=== PATIENT | female | born 1970 | race Caucasian/White ===

== ENCOUNTER 2019-07-29 08:40 | Outpatient (CLI) | payer OTHER, SELFPAY ==
--- NOTE | ~2019-07-29 | MR_ITS ---
EXAMINATION: MR knee LT wo con DATE: 07/29/2019 09:49 INDICATION: Left knee pain TECHNIQUE: Magnetic resonance imaging (MRI) of the left knee was performed without intravenous contra st. Sequences included coronal PD-weighted FSE, coronal PD-weighted FS FSE, sagittal T2-weighted FSE , sagittal PD-weighted FS FSE and axial PD weighted fat saturated FSE. COMPARISON: None. FINDINGS: Medial compartment: Longitudinal tear extending to contact the inferior articular surface at the body and posterior horn of the medial meniscus. Posterior horn appears small but without evident displaced meniscal flap whic h could be related to chronic degeneration or change of prior partial meniscectomy. Correlate with clemons rgical history. Extensive full/near full-thickness cartilage loss along the anterior and medial two t hirds of the medial tibial plateau as well as along the anterior to central weightbearing medial femo ral condyle. Is underlying lobe signal intensity likely eburnation along the articular cortices with minimal scattered subarticular edema. Small marginal osteophytes are present. Lateral compartment: Additional full/near full-thickness cartilage loss at the medial side of the lateral tibial plateau a long the shoulder the intercondylar eminence with mild underlying subarticular edema. Deep chondral u lceration at the juxtaposed anterior weightbearing lateral femoral condyle which articulates with the apex of the lateral intercondylar tubercle due to mild lateral subluxation of the tibia with respect to the femur. Less severe partial thickness cartilage loss with chondral surface regularity along th e remainder of the lateral tibial plateau and anterior to central weightbearing lateral femoral condy le. Small marginal osteophytes are present. Patellofemoral compartment: Partial-thickness chondral fissuring which appears to involve less than 50% the cartilage thickness a t the patellar apical ridge and medial and lateral patellar facets. /Near full-thickness chondral ulc eration with mild irregularity to the articular cortex at the caudal aspect of the medial trochlea an d trochlear groove. Deep chondral fissuring with small region of mild subarticular edema at the cauda l aspect of the lateral trochlea. Ligaments and tendons: The anterior cruciate ligament demonstrates a normal angle relative to Blumenstaat's line. It appears thickened with increased intrasubstance signal surrounding intact appearing linear fibers with a ce lery stalk appearance consistent with mucoid degeneration without discrete tear. There is thickening and mild increased signal of the vertical portion of the posterior cruciate ligament consistent with at least mild partial tear without a discernible tendon discontinuity. The medial collateral ligamen t and fibular collateral ligament complex are normal. The extensor mechanism is normal. The visualize d medial and lateral hamstring tendons as well as the iliotibial band are normal. Fluid: Moderate-sized left knee joint effusion with mild synovitis at the suprapatellar pouch. Cluster of at least 4 small loose osteochondral bodies at the recess anterior to the lateral compartment, the larg est measuring up to 5-6 mm in maximal diameter. Synovitis and additional small loose osteochondral mechelle dy within a moderate-sized Ramirez's cyst size of a superficial component measuring 3.6 x 1.1 x 1.0 cm and a deeper component measuring 2.8 x 0.5 x 1.3 cm. Osseous/other: Approximately 5 mm lateral subluxation of the tibia with respect to the distal femur. Minimal lateral subluxation of the patella. No fracture or pathologic marrow replacing process. IMPRESSION: 1. Longitudinal tear of the body and posterior horn of the medial meniscus. The posterior horn appear s smaller than typical suggesting either chronic degeneration, displacement and secondary degeneratio n of a meniscal flap or pot
--- NOTE | ~2019-07-29 | MR_ITS ---
EXAMINATION: MR knee RT wo con DATE: 07/29/2019 09:49 INDICATION: Right knee pain TECHNIQUE: Magnetic resonance imaging (MRI) of the right knee was performed without intravenous contr ast. Sequences included coronal PD-weighted FSE, coronal PD-weighted FS FSE, sagittal T2-weighted FS E, sagittal PD-weighted FS FSE and axial PD weighted fat saturated FSE. COMPARISON: Right knee radiographs dated 01/17/2019 FINDINGS: Medial compartment: Posterior horn of the medial meniscus is small suggesting either chronic tear and subsequent degenera tion or displacement of meniscal tissue or change of prior partial meniscectomy. There is complex tea r of the body and small remaining posterior horn of the medial meniscus. Extensive full/near full-thi ckness cartilage loss with subarticular eburnation and mild edema along the anteromedial two thirds o f the medial tibial plateau and medial 3 4 since the anterior to central weightbearing medial femoral condyle. Less severe cartilage loss with chondral surface regularity at the remainder of the medial tibial plateau and weightbearing medial femoral condyle. Marginal osteophytes are present. Lateral compartment: There is increased signal contacting the inferior articular surface near the free edge of the body of the lateral meniscus and posterior horn which could represent a longitudinal tear/tears versus frayi ng along the free edge. Additional full/near full-thickness cartilage loss at the medial side of the lateral tibial plateau along the shoulder the intercondylar eminence with mild underlying subarticula r edema. Deep chondral ulceration at the juxtaposed medial side of the anterior weightbearing lateral femoral condyle which articulates with the apex of the lateral intercondylar tubercle due to mild la teral subluxation of the tibia with respect to the femur. Less severe partial thickness cartilage los s with chondral surface irregularity along the additional portions of the central to posterior weight bearing lateral femoral condyle. Small marginal osteophytes are present. Patellofemoral compartment: Small region of full/near full-thickness chondral ulceration with underlying subarticular edema along the inferior aspect of the lateral patellar facet. Additional partial thickness cartilage loss with deep fissuring along significant portions of the remainder of the lateral facet and patellar apical r idge and medial margin of the medial facet. Large region of full/near full-thickness chondral ulcerat ion with regularity at of the articular cortex and scattered subarticular edema and developing cystic change along the caudal half of the lateral trochlea prominent central subchondral osteophyte at the site of likely deep chondral ulceration at the caudal aspect of the medial trochlea. Ligaments and tendons: The anterior cruciate ligament demonstrates a normal angle relative to Blumenstaat's line. It appears thickened with increased intrasubstance signal surrounding intact appearing linear fibers with a ce lery stalk appearance consistent with mucoid degeneration without discrete tear. Posterior cruciate ligament is normal. The medial collateral ligament and fibular collateral ligament complex are normal . The extensor mechanism is normal. The visualized medial and lateral hamstring tendons as well as th e iliotibial band are normal. Fluid: Moderate-sized knee joint effusion and moderate-sized Ramirez's cyst, both with small amount of synovit is. And by 5 mm loose osteochondral body within the Ramirez's cyst. Osseous/other: Approximately 5 mm lateral subluxation of the tibia with respect to the distal femur. Minimal lateral patellar subluxation. No fracture or pathologic marrow replacing process. IMPRESSION: 1. Complex medial meniscal tear with small posterior horn which could represent sequela chronic tear and secondary degeneration or change of prior
== END 2019-07-29 08:41 | disposition home or self-care (01) ==
PROVIDERS: PCP Physician Assistant; Visit Provider Pain Medicine Interventional Pain Medicine
DX: M25.569 Pain in unspecified knee (principal); S83.231A Complex tear of medial meniscus, current injury, right knee, initial encounter; M94.261 Chondromalacia, right knee; M25.461 Effusion, right knee; M71.21 Synovial cyst of popliteal space [Baker], right knee; S83.242A Other tear of medial meniscus, current injury, left knee, initial encounter; M17.0 Bilateral primary osteoarthritis of knee; M94.262 Chondromalacia, left knee; S83.522A Sprain of posterior cruciate ligament of left knee, initial encounter; M25.462 Effusion, left knee; M71.22 Synovial cyst of popliteal space [Baker], left knee; M23.42 Loose body in knee, left knee
CPT/HCPCS: 73721

== ENCOUNTER 2020-02-01 16:47 | Outpatient (CLI) | payer OTHER, SELFPAY ==
--- NOTE | ~2020-02-01 | XR_ITS ---
EXAMINATION: XR thoracic spine min 4V DATE: 02/01/2020 17:15 INDICATION: Chronic thoracic spine pain and thoracic radiculopathy. TECHNIQUE: One AP, lateral and lateral swimmer's views of the thoracic spine were obtained. COMPARISON: 12/03/2017 FINDINGS: Unchanged mild thoracic dextroscoliosis. Sagittal alignment is normal. Chronic mild anterior wedging with <20% anterior vertebral body height loss at T7, T8 and T11. Severe disc height loss at C5-C6 and C6-C7. Multilevel mild disc height loss throughout the thoracic spine. Multiple old healed posterior right rib fractures. Visualized lungs are clear. No pleural effusion or pneumothorax. Calcified AP w indow lymph nodes consistent with old granulomatous disease. IMPRESSION: 1. Mild thoracic dextro scoliosis with mild thoracic and severe lower cervical spondylosis. 2. Chronic mild compression fractures at T7, T8 and T11. Reviewed, dictated and finalized at location A.
[2020-02-01 18:05] LABS: Basophils Percent Auto 0.4 % (0.2-1.2); Eosinophils Absolute Auto 0.1 K/mm3 (0-0.3); Eosinophils Percent Auto 3.1 % (0-4.4); Hematocrit 38.4 % (37.0-47.0); Hemoglobin 12.5 g/dL (12.0-15.0); Immature Granulocyte Absolute 0.01 K/mm3 (0.00-0.031); Immature Granulocyte Percent A 0.2 % (0-0.5); Lymphocytes Percent Auto 29.1 % (18.3-44.2); Mean Corpuscular HGB Conc 32.6 g/dl (32-36); Mean Corpuscular Hemoglobin 29.8 pg (26-34); Mean Corpuscular Volume 91.6 fl (80-100); Mean Platelet Volume 10.2 fl (7.4-10.4); Monocytes Absolute Auto 0.4 K/mm3 (0.1-0.6); Monocytes Percent Auto 8.1 % (2.6-8.5); Neutrophils Absolute Auto 2.6 K/mm3 (1.3-6.7); Neutrophils Percent Auto 59.1 % (45.5-73.1); Platelet Count Result 284 k/mm3 (150-375); Red Blood Count 4.19 M/mm3 (4.2-5.4); Red Cell Distribution Width 13.2 % (11.5-14.5); White Blood Count 4.5 K/mm3 (4.5-10.0)
[2020-02-01 18:18] LABS: Hemoglobin A1C 5.3 % (<5.7)
[2020-02-01 18:19] LABS: Alanine Aminotransferase 22 U/L (4-35); Albumin Level 4.4 g/dL (3.5-5.1); Alkaline Phosphatase 98 U/L (38-126); Anion Gap 5 mmol/L (8-16); Aspartate Amino Transferase 28 U/L (14-36); Bilirubin,Total 0.2 mg/dL (0.2-1.3); Blood Urea Nitrogen 16 mg/dL (7-17); CRP 0.9 mg/dL (<1.0); Calcium 9.1 mg/dL (8.4-10.2); Carbon Dioxide 29 mmol/L (22-30); Chloride 105 mmol/L (98-107); Cholesterol 259 mg/dL (0-200); Estimated Glomerular Filt Rate 59; Glucose 92 mg/dL (65-105); HDL Direct 67 mg/dL; Potassium 4.8 mmol/L (3.4-5.0); Sodium 139 mmol/L (137-145); Triglycerides 153 mg/dL (<150); Uric Acid 4.2 mg/dL (2.5-7.5)
[2020-02-01 18:20] LABS: Rheumatoid Factor < 8.6 IU/ML (<12)
[2020-02-01 18:29] LABS: LDL Cholesterol Direct 155 mg/dL
[2020-02-01 18:38] LABS: Erythrocyte Sedimentation Rate 18 mm/hr (0-20)
[2020-02-01 18:47] LABS: Thyroid Stimulating Hormone 0.516 uIU/mL (0.465-4.680)
[2020-02-01 19:01] LABS: Free T4 Free Thyroxine 0.77 ng/mL (0.78-2.19)
[2020-02-05 22:24] LABS: Anti Streptolysin O Screen 142 IU/mL (<200)
[2020-02-06 10:20] LABS: Triiodothyronine T3 Free 2.8 pg/mL (2.3-4.2)
== END 2020-02-01 16:48 | disposition home or self-care (01) ==
PROVIDERS: PCP Physician Assistant; Referring Provider Pain Medicine Interventional Pain Medicine; Visit Provider Orthopaedic Surgery
DX: M54.14 Radiculopathy, thoracic region (principal); M41.84 Other forms of scoliosis, thoracic region; M47.812 Spondylosis without myelopathy or radiculopathy, cervical region; M48.54XA Collapsed vertebra, not elsewhere classified, thoracic region, initial encounter for fracture
CPT/HCPCS: 36415; 72074; 80048; 80061; 80076; 83036; 84439; 84443; 84481; 84550; 85025; 85652; 86038; 86039; 86060; 86140; 86430

== ENCOUNTER 2020-03-21 17:32 | Outpatient (CLI) | payer OTHER, SELFPAY ==
[2020-03-23 20:56] LABS: Amphetamines POSITIVE; Barbiturates negative; Benzodiazepines POSITIVE; Cocaine Metabolites negative; Marijuana Metabolites POSITIVE; PCP negative
== END 2020-03-21 17:33 | disposition home or self-care (01) ==
LOC: ANHLAB 17:36
PROVIDERS: PCP Physician Assistant; Visit Provider Pain Medicine Interventional Pain Medicine
DX: G89.4 Chronic pain syndrome (principal); M54.14 Radiculopathy, thoracic region; Z79.891 Long term (current) use of opiate analgesic
CPT/HCPCS: 80307

== ENCOUNTER 2020-05-09 15:02 | Outpatient (CLI) | payer OTHER, SELFPAY ==
--- NOTE | ~2020-05-09 | MM_ITS ---
EXAMINATION: MM screening lisa BI w jaime HISTORY: Screening mammogram TECHNIQUE: Craniocaudal and mediolateral oblique 3-D tomosynthesis images were obtained and synthetic 2-D images were generated. CAD analysis was submitted and interpreted. COMPARISON: 08/07/2017 bilateral digital screening mammogram BREAST PARENCHYMAL COMPOSITION: There are scattered areas of fibroglandular density. FINDINGS: There is no evidence of suspicious mass, calcification, or architectural distortion to sugg est malignancy in either breast. There has been no suspicious interval change. IMPRESSION: 1. No mammographic evidence of malignancy. 2. Recommend routine screening mammography in one year. BI-RADS Category 1: Negative Reviewed, dictated and finalized at location A. K GREASER
== END 2020-05-09 15:03 | disposition home or self-care (01) ==
LOC: ANHIMG 15:04
PROVIDERS: PCP Physician Assistant; Visit Provider Physician Assistant
DX: Z12.31 Encounter for screening mammogram for malignant neoplasm of breast (principal)
CPT/HCPCS: 77063; 77067

== ENCOUNTER 2020-06-05 05:44 | Outpatient (CLI) | payer OTHER, SELFPAY ==
[2020-06-05 07:48] LABS: Hematocrit 37.7 % (37.0-47.0); Hemoglobin 12.3 g/dL (12.0-15.0); Mean Corpuscular HGB Conc 32.6 g/dl (32-36); Mean Corpuscular Hemoglobin 29.3 pg (26-34); Mean Corpuscular Volume 89.8 fl (80-100); Platelet Count Result 328 k/mm3 (150-375); Red Cell Distribution Width 12.4 % (11.5-14.5); White Blood Count 8.2 K/mm3 (4.5-10.0)
[2020-06-05 07:56] LABS: Creatinine Urine 240.6 mg/dL; Total Protein Urine Random 9 mg/dL; Ur Ttl Prot Creatinine Ratio 0.04 mg/mg (0-0.20)
[2020-06-05 08:01] LABS: Alanine Aminotransferase 15 U/L (4-35); Albumin Level 4.5 g/dL (3.5-5.1); Alkaline Phosphatase 76 U/L (38-126); Anion Gap 5 mmol/L (8-16); Aspartate Amino Transferase 27 U/L (14-36); Bilirubin,Total 0.4 mg/dL (0.2-1.3); Blood Urea Nitrogen 19 mg/dL (7-17); CRP 0.7 mg/dL (<1.0); Calcium 9.9 mg/dL (8.4-10.2); Carbon Dioxide 36 mmol/L (22-30); Chloride 97 mmol/L (98-107); Estimated Glomerular Filt Rate 48; Glucose 90 mg/dL (65-105); Potassium 4.1 mmol/L (3.4-5.0); Sodium 138 mmol/L (137-145)
[2020-06-05 08:04] LABS: Complement C3 110 mg/dL (88-165); Rheumatoid Factor < 8.6 IU/ML (<12)
[2020-06-05 08:30] LABS: Add Urine Microscopic? YES; Appearance Urine Clear (Clear); Bilirubin Urine Negative (Negative); Blood Urine Negative (Negative); Color Urine Yellow (Yellow); Glucose Urine UA Negative (Negative); Hyaline Casts Urine 20-29 /lpf; Ketones Urine Negative (Negative); Leukocyte Esterase Ur Negative LEU/UL (NEGATIVE); Mucus Urine Rare /lpf; Nitrate Urine Negative (Negative); Protein Urine 1+ mg/dL (Negative); RBC Urine 0-2 /hpf (0-2); Squamous Epithelial Cell Urine Occasional /hpf (Few); Transitional Epi Cells Urine Rare /hpf (None Seen); Urobilinogen Urine Negative mg/dL (<2.0); WBC Urine 0-3 /hpf (0-3)
[2020-06-05 08:33] LABS: Vitamin D 25 Hydroxy 30.7 ng/mL
[2020-06-05 08:40] LABS: Specific Grav Ur 1.033 (1.001-1.035)
[2020-06-05 09:27] LABS: Erythrocyte Sedimentation Rate 26 mm/hr (0-20)
[2020-06-07 21:31] LABS: Anti Cyclic Citrullinated Pept <16 Units (<20)
[2020-06-12 23:04] LABS: SM Antibody <1.0; SM/RNP Antibody <1.0
== END 2020-06-05 05:45 | disposition home or self-care (01) ==
PROVIDERS: PCP Physician Assistant
DX: R76.8 Other specified abnormal immunological findings in serum (principal)
CPT/HCPCS: 36415; 80053; 81001; 82306; 82570; 84156; 85027; 85652; 86038; 86140; 86160; 86200; 86225; 86235; 86430

== ENCOUNTER 2020-09-11 07:19 | Outpatient (CLI) | payer OTHER, SELFPAY ==
--- NOTE | ~2020-09-11 | MR_ITS ---
EXAMINATION: MR cervical spine wo con EXAM DATE: 09/11/2020 08:27 INDICATION: Radiculopathy, cervical thoracic and lumber regions radiculopathy. Neck pain. TECHNIQUE: Multi-sequential, multiplanar MR images of the cervical spine were obtained without contra st. Axial T2, axial T2 MERGE sequence. Sagittal T1, T2, T2 fat saturation images also obtained. Com parison is made to prior examination from 08/07/2017. FINDINGS: There is 2 mm anterolisthesis C3 on C4. The vertebral bodies are otherwise aligned. Modera te to severe loss of the disc height C5-6 and 6-7, moderate at C4-5. The spinal cord signal intensity and intrinsic morphology is normal. Cervicomedullary junction is normal in appearance. There are no suspicious marrow signal abnormalities. Paraspinal soft tissue is unremarkable. Level by level evaluation: C2-C3: Disc does not extend beyond the endplate margin. Uncovertebral joint arthropathy: Mild left. Facet joint arthropathy: Mild bilateral. Neural foraminal stenosis: No stenosis. Central canal stenosis: No stenosis. C3-C4: There is a mild diffuse disc bulge. Uncovertebral joint arthropathy: Mild bilateral. Facet joint arthropathy: Mild to moderate right, mild left. Neural foraminal stenosis: Mild right. Central canal stenosis: No stenosis. C4-C5: There is a mild diffuse disc bulge. Uncovertebral joint arthropathy: Mild to moderate left, mild right. Facet joint arthropathy: Mild to moderate bilateral. Neural foraminal stenosis: Mild bilateral. Central canal stenosis: No stenosis. C5-C6: There is a mild diffuse disc bulge. Uncovertebral joint arthropathy: Moderate right, mild to moderate left. Facet joint arthropathy: Mild bilateral. Neural foraminal stenosis: Moderate right, mild left. Central canal stenosis: Mild. C6-C7: There is a mild diffuse disc bulge. Uncovertebral joint arthropathy: Mild to moderate bilateral. Facet joint arthropathy: Mild bilateral. Neural foraminal stenosis: Moderate left, mild to moderate right. Central canal stenosis: Mild. C7-T1: Disc does not extend beyond the endplate margin. Uncovertebral joint arthropathy: Mild bilateral. Facet joint arthropathy: Mild to moderate right, mild left. Neural foraminal stenosis: No stenosis. Central canal stenosis: No stenosis. Compared to 2018, mild interval progression in spondylosis. IMPRESSION: Cervical spondylosis with the C5-6 and 6-7 neural foramen most narrowed. Reviewed, dictated and finalized at location A. IMPRESSION: Cervical spondylosis with the C5-6 and 6-7 neural foramen most narr owed.
--- NOTE | ~2020-09-11 | MR_ITS ---
EXAMINATION: MR thoracic spine wo con EXAM DATE: 09/11/2020 08:28 INDICATION: Radiculopathy, cervical, thoracic and lumber regions radiculopathy. Mid back pain. TECHNIQUE: Multi-sequential, multiplanar MR images of the thoracic spine were obtained without contra st. Sagittal T1, T2, T2 fat saturation, axial T2 weighted images reviewed. There is no prior study for comparison. FINDINGS: There are small mid thoracic disc bulges and protrusions, mild loss of most mid thoracic di sc heights. There is mild diffuse thoracic facet arthropathy. At T4-5 there is mild to moderate right neural foraminal stenosis, the most narrowed level. No more than mild central canal stenosis from th e disc bulges and protrusions. There are no suspicious marrow signal abnormalities. Paraspinal soft t issue is unremarkable. IMPRESSION: Mild thoracic spondylosis. Reviewed, dictated and finalized at location A. IMPRESSION: Mild thoracic spondylosis.
--- NOTE | ~2020-09-11 | MR_ITS ---
EXAMINATION: MR lumbar spine wo con EXAM DATE: 09/11/2020 08:34 INDICATION: Radiculopathy, cervical thoracic and lumber regions radiculopathy TECHNIQUE: Multi-sequential, multiplanar MR images of the lumbar spine were obtained without contrast . Sagittal T1, T2, T2 fat saturation images. Axial T2 weighted images. Comparison is made to prior examination from 08/07/2017. FINDINGS: There is moderate to severe disc disease at L3-4, mild at L1-2 and L5-S1. There is 3 mm ant erolisthesis L3 on L4. The conus medullaris terminates at the L1/2 level and has normal signal intens ity and morphology. Minimal loss of the L3 and L4 vertebral body heights, chronic. There is a right liver lobe fluid signal intensity lesion inferiorly measuring 3.5 cm likely cyst. Paraspinal soft tis nikhil is unremarkable. Level by level evaluation: T12-L1: Disc does not extend beyond the endplate margin. Facet arthropathy: None. Neural foraminal stenosis: No stenosis. Central canal stenosis: No stenosis. L1-L2: There is a mild diffuse disc bulge. Facet arthropathy: Mild. Neural foraminal stenosis: Mild. Central canal stenosis: No stenosis. L2-L3: There is a mild diffuse disc bulge. Facet arthropathy: Mild. Neural foraminal stenosis: No stenosis. Central canal stenosis: No stenosis. L3-L4: There is a mild to moderate diffuse disc bulge. Facet arthropathy: Moderate. Small midline central canal synovial cyst. Neural foraminal stenosis: Moderate to severe left, moderate right. Central canal stenosis: Mild. L4-L5: Disc does not extend beyond the endplate margin. Facet arthropathy: Mild. Neural foraminal stenosis: Mild bilateral. Central canal stenosis: No stenosis. L5-S1: There is a mild diffuse disc bulge. Facet arthropathy: Mild. Neural foraminal stenosis: Mild right. Central canal stenosis: Mild. Mild progression in spondylosis compared to 2018. IMPRESSION: 1. L3-4 grade 1 anterolisthesis, moderate to severe disc disease and left neural foraminal stenosis. 2. Less spondylosis other levels. Reviewed, dictated and finalized at location A. IMPRESSION: 1. L3-4 grade 1 anterolisthesis, moderate to severe disc disease and left neur al foraminal stenosis. 2. Less spondylosis other levels.
== END 2020-09-11 07:20 ==
PROVIDERS: PCP Physician Assistant; Visit Provider Pain Medicine Interventional Pain Medicine
DX: M47.24 Other spondylosis with radiculopathy, thoracic region (principal); M47.22 Other spondylosis with radiculopathy, cervical region; M47.26 Other spondylosis with radiculopathy, lumbar region
CPT/HCPCS: 72141; 72146; 72148

== ENCOUNTER 2020-11-06 07:53 | Outpatient (RCR) | payer OTHER, SELFPAY ==
--- NOTE | 2020-11-06 13:13 | PTOPEVAL ---
Thank you for referring Heidi Vaca to [facility].? The patient is scheduled to be seen for therapy? 1 x/week for 5 weeks. Please review, sign, date and return this plan of care MANUELA. I agree with and certify that the following plan of care is medically necessary. 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 She had fluid drained and steroids injected into knees last week. She reports limitations with squating, walking, steps, and standing. She reports difficulty with yardwork. C/o burning pain in the knees with prolonged standing. She has tried heat with some relief. She plays softball and walks for recreational activities. Previous Treatments Previous Treatments For This Problem no Pain Assessment Self Report Pain Assessment Left Knee(s) Reported Pain Level 7 Pain Description Aching,Burning,Shooting, Tightness Pain Frequency Chronic,Continuous Lowest Pain Intensity 5 Greatest Pain Intensity 10 Pain Aggravating Factors Bending,Exercise/Activity, Lifting,Stair Climbing,Walking ,Weight Bearing/Standing Right Knee(s) Reported Pain Level 6 Pain Description Aching,Burning,Shooting, Tightness Pain Frequency Chronic,Continuous Lowest Pain Intensity 3 Greatest Pain Intensity 10 Pain Aggravating Factors Bending,Exercise/Activity, Stair Climbing,Walking,Weight Bearing/Standing Lower Extremity Range of Motion Gross Lower Extremity Range of Motion left knee ROM: 0-105 dg, Comments painful right knee ROM:0-112 dg,
--- NOTE | 2020-11-15 10:05 | PCPTNOTE ---
Patient called & cancelled scheduled appointment this date due to having to work.
--- NOTE | 2020-11-22 14:55 | PCPTNOTE ---
Patient called & cancelled scheduled appointment this date due to just getting out of the hospital from having low blood pressure. Explained to patient that we will need a note from the , clearing her for therapy.
--- NOTE | 2020-11-29 15:30 | PCPTNOTE ---
Called patient & she cancelled the rest of her scheduled appointment this date due until she see the , again.
--- NOTE | 2020-11-30 08:40 | PCPTNOTE ---
Admitting Provider: Attending Provider: Mckenna Marks, FIELD IRRIGATION WORKER- Patient:Heidi Vaca Date of :1970 Discharge Note Patient has not returned for any further treatments since 11/06/2020, due to change in medical status. Therefore she will be discharged at this time. Patient?s initial visit was on 11/06/2020 08:15 and she had a total of 1 visits. The goals have been not met at this time. Thank you for referring this patient to [facility]. Please review, sign, date and return this discharge summary MANUELA. I have been updated about the patient's current status and I agree with discharge from the above service at this time. Referring Physician Date
== END 2020-12-03 08:50 | disposition home or self-care (01) ==
LOC: ANHPT 07:53
PROVIDERS: PCP Physician Assistant; Visit Provider Nurse Practitioner Family
DX: M17.0 Bilateral primary osteoarthritis of knee (principal); M25.561 Pain in right knee; M25.562 Pain in left knee
CPT/HCPCS: 97110; 97162

== ENCOUNTER 2020-11-19 19:37 | Inpatient (IN) | payer OTHER, SELFPAY ==
--- NOTE | ~2020-11-19 | US_ITS ---
EXAMINATION: US renal BI EXAM DATE: 11/20/2020 13:09 INDICATION: Renal failure. TECHNIQUE: Multiple grayscale and Doppler images of the kidneys were obtained (by a technologist who performed the scan) and subsequently reviewed. There is no prior study for comparison. FINDINGS: Some bilateral renal cortical thinning. Right kidney: There is normal contour and echogenicity. It measures 9.9 x 5.5 x 5.5 centimeters. Th ere are no focal renal lesions identified. There is no hydronephrosis. Left kidney: There is normal contour and echogenicity. It measures 10.8 x 3.8 x 5.8 centimeters. Th ere are no focal renal lesions identified. There is no hydronephrosis. Bladder unremarkable. IMPRESSION: 1. Bilateral renal cortical thinning. No hydronephrosis. Reviewed, dictated and finalized at location A.
[2020-11-19 19:55] VITALS: BP 102/56; PULSE 92; TEMP 36.7; O2SAT 99
--- NOTE | 2020-11-19 20:13 | ECG_ITS ---
Measurements Intervals [place] Rate: 90 P: 18 NH: 122 QRS: 20 QRSD: 89 T: 8 QT: 355 QTc: 435 Interpretive Statements SINUS RHYTHM EARLY PRECORDIAL R/S TRANSITION VOLTAGE CRITERIA FOR LVH MINIMAL Q WAVES- ANTEROLAT/INF LEADS BORDERLINE T WAVE ABNORMALITY- INFERIOR LEADS BASELINE ARTIFACT- I, III, AVL, AVF, V2-V5 BORDERLINE ECG Electronically Signed On 11-19-2020 21:11:52 CDT by Bharath Olson D.O.
[2020-11-19 20:16] VITALS: BP 81/53; PULSE 89
[2020-11-19 20:18] VITALS: BP 96/52; PULSE 92
[2020-11-19 20:34] LABS: Basophils Percent Auto 0.3 % (0.2-1.2); Eosinophils Absolute Auto 0.2 K/mm3 (0-0.3); Eosinophils Percent Auto 1.6 % (0-4.4); Hematocrit 36.4 % (37.0-47.0); Hemoglobin 11.9 g/dL (12.0-15.0); Immature Granulocyte Absolute 0.03 K/mm3 (0.00-0.031); Immature Granulocyte Percent A 0.3 % (0-0.5); Lymphocytes Percent Auto 16.6 % (18.3-44.2); Mean Corpuscular HGB Conc 32.7 g/dl (32-36); Mean Corpuscular Hemoglobin 29.3 pg (26-34); Mean Corpuscular Volume 89.7 fl (80-100); Mean Platelet Volume 10.7 fl (7.4-10.4); Monocytes Absolute Auto 0.8 K/mm3 (0.1-0.6); Monocytes Percent Auto 8.5 % (2.6-8.5); Neutrophils Percent Auto 72.7 % (45.5-73.1); Platelet Count Result 298 k/mm3 (150-375); Red Blood Count 4.06 M/mm3 (4.2-5.4); Red Cell Distribution Width 13.8 % (11.5-14.5); White Blood Count 9.6 K/mm3 (4.5-10.0)
[2020-11-19] MEDS: SODIUM CHLORIDE 0.9% IV 1,000 ML 999 ML IV CONT ×2 (20:39→22:26)
[2020-11-19 20:44] LABS: Anion Gap 16 mmol/L (8-16); Blood Urea Nitrogen 48 mg/dL (7-17); Calcium 9.8 mg/dL (8.4-10.2); Carbon Dioxide 21 mmol/L (22-30); Chloride 98 mmol/L (98-107); Estimated CRCL calculation 15 ml/min; Estimated Glomerular Filt Rate 9; Glucose 89 mg/dL (65-105); Potassium 3.7 mmol/L (3.4-5.0); Sodium 135 mmol/L (137-145)
[2020-11-19 21:30] VITALS: BP 91/54; PULSE 92; RESP 16; O2SAT 98
--- NOTE | 2020-11-19 22:07 | ED.SYNCOPE ---
HPI - Syncope General Chief Complaint: Syncope Stated Complaint: reaction from contrast media Time Seen by Provider: 11/19/20 21:20 Source: patient and family Mode of arrival: wheelchair Limitations: no limitations History of Present Illness HPI narrative: 50-year-old with a history of hypertension who was brought in by family with complaints of not acting right. Patient states that she had contrast media given and the need for possible gel placement for osteoarthritis of both knees. Patient states that she [facility] the [facility] She denied any IV dye given. As per the family patient drove herself from the doctor's office upon arrival she was quite confused and was not making any sense what she was talking. She was later brought to the ER. Upon arrival her blood pressure was 81/53. Patient denies any nausea, vomiting or diarrhea. She denied any chest pain or abdominal pain. Current symptoms: none Related Data Home Medications Medication Instructions Recorded Confirmed cyclobenzaprine 10 mg tablet 10 mg PO TID 08/25/19 esomeprazole magnesium 20 mg 20 mg PO DAILY 08/25/19 capsule,delayed release lurasidone 20 mg tablet 110 mg PO DAILY 08/25/19 meloxicam 7.5 mg tablet 7.5 mg PO DAILY 08/25/19 prazosin 1 mg capsule 1 mg PO QPM 08/25/19 venlafaxine 25 mg tablet 225 mg PO DAILY 08/25/19 alprazolam 1 mg PO TID 11/19/20 lidocaine 1 patch TOPICAL DAILY 11/19/20 lisinopril 10 mg PO DAILY 11/19/20 oxycodone-acetaminophen 1 tablet PO QID 11/19/20 rosuvastatin 5 mg PO DAILY 11/19/20 Allergies Allergy/AdvReac Type Severity Reaction Status Date / Time No Known Allergies Allergy Verified 08/25/19 07:34 Review of Systems Review of Systems: All systems reviewed & are unremarkable except as noted in HPI and below Constitutional: Constitutional: Reports no additional constitutional complaints Eyes: Eyes: Reports no additional eye complaints ENT: Reports system reviewed and no additional complaints, except as documented Cardiovascular: Cardiovascular: Reports no additional cardiovascular complaints Respiratory: Respiratory: Reports no additional respiratory complaints Gastrointestinal: Gastrointestinal: Reports no additional gastrointestinal complaints Genitourinary: Genitourinary: Reports no additional female genitourinary complaints Musculoskeletal: Musculoskeletal: Reports no additional musculoskeletal complaints Neurologic: Reports system reviewed and no additional complaints, except as documented Psychiatric: Psychiatric: Reports no additional psychiatric complaints PMFSH Family History Family History Mother Hypertension Father Hypertension Grandparent Cerebrovascular accident Cancer Sibling Hypertension Social History Social History Smoking status: Current every day smoker Alcohol intake: current Additional occupation/education comments: [employer] Gender identity (if verbalized by the patient): Female Exam Narrative: Exam Narrative: GENERAL: Well-appearing, well-nourished, and in no acute distress. HEAD: Normocephalic, atraumatic. EYES: PERRLA and EOMI. ENT: Nares clear, no rhinorrhea or epistaxis. Mucous membranes moist. NECK: Supple. CHEST: Clear to auscultation. No respiratory distress. HEART: Regular rate and rhythm. No murmur heard. Normal peripheral pulses. ABDOMEN: Soft, nontender, nondistended, normal active bowel sounds. EXTREMITIES: Normal range of motion. No edema. SKIN: Warm, dry, no rash. NEURO: No focal deficits. Alert and oriented x3. PSYCH: Normal mood and affect. Course Course Emergency Course: Inform patient about her lab work. After 1 L of hydration her pressure has improved and I have started a second liter and she remained 108/70 with a heart rate of 85. I discussed with Dr. Swift and agreed to admit the cathy
[2020-11-19 22:27] VITALS: BP 101/56; PULSE 91; RESP 17; O2SAT 94
[2020-11-19] MEDS: HYDROCORTISONE SODIUM SUCCINATE 100 MG/2 ML VIAL IV PUSH (22:41)
[2020-11-19 22:42] LABS: Sodium Urine Random 19 meq/L
[2020-11-19 23:10] LABS: Cortisol Random 7.68 ug/dL
[2020-11-19 23:30] VITALS: BP 108/70; PULSE 86; RESP 17; O2SAT 97
[2020-11-20] VITALS (12 sets, daily range): BP systolic 106–121; BP diastolic 64–70; PULSE 65–92; RESP 16–18; TEMP 36.1–36.6; O2SAT 97–99; BMI 39.6
[2020-11-20] MEDS: SODIUM CHLORIDE 0.9% IV 1,000 ML 150 ML IV CONT ×2 (00:21→09:27)
[2020-11-20] MEDS: fentaNYL CITRATE INJ (*CRX) 100 MCG/2 ML VIAL 25 MCG IV PUSH (00:29)
[2020-11-20] MEDS: MORPHINE SULFATE (*CRX) 2 MG/ML INJ IV PUSH ×3 (01:41→09:06)
--- NOTE | 2020-11-20 01:59 | PC.NURSE ---
This patient, Heidi Vaca, was admitted to Medical Room 249-01. Patient/family oriented to hospital policies and general routines including ID bracelet, bed and alarms, visiting hours, pain management, procedures, bathroom and other care routines, personal items, smoking policy, room service/diet, and visiting hours. Information on how to activate the Rapid Response Team has been discussed. Patient/Family are encouraged to report perceived risks to care and to ask questions if they do not understand what they are told or what they should do.
[2020-11-20 05:47] LABS: Anion Gap 11 mmol/L (8-16); Blood Urea Nitrogen 39 mg/dL (7-17); Calcium 8.5 mg/dL (8.4-10.2); Carbon Dioxide 20 mmol/L (22-30); Chloride 106 mmol/L (98-107); Estimated CRCL calculation 23 ml/min; Estimated Glomerular Filt Rate 14; Glucose 138 mg/dL (65-105); Potassium 4.5 mmol/L (3.4-5.0); Sodium 137 mmol/L (137-145)
[2020-11-20] MEDS: ACETAMINOPHEN 325 MG TABLET 650 MG PO (06:27)
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
--- NOTE | 2020-11-20 10:00 | PC.NURSE ---
Notified patient that Adderall and Latuda are nonformulary and informed her that she could have the meds brought in from home. Patient verbalized her understanding.
[2020-11-20] MEDS: FAMOTIDINE 20 MG/2 ML VIAL IV PUSH ×2 (10:38→20:33)
[2020-11-20] MEDS: ALPRAZolam (*CRX) 0.5 MG TABLET 1 MG PO ×3 (10:39→18:46)
[2020-11-20] MEDS: CYCLOBENZAPRINE HCL 10 MG TABLET PO ×2 (10:39→15:16)
[2020-11-20] MEDS: PANTOPRAZOLE 40 MG TABLET PO (10:39)
[2020-11-20] MEDS: MELOXICAM 7.5 MG TABLET PO (10:39)
[2020-11-20] MEDS: ROSUVASTATIN 5 MG TABLET PO (10:39)
--- NOTE | 2020-11-20 12:07 | PM.IMPN ---
Progress Note: A&P Assessment and Plan (1) RATNA (acute kidney injury): Code(s): N17.9 - Acute kidney failure, unspecified Status: Acute Assessment and Plan: Pt is ARF secondary to contrast. Creat improving slowly with IV fluids. Improved to 3, continue to hydrate, renal US ordered awaiting results. Hopeful DC soon. (2) Hypotension: Qualifiers: Hypotension type: unspecified hypotension type Qualified Code(s): I95.9 - Hypotension, unspecified Code(s): I95.9 - Hypotension, unspecified Status: Acute Assessment and Plan: Improving on fluids order orthostatic Bps. (3) Degenerative arthritis of knee, bilateral: Qualifiers: Osteoarthritis type: primary Qualified Code(s): M17.0 - Bilateral primary osteoarthritis of knee Code(s): M17.0 - Bilateral primary osteoarthritis of knee Status: Acute Assessment and Plan: Pt had a procedure yesterday, pt had chronic knee and back pain can continue her medications in the hospital. Subjective Date/time seen: 11/20/20 12:07 Interval history: 50-year-old with a history of hypertension who was brought in by family with complaints of not acting right. Patient states that she had contrast media given and the need for possible gel placement for osteoarthritis of both knees. Pts creat went up to 5 now better at 3.5 after hydration. Review of Systems Review of Systems: All systems reviewed & are unremarkable except as noted in HPI and below Exam Const: General: cooperative and healthy appearing; No in distress Nutritional Appearance: overweight Orientation/consciousness: oriented to person HENMT: Head: normal to inspection Resp: Effort & Inspection: no respiratory distress Auscultation: no rhonchi and no wheezes Cardio: Rate: regular rate Rhythm: regular rhythm GI: Inspection: normal to inspection GI Palp: No abdominal tenderness, No Guarding due to palpation present (GI) and No Hepatomegaly present Auscultation: normal bowel sounds Neuro: General: oriented to person Objective Data Vital Signs Vital Signs: Vital Signs - 24 hr 11/19/20 19:55 11/19/20 20:16 11/19/20 20:18 Temperature 36.7 C Pulse Rate 92 89 92 Respiratory Rate Blood Pressure 102/56 L 81/53 L 96/52 L Pulse Oximetry 99 11/19/20 21:30 11/19/20 22:27 11/19/20 23:30 Temperature Pulse Rate 92 91 86 Respiratory Rate 16 17 17 Blood Pressure 91/54 L 101/56 L 108/70 Pulse Oximetry 98 94 97 11/20/20 00:30 11/20/20 00:55 11/20/20 01:22 Temperature 36.1 C L Pulse Rate 88 87 92 Respiratory Rate 17 16 18 Blood Pressure 115/69 115/69 121/68 Pulse Oximetry 97 97 99 11/20/20 01:47 11/20/20 04:06 11/20/20 06:00 Temperature 36.3 C L Pulse Rate 86 72 78 Respiratory Rate 16 Blood Pressure 107/66 Pulse Oximetry 98 11/20/20 08:00 Temperature Pulse Rate 79 Respiratory Rate Blood Pressure Pulse Oximetry Intake/Output Intake/Output: Intake & Output 11/17/20 11/18/20 11/19/20 11/20/20 23:59 23:59 23:59 23:59 Intake Total 1999 1510 Output Total 999 Balance 1999 510 Meds/Results Medications: Active Medications Generic Name Dose Route Start Last Admin Trade Name Freq PRN Reason Stop Dose Admin Acetaminophen 650 mg 11/19/20 23:43 11/20/20 06:27 Acetaminophen 325 Mg Tablet PO 650 mg Q4H PRN Administration Mild Pain (1-3) or Fever Alprazolam 1 mg 11/20/20 09:30 11/20/20 10:39 Alprazolam (*Crx) 0.5 Mg Tablet PO 1 mg TID ZEINA Administration Cyclobenzaprine HCl 10 mg 11/20/20 09:30 11/20/20 10:39 Cyclobenzaprine Hcl 10 Mg Tablet PO 10 mg TID ZEINA Administration Famotidine 20 mg 11/20/20 09:00 11/20/20 10:38 Famotidine 20 Mg/2 Ml Vial IV PUSH 20 mg Q12HR ZEINA Administration Sodium Chloride 1,000 mls @ 125 mls/hr 11/19/20 23:45 11/20/20 09:27 Normal Saline Iv IV CONT 150 mls/hr .Q8H ZEINA Administration Lidocaine 2 patch
[2020-11-20] MEDS: oxyCODONE HCL (*CRX) 5 MG TAB IR PO ×3 (12:27→20:32)
[2020-11-20] MEDS: oxyCODONE/ACETAMINOPHEN (*CRX) 5-325 MG TABLET 1 TABLET PO ×3 (12:27→20:33)
[2020-11-20] MEDS: VENLAFAXINE HCL XR 75 MG CAP.ER.24H 225 MG PO (12:28)
[2020-11-20] MEDS: SODIUM CHLORIDE 0.9% IV 1,000 ML 125 ML IV CONT (20:32)
[2020-11-20] MEDS: PRAZOSIN HCL 1 MG CAPSULE PO (20:33)
[2020-11-21] VITALS: PULSE 81
[2020-11-21] MEDS: SODIUM CHLORIDE 0.9% IV 1,000 ML 125 ML IV CONT (03:01)
[2020-11-21 04:00] VITALS: PULSE 73
[2020-11-21 05:18] VITALS: BP 112/50; PULSE 78; RESP 16; TEMP 36.3; O2SAT 98
[2020-11-21 05:36] LABS: Hematocrit 30.3 % (37.0-47.0); Hemoglobin 9.4 g/dL (12.0-15.0); Mean Corpuscular Hemoglobin 29.1 pg (26-34); Mean Corpuscular Volume 93.8 fl (80-100); Mean Platelet Volume 10.8 fl (7.4-10.4); Platelet Count Result 248 k/mm3 (150-375); Red Blood Count 3.23 M/mm3 (4.2-5.4); Red Cell Distribution Width 14.6 % (11.5-14.5); White Blood Count 5.2 K/mm3 (4.5-10.0)
[2020-11-21 05:47] LABS: Anion Gap 7 mmol/L (8-16); Blood Urea Nitrogen 27 mg/dL (7-17); Calcium 8.2 mg/dL (8.4-10.2); Carbon Dioxide 24 mmol/L (22-30); Chloride 114 mmol/L (98-107); Estimated CRCL calculation 52 ml/min; Estimated Glomerular Filt Rate 37; Glucose 113 mg/dL (65-105); Potassium 4.7 mmol/L (3.4-5.0); Sodium 145 mmol/L (137-145)
[2020-11-21 08:00] VITALS: PULSE 73
[2020-11-21] MEDS: oxyCODONE/ACETAMINOPHEN (*CRX) 5-325 MG TABLET 1 TABLET PO (08:36)
[2020-11-21] MEDS: ALPRAZolam (*CRX) 0.5 MG TABLET 1 MG PO (08:36)
[2020-11-21] MEDS: oxyCODONE HCL (*CRX) 5 MG TAB IR PO (08:37)
[2020-11-21] MEDS: ROSUVASTATIN 5 MG TABLET PO (08:37)
[2020-11-21] MEDS: LIDOCAINE 5% PATCH 2 PATCH TOPICAL (08:37)
[2020-11-21] MEDS: PANTOPRAZOLE 40 MG TABLET PO (08:37)
[2020-11-21] MEDS: VENLAFAXINE HCL XR 75 MG CAP.ER.24H 225 MG PO (08:37)
[2020-11-21] MEDS: FAMOTIDINE 20 MG/2 ML VIAL IV PUSH (08:37)
[2020-11-21 10:00] VITALS: BP 117/76; PULSE 83; RESP 16; TEMP 36.3; O2SAT 97; O2SAT 98
[2020-11-21] MEDS: DOCUSATE SODIUM 100 MG CAPSULE PO (10:16)
[2020-11-21 10:22] LABS: Anion Gap 7 mmol/L (8-16); Blood Urea Nitrogen 24 mg/dL (7-17); Calcium 8.4 mg/dL (8.4-10.2); Carbon Dioxide 23 mmol/L (22-30); Chloride 113 mmol/L (98-107); Estimated CRCL calculation 60 ml/min; Estimated Glomerular Filt Rate 44; Glucose 95 mg/dL (65-105); Potassium 4.4 mmol/L (3.4-5.0); Sodium 143 mmol/L (137-145)
--- NOTE | 2020-11-21 11:45 | PM.DS ---
DS: Admitting Diagnosis Admitting Diagnosis Admitting Diagnosis: Not acting right DS: Discharge Diagnosis Discharge Diagnosis (1) RATNA (acute kidney injury): Code(s): N17.9 - Acute kidney failure, unspecified Status: Acute Assessment and Plan: Pt is ARF secondary to contrast. Creat improving slowly with IV fluids. Improved to 1.3 ok to discharge renal us reviewed which was nl no stones mass or hydronephrosis (2) Hypotension: Qualifiers: Hypotension type: unspecified hypotension type Qualified Code(s): I95.9 - Hypotension, unspecified Code(s): I95.9 - Hypotension, unspecified Status: Acute Assessment and Plan: Improving on fluids BP is good . (3) Degenerative arthritis of knee, bilateral: Qualifiers: Osteoarthritis type: primary Qualified Code(s): M17.0 - Bilateral primary osteoarthritis of knee Code(s): M17.0 - Bilateral primary osteoarthritis of knee Status: Acute Assessment and Plan: Pt had a procedure yesterday, pt had chronic knee and back pain can continue her medications in the hospital. DS: Summary Hospital Course Hospital Course: 50-year-old with a history of hypertension who was brought in by family with complaints of not acting right. Patient states that she had contrast media given and the need for possible gel placement for osteoarthritis of both knees. Pts creat went up to 5 now better at 1.3 after hydration. OK for discharge pt advised to drink plenty of fluids and have follow up BMP Time Spent with Patient Time attestation: Total time spent providing and/or coordinating discharge services:4 minutes on day of discharge Exam Const: General: cooperative and healthy appearing; No in distress Nutritional Appearance: overweight Orientation/consciousness: oriented to person HENMT: Head: normal to inspection Resp: Effort & Inspection: no respiratory distress Auscultation: no rhonchi and no wheezes Cardio: Rate: regular rate Rhythm: regular rhythm GI: Inspection: normal to inspection Auscultation: normal bowel sounds Neuro: General: oriented to person DS: Data Data Completed and Pending Labs on day of discharge: Labs from last 24 hours 11/21/20 11/21/20 11/21/20 09:59 05:06 05:05 WBC 5.2 RBC 3.23 L Hgb 9.4 L Hct 30.3 L MCV 93.8 MCH 29.1 MCHC 31.0 L RDW 14.6 H Plt Count 248 MPV 10.8 H Sodium 143 145 Potassium 4.4 4.7 Chloride 113 H 114 H Carbon Dioxide 23 24 Anion Gap 7 L 7 L BUN 24 H 27 H D Creatinine 1.30 H 1.50 H D Estim Creat Clear Calc 60 52 Estimated GFR 44 L 37 L Glucose 95 113 H Calcium 8.4 8.2 L Discharge Plan Discharge Attending physician on discharge: Cathreine Ernandez Consulting providers: Drew Crowder Discharging Clinician: Catherine Ernandez Anticipated Discharge Date/Time: 11/21/20 11:42 Patient Disposition: Home, Self-Care Activity: as tolerated Diet: heart healthy Discharge Instructions: Drink plenty of fluids Patient Instructions: Antibiotic Form Stand Alone Forms: General Discharge Information Follow-up/Referrals: Robbie,LUPILLO Bowen [Primary Care Provider] - (rpt BMP in 2-4 weeks time ) Discharge Medications: Continued venlafaxine 25 mg tablet 225 mg PO DAILY RF: 0 meloxicam 7.5 mg tablet 7.5 mg PO DAILY RF: 0 Latuda 20 mg tablet 110 mg PO HS RF: 0 prazosin 1 mg capsule 1 mg PO QPM RF: 0 esomeprazole magnesium [Nexium] 20 mg capsule,delayed release(DR/EC) 20 mg PO DAILY RF: 0 alprazolam 1 mg tablet 1 mg PO TID RF: 0 oxycodone-acetaminophen 10-325 mg tablet 1 tablet PO QID RF: 0 lisinopril 10 mg tablet 10 mg PO DAILY RF: 0 lidocaine 5 % adhesive patch,medicated 1 patch topical DAILY RF: 0 rosuvastatin 5 mg tablet 5 mg PO DAILY RF: 0 dextroamphetamine-amphetamine [Adderall] 10 mg Tablet 10 mg P
--- NOTE | 2020-11-21 15:18 | PM.IMHP ---
H&P: HPI History of Present Illness Date/Time: HISTORY AND PHYSICAL FOR 11/20/2020 50-year-old with a history of hypertension who was brought in by family with complaints of not acting right. Patient states that she had contrast media given and the need for possible gel placement for osteoarthritis of both knees. Pts creat went up to 5 now better at 3.5 after hydration. Chief Complaint: Feeling funny Review of Systems Review of Systems: All systems reviewed & are unremarkable except as noted in HPI and below PMFSH Family History Family History Mother Hypertension Father Hypertension Grandparent Cerebrovascular accident Cancer Sibling Hypertension Social History Social History Smoking packs per day: 0.5 Smoking cigarettes per day: 10.0 Years smoked: 15 Smoking pack-years: 7.50 Smoking status: Former smoker Alcohol intake: current Drinks per week: 8 Substance use: current Substance use type: marijuana Additional occupation/education comments: [employer] Gender identity (if verbalized by the patient): Female Spiritual care concerns: No Meds Home Medications and Allergies Home Medications Medication Instructions Recorded Confirmed Type esomeprazole magnesium 20 mg 20 mg PO DAILY 08/25/19 11/20/20 History capsule,delayed release lurasidone 20 mg tablet 110 mg PO HS 08/25/19 11/20/20 History meloxicam 7.5 mg tablet 7.5 mg PO DAILY 08/25/19 11/20/20 History prazosin 1 mg capsule 1 mg PO QPM 08/25/19 11/20/20 History venlafaxine 25 mg tablet 225 mg PO DAILY 08/25/19 11/20/20 History alprazolam 1 mg PO TID 11/19/20 11/20/20 History lidocaine 1 patch TOPICAL DAILY 11/19/20 11/20/20 History lisinopril 10 mg PO DAILY 11/19/20 11/20/20 History oxycodone-acetaminophen 1 tablet PO QID 11/19/20 11/20/20 History rosuvastatin 5 mg PO DAILY 11/19/20 11/20/20 History dextroamphetamine-amphetamine 10 mg PO TID 11/20/20 11/20/20 History [Adderall] cyclobenzaprine 10 mg PO TID PRN #30 tablet 11/21/20 11/20/20 Rx Allergies Allergy/AdvReac Type Severity Reaction Status Date / Time No Known Allergies Allergy Verified 08/25/19 07:34 Vital Signs Vital Signs - 24 hr 11/20/20 16:00 11/20/20 20:00 11/20/20 21:28 Temperature 36.6 C Pulse Rate 75 87 89 Respiratory Rate 16 Blood Pressure 106/70 Pulse Oximetry 97 11/21/20 00:00 11/21/20 04:00 11/21/20 05:18 Temperature 36.3 C L Pulse Rate 81 73 78 Respiratory Rate 16 Blood Pressure 112/50 L Pulse Oximetry 98 11/21/20 08:00 11/21/20 10:00 Temperature 36.3 C L Pulse Rate 73 83 Respiratory Rate 16 Blood Pressure 117/76 Pulse Oximetry 97 Exam Const: General: cooperative and healthy appearing; No in distress Nutritional Appearance: overweight Orientation/consciousness: oriented to person HENMT: Head: normal to inspection Resp: Effort & Inspection: no respiratory distress Auscultation: no rhonchi and no wheezes Cardio: Rate: regular rate Rhythm: regular rhythm GI: Inspection: normal to inspection Auscultation: normal bowel sounds Neuro: General: oriented to person H&P: Results Labs Labs: Short CBC 11/21/20 Range/Units 05:06 WBC 5.2 (4.5-10.0) K/mm3 Hgb 9.4 L (12.0-15.0) g/dL Hct 30.3 L (37.0-47.0) % Plt Count 248 (150-375) k/mm3 [facility] 11/21/20 11/21/20 05:05 09:59 Sodium 145 143 Potassium 4.7 4.4 Chloride 114 H 113 H Carbon Dioxide 24 23 BUN 27 H D 24 H Creatinine 1.50 H D 1.30 H Glucose 113 H 95 Calcium 8.2 L 8.4 Assessment and Plan Assessment and plan (1) RATNA (acute kidney injury): Code(s): N17.9 - Acute kidney failure, unspecified Status: Acute Assessment and Plan: Pt is ARF secondary to contrast. Creat improving slowly with IV fluids. Improved to 3, continue to hydrate, renal US ordere
== END 2020-11-21 12:29 | disposition home or self-care (01) | DRG 684 ==
LOC: ANHED 23:52 → ANH2MED 11-21 11:45
PROVIDERS: Emergency Medicine; Admitting Provider Internal Medicine; Emergency Provider Family Medicine; PCP Physician Assistant; Visit Provider Family Medicine
DX: N17.9 Acute kidney failure, unspecified (principal); T50.8X5A Adverse effect of diagnostic agents, initial encounter; I95.9 Hypotension, unspecified; M17.0 Bilateral primary osteoarthritis of knee; F17.210 Nicotine dependence, cigarettes, uncomplicated; Z79.899 Other long term (current) drug therapy
CPT/HCPCS: 36415; 76775; 80048; 82533; 84300; 85025; 85027; 93005; 96361; 96374; 99285; A9270; J1720; J2270; J3010; J7030

== ENCOUNTER 2020-11-22 17:15 | Emergency (ER) | payer OTHER, SELFPAY ==
[2020-11-22 17:42] VITALS: BP 150/110; PULSE 93; RESP 16; TEMP 36.2; O2SAT 96
--- NOTE | 2020-11-22 17:47 | ECG_ITS ---
Measurements Intervals [place] Rate: 70 P: 18 AL: 142 QRS: 21 QRSD: 94 T: 18 QT: 386 QTc: 418 Interpretive Statements SINUS RHYTHM CONSIDER INFERIOR INFARCT, AGE INDETERMINATE ABNORMAL ECG Electronically Signed On 11-22-2020 19:54:11 CDT by Bharath Olson D.O.
[2020-11-22 18:20] LABS: Basophils Percent Auto 0.5 % (0.2-1.2); Eosinophils Absolute Auto 0.1 K/mm3 (0-0.3); Eosinophils Percent Auto 1.6 % (0-4.4); Hematocrit 33.6 % (37.0-47.0); Hemoglobin 10.6 g/dL (12.0-15.0); Immature Granulocyte Absolute 0.02 K/mm3 (0.00-0.031); Immature Granulocyte Percent A 0.3 % (0-0.5); Lymphocytes Absolute Auto 1.11 K/mm3 (0.9-3.2); Lymphocytes Percent Auto 17.6 % (18.3-44.2); Mean Corpuscular HGB Conc 31.5 g/dl (32-36); Mean Corpuscular Hemoglobin 28.6 pg (26-34); Mean Corpuscular Volume 90.6 fl (80-100); Mean Platelet Volume 10.4 fl (7.4-10.4); Monocytes Absolute Auto 0.4 K/mm3 (0.1-0.6); Monocytes Percent Auto 5.7 % (2.6-8.5); Neutrophils Absolute Auto 4.7 K/mm3 (1.3-6.7); Neutrophils Percent Auto 74.3 % (45.5-73.1); Platelet Count Result 295 k/mm3 (150-375); Red Blood Count 3.71 M/mm3 (4.2-5.4); Red Cell Distribution Width 13.2 % (11.5-14.5); White Blood Count 6.3 K/mm3 (4.5-10.0)
[2020-11-22 18:27] LABS: Anion Gap 6 mmol/L (8-16); Blood Urea Nitrogen 16 mg/dL (7-17); Calcium 9.2 mg/dL (8.4-10.2); Carbon Dioxide 28 mmol/L (22-30); Chloride 107 mmol/L (98-107); Estimated CRCL calculation 84 ml/min; Estimated Glomerular Filt Rate > 60; Glucose 172 mg/dL (65-105); Potassium 4.5 mmol/L (3.4-5.0); Sodium 141 mmol/L (137-145)
[2020-11-22 18:54] VITALS: BP 152/104; PULSE 72; RESP 16; O2SAT 100
[2020-11-22] MEDS: cloNIDine HCL 0.1 MG TABLET PO (19:42)
[2020-11-22 20:37] VITALS: BP 159/81; PULSE 75; RESP 19; O2SAT 98
[2020-11-22] MEDS: MORPHINE SULFATE (*CRX) 4 MG/ML INJ IV PUSH (20:38)
[2020-11-22] MEDS: ONDANSETRON INJ 4 MG/2 ML VIAL IV PUSH (20:39)
--- NOTE | 2020-11-22 22:03 | ED.GENADULT ---
HPI - General Adult General Chief complaint: Recheck/Abnormal Lab/Rx Stated complaint: hi blood pressure Time Seen by Provider: 11/22/20 19:19 Source: patient and family Mode of arrival: ambulatory Limitations: no limitations History of Present Illness HPI narrative: 50-year-old with a history of hypertension, RATNA, degenerative joint disease here with complaints of having headache and wants reevaluation of her lab work. Patient was just discharged from the hospital with history of RANTA. She states that since morning she has been having high blood pressure associated with headache and mild shortness of breath. She denies any blurred vision or chest pain. Onset (ago): day(s) (1) Location: head Radiation: non-radiation Severity: moderate Quality: aching Pain Consistency: constant Relieving factors: none Exacerbating factors: none Associated symptoms: denies other symptoms Related Data Home Medications Medication Instructions Recorded Confirmed esomeprazole magnesium 20 mg 20 mg PO DAILY 08/25/19 11/20/20 capsule,delayed release lurasidone 20 mg tablet 110 mg PO HS 08/25/19 11/20/20 meloxicam 7.5 mg tablet 7.5 mg PO DAILY 08/25/19 11/20/20 prazosin 1 mg capsule 1 mg PO QPM 08/25/19 11/20/20 venlafaxine 25 mg tablet 225 mg PO DAILY 08/25/19 11/20/20 alprazolam 1 mg PO TID 11/19/20 11/20/20 lidocaine 1 patch TOPICAL DAILY 11/19/20 11/20/20 lisinopril 10 mg PO DAILY 11/19/20 11/20/20 oxycodone-acetaminophen 1 tablet PO QID 11/19/20 11/20/20 rosuvastatin 5 mg PO DAILY 11/19/20 11/20/20 dextroamphetamine-amphetamine 10 mg PO TID 11/20/20 11/20/20 [Adderall] Allergies Allergy/AdvReac Type Severity Reaction Status Date / Time No Known Allergies Allergy Verified 08/25/19 07:34 Review of Systems Review of Systems: All systems reviewed & are unremarkable except as noted in HPI and below Constitutional: Constitutional: Reports no additional constitutional complaints Eyes: Eyes: Reports no additional eye complaints Cardiovascular: Cardiovascular: Reports no additional cardiovascular complaints Respiratory: Respiratory: Reports no additional respiratory complaints Gastrointestinal: Gastrointestinal: Reports no additional gastrointestinal complaints Musculoskeletal: Musculoskeletal: Reports no additional musculoskeletal complaints Neurologic: Reports system reviewed and no additional complaints, except as documented PMFSH Family History Family History Mother Hypertension Father Hypertension Grandparent Cerebrovascular accident Cancer Sibling Hypertension Social History Social History Smoking packs per day: 0.5 Smoking cigarettes per day: 10.0 Years smoked: 15 Smoking pack-years: 7.50 Smoking status: Former smoker Alcohol intake: current Drinks per week: 8 Substance use: current Substance use type: marijuana Additional occupation/education comments: [employer] Gender identity (if verbalized by the patient): Female Spiritual care concerns: No Exam Narrative: Exam Narrative: GENERAL: Well-appearing, well-nourished, and in no acute distress. HEAD: Normocephalic, atraumatic. EYES: PERRLA and EOMI. ENT: Nares clear, no rhinorrhea or epistaxis. Mucous membranes moist. NECK: Supple. CHEST: Clear to auscultation. No respiratory distress. HEART: Regular rate and rhythm. No murmur heard. Normal peripheral pulses. ABDOMEN: Soft, nontender, nondistended, normal active bowel sounds. EXTREMITIES: Normal range of motion. No edema. SKIN: Warm, dry, no rash. NEURO: No focal deficits. Alert and oriented x3. PSYCH: Normal mood and affect. Course Course Emergency Course: Patient was given morphine and Zofran and 0.1 mg of clonidine which brought her pressure down to 150/81. Patient was also informed about her lab work. Advised to start taking Norvasc 5 mg daily. And
[2020-11-22 22:25] VITALS: BP 146/98; PULSE 74; RESP 19; O2SAT 100
== END 2020-11-22 22:27 | disposition home or self-care (01) ==
PROVIDERS: Emergency Provider Family Medicine; PCP Physician Assistant
DX: R51.9 Headache, unspecified (principal); I10 Essential (primary) hypertension; Z87.891 Personal history of nicotine dependence; R94.31 Abnormal electrocardiogram [ECG] [EKG]
CPT/HCPCS: 36415; 80048; 85025; 93005; 96374; 96375; 99284; A9270; J2270; J2405

== ENCOUNTER 2020-11-23 11:57 | Inpatient (IN) | payer OTHER, SELFPAY ==
[2020-11-23] VITALS (16 sets, daily range): BP systolic 144–202; BP diastolic 90–138; PULSE 67–87; RESP 9–26; TEMP 36.1–36.3; O2SAT 93–97; BMI 39.7
--- NOTE | ~2020-11-23 | XR_ITS ---
EXAMINATION: XR chest 2V DATE: 11/24/2020 14:18 INDICATION: Volume overload TECHNIQUE: PA and lateral views of the chest were obtained. COMPARISON: Chest radiograph and CT dated 11/23/2020 FINDINGS: Decrease in size of a now very small right pleural effusion seen at the posterior sulcus on the later al projection and resolution of prior left pleural effusion. Significant decrease in now minimal pulm onary edema with mild peribronchial cuffing at the carl. No pneumothorax. Mild cardiomegaly. Calcifie d left hilar and mediastinal lymph nodes consistent with old granulomatous disease.. Mild thoracic ky phosis with moderate spondylosis. Multiple old healed right rib fractures. IMPRESSION: 1. Mild cardiomegaly with improvement in now minimal pulmonary edema. 2. Decrease in size of a now very small right pleural effusion and resolution of prior left pleural e ffusion. Reviewed, dictated and finalized at location A. IMPRESSION: 1. Mild cardiomegaly with improvement in now minimal pulmonary edema. 2. Decrease in size of a now very small right pleural effusion and resolution o f prior left pleural effusion.
--- NOTE | ~2020-11-23 | XR_ITS ---
EXAMINATION: XR chest 1V portable DATE: 11/23/2020 14:24 INDICATION: Shortness of breath. TECHNIQUE: A single frontal view of the chest was obtained. COMPARISON: Chest single view 03/28/2015 FINDINGS: There are mild airspace opacities in right midlung zone. No pleural effusion or pneumothora x. The heart size is normal. There are multiple old healed right rib fractures. IMPRESSION: 1. Mild airspace opacities in right midlung zone, consistent with atelectasis versus pneumonia. Reviewed, dictated and finalized at location A. IMPRESSION: 1. Mild airspace opacities in right midlung zone, consistent with atelectasis v ersus pneumonia.
--- NOTE | ~2020-11-23 | CT_ITS ---
EXAMINATION: CT brain wo con DATE: 11/23/2020 14:03 INDICATION: Headache. TECHNIQUE: Computed tomography (CT) of the head was performed without intravenous contrast. The mA wa s adjusted according to patient size. Iterative reconstruction technique was employed. The dose-lengt h product was 605.33 mGy-cm. COMPARISON: Head CT 09/20/2017 FINDINGS: There is no intracranial hemorrhage, acute infarction, or abnormal intracranial mass lesion . The ventricles are normal in size. There is mild mucosal thickening in the paranasal sinuses. The o rbits are normal. The mastoid air cells are normal. IMPRESSION: 1. Normal brain. Reviewed, dictated and finalized at location A. IMPRESSION: 1. Normal brain.
--- NOTE | ~2020-11-23 | CT_ITS ---
EXAMINATION: CTA chest PE protocol DATE: 11/23/2020 16:14 INDICATION: Shortness of breath. TECHNIQUE: Computed tomography angiography (CTA) of the chest was performed with 200 mL Omnipaque-350 intravenous contrast timed to evaluate the pulmonary arteries. Coronal maximum intensity projection 3D-reconstructions were created by the technologist. Automated exposure control and iterative reconst ruction technique were employed. The dose-length product was 1717.55 mGy-cm. COMPARISON: None. FINDINGS: There are small pleural effusions. There is peripheral rounded atelectasis in right lower l obe. The lungs demonstrate diffuse smooth septal thickening and scattered groundglass opacities. Ther e are centrilobular nodules in the upper lobes, right middle lobe, and right lower lobe. A calcified left lung nodule and calcified left hilar and mediastinal lymph nodes are consistent with old granulo matous disease. Cardiomegaly is noted. No pericardial effusion. There is no pulmonary embolus. There are multiple old healed right rib fractures. There is severe cervical spondylosis and moderate thorac ic spondylosis. IMPRESSION: 1. No pulmonary embolus. 2. Diffuse lung disease, consistent with moderate pulmonary edema without or with mild superimposed p neumonia. 3. Small pleural effusions. 4. Cardiomegaly. Reviewed, dictated and finalized at location A. IMPRESSION: 1. No pulmonary embolus. 2. Diffuse lung disease, consistent with moderate pulmonary edema without or wi th mild superimposed pneumonia. 3. Small pleural effusions. 4. Cardiomegaly.
--- NOTE | 2020-11-23 13:30 | ECG_ITS ---
Measurements Intervals [place] Rate: 74 P: 25 OR: 136 QRS: 18 QRSD: 102 T: 12 QT: 393 QTc: 437 Interpretive Statements SINUS RHYTHM BASELINE ARTIFACT- I, II, III, AVR, AVL, AVF NORMAL ECG Electronically Signed On 11-24-2020 11:53:26 CDT by Bharath Olson D.O.
--- NOTE | 2020-11-23 13:42 | ED.GENADULT ---
HPI - General Adult General Chief complaint: Recheck/Abnormal Lab/Rx Stated complaint: high blood pressure Time Seen by Provider: 11/23/20 13:13 Source: patient and family Limitations: no limitations History of Present Illness HPI narrative: Patient is 50 years old white female morbidly obese brought to the emergency room by her daughter because of diffuse headache like a band around the head, elevated blood pressure and shortness of breath. Patient had history of similar headaches and was diagnosed of tension headache. Patient been having shortness of breath off and on for 1 week. History of blood pressure on lisinopril 20 mg once a day. Blood pressure on arrival to the emergency room was 144/102, when I went see the patient in the room was 175/115. Patient reports too much stress lately. History of depression, bipolar, chronic back pain, acute kidney injury recently, hypertension, hyperlipidemia. Currently patient on venlafaxine, alprazolam, Flexeril and lurasidone. Patient denies any fever, chills, nausea, vomiting, chest pain. Patient been vaccinated for COVID-19 weeks ago Related Data Home Medications Medication Instructions Recorded Confirmed esomeprazole magnesium 20 mg 20 mg PO DAILY 08/25/19 11/20/20 capsule,delayed release lurasidone 20 mg tablet 110 mg PO HS 08/25/19 11/20/20 meloxicam 7.5 mg tablet 7.5 mg PO DAILY 08/25/19 11/20/20 prazosin 1 mg capsule 1 mg PO QPM 08/25/19 11/20/20 venlafaxine 25 mg tablet 225 mg PO DAILY 08/25/19 11/20/20 alprazolam 1 mg PO TID 11/19/20 11/20/20 lidocaine 1 patch TOPICAL DAILY 11/19/20 11/20/20 lisinopril 10 mg PO DAILY 11/19/20 11/20/20 oxycodone-acetaminophen 1 tablet PO QID 11/19/20 11/20/20 rosuvastatin 5 mg PO DAILY 11/19/20 11/20/20 dextroamphetamine-amphetamine 10 mg PO TID 11/20/20 11/20/20 [Adderall] Allergies Allergy/AdvReac Type Severity Reaction Status Date / Time No Known Allergies Allergy Verified 08/25/19 07:34 Review of Systems Review of Systems: Narrative: CONSTITUTIONAL: Denies fever, chills, or sweats. EYES: Denies visual changes, redness, or discharge. ENT: Denies rhinorrhea, congestion, sore throat, or otalgia. CARDIOVASCULAR: Denies chest pain, palpitations, or edema. RESPIRATORY: Denies cough or dyspnea. GASTROINTESTINAL: Denies abdominal pain, nausea, vomiting, or diarrhea. GENITOURINARY: Denies dysuria or hematuria. SKIN: Denies rash or itching. MUSCULOSKELETAL: Denies back pain, joint pain, or myalgia. NEUROLOGIC: Denies headache, numbness, or weakness. PSYCHIATRIC: Depression, stress PMFSH Family History Family History Mother Hypertension Father Hypertension Grandparent Cerebrovascular accident Cancer Sibling Hypertension Social History Social History Smoking packs per day: 0.5 Smoking cigarettes per day: 10.0 Years smoked: 15 Smoking pack-years: 7.50 Smoking status: Former smoker Alcohol intake: current Drinks per week: 8 Substance use: current Substance use type: marijuana Additional occupation/education comments: [employer] Gender identity (if verbalized by the patient): Female Spiritual care concerns: No Exam Narrative: Exam Narrative: General appearance: Well-developed, well-nourished Skin: Normal color Head: Normocephalic, nontraumatic Eyes: Clear conjunctiva ENT: Oropharynx normal, ears normal, nose normal Neck: Supple, nontender Chest and respiratory: Airway patent, no respiratory distress, no accessory muscle use Heart: Regular rate/rhythm Abdomen: Soft, nontender, no organomegaly, quiet bowel sounds Vascular: Normal peripheral pulses, normal capillary refill. Musculoskeletal: Normal range of motion, nontender back Neurologic: Alert and oriented ?3, [employer] is normal as tested, no gross motor deficit
[2020-11-23 13:50] LABS: Alveolar/Arterial O2 Gradient 33.6 mmHg; Base Excess ABG 2.8 mEq/l (+/-2.0); Fractional Inspired Oxygen 21 %; HCO3 ABG 27.9 mEq/l (22.0-26.0); Oxygen Content ABG 14.8 %vol (16.0-22.0); Oxygen Saturation ABG 91.9 % (95.0-100.0); Oxyhemoglobin 91.1 % THb (90.0-100.0); PCO2 ABG 45.1 mmHg (35.0-45.0); PO2 ABG 62.1 mmHg (80.0-100.0); PO2 FiO2 Ratio Arterial Blood 2.96 %; Total Hemoglobin 11.5 g/dL (12.0-18.0)
[2020-11-23 13:51] LABS: Device ROOM AIR; Site Drawn LEFT BRACHIAL
[2020-11-23] MEDS: LORazepam INJ (*CRX) 2 MG/ML VIAL 1 MG IV PUSH (14:57)
[2020-11-23] MEDS: ONDANSETRON INJ 4 MG/2 ML VIAL IV PUSH (14:57)
[2020-11-23] MEDS: MORPHINE SULFATE (*CRX) 4 MG/ML INJ IV PUSH ×2 (14:57→17:10)
[2020-11-23 15:04] LABS: Basophils Percent Auto 0.4 % (0.2-1.2); Eosinophils Absolute Auto 0.2 K/mm3 (0-0.3); Eosinophils Percent Auto 2.2 % (0-4.4); Hematocrit 33.2 % (37.0-47.0); Hemoglobin 11.1 g/dL (12.0-15.0); Immature Granulocyte Absolute 0.02 K/mm3 (0.00-0.031); Immature Granulocyte Percent A 0.3 % (0-0.5); Lymphocytes Absolute Auto 1.14 K/mm3 (0.9-3.2); Lymphocytes Percent Auto 16.8 % (18.3-44.2); Mean Corpuscular HGB Conc 33.4 g/dl (32-36); Mean Corpuscular Hemoglobin 29.1 pg (26-34); Mean Corpuscular Volume 86.9 fl (80-100); Mean Platelet Volume 10.3 fl (7.4-10.4); Monocytes Absolute Auto 0.6 K/mm3 (0.1-0.6); Monocytes Percent Auto 8.1 % (2.6-8.5); Neutrophils Absolute Auto 4.9 K/mm3 (1.3-6.7); Neutrophils Percent Auto 72.2 % (45.5-73.1); Platelet Count Result 294 k/mm3 (150-375); Red Blood Count 3.82 M/mm3 (4.2-5.4); Red Cell Distribution Width 12.8 % (11.5-14.5); White Blood Count 6.8 K/mm3 (4.5-10.0)
[2020-11-23 15:15] LABS: Prothrombin Time 14.1 Seconds (11.1-14.7)
[2020-11-23] MEDS: LABETALOL HCL INJ 100 MG/20 ML VIAL 20 MG IV PUSH ×3 (15:16→16:42)
[2020-11-23 15:18] LABS: Alanine Aminotransferase 17 U/L (4-35); Alkaline Phosphatase 98 U/L (38-126); Anion Gap 6 mmol/L (8-16); Aspartate Amino Transferase 26 U/L (14-36); Bilirubin,Total 0.3 mg/dL (0.2-1.3); Blood Urea Nitrogen 13 mg/dL (7-17); Calcium 9.5 mg/dL (8.4-10.2); Carbon Dioxide 31 mmol/L (22-30); Chloride 105 mmol/L (98-107); D Dimer 3.87 ug/mL (<0.48); Estimated CRCL calculation 94 ml/min; Estimated Glomerular Filt Rate > 60; Glucose 85 mg/dL (65-105); Potassium 4.5 mmol/L (3.4-5.0); Sodium 142 mmol/L (137-145)
[2020-11-23 15:23] LABS: Add Urine Microscopic? YES; Appearance Urine Cloudy (Clear); Bacteria Urine Trace /hpf; Bilirubin Urine Negative (Negative); Blood Urine 1+ (Negative); Color Urine Yellow (Yellow); Glucose Urine UA 1+ mg/dL (Negative); Ketones Urine Negative (Negative); Leukocyte Esterase Ur 3+ LEU/UL (Negative); Mucus Urine Rare /lpf; Nitrate Urine Negative (Negative); Protein Urine 1+ mg/dL (Negative); Specific Grav Ur 1.012 (1.001-1.035); Squamous Epithelial Cell Urine Many /hpf (Few); Urobilinogen Urine Negative mg/dL (<2.0); WBC Urine 51-75 /hpf
[2020-11-23 15:26] LABS: NT Pro B Type Natriuretic Pept 3620 pg/mL (5-100)
[2020-11-23 15:28] LABS: Troponin I < 0.012 ng/mL (0.000-0.034)
[2020-11-23 15:48] LABS: Thyroid Stimulating Hormone 0.207 uIU/mL (0.465-4.680)
[2020-11-23] MEDS: ENOXAPARIN 120 MG/0.8 ML SYRINGE 150 MG SUB-Q (17:11)
[2020-11-23] MEDS: FUROSEMIDE INJ 40 MG/4 ML VIAL 60 MG IV PUSH (18:20)
[2020-11-23] MEDS: NITROGLYCERIN OINTMENT 1 INCH DOSE TRANSDERM ×2 (18:21→20:54)
[2020-11-23 18:28] LABS: Troponin I < 0.012 ng/mL (0.000-0.034)
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
--- NOTE | 2020-11-23 20:27 | PC.NURSE ---
This patient, Heidi Vaca, was admitted to IMU Room 209-01. Patient/family oriented to hospital policies and general routines including ID bracelet, bed and alarms, visiting hours, pain management, procedures, bathroom and other care routines, personal items, smoking policy, room service/diet, and visiting hours. Information on how to activate the Rapid Response Team has been discussed. Patient/Family are encouraged to report perceived risks to care and to ask questions if they do not understand what they are told or what they should do.
[2020-11-23] MEDS: carvediloL 12.5 MG TABLET PO (20:52)
[2020-11-23 22:33] LABS: Troponin I < 0.012 ng/mL (0.000-0.034)
[2020-11-23] MEDS: oxyCODONE HCL (*CRX) 5 MG TAB IR PO (23:43)
[2020-11-23] MEDS: ROSUVASTATIN 5 MG TABLET PO (23:43)
[2020-11-23] MEDS: ALPRAZolam (*CRX) 0.5 MG TABLET 1 MG PO (23:43)
[2020-11-23] MEDS: PRAZOSIN HCL 1 MG CAPSULE PO (23:44)
[2020-11-23] MEDS: oxyCODONE/ACETAMINOPHEN (*CRX) 5-325 MG TABLET 1 TABLET PO (23:44)
[2020-11-24] VITALS (11 sets, daily range): BP systolic 117–151; BP diastolic 58–91; PULSE 63–85; RESP 16–18; TEMP 36.3–36.6; O2SAT 93–99
[2020-11-24 05:24] LABS: Hematocrit 33.2 % (37.0-47.0); Hemoglobin 10.4 g/dL (12.0-15.0); Mean Corpuscular HGB Conc 31.3 g/dl (32-36); Mean Corpuscular Hemoglobin 28.7 pg (26-34); Mean Corpuscular Volume 91.7 fl (80-100); Mean Platelet Volume 11.5 fl (7.4-10.4); Platelet Count Result 195 k/mm3 (150-375); Red Blood Count 3.62 M/mm3 (4.2-5.4); Red Cell Distribution Width 13.1 % (11.5-14.5); White Blood Count 5.1 K/mm3 (4.5-10.0)
[2020-11-24 05:48] LABS: Anion Gap 6 mmol/L (8-16); Blood Urea Nitrogen 14 mg/dL (7-17); Calcium 8.8 mg/dL (8.4-10.2); Carbon Dioxide 30 mmol/L (22-30); Chloride 104 mmol/L (98-107); Estimated CRCL calculation 77 ml/min; Estimated Glomerular Filt Rate 59; Glucose 104 mg/dL (65-105); Magnesium 1.6 mg/dL (1.6-2.3); Potassium 3.9 mmol/L (3.4-5.0); Sodium 140 mmol/L (137-145)
--- NOTE | 2020-11-24 06:00 | ECG_ITS ---
Measurements Intervals [place] Rate: 71 P: 57 MT: 140 QRS: 48 QRSD: 89 T: 40 QT: 401 QTc: 437 Interpretive Statements SINUS RHYTHM MINIMAL Q WAVES- ANTEROLAT/INF LEADS BASELINE ARTIFACT- II, III BORDERLINE ECG Electronically Signed On 11-24-2020 7:25:38 CDT by Bharath Olson D.O.
[2020-11-24 06:15] LABS: Total Triiodothyronine (T3) 0.88 NG/ML (0.97-1.69)
[2020-11-24] MEDS: ALPRAZolam (*CRX) 0.5 MG TABLET 1 MG PO ×2 (06:19→14:03)
[2020-11-24] MEDS: NITROGLYCERIN OINTMENT 1 INCH DOSE TRANSDERM ×2 (06:19→12:17)
[2020-11-24] MEDS: FUROSEMIDE INJ 40 MG/4 ML VIAL IV PUSH (06:20)
[2020-11-24 07:31] LABS: Free T4 Free Thyroxine 1.03 ng/mL (0.78-2.19)
[2020-11-24] MEDS: carvediloL 12.5 MG TABLET PO (08:54)
[2020-11-24] MEDS: PANTOPRAZOLE 40 MG TABLET PO (08:57)
[2020-11-24] MEDS: VENLAFAXINE HCL XR 75 MG CAP.ER.24H 225 MG PO (08:58)
[2020-11-24] MEDS: oxyCODONE/ACETAMINOPHEN (*CRX) 5-325 MG TABLET 1 TABLET PO ×2 (08:59→12:16)
[2020-11-24] MEDS: oxyCODONE HCL (*CRX) 5 MG TAB IR PO ×2 (08:59→12:16)
[2020-11-24] MEDS: LIDOCAINE 5% PATCH 2 PATCH TOPICAL (09:01)
[2020-11-24] MEDS: MELOXICAM 7.5 MG TABLET PO (10:37)
[2020-11-24] MEDS: lisinopriL 20 MG TABLET PO (10:38)
--- NOTE | 2020-11-24 13:49 | PM.CNCAR ---
Assessment and Plan Assessment and plan (1) Congestive heart failure: Qualifiers: Heart failure chronicity: acute Heart failure type: unspecified Qualified Code(s): I50.9 - Heart failure, unspecified Code(s): I50.9 - Heart failure, unspecified Status: Acute Assessment and Plan: this patient is not in heart failure. She received significant IV fluids recently in the setting of acute renal failure. Her elevated BNP is likely secondary to iatrogenic volume overload and marked hypertension. There is no evidence of systolic or diastolic congestive heart failure . Her furosemide Will be discontinued. I will check a PA and lateral chest x-ray now. 2D echocardiogram Doppler is ordered and will be reviewed. (2) Headache: Qualifiers: Headache chronicity pattern: unspecified pattern Headache type: unspecified Intractability: not intractable Qualified Code(s): R51.9 - Headache, unspecified Code(s): R51.9 - Headache, unspecified Status: Acute Assessment and Plan: initially likely related to caffeine withdrawal headache And then exacerbated by her severely elevated blood pressure. Currently residual headache could also be related to the nitroglycerin that we are giving her for unknown reasons. Her nitroglycerin Will be discontinued. (3) Uncontrolled hypertension: Code(s): I10 - Essential (primary) hypertension Status: Acute Assessment and Plan: under better control at this point. Agree with Carvedilol and increase in lisinopril . Her blood pressure is reasonably controlled and further up titration can be performed as an outpatient. . 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 Other recommendations: I also recommend eventual discontinuation and withdrawal of Adderall. 3 g of IV magnesium a given because of hypomagnesemia History of Present Illness History of Present Illness Consult date/time: 11/24/20 13:49 Requesting physician: Nely Calderon, PALeonelC Consult reason: congestive heart failure Reason For Visit: Acute Respiratory Failure,CHF,UTI, Uncontrolled Hy Narrative: date of service 11/24/2020 History: Patient is a 50-year-old female without known cardiac history. She has a history of high blood pressure high be hyperlipidemia GERD anxiety depression ADD on Adderall. She came to the hospital because severe headache. She was recently here because of hypotension. Her story begins by having a contrast injection of her knees. Shortly thereafter she was driving home and felt severely tired. She eventually arrived at home and was confused. Eventually she came to the hospital and was found to be severely hypotensive. She received IV fluids and kept overnight. Her creatinine was over 5. She was again hydrated for 24-48 hours. Renal function markedly improved quickly and she was discharged home 3 days ago. Whenever she got home she started developed a headache. It is important to note that the patient does drink a significant amount of caffeine. She drinks 4 5 ski soda is per day but had not had any of this type of caffeine intake for several days prior to her headache development. Two days ago that then she started developed a severe headache and she came to the emergency department and her headache was attributed to severe high blood pressure. Her blood pressure is 170/117.
[2020-11-24] MEDS: ACETAMINOPHEN/ASPIRIN/CAFFEINE 250-250-65 MG TABLET 1 TABLET PO (14:01)
[2020-11-24] MEDS: MAGNESIUM SULFATE 3GM/D5W100ML 3 GM/100 ML BAG IVPB (14:39)
--- NOTE | 2020-11-24 15:10 | PM.DS ---
DS: Admitting Diagnosis Admitting Diagnosis Admitting Diagnosis: Volume overload DS: Discharge Diagnosis Discharge Diagnosis (1) Volume overload: Code(s): E87.70 - Fluid overload, unspecified Status: Acute Assessment and Plan: Presented with SOB and elevated BNP. Initially concerns for CHF, however this was ruled out by echocardiogram and there was no evidence of systolic or diastolic CHF. She was seen in consultation by cardiology. Suspected iatrogenic volume overload due to excess IV fluids from last hospitalization 2 days prior. She did receive a dose of Lasix and she was euvolemic on my exam. (2) Uncontrolled hypertension: Code(s): I10 - Essential (primary) hypertension Status: Acute Assessment and Plan: Blood pressures elevated up to 202/138. Improved with labetalol in ED. Her lisinopril was increased to 20 mg and she was started on carvedilol 12.5 mg BID. Blood pressure improved considerably. Encouraged regular BP monitoring at home and close follow up with PCP in 1 week to review BP and adjust medication regimen as needed. (3) Acute headache: Code(s): R51.9 - Headache, unspecified Status: Acute Assessment and Plan: She presented with complaints of headache. No focal neuro deficits. Head CT negative. Suspect caffeine withdrawal headache exacerbated by high blood pressures. She typically drinks 5 caffeinated sodas daily and did not have any for several days. Headache improved with improvement in blood pressure and excedrin. Recommended decreasing caffeine use over time. (4) Abnormal urinalysis: Code(s): R82.90 - Unspecified abnormal findings in urine Status: Acute Assessment and Plan: Remained asymptomatic, therefore antibiotics not indicated. Urine culture with growth of mixed saw, suggesting contamination. (5) Low TSH level: Code(s): R79.89 - Other specified abnormal findings of blood chemistry Status: Acute Assessment and Plan: TSH low with normal T4 and low T3. Recommend PCP follow up and may benefit from repeat reflex TSH. DS: Summary Hospital Course Reason for hospitalization: Dyspnea Hospital Course: Date of admission: 11/23/2020 Date of discharge: 11/24/2020 Heidi Vaca is a 50-year-old with history hypertension, hyperlipidemia, anxiety, depression, recent hospitalization from 11/19-11/21/2020 for acute kidney injury secondary to IV contrast, and recent ER visit 1 day prior to presentation related to elevated blood pressures who presented to the emergency department on 6/11/21 with complaints of severe diffuse headache, as well as shortness of breath. Upon presentation to the emergency department, her blood pressure was elevated at 144/102, additional vital signs stable, CBC reviewed with mild anemia, additional findings within normal limits, electrolytes were stable, renal function was back to baseline with BUN 13 and creatinine 0.8, and BNP was elevated at 3620. She was admitted to the hospitalist service for further evaluation and management was seen in consultation by cardiology. Please see above for further details. Blood pressures improved with medication adjustment. She was feeling much better and her headache improved significantly. Given her overall improvement, she was determined to no longer require inpatient care and was felt to be stable for discharge. We discussed worrisome signs and symptoms for which to return and she was educated on her medications. She will monitor her blood pressure at home for the next week and follow-up with her PCP for further review. She was discharged in hemodynamically stable condition on 11/24/2020. Status at Discharge Functional status at discharge: independent ambulation Overall status at discharge: patient is progressing back to baseline Time Spent with Patient Time attestation: Total time spent providing and/or coordinating discharge services: 45 minutes
--- NOTE | 2020-11-24 22:34 | ECHO_ITS ---
Patient Info Name: Heidi Vaca Age: 50 years : 1970 Gender: Female Ht: 66 in Wt: 246 lbs BSA: 2.33 m2 HR: 68 bpm BP: 117 / 80 mmHg Heart Rhythm: Sinus Rhythm Technical Quality: Good Exam Date: 11/24/2020 8:13 AM Exam Location: [facility] Pulmonary Patient Status: Inpatient Admit Date: 11/23/2020 Staff Ordering Physician: Nely Calderon PA-C Letter Of Credit Document Examiner: Deena Newman RDCS Attending Provider: Meghan Ha PA-C Referring Physician: Yumiko HUTCHISON; Exam Type: CA echo doppler color flow Study Info Complete two-dimensional, color flow and Doppler transthoracic echocardiogram is performed. Summary 1. Complete two-dimensional, color flow and Doppler transthoracic echocardiogram is performed. 2. Left ventricular chamber dimension is normal. 3. Left ventricular systolic function is normal, estimated at 60-65%. 4. There is mildly increased left ventricular wall thickness. 5. The left ventricular diastolic function is grade I diastolic dysfunction. 6. Left atrial chamber dimension is mildly enlarged. 7. There is mild mitral valve regurgitation. 8. There is mild tricuspid valve regurgitation. Left Ventricle Left ventricular chamber dimension is normal. Left ventricular systolic function is normal, estimated at 60-65%. There is mildly increased left ventricular wall thickness. The left ventricular diastolic function is grade I diastolic dysfunction. Right Ventricle Right ventricular chamber dimension is normal. Right ventricular systolic function is normal. Left Atria Left atrial chamber dimension is mildly enlarged. Right Atria Right atrial chamber dimension is normal. Atrial Septum Intact interatrial septum visualized by color flow imaging. Aortic Valve The aortic valve is trileaflet. There is no aortic valve sclerosis. There is no aortic valve stenosis. There is trace aortic valve regurgitation. Pulmonic Valve The pulmonic valve is normal. There is no pulmonic valve stenosis. There is trace pulmonic regurgitation. Mitral Valve The mitral valve has normal leaflets. There is no mitral valve stenosis. There is mild mitral valve regurgitation. Tricuspid Valve The tricuspid valve leaflets are normal. There is no significant tricuspid valve stenosis. There is mild tricuspid valve regurgitation. No pulmonary hypertension, estimated pulmonary arterial systolic pressure is 32 mmHg. Pericardium/Pleural The pericardium appears normal. There is no pericardial effusion. Inferior Vena Cava Normal inferior vena cava with >50% collapse upon inspiration consistent with normal right atrial pressure, 5 mmHg. Aorta The aortic root size at the sinus of Valsalva is normal. Left Ventricular Outflow Tract Name Value Normal LVOT 2D LVOT Diameter 2.1 cm LVOT Doppler LVOT Peak Gradient 5 mmHg LVOT Mean Gradient 2 mmHg LVOT VTI 24 cm LVOT VTI/AV VTI Ratio 0.8 LVOT Stroke Volume 83 ml LVOT CO
== END 2020-11-24 16:00 | disposition home or self-care (01) | DRG 305 ==
LOC: ANHED 17:59 → ANHIMU 22:13
PROVIDERS: Physician Assistant; Admitting Provider Family Medicine; Emergency Provider Emergency Medicine; PCP Physician Assistant; Visit Provider Physician Assistant
DX: I10 Essential (primary) hypertension (principal); F15.23 Other stimulant dependence with withdrawal; E87.70 Fluid overload, unspecified; R51.9 Headache, unspecified; R79.89 Other specified abnormal findings of blood chemistry; R82.90 Unspecified abnormal findings in urine; E78.5 Hyperlipidemia, unspecified; F32.9 Major depressive disorder, single episode, unspecified; F41.9 Anxiety disorder, unspecified; G89.29 Other chronic pain; Z79.899 Other long term (current) drug therapy; Z87.891 Personal history of nicotine dependence
CPT/HCPCS: 36415; 36600; 70450; 71045; 71046; 71275; 80048; 80053; 81001; 82805; 83735; 83880; 84439; 84443; 84480; 84484; 85025; 85027; 85380; 85610; 85730; 87086; 87088; 93005; 93306; 94762; 96372; 96374; 96375; 96376; 99285; A9270; J0696; J1650; J1940; J2060; J2270; J2405; J3475; Q9967

== ENCOUNTER 2020-12-01 11:23 | Outpatient (CLI) | payer OTHER, SELFPAY ==
[2020-12-01 12:31] LABS: Basophils Absolute Auto 0.1 K/mm3 (0.0-0.1); Basophils Percent Auto 0.9 % (0.2-1.2); Eosinophils Absolute Auto 0.3 K/mm3 (0-0.3); Eosinophils Percent Auto 5.5 % (0-4.4); Hematocrit 38.2 % (37.0-47.0); Hemoglobin 12.2 g/dL (12.0-15.0); Immature Granulocyte Absolute 0.03 K/mm3 (0.00-0.031); Immature Granulocyte Percent A 0.6 % (0-0.5); Lymphocytes Absolute Auto 1.56 K/mm3 (0.9-3.2); Lymphocytes Percent Auto 28.8 % (18.3-44.2); Mean Corpuscular HGB Conc 31.9 g/dl (32-36); Mean Corpuscular Hemoglobin 28.2 pg (26-34); Mean Corpuscular Volume 88.4 fl (80-100); Mean Platelet Volume 9.9 fl (7.4-10.4); Monocytes Absolute Auto 0.5 K/mm3 (0.1-0.6); Monocytes Percent Auto 8.5 % (2.6-8.5); Neutrophils Percent Auto 55.7 % (45.5-73.1); Platelet Count Result 322 k/mm3 (150-375); Red Blood Count 4.32 M/mm3 (4.2-5.4); Red Cell Distribution Width 12.9 % (11.5-14.5); White Blood Count 5.4 K/mm3 (4.5-10.0)
[2020-12-01 12:42] LABS: Hemoglobin A1C 5.5 % (<5.7)
[2020-12-01 12:44] LABS: Alanine Aminotransferase 18 U/L (4-35); Albumin Level 4.3 g/dL (3.5-5.1); Alkaline Phosphatase 97 U/L (38-126); Anion Gap 8 mmol/L (8-16); Aspartate Amino Transferase 34 U/L (14-36); Bilirubin,Total 0.3 mg/dL (0.2-1.3); Blood Urea Nitrogen 24 mg/dL (7-17); Calcium 9.5 mg/dL (8.4-10.2); Carbon Dioxide 28 mmol/L (22-30); Chloride 106 mmol/L (98-107); Cholesterol 210 mg/dL (0-200); Estimated Glomerular Filt Rate 48; Glucose 106 mg/dL (65-105); HDL Direct 58 mg/dL; Potassium 4.6 mmol/L (3.4-5.0); Sodium 142 mmol/L (137-145); Triglycerides 152 mg/dL (<150)
[2020-12-01 12:55] LABS: LDL Cholesterol Direct 107 mg/dL
[2020-12-01 13:57] LABS: Free T4 Free Thyroxine 0.95 ng/mL (0.78-2.19)
[2020-12-06 05:59] LABS: Triiodothyronine T3 Free 3.2 pg/mL (2.3-4.2)
== END 2020-12-01 11:24 | disposition home or self-care (01) ==
PROVIDERS: PCP Physician Assistant; Visit Provider Physician Assistant
DX: R63.5 Abnormal weight gain (principal); Z13.1 Encounter for screening for diabetes mellitus; E78.5 Hyperlipidemia, unspecified; Z79.899 Other long term (current) drug therapy
CPT/HCPCS: 36415; 80053; 80061; 83036; 84439; 84443; 84481; 85025

== ENCOUNTER 2021-05-23 12:51 | Outpatient (CLI) | payer OTHER, SELFPAY ==
[2021-05-23 13:44] LABS: Alanine Aminotransferase 17 U/L (4-35); Albumin Level 4.4 g/dL (3.5-5.1); Alkaline Phosphatase 104 U/L (38-126); Anion Gap 9 mmol/L (8-16); Aspartate Amino Transferase 28 U/L (14-36); Basophils Percent Auto 0.6 % (0.2-1.2); Bilirubin,Total 0.4 mg/dL (0.2-1.3); Blood Urea Nitrogen 12 mg/dL (7-17); Calcium 9.3 mg/dL (8.4-10.2); Carbon Dioxide 27 mmol/L (22-30); Chloride 102 mmol/L (98-107); Cholesterol 159 mg/dL (0-200); Eosinophils Absolute Auto 0.4 K/mm3 (0-0.3); Eosinophils Percent Auto 5.4 % (0-4.4); Estimated Glomerular Filt Rate 59; Glucose 105 mg/dL (65-110); HDL Direct 59 mg/dL; Immature Granulocyte Absolute 0.02 K/mm3 (0.00-0.031); Immature Granulocyte Percent A 0.3 % (0-0.5); Lymphocytes Absolute Auto 2.69 K/mm3 (0.9-3.2); Lymphocytes Percent Auto 38.2 % (18.3-44.2); Mean Corpuscular HGB Conc 34.2 g/dl (32-36); Mean Corpuscular Hemoglobin 29.5 pg (26-34); Mean Corpuscular Volume 86.4 fl (80-100); Mean Platelet Volume 10.7 fl (7.4-10.4); Monocytes Absolute Auto 0.6 K/mm3 (0.1-0.6); Monocytes Percent Auto 8.2 % (2.6-8.5); Neutrophils Absolute Auto 3.3 K/mm3 (1.3-6.7); Neutrophils Percent Auto 47.3 % (45.5-73.1); Platelet Count Result 335 k/mm3 (150-375); Potassium 3.5 mmol/L (3.4-5.0); Red Cell Distribution Width 13.4 % (11.5-14.5); Sodium 138 mmol/L (137-145); Triglycerides 167 mg/dL (<150)
[2021-05-23 13:55] LABS: LDL Cholesterol Direct 66 mg/dL
[2021-05-23 14:04] LABS: Add Urine Microscopic? YES; Appearance Urine Cloudy (Clear); Bilirubin Urine Negative (Negative); Blood Urine Negative (Negative); Color Urine Yellow (Yellow); Glucose Urine UA Negative (Negative); Ketones Urine Negative (Negative); Leukocyte Esterase Ur 1+ LEU/UL (Negative); Mucus Urine Few /lpf; Nitrate Urine Negative (Negative); Protein Urine 2+ mg/dL (Negative); Specific Grav Ur 1.028 (1.001-1.035); Squamous Epithelial Cell Urine Many /hpf (Few); Urobilinogen Urine Negative mg/dL (<2.0); WBC Urine 21-30 /hpf
== END 2021-05-23 12:52 | disposition home or self-care (01) ==
PROVIDERS: PCP Physician Assistant; Visit Provider Physician Assistant
DX: E78.5 Hyperlipidemia, unspecified (principal); Z51.81 Encounter for therapeutic drug level monitoring; Z79.899 Other long term (current) drug therapy
CPT/HCPCS: 36415; 80053; 80061; 81001; 84443; 85025; 87077; 87086; 87186

== ENCOUNTER 2021-08-15 23:22 | Emergency (ER) | payer OTHER, SELFPAY ==
--- NOTE | ~2021-08-15 | CT_ITS ---
EXAMINATION: CT brain wo con DATE: 08/16/2021 00:07 INDICATION: Headache, dizziness since fall one week ago TECHNIQUE: Computed tomography (CT) of the head was performed without intravenous contrast. The mA wa s adjusted according to patient size. Iterative reconstruction technique was employed. Exam dose: 60 5.33 mGy-cm total exam DLP. COMPARISON: 11/23/2020 CT brain FINDINGS: No intracranial mass lesion or hemorrhage or cerebrovascular accident, midline shift or mas s effect is evident. Normal ventricular size. No subdural or epidural hematoma. Minimal bilateral basal ganglia calcification. No orbital mass lesion. No fracture or bone destruction of the cranial vault. The mastoid air cells and included paranasal si nuses are normally developed and aerated. IMPRESSION: No significant abnormality Reviewed, dictated and finalized at Location [facility]. Reviewed, dictated and finalized at location A. OSIVE TECHNICIAN IMPRESSION: No significant abnormality
[2021-08-15 23:23] VITALS: BP 165/112; PULSE 86; RESP 18; TEMP 35.8; O2SAT 100
[2021-08-16] MEDS: KETOROLAC 30 MG/ML VIAL (*BKC) IV PUSH (00:17)
[2021-08-16] MEDS: diphenhydrAMINE HCl INJ 50 MG/ML VIAL 25 MG IV PUSH (00:18)
[2021-08-16] MEDS: METOCLOPRAMIDE HCL INJ 10 MG/2 ML VIAL IV PUSH (00:18)
[2021-08-16 00:21] VITALS: BP 148/98; PULSE 66; RESP 16; O2SAT 98
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
[2021-08-16 01:06] VITALS: BP 108/73; PULSE 77; RESP 18; O2SAT 99
[2021-08-16 02:16] VITALS: BP 114/71; PULSE 80; RESP 16; O2SAT 99
== END 2021-08-16 02:22 | disposition home or self-care (01) ==
PROVIDERS: Emergency Provider Emergency Medicine; PCP Physician Assistant
DX: S06.0X0A Concussion without loss of consciousness, initial encounter (principal); E78.5 Hyperlipidemia, unspecified; I10 Essential (primary) hypertension; M17.0 Bilateral primary osteoarthritis of knee; F41.9 Anxiety disorder, unspecified; F32.A Depression, unspecified; Z87.891 Personal history of nicotine dependence; W10.9XXA Fall (on) (from) unspecified stairs and steps, initial encounter
CPT/HCPCS: 70450; 96374; 96375; 99284; J1200; J1885; J2765

== ENCOUNTER 2021-08-28 14:58 | Outpatient (CLI) | payer OTHER, SELFPAY ==
--- NOTE | ~2021-08-28 | MR_ITS ---
EXAMINATION: MR brain/brain stem wo/w con DATE: 08/28/2021 16:04 INDICATION: Daily headache. TECHNIQUE: Magnetic resonance imaging (MRI) of the brain and brainstem was performed without and with 20 mL MultiHance intravenous contrast. Sequences included sagittal and axial T1-weighted FSE, axial diffusion-weighted FS EPI, axial T2*-weighted GRE, axial T2-weighted FLAIR Propeller, and axial T2-we ighted Propeller. Postcontrast sequences included axial and coronal T1-weighted FSE. Apparent diffusi on coefficient (ADC) maps were created. COMPARISON: Head CT 08/16/2021 FINDINGS: There are scattered areas of nonspecific increased T2-weighted signal intensity in the cere bral white matter, which is within normal limits for the patient's age. 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 There is no intracranial hemorrhage, acute infarction, or abnormal i ntracranial mass lesion. The ventricles are normal in size. There is a small left mastoid effusion. T here is mild mucosal thickening in the paranasal sinuses. The orbits are normal. IMPRESSION: 1. Normal aging brain. Reviewed, dictated and finalized at location A. IMPRESSION: 1. Normal aging brain.
[2021-08-28 15:48] LABS: Estimated Glomerular Filt Rate 59
== END 2021-08-28 14:59 | disposition home or self-care (01) ==
LOC: ANHIMG 15:03
PROVIDERS: PCP Physician Assistant; Visit Provider Physician Assistant
DX: R51.9 Headache, unspecified (principal)
CPT/HCPCS: 70553; A9577

== ENCOUNTER 2021-08-28 15:06 | Outpatient (CLI) | payer OTHER, SELFPAY ==
--- NOTE | ~2021-08-28 | XR_ITS ---
XR thoracic spine 3V DATE: 08/28/2021 15:31 INDICATION: Radiculopathy TECHNIQUE: AP, lateral and swimmer views COMPARISON: 09/11/2020 MR thoracic spine 02/01/2020 thoracic spine FINDINGS: There is mild thoracic scoliosis. No fracture or dislocation. There is prominent degenerative disc disease at C5-6 and C6-7. The thoracic pedicles are intact. There is mild degenerative spurring. No paraspinal soft tissue sw elling. IMPRESSION: Mild scoliosis Mild degenerative spurring Reviewed, dictated and finalized at location A.
--- NOTE | ~2021-08-28 | XR_ITS ---
XR cervical spine 4-5V DATE: 08/28/2021 15:31 INDICATION: Neck pain TECHNIQUE: AP, open-mouth, lateral, swimmer views COMPARISON: 09/11/2020 MR cervical spine FINDINGS: There is straightening of the cervical spine. There is mild anterolisthesis at C3-4 and C4-5. Moderately severe degenerative disease at C5-6 and C6-7. Otherwise no fracture or dislocation or locked facet. C1 and C2 are normally aligned and the odontoid process is intact. There is uncovertebral joint spurring at C5-6 and C6-C7 in particular. Multiple old healed right rib fracture deformities including at least the posterolateral right third through fifth ribs. IMPRESSION: Straightening of the cervical spine Mild anterolisthesis at C3-4 and C4-5 Moderately severe degenerative disc disease and uncovertebral joint spurring at C5-6 and C6-7 Reviewed, dictated and finalized at location A.
--- NOTE | ~2021-08-28 | XR_ITS ---
XR lumbar spine 2-3V DATE: 08/28/2021 15:31 INDICATION: Entire back pain TECHNIQUE: AP, lateral, coned lateral lumbosacral views of lumbar spine COMPARISON: 09/11/2020 MRI lumbar spine FINDINGS: The included lower thoracic and lumbar pedicles are intact. No fracture or bone destruction is evident. There is grade 1 anterolisthesis at L3-4. There is very severe degenerative disc disease at L3-4 with near obliteration of disc space, malignan t spurring and particularly severe eburnation of apposing L3 and L4 vertebral bodies. Minimal grade 1 anterolisthesis at L5-S1; cannot clear the pars interarticularis areas at L5. The sacroiliac joints are intact. There is a prominent amount of fecal material in the colon. IMPRESSION: Very severe degenerative disc disease L3-4 Grade 1 anterolisthesis at L3-4 Minimal grade 1 anterolisthesis at L5-S1; cannot clear the L5 pars interarticularis areas of defect Reviewed, dictated and finalized at location A. IMPRESSION: Very severe degenerative disc disease L3-4 Grade 1 anterolisthesis at L3-4 Minimal grade 1 anterolisthesis at L5-S1; cannot clear the L5 pars interarticul sandra areas of defect
== END 2021-08-28 15:07 | disposition home or self-care (01) ==
LOC: ANHIMG 15:07
PROVIDERS: PCP Physician Assistant; Visit Provider Pain Medicine Interventional Pain Medicine
DX: M47.817 Spondylosis without myelopathy or radiculopathy, lumbosacral region (principal); M47.816 Spondylosis without myelopathy or radiculopathy, lumbar region; M47.27 Other spondylosis with radiculopathy, lumbosacral region; M47.26 Other spondylosis with radiculopathy, lumbar region; M47.813 Spondylosis without myelopathy or radiculopathy, cervicothoracic region; M50.323 Other cervical disc degeneration at C6-C7 level; M50.322 Other cervical disc degeneration at C5-C6 level; M51.36 Other intervertebral disc degeneration, lumbar region
CPT/HCPCS: 72050; 72072; 72100

== ENCOUNTER 2022-01-29 18:03 | Emergency (ER) | payer OTHER, SELFPAY ==
[2022-01-29] VITALS (14 sets, daily range): BP systolic 160–199; BP diastolic 89–118; PULSE 52–55; RESP 16–20; TEMP 36.7; O2SAT 99–100
--- NOTE | ~2022-01-29 | CT_ITS ---
EXAMINATION: CT brain wo con DATE: 01/29/2022 21:01 INDICATION: Headache. TECHNIQUE: Computed tomography (CT) of the head was performed without intravenous contrast. The mA wa s adjusted according to patient size. Iterative reconstruction technique was employed. The dose-lengt h product was 605.33 mGy-cm. COMPARISON: Head CT 08/16/2021 FINDINGS: There is no intracranial hemorrhage, acute infarction, or abnormal intracranial mass lesion . The ventricles are normal in size. The mastoid air cells are normal. The paranasal sinuses are mansi r. The orbits are normal. IMPRESSION: 1. Normal brain. Reviewed, dictated and finalized at location A. IMPRESSION: 1. Normal brain.
--- NOTE | ~2022-01-29 | CT_ITS ---
EXAMINATION: CTA chest PE abdomen pel DATE: 01/29/2022 21:14 INDICATION: Shortness of breath. TECHNIQUE: Computed tomography angiography (CTA) of the chest was performed with 100 mL Omnipaque-350 intravenous contrast timed to evaluate the pulmonary arteries. Coronal maximum intensity projection 3D-reconstructions were created by the technologist. Computed tomography (CT) of the abdomen and pelv is was performed with intravenous contrast. Automated exposure control and iterative reconstruction t echnique were employed. The dose-length product was 2190.78 mGy-cm. COMPARISON: Chest CT 11/23/2020 FINDINGS: CTA chest: The lungs demonstrate mild atelectasis. A calcified left lung nodule and calcified left hi lar and mediastinal lymph nodes are consistent with old granulomatous disease. No pleural effusion. C ardiomegaly is noted. No pericardial effusion. There is no pulmonary embolus. There are multiple old healed right rib fractures. There is severe thoracic spondylosis. CT abdomen and pelvis: There are cysts in the liver measuring up to 3.9 cm. The gallbladder, spleen, pancreas, and adrenal glands are normal. There is cortical thinning of the kidneys. There are peripel marty cysts in left kidney measuring up to 14 mm. There is diverticulosis of the colon without evidence of diverticulitis. There are no dilated loops of bowel. The appendix is normal. There are no patholo gically enlarged lymph nodes. There is physiologic fluid in the pelvis. There are chronic bilateral p ars defects at L3 and L5. There is 3 mm retrolisthesis of L3 on L4. There is severe degenerative disc disease at L3-L4. IMPRESSION: 1. No pulmonary embolus. 2. Cardiomegaly. Reviewed, dictated and finalized at location A.
--- NOTE | ~2022-01-29 | XR_ITS ---
EXAMINATION: XR chest 1V portable DATE: 01/29/2022 19:42 INDICATION: Shortness of breath. Nausea and vomiting. TECHNIQUE: A single frontal view of the chest was obtained. COMPARISON: Chest 2 views 11/24/2020, chest CT 11/23/2020 FINDINGS: There is no pneumonia, pleural effusion, or pneumothorax. Cardiomegaly is noted. Calcified left hilar and mediastinal lymph nodes are consistent with old granulomatous disease. There are multi ple old healed right rib fractures. IMPRESSION: 1. Cardiomegaly. Reviewed, dictated and finalized at location A. IMPRESSION: 1. Cardiomegaly.
--- NOTE | 2022-01-29 19:02 | ECG_ITS ---
Measurements Intervals [place] Rate: 52 P: 61 VT: 145 QRS: 22 QRSD: 94 T: 21 QT: 475 QTc: 444 Interpretive Statements SINUS BRADYCARDIA POSSIBLE LEFT VENTRICULAR HYPERTROPHY [VOLTAGE CRITERIA PLUS LAE OR QRS WIDENING] ABNORMAL ECG COMPARED TO ECG 11/24/2020 06:59:43 SINUS BRADYCARDIA NOW PRESENT Electronically Signed On 01-30-2022 9:35:53 CDT by Zaid Hoffman M.D.
[2022-01-29] MEDS: ONDANSETRON INJ 4 MG/2 ML VIAL IV PUSH ×2 (19:11→22:05)
[2022-01-29] MEDS: HYDROmorphone HCL INJ (*CRX) 1 MG/ML SYR IV PUSH (19:11)
[2022-01-29 19:12] LABS: Basophils Percent Auto 0.3 % (0.2-1.2); Eosinophils Absolute Auto 0.1 K/mm3 (0-0.3); Eosinophils Percent Auto 0.6 % (0-4.4); Hematocrit 41.9 % (37.0-47.0); Hemoglobin 14.3 g/dL (12.0-15.0); Immature Granulocyte Absolute 0.04 K/mm3 (0.00-0.031); Immature Granulocyte Percent A 0.5 % (0-0.5); Lymphocytes Absolute Auto 0.86 K/mm3 (0.9-3.2); Lymphocytes Percent Auto 9.9 % (18.3-44.2); Mean Corpuscular HGB Conc 34.1 g/dl (32-36); Mean Corpuscular Hemoglobin 30.7 pg (26-34); Mean Corpuscular Volume 89.9 fl (80-100); Mean Platelet Volume 11.5 fl (7.4-10.4); Monocytes Absolute Auto 0.4 K/mm3 (0.1-0.6); Monocytes Percent Auto 4.8 % (2.6-8.5); Neutrophils Absolute Auto 7.3 K/mm3 (1.3-6.7); Neutrophils Percent Auto 83.9 % (45.5-73.1); Platelet Count Result 262 k/mm3 (150-375); Red Blood Count 4.66 M/mm3 (4.2-5.4); Red Cell Distribution Width 13.4 % (11.5-14.5); White Blood Count 8.7 K/mm3 (4.5-10.0)
[2022-01-29 19:22] LABS: Prothrombin Time 12.7 Seconds (11.1-14.7)
[2022-01-29 19:28] LABS: Alanine Aminotransferase 23 U/L (6-35); Albumin Level 4.9 g/dL (3.5-5.1); Alkaline Phosphatase 140 U/L (38-126); Anion Gap 12 mmol/L (8-16); Aspartate Amino Transferase 42 U/L (14-36); Bilirubin,Total 0.6 mg/dL (0.2-1.3); Blood Urea Nitrogen 13 mg/dL (7-17); Calcium 9.8 mg/dL (8.4-10.2); Carbon Dioxide 26 mmol/L (22-30); Chloride 100 mmol/L (98-107); D Dimer 1.45 ug/mL (<0.48); Estimated CRCL calculation 88 ml/min; Estimated Glomerular Filt Rate > 60; Glucose 126 mg/dL (65-110); Magnesium 1.9 mg/dL (1.6-2.3); Potassium 3.6 mmol/L (3.4-5.0); Sodium 138 mmol/L (137-145)
[2022-01-29 19:38] LABS: NT Pro B Type Natriuretic Pept 2240 pg/mL (5-100); Troponin I < 0.012 ng/mL (0.000-0.034)
[2022-01-29 19:47] LABS: Lactic Acid Reflex 2.3 mmol/L (0.7-2.0)
[2022-01-29 19:55] LABS: SARS-CoV-2 RNA PCR Negative
[2022-01-29] MEDS: METOCLOPRAMIDE HCL INJ 10 MG/2 ML VIAL IV PUSH (20:17)
[2022-01-29] MEDS: diphenhydrAMINE HCl INJ 50 MG/ML VIAL 25 MG IV PUSH (20:17)
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
[2022-01-29 20:34] LABS: Appearance Urine Clear (Clear); Bilirubin Urine Negative (Negative); Blood Urine Negative (Negative); Color Urine Yellow (Yellow); Glucose Urine UA Trace mg/dL (Negative); Ketones Urine 2+ mg/dL (Negative); Leukocyte Esterase Ur Negative LEU/UL (Negative); Nitrate Urine Negative (Negative); Protein Urine 1+ mg/dL (Negative); Urobilinogen Urine 0.2 mg/dL (<2.0); pH Urine 8.5 (5.0-9.0)
[2022-01-29 20:43] LABS: Mucus Urine Rare /lpf; RBC Urine 0-2 /hpf (0-2); Squamous Epithelial Cell Urine Rare /hpf (Few); WBC Urine 0-3 /hpf
[2022-01-29 20:44] LABS: Add Urine Microscopic? YES
--- NOTE | 2022-01-29 20:46 | PC.NURSE ---
Patient report given to ALBINA Caraballo. All questions answered and care of patient transferred.
[2022-01-29] MEDS: HYDROcodone/acetaminophen (*CRX) 10-325 MG TABLET 1 TAB PO (22:06)
[2022-01-29 22:33] LABS: Reflex Lactic Acid Yes or No Add Lactic
[2022-01-29 23:31] LABS: Lactic Acid 0.9 mmol/L (0.7-2.0)
== END 2022-01-29 23:40 | disposition home or self-care (01) ==
PROVIDERS: Emergency Provider General Practice; PCP Physician Assistant
DX: R11.2 Nausea with vomiting, unspecified (principal); G44.309 Post-traumatic headache, unspecified, not intractable; F11.20 Opioid dependence, uncomplicated; Z20.822 Contact with and (suspected) exposure to COVID-19; G89.29 Other chronic pain; M54.9 Dorsalgia, unspecified; E78.5 Hyperlipidemia, unspecified; I10 Essential (primary) hypertension; M17.0 Bilateral primary osteoarthritis of knee; F41.9 Anxiety disorder, unspecified; F32.A Depression, unspecified; Z87.891 Personal history of nicotine dependence; I51.7 Cardiomegaly; F07.81 Postconcussional syndrome; R00.1 Bradycardia, unspecified; R94.31 Abnormal electrocardiogram [ECG] [EKG]
CPT/HCPCS: 36415; 70450; 71045; 71275; 74177; 80053; 81001; 83605; 83735; 83880; 84484; 85025; 85380; 85610; 85730; 93005; 96365; 96375; 96376; 99284; A9270; C9803; J0131; J1170; J1200; J2405; J2765; Q9967; U0003; U0005

== ENCOUNTER 2022-02-05 13:02 | Outpatient (CLI) | payer OTHER, SELFPAY ==
--- NOTE | ~2022-02-05 | MR_ITS ---
EXAMINATION: MR cervical spine wo con DATE: 02/05/2022 14:13 INDICATION: Myelopathy, acute or progressive. TECHNIQUE: Magnetic resonance imaging (MRI) of the cervical spine was performed without intravenous c ontrast. Sequences included sagittal T2-weighted FSE, sagittal T2-weighted FS FSE, sagittal T1-weight ed FSE, axial MERGE, and axial T2-weighted FSE. COMPARISON: Cervical spine MRI 09/11/20 FINDINGS: There is 7 degrees levocurvature of cervicothoracic spine. There is 2 mm anterolisthesis of C4 on C5. Vertebral body heights are normal. There is mildly decreased disc height at C4-C5 and valeriano rely decreased disc height at C5-C6 and C6-C7. The spinal cord signal intensity is normal. The follow ing disc levels are specifically discussed: C2-C3: The disc does not extend beyond the endplate margin. There is no uncovertebral joint osteoarth ritis. There is moderate left facet joint osteoarthritis. There is no neural foraminal stenosis. Ther e is no central canal stenosis. C3-C4: The disc is bulging. There is mild lateral uncovertebral joint osteoarthritis. There is severe right and moderate left facet joint osteoarthritis. There is no neural foraminal stenosis. There is no central canal stenosis. C4-C5: The disc is bulging. There is mild right and moderate left uncovertebral joint osteoarthritis. There is severe bilateral facet joint osteoarthritis. There is mild left neural foraminal stenosis. There is no central canal stenosis. C5-C6: The disc is bulging. There is severe bilateral uncovertebral joint osteoarthritis. There is mi ld bilateral facet joint osteoarthritis. There is moderate right and mild left neural foraminal steno sis. There is mild central canal stenosis. C6-C7: The disc is bulging. There is severe bilateral uncovertebral joint osteoarthritis. There is mi ld lateral facet joint osteoarthritis. There is mild right and moderate left neural foraminal stenosi s. There is mild central canal stenosis. C7-T1: The disc does not extend beyond the endplate margin. There is no uncovertebral joint osteoarth ritis. There is severe bilateral facet joint osteoarthritis. There is mild right neural foraminal rosi nosis. There is no central canal stenosis. IMPRESSION: 1. Severe cervical spondylosis, stable from 09/11/2020. Reviewed, dictated and finalized at location A.
--- NOTE | ~2022-02-05 | MR_ITS ---
EXAMINATION: MR thoracic spine wo con DATE: 02/05/2022 14:13 INDICATION: Myelopathy, acute or progressive. TECHNIQUE: Magnetic resonance imaging (MRI) of the thoracic spine was performed without intravenous c ontrast. Sagittal localizer T1-weighted FSE of the cervical spine was obtained. Thoracic spine sequen rossy included sagittal T2-weighted FSE, sagittal T1-weighted FSE, sagittal T2-weighted FS FSE, and axi al T2-weighted FSE. COMPARISON: Thoracic spine MRI 09/11/2020 FINDINGS: There is 9 degrees dextrocurvature of thoracic spine. There is mild chronic anterior wedgin g of T7-T11 vertebral bodies. There is mildly decreased disc height from T4-T5 through T5-T6 and mode rately decreased disc height from T6-T7 through T10-T11. There is multilevel facet joint osteoarthrit is, severe at multiple levels. On the right, there is mild neural foraminal stenosis at T3-T4, T4-T5, and T8-T9. On the left, there is mild neural foraminal stenosis at T1-T2, T2-T3, T6-T7, and T7-T8. A t T5-T6, there are left central and right central extrusions with mild central canal stenosis and anish tral indentation of the spinal cord. At T6-T7, there is a left central extrusion with mild central ca nal stenosis and ventral indentation of the spinal cord. At T7-T8, there is a central extrusion with mild central canal stenosis. At T8-T9, there is a right central extrusion with mild central canal rosi nosis and ventral indentation of the spinal cord. At T9-T10, there is a central extrusion with mild c entral canal stenosis and ventral indentation of the spinal cord. At T4, there is syringohydromyelia with maximum diameter of 1 mm. There is a 3.6 cm cyst in the liver. IMPRESSION: 1. Moderate thoracic spondylosis, stable from 09/11/2020. 2. 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 Reviewed, dictated and finalized at location A.
[2022-02-05 15:37] LABS: Basophils Absolute Auto 0.1 K/mm3 (0.0-0.1); Basophils Percent Auto 0.8 % (0.2-1.2); Eosinophils Absolute Auto 0.4 K/mm3 (0-0.3); Eosinophils Percent Auto 6.4 % (0-4.4); Hematocrit 41.7 % (37.0-47.0); Hemoglobin 13.4 g/dL (12.0-15.0); Immature Granulocyte Absolute 0.01 K/mm3 (0.00-0.031); Immature Granulocyte Percent A 0.2 % (0-0.5); Lymphocytes Absolute Auto 1.95 K/mm3 (0.9-3.2); Lymphocytes Percent Auto 31.9 % (18.3-44.2); Mean Corpuscular HGB Conc 32.1 g/dl (32-36); Mean Corpuscular Hemoglobin 30.5 pg (26-34); Mean Platelet Volume 10.9 fl (7.4-10.4); Monocytes Absolute Auto 0.6 K/mm3 (0.1-0.6); Monocytes Percent Auto 9.8 % (2.6-8.5); Neutrophils Absolute Auto 3.1 K/mm3 (1.3-6.7); Neutrophils Percent Auto 50.9 % (45.5-73.1); Platelet Count Result 271 k/mm3 (150-375); Red Blood Count 4.39 M/mm3 (4.2-5.4); Red Cell Distribution Width 14.3 % (11.5-14.5); White Blood Count 6.1 K/mm3 (4.5-10.0)
[2022-02-05 15:52] LABS: Alanine Aminotransferase 15 U/L (6-35); Albumin Level 4.4 g/dL (3.5-5.1); Alkaline Phosphatase 96 U/L (38-126); Anion Gap 7 mmol/L (8-16); Aspartate Amino Transferase 23 U/L (14-36); Bilirubin,Total 0.4 mg/dL (0.2-1.3); Blood Urea Nitrogen 23 mg/dL (7-17); Calcium 9.1 mg/dL (8.4-10.2); Carbon Dioxide 28 mmol/L (22-30); Chloride 105 mmol/L (98-107); Cholesterol 194 mg/dL (0-200); Estimated Glomerular Filt Rate 48; Glucose 90 mg/dL (65-110); HDL Direct 64 mg/dL; Potassium 5.5 mmol/L (3.4-5.0); Sodium 140 mmol/L (137-145); Triglycerides 106 mg/dL (<150)
[2022-02-05 16:03] LABS: LDL Cholesterol Direct 88 mg/dL
[2022-02-05 16:17] LABS: Hemoglobin A1C 5.3 % (<5.7)
== END 2022-02-05 13:03 | disposition home or self-care (01) ==
PROVIDERS: PCP Physician Assistant; Visit Provider Internal Medicine
DX: E78.5 Hyperlipidemia, unspecified (principal); Z79.899 Other long term (current) drug therapy; Z13.1 Encounter for screening for diabetes mellitus; G95.9 Disease of spinal cord, unspecified; M47.894 Other spondylosis, thoracic region; M47.892 Other spondylosis, cervical region; M50.20 Other cervical disc displacement, unspecified cervical region
CPT/HCPCS: 36415; 72141; 72146; 80053; 80061; 83036; 85025

== ENCOUNTER 2022-04-22 07:01 | Outpatient (CLI) | payer OTHER, SELFPAY ==
[2022-04-22 07:36] LABS: Basophils Absolute Auto 0.1 K/mm3 (0.0-0.1); Basophils Percent Auto 0.6 % (0.2-1.2); Eosinophils Absolute Auto 0.3 K/mm3 (0-0.3); Eosinophils Percent Auto 3.2 % (0-4.4); Hematocrit 40.2 % (37.0-47.0); Hemoglobin 13.3 g/dL (12.0-15.0); Immature Granulocyte Absolute 0.04 K/mm3 (0.00-0.031); Immature Granulocyte Percent A 0.4 % (0-0.5); Lymphocytes Absolute Auto 3.18 K/mm3 (0.9-3.2); Lymphocytes Percent Auto 31.4 % (18.3-44.2); Mean Corpuscular HGB Conc 33.1 g/dl (32-36); Mean Corpuscular Hemoglobin 29.5 pg (26-34); Mean Corpuscular Volume 89.1 fl (80-100); Mean Platelet Volume 9.7 fl (7.4-10.4); Monocytes Absolute Auto 0.8 K/mm3 (0.1-0.6); Monocytes Percent Auto 7.4 % (2.6-8.5); Neutrophils Absolute Auto 5.8 K/mm3 (1.3-6.7); Platelet Count Result 348 k/mm3 (150-375); Red Blood Count 4.51 M/mm3 (4.2-5.4); Red Cell Distribution Width 12.3 % (11.5-14.5); White Blood Count 10.1 K/mm3 (4.5-10.0)
[2022-04-22 07:39] LABS: Alanine Aminotransferase 17 U/L (6-35); Albumin Level 4.8 g/dL (3.5-5.1); Alkaline Phosphatase 100 U/L (38-126); Anion Gap 9 mmol/L (8-16); Aspartate Amino Transferase 26 U/L (14-36); Bilirubin,Total 0.4 mg/dL (0.2-1.3); Blood Urea Nitrogen 23 mg/dL (7-17); Calcium 9.7 mg/dL (8.4-10.2); Carbon Dioxide 30 mmol/L (22-30); Chloride 101 mmol/L (98-107); Estimated Glomerular Filt Rate 44; Glucose 101 mg/dL (65-110); Potassium 4.9 mmol/L (3.4-5.0); Sodium 140 mmol/L (137-145)
[2022-04-25 11:32] LABS: Insulin Level Total 5.3 uIU/mL (<=19.6)
[2022-04-26 05:50] LABS: Progesterone 0.3 ng/mL (***); Prolactin 4.1 ng/mL (***)
[2022-04-26 13:49] LABS: Testosterone Free 3.8 pg/mL (0.1-6.4); Testosterone Total 42 ng/dL (2-45)
[2022-04-30 13:37] LABS: Estrogen 151.2 pg/mL
== END 2022-04-22 07:02 | disposition home or self-care (01) ==
PROVIDERS: PCP Physician Assistant; Visit Provider Physician Assistant
DX: Z13.228 Encounter for screening for other metabolic disorders (principal); Z79.899 Other long term (current) drug therapy
CPT/HCPCS: 36415; 80053; 82672; 83001; 83002; 83525; 84144; 84146; 84402; 84403; 85025

== ENCOUNTER 2022-08-21 05:27 | Emergency (ER) | payer SELFPAY ==
[2022-08-21 05:30] VITALS: BP 140/98; PULSE 84; RESP 14; TEMP 36.7; O2SAT 100
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
[2022-08-21] MEDS: HYDROcodone/acetaminophen (*CRX) 10-325 MG TABLET 1 TAB PO (05:52)
[2022-08-21 05:57] VITALS: BP 138/96; PULSE 76; RESP 16; O2SAT 100
== END 2022-08-21 06:04 | disposition home or self-care (01) ==
PROVIDERS: Emergency Provider Emergency Medicine; PCP Physician Assistant
DX: S01.01XA Laceration without foreign body of scalp, initial encounter (principal); I10 Essential (primary) hypertension; E78.5 Hyperlipidemia, unspecified; M17.0 Bilateral primary osteoarthritis of knee; F41.9 Anxiety disorder, unspecified; F32.A Depression, unspecified; Z87.891 Personal history of nicotine dependence; W01.198A Fall on same level from slipping, tripping and stumbling with subsequent striking against other object, initial encounter
CPT/HCPCS: 99282; A9270

== ENCOUNTER 2024-01-14 16:12 | Outpatient (CLI) | payer OTHER, SELFPAY ==
[2024-01-14 16:34] LABS: Eosinophils Absolute Auto 0.2 K/mm3 (0-0.3); Eosinophils Percent Auto 4.2 % (0-4.4); Hematocrit 37.3 % (37.0-47.0); Hemoglobin 12.6 g/dL (12.0-15.0); Immature Granulocyte Absolute 0.01 K/mm3 (0.00-0.031); Immature Granulocyte Percent A 0.3 % (0-0.5); Lymphocytes Absolute Auto 0.99 K/mm3 (0.9-3.2); Lymphocytes Percent Auto 25.7 % (18.3-44.2); Mean Corpuscular HGB Conc 33.8 g/dl (32-36); Mean Corpuscular Hemoglobin 30.2 pg (26-34); Mean Corpuscular Volume 89.4 fl (80-100); Mean Platelet Volume 10.7 fl (7.4-10.4); Monocytes Absolute Auto 0.4 K/mm3 (0.1-0.6); Monocytes Percent Auto 9.4 % (2.6-8.5); Neutrophils Absolute Auto 2.3 K/mm3 (1.3-6.7); Neutrophils Percent Auto 59.4 % (45.5-73.1); Platelet Count Result 256 k/mm3 (150-375); Red Blood Count 4.17 M/mm3 (4.2-5.4); White Blood Count 3.9 K/mm3 (4.5-10.0)
[2024-01-14 16:48] LABS: Alanine Aminotransferase 261 U/L (6-35); Albumin Level 4.5 g/dL (3.5-5.1); Alkaline Phosphatase 102 U/L (38-126); Anion Gap 11 mmol/L (4-12); Aspartate Amino Transferase 115 U/L (14-36); Bilirubin,Total 0.7 mg/dL (0.2-1.3); Blood Urea Nitrogen 16 mg/dL (7-17); Calcium 9.4 mg/dL (8.4-10.2); Carbon Dioxide 22 mmol/L (22-30); Chloride 106 mmol/L (98-107); Cholesterol 304 mg/dL (0-200); Estimated Glomerular Filt Rate 52; Glucose 99 mg/dL (65-110); HDL Direct 74 mg/dL; Potassium 3.7 mmol/L (3.4-5.0); Sodium 139 mmol/L (137-145); Triglycerides 82 mg/dL (<150)
[2024-01-14 16:59] LABS: LDL Cholesterol Direct 182 mg/dL
[2024-01-14 17:17] LABS: Thyroid Stimulating Hormone 0.438 uIU/mL (0.465-4.680)
[2024-01-14 17:24] LABS: Hemoglobin A1C 5.7 % (<5.7)
[2024-01-14 17:26] LABS: Free T4 Free Thyroxine 0.88 ng/mL (0.78-2.19)
[2024-01-14 17:56] LABS: Folic Acid 5.8 ng/mL (2.76->20); Vitamin B12 > 1000.0 pg/mL (239-931)
[2024-01-14 22:01] LABS: Add Urine Microscopic? YES; Appearance Urine Clear (Clear); Bacteria Urine None Seen /hpf; Bilirubin Urine Negative (Negative); Blood Urine Negative (Negative); Color Urine Yellow (Yellow); Glucose Urine UA Negative (Negative); Ketones Urine Negative (Negative); Leukocyte Esterase Ur Negative LEU/UL (Negative); Nitrate Urine Negative (Negative); Non Pathogenic Casts 0-2; Protein Urine Trace mg/dL (Negative); RBC Urine 0-2 /hpf (0-2); Specific Grav Ur 1.019 (1.001-1.035); Squamous Epithelial Cell Urine None Seen /hpf (Few); Urobilinogen Urine 0.2 mg/dL (<2.0); WBC Urine 0-5 /hpf (0-3); pH Urine 6.5 (5.0-9.0)
== END 2024-01-14 16:13 | disposition home or self-care (01) ==
LOC: ANHLAB 16:17
PROVIDERS: PCP Physician Assistant; Visit Provider Physician Assistant
DX: R39.9 Unspecified symptoms and signs involving the genitourinary system (principal); Z13.220 Encounter for screening for lipoid disorders; Z13.1 Encounter for screening for diabetes mellitus; Z13.29 Encounter for screening for other suspected endocrine disorder; Z79.899 Other long term (current) drug therapy
CPT/HCPCS: 36415; 80053; 80061; 81001; 82607; 82746; 83036; 84439; 84443; 85025; 87086

== ENCOUNTER 2024-02-11 17:05 | Inpatient (IN) | payer OTHER, SELFPAY ==
[2024-02-11] VITALS (9 sets, daily range): BP systolic 102–130; BP diastolic 55–88; PULSE 66–81; RESP 13–22; TEMP 36.7; O2SAT 94–100
--- NOTE | ~2024-02-11 | US_ITS ---
US right upper quadrant INDICATION: Transaminitis. Abdomen pain. PROCEDURE: Realtime right upper abdominal ultrasound. COMPARISON: No prior studies for comparison. FINDINGS: Pancreas not well visualized due to bowel gas. There is a liver cyst measuring 4.3 cm. Th ere is normal directional flow in the portal vein. The gallbladder is normal without stones, gallbladder wall thickening or pericholecystic fluid. Comm on bile duct measures 3 mm. No sonographic Shepherd's sign. IMPRESSION: 1: Liver cyst measuring 4.3 cm. Reviewed, dictated and finalized at location B.
--- NOTE | ~2024-02-11 | CT_ITS ---
EXAMINATION: CT chest abdomen pelvis w con DATE: 02/11/2024 19:32 INDICATION: Upper abdominal pain. TECHNIQUE: Computed tomography (CT) of the chest, abdomen, and pelvis was performed with 100 mL Omnip aque 350 intravenous contrast. Automated exposure control and iterative reconstruction technique were employed. The dose-length product was 1140.45 mGy-cm. COMPARISON: CT 01/29/2022 FINDINGS: CHEST CT: The lungs demonstrate mild atelectasis. A calcified left lung nodule and calcified left hilar and med iastinal lymph nodes are consistent with old granulomatous disease. No pleural effusion. The heart si ze is normal. No pericardial effusion. There are old healed right rib fractures. There is severe thor acic spondylosis. ABDOMEN/PELVIS CT: There are cysts in the liver measuring up to 4.3 cm. The gallbladder, spleen, pancreas, and adrenal g lands are normal. There is cortical thinning of the kidneys. There are cysts in the kidneys measuring up to 12 mm on the left. There is diverticulosis of the colon without evidence of diverticulitis. Th e appendix is normal. There is liquid stool in the colon suggesting diarrhea. There are no pathologic ally enlarged lymph nodes. There is no ascites. There is severe lumbar spondylosis. There are chronic bilateral L5 pars defects. There is 4 mm anterolisthesis of L5 on S1. IMPRESSION: 1. No specific etiology for the patient's symptoms. Reviewed, dictated and finalized at location A.
--- NOTE | ~2024-02-11 | XR_ITS ---
EXAMINATION: XR chest 2V DATE: 02/11/2024 17:53 INDICATION: Shortness of breath. Chest pain. TECHNIQUE: Frontal and lateral views of the chest were obtained. COMPARISON: Chest single view 01/29/2022 FINDINGS: There is no pneumonia, pleural effusion, or pneumothorax. The heart size is normal. There a re old healed right rib fractures. IMPRESSION: 1. No acute cardiopulmonary disease. Reviewed, dictated and finalized at location A.
--- NOTE | 2024-02-11 17:07 | ECG_ITS ---
Test Date: 2024-02-11 17:11:11 Measurements Intervals [place] Rate: 75 P: 14 AL: 130 QRS: 21 QRSD: 94 T: 6 QT: 335 QTc: 376 Interpretive Statements SINUS RHYTHM WITHIN NORMAL LIMITS No previous ECG available for comparison Electronically Signed On 02-12-2024 07:27:56 CDT by Mickey Peace M.D.
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
[2024-02-11 17:50] LABS: Basophils Absolute Auto 0.1 K/mm3 (0.0-0.1); Basophils Percent Auto 0.5 % (0.2-1.2); Eosinophils Absolute Auto 0.1 K/mm3 (0-0.3); Eosinophils Percent Auto 0.4 % (0-4.4); Hematocrit 41.4 % (37.0-47.0); Hemoglobin 14.5 g/dL (12.0-15.0); Immature Granulocyte Absolute 0.13 K/mm3 (0.00-0.031); Immature Granulocyte Percent A 0.9 % (0-0.5); Mean Corpuscular Hemoglobin 30.5 pg (26-34); Mean Corpuscular Volume 87.2 fl (80-100); Mean Platelet Volume 10.5 fl (7.4-10.4); Monocytes Absolute Auto 1.6 K/mm3 (0.1-0.6); Monocytes Percent Auto 10.8 % (2.6-8.5); Neutrophils Absolute Auto 12.3 K/mm3 (1.3-6.7); Neutrophils Percent Auto 81.4 % (45.5-73.1); Platelet Count Result 326 k/mm3 (150-375); Red Blood Count 4.75 M/mm3 (4.2-5.4); Red Cell Distribution Width 14.2 % (11.5-14.5); White Blood Count 15.1 K/mm3 (4.5-10.0)
[2024-02-11 17:59] LABS: Alanine Aminotransferase 331 U/L (6-35); Albumin Level 4.8 g/dL (3.5-5.1); Alkaline Phosphatase 134 U/L (38-126); Anion Gap 17 mmol/L (4-12); Aspartate Amino Transferase 61 U/L (14-36); Bilirubin,Total 0.7 mg/dL (0.2-1.3); Blood Urea Nitrogen 18 mg/dL (7-17); Calcium 9.7 mg/dL (8.4-10.2); Carbon Dioxide 15 mmol/L (22-30); Chloride 99 mmol/L (98-107); Estimated CRCL calculation 47 ml/min; Estimated Glomerular Filt Rate 37; Glucose 132 mg/dL (65-110); Potassium 3.4 mmol/L (3.4-5.0); Sodium 131 mmol/L (137-145)
[2024-02-11] MEDS: ONDANSETRON INJ 4 MG/2 ML VIAL IV PUSH ×2 (18:20→21:51)
[2024-02-11] MEDS: HYDROmorphone HCL INJ (*CRX) 1 MG/ML SYR 0.5 MG IV PUSH ×2 (18:20→21:51)
[2024-02-11 19:06] LABS: NT Pro B Type Natriuretic Pept 758 pg/mL (19.9-100); Troponin I < 0.012 ng/mL (0.000-0.034)
[2024-02-11] MEDS: SODIUM CHLORIDE 0.9% IV 1,000 ML 999 ML IV CONT ×2 (21:52→22:46)
[2024-02-11 22:56] LABS: Influenza A QL RT-PCR Negative (Negative); Influenza B QL RT-PCR Negative (Negative); RSV RNA, RT-PCR Negative (Negative); SARS-CoV-2 RNA PCR Negative (Negative)
[2024-02-11 23:11] LABS: Add Urine Microscopic? YES; Appearance Urine Cloudy (Clear); Bacteria Urine 2+ /hpf; Bilirubin Urine Negative (Negative); Blood Urine Trace (Negative); Budding Yeast Urine Present /hpf; Color Urine Yellow (Yellow); Glucose Urine UA Negative (Negative); Ketones Urine Negative (Negative); Leukocyte Esterase Ur 2+ LEU/UL (Negative); Need Manual Microscopic Reviewed; Nitrate Urine Negative (Negative); Non Pathogenic Casts 0-2; Protein Urine 2+ mg/dL (Negative); RBC Urine 0-2 /hpf (0-2); Specific Grav Ur > 1.045 (1.001-1.035); Squamous Epithelial Cell Urine None Seen /hpf (Few); Urobilinogen Urine 0.2 mg/dL (<2.0); WBC Urine >100 /hpf (0-3); pH Urine 6.5 (5.0-9.0)
[2024-02-12] VITALS (7 sets, daily range): BP systolic 92–150; BP diastolic 52–80; PULSE 63–89; RESP 14–20; TEMP 36.6–37.2; O2SAT 98–100; BMI 33.3
[2024-02-12] MEDS: MORPHINE SULFATE (*CRX) 2 MG/ML INJ IV PUSH (00:10)
--- NOTE | 2024-02-12 01:41 | ADMGEN ---
This patient, Heidi Vaca, was admitted to Medical Room 348-01. Patient/family oriented to hospital policies and general routines including ID bracelet, bed and alarms, visiting hours, pain management, procedures, bathroom and other care routines, personal items, smoking policy, room service/diet, and visiting hours. Information on how to activate the Rapid Response Team has been discussed. Patient/Family are encouraged to report perceived risks to care and to ask questions if they do not understand what they are told or what they should do.
[2024-02-12] MEDS: SODIUM CHLORIDE 0.9% IV 1,000 ML 100 ML IV CONT (02:13)
[2024-02-12 03:20] LABS: Amphetamine Screen Urine Negative (Negative); Barbiturate Screen Urine Negative (Negative); Benzodiazepines Screen Urine Negative (Negative); Cannabinoid Screen Urine Positive (Negative); Cocaine Screen Urine Negative (Negative); Methadone Screen Urine Negative (Negative); Opiate Screen Urine Positive (Negative); Phencyclidine Screen Urine Negative (Negative)
[2024-02-12] MEDS: HYDROmorphone HCL INJ (*CRX) 1 MG/ML SYR 0.5 MG IV PUSH ×6 (03:22→22:30)
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
[2024-02-12 05:47] LABS: Hematocrit 34.4 % (37.0-47.0); Mean Corpuscular HGB Conc 34.9 g/dl (32-36); Mean Corpuscular Hemoglobin 30.7 pg (26-34); Platelet Count Result 236 k/mm3 (150-375); Red Blood Count 3.91 M/mm3 (4.2-5.4); Red Cell Distribution Width 14.5 % (11.5-14.5); White Blood Count 11.2 K/mm3 (4.5-10.0)
[2024-02-12 06:03] LABS: Alanine Aminotransferase 219 U/L (6-35); Albumin Level 3.7 g/dL (3.5-5.1); Alkaline Phosphatase 92 U/L (38-126); Anion Gap 14 mmol/L (4-12); Aspartate Amino Transferase 39 U/L (14-36); Bilirubin,Total 0.4 mg/dL (0.2-1.3); Blood Urea Nitrogen 19 mg/dL (7-17); Calcium 8.3 mg/dL (8.4-10.2); Carbon Dioxide 14 mmol/L (22-30); Chloride 105 mmol/L (98-107); Estimated CRCL calculation 46 ml/min; Estimated Glomerular Filt Rate 37; Glucose 83 mg/dL (65-110); Potassium 2.8 mmol/L (3.4-5.0); Sodium 133 mmol/L (137-145)
[2024-02-12 06:05] LABS: Creatine Kinase 62 U/L (30-135)
[2024-02-12 06:17] LABS: D Dimer 0.93 ug/mL (<0.48)
[2024-02-12] MEDS: POTASSIUM CHLORIDE 20 MEQ ER TABLET 40 MEQ PO ×2 (06:19→17:24)
[2024-02-12] MEDS: POTASSIUM CHLORIDE INJ 40 MEQ in SODIUM CHLORIDE 0.9% IV 500 ML 130 MEQ IVPB (06:20)
[2024-02-12 06:37] LABS: Hepatitis B Surface Antigen Negative (Negative)
[2024-02-12 06:42] LABS: HAV RESULT Negative (Negative); Hepatitis B Core IgM Result Negative (Negative)
[2024-02-12 06:52] LABS: Magnesium 1.3 mg/dL (1.6-2.3)
[2024-02-12 06:54] LABS: Hepatitis C Virus Antibody Negative (Negative)
[2024-02-12] MEDS: carvediloL 25 MG TABLET PO (08:09)
[2024-02-12] MEDS: ENOXAPARIN 40 MG/0.4 ML SYRINGE SUB-Q (08:09)
[2024-02-12] MEDS: PANTOPRAZOLE SODIUM IV 40 MG VIAL IV PUSH ×2 (08:09→20:23)
[2024-02-12] MEDS: MAGNESIUM SULF 4 GM/WATER100ML 4 GM/100 ML BAG IVPB (08:11)
[2024-02-12] MEDS: VENLAFAXINE HCL 75 MG TABLET PO ×2 (08:49→17:25)
[2024-02-12] MEDS: VENLAFAXINE HCL 25 MG TABLET PO ×2 (08:50→17:25)
--- NOTE | 2024-02-12 09:20 | PM.IMPN ---
Progress Note: A&P Assessment and Plan (1) RATNA (acute kidney injury): Code(s): N17.9 - Acute kidney failure, unspecified Status: Acute (2) Vomiting: Qualifiers: Nausea presence: with nausea Vomiting type: unspecified Qualified Code(s): R11.2 - Nausea with vomiting, unspecified Code(s): R11.10 - Vomiting, unspecified Status: Acute (3) Abdominal pain: Qualifiers: Abdominal location: generalized Qualified Code(s): R10.84 - Generalized abdominal pain Code(s): R10.9 - Unspecified abdominal pain Status: Acute (4) Proteinuria: Qualifiers: Proteinuria type: unspecified Qualified Code(s): R80.9 - Proteinuria, unspecified Code(s): R80.9 - Proteinuria, unspecified Status: Acute (5) Hyponatremia with extracellular fluid depletion: Code(s): E87.1 - Hypo-osmolality and hyponatremia Status: Acute (6) Transaminitis: Code(s): R74.01 - Elevation of levels of liver transaminase levels Status: Acute (7) Abnormal urinalysis: Code(s): R82.90 - Unspecified abnormal findings in urine Status: Acute (8) Dyspnea on exertion: Code(s): R06.09 - Other forms of dyspnea Status: Acute Plan RATNA, hyponatremia, hypokalemia Likely resulting from poor intake, dehydration and UTI Received fluid resuscitation in the ED Sodium level is improving Continue normal saline IV 150 mL/hour, Potassium 2.8 Replete with potassium chloride 40 mEq b.i.d. p.o. Follow-up BMP, replete electrolytes accordingly Essential hypertension Blood pressure soft Hold hypertension medications, including carvedilol and JEAN-PAUL inhibitor Received normal saline bolus in the ED Continue normal saline IV Acute UTI UA shows pyuria Continue ceftriaxone IV Pending urine culture transaminitis some nonspecific abdominal symptoms including abdominal bloating. right upper quadrant ultrasound to evaluate patient's liver and gallbladder. clear liquid diet and advance diet as tolerated after the ultrasound completed. Ultrasound showed: The gallbladder is normal without stones, gallbladder wall thickening or pericholecystic fluid. Common bile duct measures 3 mm. No sonographic Shepherd's sign. dyspnea on exertion likely due to respiratory compensation with underlying metabolic acute acidosis. CT shows The lungs demonstrate mild atelectasis. A calcified left lung nodule and calcified left hilar and mediastinal lymph nodes are consistent with old granulomatous disease. No pleural effusion. The heart size is normal. No pericardial effusion. There are old healed right rib fractures. There is severe thoracic spondylosis. Order echocardiogram Patient has been admitted as observation status. Subjective Date/time seen: 02/12/24 09:20 Interval history: I saw examined patient today, patient has general weakness, feels better. Patient still has upper abdomen pain, bilaterally. Denies nausea vomiting Exam Narrative: GENERAL: Pleasant, in no acute distress. Well-nourished. - EYES: EOMI. Anicteric. - HENT: Moist mucous membranes. - LUNGS: Clear to auscultation bilaterally, no wheezing, rhonchi, or rales. - CARDIOVASCULAR: Regular rate and rhythm. No murmur. No JVD. - ABDOMEN: Soft, bilateral upper abdomen no tender and non-distended. No palpable masses. - EXTREMITIES: No edema. Peripheral pulses 2+. Non-tender. - NEUROLOGIC: No focal neurological deficits. CN II-XII grossly intact. - PSYCHIATRIC: Awake, Alert and oriented x 3. Appropriate mood and affect. - SKIN: No rashes or lesions. Warm. - LYMPH: No cervical lymphadenopathy. Objective Data Vital Signs Vital Signs: Vital Signs - 24 hr 02/11/24 17:11 02/11/24 18:48 02/11/24 17:19 Temperature 98.1 F Pulse Rate 76 74 Respiratory Rate 18 13 Blood Pressure 115/75 Pulse Oximetry 100 100 Oxygen Delivery Room Air Room Air 02/11/24 17:30 02/11/24 17:32 02/10
--- NOTE | 2024-02-12 09:33 | ECHO_ITS ---
Patient Info Name: Heidi Vaca Age: 53 years : 1970 Gender: Female Ht: 66 in Wt: 206 lbs BSA: 2.12 m2 HR: 80 bpm BP: 111 / 59 mmHg Heart Rhythm: Sinus Rhythm Technical Quality: Good Exam Date: 02/12/2024 3:01 PM Exam Location: Echo Lab Patient Status: Inpatient Admit Date: 02/12/2024 Staff Ordering Physician: Angelo Mancini MD Marine Machinist: Cassandra Benson RDCS Attending Provider: Bee Swift DO Exam Type: CA echo doppler color flow Study Info Indications - Exertional dyspnea Complete two-dimensional, color flow and Doppler transthoracic echocardiogram is performed. Summary 1. Complete two-dimensional, color flow and Doppler transthoracic echocardiogram is performed. 2. Normal left ventricular size thickness systolic and diastolic function. 3. Mildly enlarged left atrium. 4. Trivial amount of tricuspid regurgitation, RV pressures are normal. Left Ventricle Left ventricular chamber dimension is normal. Left ventricular systolic function is normal, estimated at 60-65%. The left ventricular diastolic function is normal. Right Ventricle Right ventricular chamber dimension is normal. Left Atria Left atrial chamber dimension is normal. Right Atria Right atrial chamber dimension is normal. Aortic Valve The aortic valve is normal. Pulmonic Valve The pulmonic valve is normal. Mitral Valve The mitral valve has normal leaflets. Tricuspid Valve The tricuspid valve leaflets are normal. There is trace tricuspid valve regurgitation. Pericardium/Pleural The pericardium appears normal. Aorta The aortic root size at the sinus of Valsalva is normal. Left Ventricular Outflow Tract Name Value Normal LVOT 2D LVOT Diameter 2.0 cm LVOT Doppler LVOT Peak Gradient 5 mmHg LVOT Mean Gradient 2 mmHg LVOT VTI 21 cm LVOT VTI/AV VTI Ratio 0.7 LVOT Stroke Volume 65 ml LVOT CO 4.4 l/min LVOT CI 2.1 l/min/m2 Pulmonic Valve Name Value Normal RVOT Doppler RVOT Peak Gradient 2 mmHg PV Doppler PV Peak Gradient 5 mmHg Mitral Valve Name Value Normal MV Doppler MV Decel Griggs 298 cm/s2 MV PHT 69 ms MV Area (PHT) 3.2 cm2 4.0-5.0 MV Diastolic Function MV E Peak Velocity 71 cm/s
[2024-02-12 13:27] LABS: Potassium 3.8 mmol/L (3.4-5.0)
[2024-02-12] MEDS: SODIUM CHLORIDE 0.9% IV 1,000 ML 150 ML IV CONT ×2 (15:57→22:29)
[2024-02-12] MEDS: ONDANSETRON INJ 4 MG/2 ML VIAL IV PUSH (17:25)
[2024-02-12] MEDS: AMITRIPTYLINE HCL 25 MG TABLET 50 MG PO (20:23)
[2024-02-13] MEDS: HYDROmorphone HCL INJ (*CRX) 1 MG/ML SYR 0.5 MG IV PUSH ×3 (01:27→08:42)
[2024-02-13] MEDS: SODIUM CHLORIDE 0.9% IV 1,000 ML 150 ML IV CONT (05:32)
[2024-02-13 05:52] LABS: Basophils Absolute Auto 0.1 K/mm3 (0.0-0.1); Basophils Percent Auto 0.7 % (0.2-1.2); Eosinophils Absolute Auto 0.2 K/mm3 (0-0.3); Hemoglobin 10.8 g/dL (12.0-15.0); Immature Granulocyte Percent A 1.1 % (0-0.5); Lymphocytes Absolute Auto 1.38 K/mm3 (0.9-3.2); Lymphocytes Percent Auto 15.4 % (18.3-44.2); Mean Corpuscular HGB Conc 32.7 g/dl (32-36); Mean Corpuscular Hemoglobin 29.6 pg (26-34); Mean Corpuscular Volume 90.4 fl (80-100); Mean Platelet Volume 9.7 fl (7.4-10.4); Monocytes Absolute Auto 1.3 K/mm3 (0.1-0.6); Neutrophils Percent Auto 66.8 % (45.5-73.1); Platelet Count Result 243 k/mm3 (150-375); Red Blood Count 3.65 M/mm3 (4.2-5.4); Red Cell Distribution Width 14.9 % (11.5-14.5)
[2024-02-13 06:00] VITALS: BP 90/52; PULSE 68; RESP 18; TEMP 35.9; O2SAT 100
[2024-02-13 06:06] LABS: Alanine Aminotransferase 157 U/L (6-35); Albumin Level 3.1 g/dL (3.5-5.1); Alkaline Phosphatase 91 U/L (38-126); Anion Gap 10 mmol/L (4-12); Aspartate Amino Transferase 26 U/L (14-36); Bilirubin,Total 0.3 mg/dL (0.2-1.3); Blood Urea Nitrogen 14 mg/dL (7-17); Calcium 8.3 mg/dL (8.4-10.2); Carbon Dioxide 12 mmol/L (22-30); Chloride 112 mmol/L (98-107); Estimated CRCL calculation 57 ml/min; Estimated Glomerular Filt Rate 47; Glucose 87 mg/dL (65-110); Potassium 3.9 mmol/L (3.4-5.0); Sodium 134 mmol/L (137-145)
[2024-02-13] MEDS: POTASSIUM CHLORIDE 20 MEQ ER TABLET 40 MEQ PO (08:41)
[2024-02-13] MEDS: PANTOPRAZOLE SODIUM IV 40 MG VIAL IV PUSH (08:42)
[2024-02-13] MEDS: ENOXAPARIN 40 MG/0.4 ML SYRINGE SUB-Q (08:42)
[2024-02-13] MEDS: VENLAFAXINE HCL 75 MG TABLET PO (08:42)
[2024-02-13] MEDS: VENLAFAXINE HCL 25 MG TABLET PO (08:42)
--- NOTE | 2024-02-13 10:42 | PM.DS ---
DS: Admitting Diagnosis Discharge Date 02/13/2024 Admitting Diagnosis Acute kidney injury Abdominal pain Nausea vomiting DS: Discharge Diagnosis Discharge Diagnosis (1) RATNA (acute kidney injury): Code(s): N17.9 - Acute kidney failure, unspecified Status: Acute (2) Vomiting: Qualifiers: Nausea presence: with nausea Vomiting type: unspecified Qualified Code(s): R11.2 - Nausea with vomiting, unspecified Code(s): R11.10 - Vomiting, unspecified Status: Acute (3) Abdominal pain: Qualifiers: Abdominal location: generalized Qualified Code(s): R10.84 - Generalized abdominal pain Code(s): R10.9 - Unspecified abdominal pain Status: Acute (4) Proteinuria: Qualifiers: Proteinuria type: unspecified Qualified Code(s): R80.9 - Proteinuria, unspecified Code(s): R80.9 - Proteinuria, unspecified Status: Acute (5) Hyponatremia with extracellular fluid depletion: Code(s): E87.1 - Hypo-osmolality and hyponatremia Status: Acute (6) Transaminitis: Code(s): R74.01 - Elevation of levels of liver transaminase levels Status: Acute (7) Abnormal urinalysis: Code(s): R82.90 - Unspecified abnormal findings in urine Status: Acute (8) Dyspnea on exertion: Code(s): R06.09 - Other forms of dyspnea Status: Acute Plan RATNA, hyponatremia, hypokalemia Likely resulting from poor intake, dehydration and UTI Received fluid resuscitation in the ED Sodium level is improving Continue normal saline IV 150 mL/hour, Potassium 2.8 Replete with potassium chloride 40 mEq b.i.d. p.o. Follow-up BMP, replete electrolytes accordingly Essential hypertension Blood pressure soft Hold hypertension medications, including carvedilol and JEAN-PAUL inhibitor Received normal saline bolus in the ED Continue normal saline IV Acute UTI UA shows pyuria Continue ceftriaxone IV Pending urine culture transaminitis some nonspecific abdominal symptoms including abdominal bloating. right upper quadrant ultrasound to evaluate patient's liver and gallbladder. clear liquid diet and advance diet as tolerated after the ultrasound completed. Ultrasound showed: The gallbladder is normal without stones, gallbladder wall thickening or pericholecystic fluid. Common bile duct measures 3 mm. No sonographic Shepherd's sign. dyspnea on exertion likely due to respiratory compensation with underlying metabolic acute acidosis. CT shows The lungs demonstrate mild atelectasis. A calcified left lung nodule and calcified left hilar and mediastinal lymph nodes are consistent with old granulomatous disease. No pleural effusion. The heart size is normal. No pericardial effusion. There are old healed right rib fractures. There is severe thoracic spondylosis. Order echocardiogram Patient has been admitted as observation status. DS: Summary Hospital Course Reason for hospitalization: Acute kidney injury Abdominal pain Nausea vomiting Hospital Course: 53 years old female was admitted complains nausea and vomiting, patient was found to be dehydrated. Patient also have electrolyte imbalance. Patient was given IV fluids and condition was stabilized. Patient electrolytes replaced. Today patient is feeling better and patient discharged in stable condition. Patient is advised to see primary care doctor and GI specialist as an outpatient. Patient also advised to follow with for urine culture results. Status at Discharge Cognitive/behavioral status at discharge: Stable Time Spent with Patient Time attestation: Total time spent providing and/or coordinating discharge services: 30 minutes Exam Narrative: GENERAL: Pleasant, in no acute distress. Well-nourished. - EYES: EOMI. Anicteric. - HENT: Moist mucous membranes. - LUNGS: Clear to auscultation bilaterally, no wheezing, rhonchi, or rales. - CARDIOVASCULAR: Regular rate and rhythm. No m
[2024-02-13] MEDS: traMADol HCL (*CRX) 50 MG TABLET PO (12:55)
[2024-02-13 12:58] VITALS: BP 104/68; PULSE 70; RESP 18; TEMP 36.2; O2SAT 100
[2024-02-13 13:06] VITALS: BP 96/54
[2024-02-13 14:10] LABS: Urine Cotinine NEGATIVE
== END 2024-02-13 13:52 | disposition home or self-care (01) | DRG 683 ==
LOC: ANHED 21:56 → ANH3MED 02-12 01:00
PROVIDERS: Hospitalist; Admitting Provider Internal Medicine; Emergency Provider Emergency Medicine; PCP Physician Assistant; Visit Provider Internal Medicine
DX: N17.9 Acute kidney failure, unspecified (principal); E87.1 Hypo-osmolality and hyponatremia; E87.20 Acidosis, unspecified; N39.0 Urinary tract infection, site not specified; I10 Essential (primary) hypertension; R11.2 Nausea with vomiting, unspecified; R80.9 Proteinuria, unspecified; R74.01 Elevation of levels of liver transaminase levels; R06.09 Other forms of dyspnea; K76.89 Other specified diseases of liver; K21.9 Gastro-esophageal reflux disease without esophagitis; K57.30 Diverticulosis of large intestine without perforation or abscess without bleeding; M17.9 Osteoarthritis of knee, unspecified; M54.2 Cervicalgia; M54.9 Dorsalgia, unspecified; G89.29 Other chronic pain; F32.A Depression, unspecified; F41.9 Anxiety disorder, unspecified; Z20.822 Contact with and (suspected) exposure to COVID-19; Z87.891 Personal history of nicotine dependence
CPT/HCPCS: 36415; 71046; 71260; 74177; 76705; 80053; 80074; 80307; 81001; 82550; 83735; 83880; 84132; 84484; 85025; 85027; 85380; 87077; 87086; 87088; 87186; 87637; 93005; 93306; 96361; 96374; 96375; 96376; 99285; A9270; J0696; J1170; J1650; J2270; J2405; J2470; J3475; J3480; J7030; J7040; Q9967

== ENCOUNTER 2024-02-17 15:17 | Outpatient (CLI) | payer OTHER, SELFPAY ==
[2024-02-17 15:44] LABS: Hematocrit 40.5 % (37.0-47.0); Hemoglobin 13.9 g/dL (12.0-15.0); Mean Corpuscular HGB Conc 34.3 g/dl (32-36); Mean Corpuscular Hemoglobin 30.2 pg (26-34); Mean Corpuscular Volume 87.9 fl (80-100); Mean Platelet Volume 9.2 fl (7.4-10.4); Platelet Count Result 440 k/mm3 (150-375); Red Blood Count 4.61 M/mm3 (4.2-5.4); White Blood Count 7.9 K/mm3 (4.5-10.0)
[2024-02-17 15:53] LABS: Alanine Aminotransferase 91 U/L (6-35); Albumin Level 4.6 g/dL (3.5-5.1); Alkaline Phosphatase 102 U/L (38-126); Anion Gap 17 mmol/L (4-12); Aspartate Amino Transferase 29 U/L (14-36); Bilirubin,Total 0.6 mg/dL (0.2-1.3); Blood Urea Nitrogen 20 mg/dL (7-17); Calcium 9.5 mg/dL (8.4-10.2); Carbon Dioxide 15 mmol/L (22-30); Chloride 105 mmol/L (98-107); Estimated Glomerular Filt Rate 26; Glucose 106 mg/dL (65-110); Potassium 3.3 mmol/L (3.4-5.0); Sodium 137 mmol/L (137-145)
[2024-02-17 16:19] LABS: Band Neutrophils Percent 1 % (0-6); Eosinophils Absolute Manual 0.31 K/mm3 (0.02-0.50); Eosinophils Percent Manual 4 % (0-4); Lymphocytes Absolute Manual 2.37 K/mm3 (1.1-4.5); Monocytes Percent Manual 14 % (3-9); Neutrophils Percent Manual 51 % (46-73); Total Cells Counted 100
[2024-02-17 16:20] LABS: Anisocytosis 1+; Platelet Estimate Increased (Adequate); Schistocytes None Seen
[2024-02-22 05:23] LABS: Actin Antibody (IgG) <20 U (<20)
[2024-02-26 00:58] LABS: Mitochondrial (M2) Ab (IgG) 96.1 U
== END 2024-02-17 15:18 | disposition home or self-care (01) ==
LOC: ANHLAB 15:19
PROVIDERS: PCP Physician Assistant; Visit Provider Physician Assistant
DX: N17.9 Acute kidney failure, unspecified (principal); R74.8 Abnormal levels of other serum enzymes; R89.4 Abnormal immunological findings in specimens from other organs, systems and tissues; R79.9 Abnormal finding of blood chemistry, unspecified
CPT/HCPCS: 36415; 80048; 80076; 83520; 85025; 86364

== ENCOUNTER 2024-02-20 15:36 | Emergency (ER) | payer OTHER, SELFPAY ==
--- NOTE | ~2024-02-20 | XR_ITS ---
XR chest 2V DATE: 02/20/2024 15:54 INDICATION: Chest pain TECHNIQUE: PA and lateral views COMPARISON: 02/11/2024 CT chest 02/20/2024 2 view chest FINDINGS: Normal heart size. No hilar or mediastinal enlargement. No pulmonary infiltrate or consolidation, pleural effusion or pulmonary vascular congestion or pneumo thorax. Multiple old healed right rib fracture deformities. IMPRESSION: No active cardiopulmonary disease Reviewed, dictated and finalized at location A.
--- NOTE | ~2024-02-20 | CT_ITS ---
EXAMINATION: CT abdomen pelvis w con DATE: 02/20/2024 19:44 INDICATION: Epigastric abdominal pain. Elevated serum lipase; evaluate for pancreatitis. TECHNIQUE: Computed tomography (CT) of the abdomen and pelvis was performed without intravenous contr ast. Automated exposure control and iterative reconstruction technique were employed. Exam dose: 600 .98 mGy-cm total exam DLP. COMPARISON: 01/29/2022 CTA chest abdomen pelvis FINDINGS: Suggestion of prior wedge resection in the right lower lobe. The lung bases are clear of infiltrate or consolidation. Heart size is within normal range. No pericardial or pleural effusion. Up to 4.2 cm right hepatic cysts and suggestion of occasional very small scattered hepatic cysts. The gallbladder appears unremarkable, without thickening of the wall or pericholecystic fluid or fat stranding. No bile duct or pancreatic duct dilatation. No pancreatic mass lesion or calcification. No peripancreatic fluid or fat stranding. Normal splenic size. Normal morphology of the adrenal glands. No right renal mass lesion. One or more parapelvic left renal cysts are suggested. No suspicious left renal space occupying mass lesion is noted. There is cortical thinning of portions of both kidneys suggesting probable chronic p yelonephritis. No urinary tract calculus or hydroureteronephrosis. The urinary bladder is unremarkable. The uterus a nd adnexal areas likewise unremarkable. Normal caliber of the abdominal aorta. No intraperitoneal or retroperitoneal or pelvic mass lesion or adenopathy or ascites. Normal appendix. Mild diverticulosis of the sigmoid and descending colon; no CT evidence of diverticulitis. No bowel o bstruction, bowel wall thickening, pneumatosis or intraperitoneal free air is detected. Bilateral L3 pars interarticularis defects with grade 1 anterolisthesis and severe degenerative disc disease including severe eburnation at the opposing vertebral endplates at L3-4. Bilateral L5 pars interarticularis defects with minimal grade 1 anterolisthesis at L5-S1. Degenerative spurring of the lower thoracic spine. No suspicious osteolytic or osteoblastic lesions are noted. IMPRESSION: No CT evidence of pancreatitis; this does not exclude pancreatitis. Status post wedge resection, right lower lobe Hepatic cysts, measuring up to 4.2 cm Left renal parapelvic cyst(s) Mild diverticulosis of left colon; no evidence of diverticulitis Normal appendix Bilateral L3 and L5 pars interarticularis defects and grade 1 anterolisthesis Very severe degenerative disc disease at L3-4 Reviewed, dictated and finalized at Location A. Reviewed, dictated and finalized at location A. IMPRESSION: No CT evidence of pancreatitis; this does not exclude pancreatitis . Status post wedge resection, right lower lobe Hepatic cysts, measuring up to 4.2 cm Left renal parapelvic cyst(s) Mild diverticulosis of left colon; no evidence of diverticulitis Normal appendix Bilateral L3 and L5 pars interarticularis defects and grade 1 anterolisthesis Very severe degenerative disc disease at L3-4
--- NOTE | 2024-02-20 15:42 | ECG_ITS ---
Test Date: 2024-02-20 15:41:21 Measurements Intervals [place] Rate: 80 P: 23 MO: 149 QRS: 7 QRSD: 97 T: -49 QT: 331 QTc: 382 Interpretive Statements SINUS RHYTHM LEFT VENTRICULAR HYPERTROPHY AND ST-T CHANGE MINIMAL Q WAVES- HIGH LATERAL LEADS ST-T WAVE ABNORMALITY IN ANTEROLAT/INF LEADS- CONSIDER ISCHEMIA BASELINE ARTIFACT- I, II, III, AVR, AVL, AVF, V6 ABNORMAL ECG Compared to ECG 02/11/2024 17:11:11 ST-T WAVE ABNORMALITY NOW PRESENT Electronically Signed On 02-20-2024 18:56:56 CDT by Bharath Olson D.O.
[2024-02-20 15:56] LABS: Basophils Absolute Auto 0.1 K/mm3 (0.0-0.1); Basophils Percent Auto 0.8 % (0.2-1.2); Eosinophils Absolute Auto 0.2 K/mm3 (0-0.3); Eosinophils Percent Auto 1.8 % (0-4.4); Hematocrit 40.8 % (37.0-47.0); Immature Granulocyte Percent A 2.4 % (0-0.5); Lymphocytes Absolute Auto 1.37 K/mm3 (0.9-3.2); Lymphocytes Percent Auto 16.5 % (18.3-44.2); Mean Corpuscular HGB Conc 34.3 g/dl (32-36); Mean Corpuscular Hemoglobin 30.2 pg (26-34); Mean Corpuscular Volume 88.1 fl (80-100); Mean Platelet Volume 9.5 fl (7.4-10.4); Monocytes Absolute Auto 0.5 K/mm3 (0.1-0.6); Monocytes Percent Auto 5.6 % (2.6-8.5); Neutrophils Percent Auto 72.9 % (45.5-73.1); Platelet Count Result 451 k/mm3 (150-375); Red Blood Count 4.63 M/mm3 (4.2-5.4); Red Cell Distribution Width 15.1 % (11.5-14.5); White Blood Count 8.3 K/mm3 (4.5-10.0)
[2024-02-20 16:00] VITALS: BP 116/82; PULSE 84; RESP 20; TEMP 36; O2SAT 100
[2024-02-20 16:07] LABS: INR 1.1; Prothrombin Time 14.3 Seconds (11.1-14.7)
[2024-02-20 16:08] LABS: Partial Thromboplastin Time 29.7 Seconds (22.3-36.8)
[2024-02-20 16:18] LABS: Alanine Aminotransferase 59 U/L (6-35); Albumin Level 4.9 g/dL (3.5-5.1); Alkaline Phosphatase 96 U/L (38-126); Anion Gap 14 mmol/L (4-12); Aspartate Amino Transferase 29 U/L (14-36); Bilirubin,Total 0.5 mg/dL (0.2-1.3); Blood Urea Nitrogen 18 mg/dL (7-17); Calcium 10.2 mg/dL (8.4-10.2); Carbon Dioxide 18 mmol/L (22-30); Chloride 105 mmol/L (98-107); Estimated CRCL calculation 46 ml/min; Estimated Glomerular Filt Rate 37; Glucose 126 mg/dL (65-110); Lipase 910 U/L (23-300); Potassium 3.1 mmol/L (3.4-5.0); Sodium 137 mmol/L (137-145)
[2024-02-20 16:30] LABS: Troponin I < 0.012 ng/mL (0.000-0.034)
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
[2024-02-20 18:53] VITALS: O2SAT 100
[2024-02-20 18:56] LABS: Magnesium 1.8 mg/dL (1.6-2.3)
[2024-02-20 18:59] VITALS: BP 103/76; PULSE 63; PULSE 64; RESP 14; O2SAT 100
--- NOTE | 2024-02-20 19:00 | ECG_ITS ---
Test Date: 2024-02-20 19:16:55 Measurements Intervals [place] Rate: 60 P: 55 OR: 131 QRS: 24 QRSD: 100 T: 2 QT: 386 QTc: 388 Interpretive Statements SINUS RHYTHM LEFT VENTRICULAR HYPERTROPHY MINIMAL Q WAVES- HIGH LATERAL LEADS NONSPECIFIC ST-T WAVE ABNORMALITY- ANT/INF LEADS BASELINE ARTIFACT- I, II, III, AVR, AVL BORDERLINE ECG Compared to ECG 02/20/2024 15:41:21 ST-T WAVE ABNORMALITY IMPROVED Electronically Signed On 02-21-2024 08:46:01 CDT by Bharath Olson D.O.
[2024-02-20 19:01] LABS: D Dimer 0.27 ug/mL (<0.48)
[2024-02-20] MEDS: POTASSIUM BICARBONATE 25 MEQ TABEF 50 MEQ PO (19:15)
[2024-02-20] MEDS: KCL 20 MEQ/SW 100 ML 100 ML 50 MEQ IVPB (19:22)
[2024-02-20] MEDS: SODIUM CHLORIDE 0.9% IV 1,000 ML 999 ML IV CONT (19:23)
[2024-02-20 19:40] LABS: Add Urine Microscopic? NO; Appearance Urine Clear (Clear); Bilirubin Urine Negative (Negative); Blood Urine Negative (Negative); Color Urine Yellow (Yellow); Glucose Urine UA Negative (Negative); Ketones Urine Negative (Negative); Leukocyte Esterase Ur Negative LEU/UL (Negative); Nitrate Urine Negative (Negative); Protein Urine Negative (Negative); Specific Grav Ur 1.004 (1.001-1.035); Urobilinogen Urine 0.2 mg/dL (<2.0)
[2024-02-20 19:43] LABS: Troponin I < 0.012 ng/mL (0.000-0.034)
[2024-02-20 21:22] VITALS: BP 107/66; PULSE 80; RESP 15; O2SAT 100
[2024-02-20] MEDS: ONDANSETRON INJ 4 MG/2 ML VIAL IV PUSH (21:24)
[2024-02-20] MEDS: MORPHINE SULFATE (*CRX) 4 MG/ML INJ IV PUSH (21:25)
[2024-02-20] MEDS: DEXTROSE 5%/0.9% SOD CHL 1,000 ML 250 ML IV CONT (21:26)
[2024-02-20 22:38] VITALS: BP 115/84; PULSE 74; RESP 16; TEMP 37; O2SAT 100
== END 2024-02-20 22:39 | disposition home or self-care (01) ==
PROVIDERS: Emergency Provider Student in an Organized Health Care Education/Training Program; PCP Physician Assistant
DX: N17.9 Acute kidney failure, unspecified (principal); N18.9 Chronic kidney disease, unspecified; E87.6 Hypokalemia; D75.839 Thrombocytosis, unspecified; R79.89 Other specified abnormal findings of blood chemistry; R74.8 Abnormal levels of other serum enzymes; K76.89 Other specified diseases of liver; N28.1 Cyst of kidney, acquired; R07.9 Chest pain, unspecified; E78.5 Hyperlipidemia, unspecified; F41.9 Anxiety disorder, unspecified; F32.A Depression, unspecified; Z87.891 Personal history of nicotine dependence; F12.90 Cannabis use, unspecified, uncomplicated
CPT/HCPCS: 36415; 71046; 74177; 80053; 81003; 83690; 83735; 84484; 85025; 85380; 85610; 85730; 93005; 96361; 96365; 96366; 96375; 99284; A9270; J2270; J2405; J3480; J7030; J7042; Q9967

== ENCOUNTER 2024-02-25 13:53 | Outpatient (CLI) | payer OTHER, SELFPAY ==
[2024-02-25 15:12] LABS: Anion Gap 12 mmol/L (4-12); Blood Urea Nitrogen 25 mg/dL (7-17); Calcium 9.7 mg/dL (8.4-10.2); Carbon Dioxide 20 mmol/L (22-30); Chloride 105 mmol/L (98-107); Estimated Glomerular Filt Rate 32; Glucose 88 mg/dL (65-110); Potassium 3.5 mmol/L (3.4-5.0); Sodium 137 mmol/L (137-145)
== END 2024-02-25 13:54 | disposition home or self-care (01) ==
PROVIDERS: PCP Physician Assistant; Visit Provider Student in an Organized Health Care Education/Training Program
DX: N17.9 Acute kidney failure, unspecified (principal); E87.6 Hypokalemia
CPT/HCPCS: 36415; 80048

== ENCOUNTER 2024-03-05 08:20 | Outpatient (CLI) | payer OTHER, SELFPAY ==
[2024-03-05 08:48] LABS: Basophils Absolute Auto 0.1 K/mm3 (0.0-0.1); Basophils Percent Auto 1.1 % (0.2-1.2); Eosinophils Absolute Auto 0.2 K/mm3 (0-0.3); Eosinophils Percent Auto 4.2 % (0-4.4); Hematocrit 38.4 % (37.0-47.0); Hemoglobin 12.5 g/dL (12.0-15.0); Immature Granulocyte Absolute 0.02 K/mm3 (0.00-0.031); Immature Granulocyte Percent A 0.4 % (0-0.5); Lymphocytes Absolute Auto 1.42 K/mm3 (0.9-3.2); Lymphocytes Percent Auto 31.6 % (18.3-44.2); Mean Corpuscular HGB Conc 32.6 g/dl (32-36); Mean Corpuscular Hemoglobin 29.8 pg (26-34); Mean Corpuscular Volume 91.4 fl (80-100); Mean Platelet Volume 10.5 fl (7.4-10.4); Monocytes Absolute Auto 0.4 K/mm3 (0.1-0.6); Monocytes Percent Auto 9.1 % (2.6-8.5); Neutrophils Absolute Auto 2.4 K/mm3 (1.3-6.7); Neutrophils Percent Auto 53.6 % (45.5-73.1); Platelet Count Result 295 k/mm3 (150-375); Red Cell Distribution Width 14.9 % (11.5-14.5); White Blood Count 4.5 K/mm3 (4.5-10.0)
[2024-03-05 09:09] LABS: Rheumatoid Factor < 12.0 IU/ML (<12)
[2024-03-05 09:12] LABS: Alanine Aminotransferase 60 U/L (6-35); Albumin Level 4.2 g/dL (3.5-5.1); Alkaline Phosphatase 65 U/L (38-126); Amylase 93 U/L (30-110); Anion Gap 11 mmol/L (4-12); Aspartate Amino Transferase 56 U/L (14-36); Bilirubin,Total 0.4 mg/dL (0.2-1.3); Blood Urea Nitrogen 19 mg/dL (7-17); CRP < 0.5 mg/dL (<1.0); Calcium 9.2 mg/dL (8.4-10.2); Carbon Dioxide 23 mmol/L (22-30); Chloride 105 mmol/L (98-107); Estimated Glomerular Filt Rate 43; Glucose 90 mg/dL (65-110); Lipase 332 U/L (23-300); Potassium 3.4 mmol/L (3.4-5.0); Sodium 139 mmol/L (137-145)
[2024-03-05 09:53] LABS: Erythrocyte Sedimentation Rate 15 mm/hr (0-20)
[2024-03-09 06:44] LABS: Anti Nuclear Antibody Pattern Cytoplasmic
[2024-03-10 06:04] LABS: Actin Antibody (IgG) <20 U (<20)
== END 2024-03-05 08:21 | disposition home or self-care (01) ==
LOC: ANHLAB 08:24
PROVIDERS: PCP Physician Assistant Medical; Visit Provider Physician Assistant
DX: N17.9 Acute kidney failure, unspecified (principal); R74.8 Abnormal levels of other serum enzymes; R89.4 Abnormal immunological findings in specimens from other organs, systems and tissues; R79.9 Abnormal finding of blood chemistry, unspecified; K85.90 Acute pancreatitis without necrosis or infection, unspecified; M25.50 Pain in unspecified joint
CPT/HCPCS: 36415; 80048; 80076; 82150; 83690; 85025; 85652; 86038; 86039; 86140; 86364; 86430

== ENCOUNTER 2024-04-01 16:06 | Outpatient (CLI) | payer OTHER, SELFPAY ==
--- NOTE | ~2024-04-01 | US_ITS ---
US renal BI 04/01/2024 16:43 Procedure: Chronic kidney disease Indication: Chronic kidney disease Comparison: No prior studies for comparison. Findings: Renal echotexture is normal bilaterally without hydronephrosis, contour deforming mass or r enal calculus. Mild left renal hydronephrosis. The right kidney measures 12 cm and left kidney measur es 11.3 cm. Bladder within normal limits although not well distended. Incidental note is made of a l iver cyst. Impression: 1: Mild left hydronephrosis. Reviewed, dictated and finalized at location B. Impression: 1: Mild left hydronephrosis.
[2024-04-01 17:02] LABS: Hematocrit 40.8 % (37.0-47.0); Hemoglobin 13.5 g/dL (12.0-15.0); Mean Corpuscular HGB Conc 33.1 g/dl (32-36); Mean Corpuscular Hemoglobin 29.8 pg (26-34); Mean Corpuscular Volume 90.1 fl (80-100); Mean Platelet Volume 10.6 fl (7.4-10.4); Platelet Count Result 335 k/mm3 (150-375); Red Blood Count 4.53 M/mm3 (4.2-5.4); Red Cell Distribution Width 13.9 % (11.5-14.5); White Blood Count 5.7 K/mm3 (4.5-10.0)
[2024-04-01 17:12] LABS: Creatinine Urine 42.5 mg/dL; Total Protein Urine Random 96 mg/dL; Ur Ttl Prot Creatinine Ratio 2.26 mg/mg (0-0.20)
[2024-04-01 17:14] LABS: Creatine Kinase 200 U/L (30-135)
[2024-04-01 17:19] LABS: Add Urine Microscopic? YES; Appearance Urine Clear (Clear); Bacteria Urine None Seen /hpf; Bilirubin Urine Negative (Negative); Blood Urine 1+ (Negative); Color Urine Yellow (Yellow); Glucose Urine UA Negative (Negative); Ketones Urine Negative (Negative); Leukocyte Esterase Ur Negative LEU/UL (Negative); Need Manual Microscopic Reviewed; Nitrate Urine Negative (Negative); Non Pathogenic Casts 0-2; Protein Urine 2+ mg/dL (Negative); RBC Urine 0-2 /hpf (0-2); Specific Grav Ur 1.004 (1.001-1.035); Squamous Epithelial Cell Urine None Seen /hpf (Few); Urobilinogen Urine 0.2 mg/dL (<2.0); WBC Urine 0-5 /hpf (0-3)
[2024-04-01 17:34] LABS: Rheumatoid Factor < 12.0 IU/ML (<12)
[2024-04-01 17:54] LABS: Erythrocyte Sedimentation Rate 15 mm/hr (0-20)
[2024-04-04 09:58] LABS: Anti Glomerular Basement Memb <1.0 AI
[2024-04-04 14:59] LABS: Kappa\\Lambda Light Chains 2.02 (0.26-1.65); Lambda Light Chain 12.7 mg/L (5.7-26.3)
[2024-04-04 15:03] LABS: Complement Total CH50 >60 U/mL (31-60)
[2024-04-05 11:18] LABS: ANCA Screen NEGATIVE (NEGATIVE)
== END 2024-04-01 16:07 | disposition home or self-care (01) ==
LOC: ANHIMG 16:07
PROVIDERS: PCP Physician Assistant; Visit Provider Internal Medicine Nephrology
DX: N13.30 Unspecified hydronephrosis (principal); N18.31 Chronic kidney disease, stage 3a; N39.0 Urinary tract infection, site not specified; R76.0 Raised antibody titer
CPT/HCPCS: 36415; 76775; 81001; 82550; 82570; 83520; 83883; 84156; 85027; 85652; 86036; 86162; 86430; 87086

== ENCOUNTER 2024-04-06 08:06 | Outpatient (CLI) | payer OTHER, SELFPAY ==
--- NOTE | ~2024-04-06 | NM_ITS ---
EXAMINATION: NM lydia stress w perfusion DATE: 04/06/2024 10:12 INDICATION: Chest pain. TECHNIQUE: Rest images were obtained following intravenous administration of 10.3 mCi Tc99m tetrofosm in (Myoview). The patient was infused intravenously with Lexiscan (regadenoson). Then, 33.7 mCi Tc99m tetrofosmin (Myoview) was administered intravenously, and stress images were obtained. Data was veronica nstructed into short axis and horizontal and vertical long axis SPECT images. Gated SPECT images were also obtained. COMPARISON: Myocardial perfusion imaging 01/28/2019 FINDINGS: There is no definite reversible or fixed perfusion abnormality to suggest ischemia or infar ction. There is no segmental wall motion abnormality. Left ventricular ejection fraction measures > 70%. IMPRESSION: 1. No definite ischemia or infarct. 2. Normal left ventricular ejection fraction measuring >70%. Reviewed, dictated and finalized at location A.
--- NOTE | 2024-04-06 08:07 | EST_ITS ---
Patient Info Name: Heidi Vaca Age: 53 years : 1970 Gender: Female Ht: 66 in Wt: 185 lbs BSA: 2.00 m2 HR: 66 bpm BP: 102 / 73 mmHg Exam Date: 04/06/2024 8:51 AM Exam Location: Echo Lab Patient Status: Outpatient Admit Date: 04/06/2024 Staff Ordering Physician: Bharath Olson DO Attending Provider: Bharath Olson DO Exercise Technologist: Cassandra Benson RDCS Exercise Physician: Bharath Olson DO Exam Type: CA stress lydia w NM Study Info A regadenoson stress test was performed. Summary 1. 1. Negative lexiscan stress test for ischemic ST changes by ECG criteria. 2. 2. Stable hemodynamics throughout the test. 3. 3. Nuclear scan to follow and will be reported separately. Please correlate with it. 4. 4. Patient informed of the above results. Protocol: Lexiscan Stress ECG Details Stage: REST Duration (min): 3 min : 59 sec HR (bpm): 61 SBP (mmHg): 102 DBP (mmHg): 73 Stage: REST Duration (min): 7 min : 48 sec HR (bpm): 79 SBP (mmHg): 102 DBP (mmHg): 73 Stage: STAGE 1 Duration (min): 0 min : 59 sec HR (bpm): 101 SBP (mmHg): 104 DBP (mmHg): 57 Stage: RECOVERY Duration (min): 1 min : 0 sec HR (bpm): 96 SBP (mmHg): 104 DBP (mmHg): 57 Stage: RECOVERY Duration (min): 2 min : 0 sec HR (bpm): 100 SBP (mmHg): 104 DBP (mmHg): 57 Stage: RECOVERY Duration (min): 3 min : 0 sec HR (bpm): 113 SBP (mmHg): 104 DBP (mmHg): 57 Stage: RECOVERY Duration (min): 4 min : 0 sec HR (bpm): 92 SBP (mmHg): 154 DBP (mmHg): 108 Stage: RECOVERY Duration (min): 4 min : 0 sec HR (bpm): 92 SBP (mmHg): 154 DBP (mmHg): 108 Rest HR: 79 bpm Peak HR: 113 bpm Rest Sys BP: 102 mmHg Peak Sys BP: 154 mmHg Max Pred HR: 169 bpm % Max Pred HR: 67 % Target HR: 144 bpm Max RPP: 17,402 bpm*mmHg Termination Reason: Completed protocol Cardiac Symptoms: Shortness of breath, Nausea Total Time: 1 min : 0 sec Rest Mohamud BP: 73 mmHg Peak Mohamud BP: 108 mmHg Total Dose: 0.4 mg Resting ECG Sinus rhythm. Stress ECG No ST changes. Arrhythmias None. Report Signatures
== END 2024-04-06 08:07 | disposition home or self-care (01) ==
LOC: ANHIMG 08:07
PROVIDERS: PCP Physician Assistant; Visit Provider Internal Medicine Cardiovascular Disease
DX: R07.9 Chest pain, unspecified (principal)
CPT/HCPCS: 78452; 93017; A9502; J2785

== ENCOUNTER 2024-04-12 15:42 | Outpatient (CLI) | payer OTHER, SELFPAY ==
[2024-04-12 16:37] LABS: Phosphorus 2.6 mg/dL (2.5-4.5)
[2024-04-12 16:40] LABS: Cholesterol 207 mg/dL (0-200); HDL Direct 96 mg/dL; Triglycerides 82 mg/dL (<150)
[2024-04-12 16:48] LABS: Complement C3 132 mg/dL (88-165)
[2024-04-12 16:50] LABS: LDL Cholesterol Direct 85 mg/dL
[2024-04-12 17:18] LABS: Parathyroid Intact < 14.5 pg/mL (14.5-75.2)
[2024-04-12 17:21] LABS: Alanine Aminotransferase 25 U/L (6-35); Albumin Level 5.1 g/dL (3.5-5.1); Alkaline Phosphatase 103 U/L (38-126); Anion Gap 17 mmol/L (4-12); Aspartate Amino Transferase 32 U/L (14-36); Bilirubin,Total 0.7 mg/dL (0.2-1.3); Blood Urea Nitrogen 18 mg/dL (7-17); Calcium 10.3 mg/dL (8.4-10.2); Carbon Dioxide 17 mmol/L (22-30); Chloride 104 mmol/L (98-107); Estimated Glomerular Filt Rate 30; Glucose 93 mg/dL (65-110); Potassium 2.2 mmol/L (3.4-5.0); Sodium 138 mmol/L (137-145)
[2024-04-13 13:04] LABS: SM Antibody <1.0 NEG AI (<1.0 NEG); SM/RNP Antibody <1.0 NEG AI (<1.0 NEG); SS-A <1.0 NEG AI (<1.0 NEG); SS-B <1.0 NEG AI (<1.0 NEG)
[2024-04-15 08:32] LABS: Anti Nuclear Antibody Pattern Cytoplasmic
[2024-04-16 22:43] LABS: Immunofixation, Serum Normal pattern.
== END 2024-04-12 15:43 | disposition home or self-care (01) ==
LOC: ANHLAB 15:44
PROVIDERS: PCP Nurse Practitioner Family; Referring Provider Internal Medicine Cardiovascular Disease; Visit Provider Internal Medicine Nephrology
DX: I12.9 Hypertensive chronic kidney disease with stage 1 through stage 4 chronic kidney disease, or unspecified chronic kidney disease (principal); N18.31 Chronic kidney disease, stage 3a; N39.0 Urinary tract infection, site not specified; R76.0 Raised antibody titer; E78.5 Hyperlipidemia, unspecified
CPT/HCPCS: 36415; 80053; 80061; 82595; 83970; 84100; 86038; 86039; 86160; 86225; 86235; 86334

== ENCOUNTER 2024-04-12 18:11 | Inpatient (IN) | payer OTHER, SELFPAY ==
--- NOTE | ~2024-04-12 | CT_ITS ---
EXAMINATION: CT cervical spine wo con DATE: 04/13/2024 23:40 INDICATION: acute neck pain TECHNIQUE: Computed tomography (CT) of the cervical spine was performed without intravenous contrast. Automated exposure control and iterative reconstruction technique were employed. The dose-length pro duct was 492.83 mGy-cm. COMPARISON: MR cervical spine 02/05/2022. FINDINGS: Vertebral Body Alignment: Trace stable anterolistheses at C3-4 and C4-5. Mild reversal of the cervica l lordosis.. Craniocervical and atlantoaxial alignment: Moderate degenerative change. Alignment intact. Osseous structures/fracture: No evidence of a lytic or blastic process in the visualized spine. No e vidence of acute fracture. Cervical soft tissues: The paraspinal soft tissues planes are maintained. Degenerative changes: Degenerative changes, without severe neural foraminal or central canal narrowin g. IMPRESSION: No acute fracture or traumatic malalignment in the cervical spine. Reviewed, dictated and finalized at location K.
--- NOTE | ~2024-04-12 | CT_ITS ---
EXAMINATION: CT abdomen pelvis w con DATE: 04/12/2024 22:00 INDICATION: abdominal pain TECHNIQUE: Computed tomography (CT) of the abdomen and pelvis was performed with 100 mL Omnipaque-350 intravenous contrast. Automated exposure control and iterative reconstruction technique were employe d. The dose-length product was 919.05 mGy-cm. COMPARISON: 02/20/2024. FINDINGS: Lower thorax: Peripheral right lower lobe scar and volume loss. Liver: 4.5 cm simple right lobe cyst Biliary/Gallbladder: Gallbladder is normal. No bile duct dilation. Pancreas: No mass or duct dilation. Spleen: Normal. Adrenals:No mass. Kidneys: No suspicious mass, obstructing stone, or hydronephrosis. GI tract: No small or large bowel dilation. Normal appendix. Mesentery/Peritoneum: No ascites, mass, or free air. Retroperitoneum: No mass. Pelvis: Normal urinary bladder. Normal uterus and bilateral ovaries.. Soft Tissues: Soft tissues and body wall unremarkable. Bones: No acute osseous finding. Stable grade 1 anterolistheses at L3-4 and L5-S1. IMPRESSION: No acute abdominopelvic process detected. Reviewed, dictated and finalized at location K.
--- NOTE | ~2024-04-12 | CT_ITS ---
EXAMINATION: CT brain wo con DATE: 04/13/2024 23:40 INDICATION: headaches, CA??? . TECHNIQUE: Computed tomography (CT) of the head was performed without intravenous contrast. The mA wa s adjusted according to patient size. Iterative reconstruction technique was employed. The dose-lengt h product was 681.00 mGy-cm. COMPARISON: 01/29/2022. FINDINGS: No acute intracranial hemorrhage or extra-axial fluid collection. No hydrocephalus, mass, or herniation. No acute ischemic infarct. Unremarkable dural venous sinus attenuation. No acute osseous abnormality. Nodular mucosal thickening in the bilateral maxillary sinuses, the remaining aerated spaces are clear . IMPRESSION: No acute intracranial process. Reviewed, dictated and finalized at location K.
--- NOTE | ~2024-04-12 | XR_ITS ---
EXAMINATION: XR chest 2V Exam Date/Time: 04/12/2024 18:31 CDT HISTORY: CP/sob Comparison: 02/20/2024. RESULT: Lines, tubes, and devices: None. Lungs and pleura: Clear. Cardiomediastinal silhouette: Stable. Other: No acute osseous or upper abdominal finding. Multiple old right rib fractures. IMPRESSION: No acute cardiopulmonary process. Reviewed, dictated and finalized at location K.
[2024-04-12 18:14] VITALS: BP 126/89; PULSE 100; RESP 16; TEMP 37; O2SAT 100
--- NOTE | 2024-04-12 18:19 | ECG_ITS ---
Test Date: 2024-04-12 18:28:21 Measurements Intervals [place] Rate: 99 P: -3 NV: 143 QRS: 13 QRSD: 97 T: 230 QT: 338 QTc: 435 Interpretive Statements SINUS RHYTHM LEFT VENTRICULAR HYPERTROPHY AND ST-T CHANGE [VOLTAGE CRITERIA PLUS ST/T ABNORMALITY] Compared to ECG 02/20/2024 19:16:55 NO SIGNIFICANT CHANGES Electronically Signed On 04-13-2024 14:27:13 CDT by Rachel Balbuena M.D.
[2024-04-12 18:43] LABS: Basophils Absolute Auto 0.1 K/mm3 (0.0-0.1); Basophils Percent Auto 0.8 % (0.2-1.2); Eosinophils Absolute Auto 0.1 K/mm3 (0-0.3); Eosinophils Percent Auto 0.8 % (0-4.4); Hematocrit 38.2 % (37.0-47.0); Hemoglobin 13.6 g/dL (12.0-15.0); Immature Granulocyte Absolute 0.04 K/mm3 (0.00-0.031); Immature Granulocyte Percent A 0.5 % (0-0.5); Lymphocytes Absolute Auto 2.28 K/mm3 (0.9-3.2); Lymphocytes Percent Auto 27.4 % (18.3-44.2); Mean Corpuscular HGB Conc 35.6 g/dl (32-36); Mean Corpuscular Hemoglobin 30.1 pg (26-34); Mean Corpuscular Volume 84.5 fl (80-100); Mean Platelet Volume 10.6 fl (7.4-10.4); Monocytes Absolute Auto 0.6 K/mm3 (0.1-0.6); Monocytes Percent Auto 6.6 % (2.6-8.5); Neutrophils Absolute Auto 5.3 K/mm3 (1.3-6.7); Neutrophils Percent Auto 63.9 % (45.5-73.1); Platelet Count Result 358 k/mm3 (150-375); Red Blood Count 4.52 M/mm3 (4.2-5.4); Red Cell Distribution Width 13.7 % (11.5-14.5); White Blood Count 8.3 K/mm3 (4.5-10.0)
[2024-04-12 19:12] LABS: INR 1.1; Partial Thromboplastin Time 30.3 Seconds (22.3-36.8)
[2024-04-12 19:25] LABS: Alanine Aminotransferase 24 U/L (6-35); Albumin Level 4.8 g/dL (3.5-5.1); Alkaline Phosphatase 90 U/L (38-126); Anion Gap 14 mmol/L (4-12); Aspartate Amino Transferase 35 U/L (14-36); Bilirubin,Total 0.8 mg/dL (0.2-1.3); Blood Urea Nitrogen 18 mg/dL (7-17); Calcium 10.1 mg/dL (8.4-10.2); Carbon Dioxide 15 mmol/L (22-30); Chloride 106 mmol/L (98-107); Estimated CRCL calculation 38 ml/min; Estimated Glomerular Filt Rate 32; Glucose 201 mg/dL (65-110); Lipase 145 U/L (23-300); Sodium 135 mmol/L (137-145)
[2024-04-12 19:51] LABS: Troponin I 0.013 ng/mL (0.000-0.034)
[2024-04-12 19:53] LABS: Potassium 2.7 mmol/L (3.4-5.0)
[2024-04-12 19:54] VITALS: BP 127/86; PULSE 96; RESP 18; TEMP 36.7; O2SAT 98
[2024-04-12] MEDS: ONDANSETRON INJ 4 MG/2 ML VIAL IV PUSH (20:31)
[2024-04-12] MEDS: HYDROmorphone HCL INJ (*CRX) 1 MG/ML SYR IV PUSH ×2 (20:32→23:52)
[2024-04-12] MEDS: SODIUM CHLORIDE 0.9% IV 1,000 ML 999 ML IV CONT (20:42)
[2024-04-12] MEDS: KCL 20 MEQ/SW 100 ML 100 ML 50 MEQ IVPB ×2 (20:43→23:51)
--- NOTE | 2024-04-12 21:45 | ECG_ITS ---
Test Date: 2024-04-12 22:03:26 Measurements Intervals [place] Rate: 77 P: 21 CT: 159 QRS: 21 QRSD: 98 T: -9 QT: 329 QTc: 374 Interpretive Statements SINUS RHYTHM WITH OCCASIONAL PAC NONSPECIFIC T-WAVE ABNORMALITY Compared to ECG 04/12/2024 18:28:21 NO SIGNIFICANT CHANGES Electronically Signed On 04-13-2024 14:28:55 CDT by Rachel Balbuena M.D.
[2024-04-12 22:38] LABS: Troponin I < 0.012 ng/mL (0.000-0.034)
[2024-04-12 23:01] VITALS: BP 113/69; PULSE 78; RESP 17; O2SAT 100
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
[2024-04-12 23:30] VITALS: BP 122/84; PULSE 74; RESP 19; O2SAT 100
[2024-04-13 00:59] LABS: Phosphorus 2.6 mg/dL (2.5-4.5)
[2024-04-13 01:11] LABS: Troponin I < 0.012 ng/mL (0.000-0.034)
[2024-04-13] MEDS: POTASSIUM CHLORIDE 20 MEQ PACKET (FOR LIQUID) 40 MEQ PO (01:40)
[2024-04-13 02:17] VITALS: BP 115/75; PULSE 76; RESP 16; TEMP 36.4; O2SAT 100; BMI 30.4
--- NOTE | 2024-04-13 02:24 | ADMGEN ---
This patient, Heidi Vaca, was admitted to [facility] Surg Room 327-01. Patient/family oriented to hospital policies and general routines including ID bracelet, bed and alarms, visiting hours, pain management, procedures, bathroom and other care routines, personal items, smoking policy, room service/diet, and visiting hours. Information on how to activate the Rapid Response Team has been discussed. Patient/Family are encouraged to report perceived risks to care and to ask questions if they do not understand what they are told or what they should do.
[2024-04-13] MEDS: SODIUM CHLORIDE 0.9% IV 1,000 ML 125 ML IV CONT (02:34)
[2024-04-13 04:00] VITALS: BP 104/68; PULSE 66; PULSE 81; RESP 14; TEMP 36.4; O2SAT 100
[2024-04-13 08:00] VITALS: BP 102/54; PULSE 70; PULSE 80; RESP 14; TEMP 36.2; O2SAT 99
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
[2024-04-13] MEDS: ACETAMINOPHEN 325 MG TABLET 650 MG PO (09:23)
[2024-04-13 09:49] VITALS: O2SAT 96
[2024-04-13 09:53] LABS: Hematocrit 30.9 % (37.0-47.0); Hemoglobin 10.7 g/dL (12.0-15.0); Mean Corpuscular HGB Conc 34.6 g/dl (32-36); Mean Corpuscular Hemoglobin 30.1 pg (26-34); Mean Platelet Volume 10.5 fl (7.4-10.4); Platelet Count Result 288 k/mm3 (150-375); Red Blood Count 3.55 M/mm3 (4.2-5.4); Red Cell Distribution Width 14.3 % (11.5-14.5); White Blood Count 5.5 K/mm3 (4.5-10.0)
[2024-04-13 09:59] LABS: Magnesium 2.1 mg/dL (1.6-2.3)
[2024-04-13 10:00] LABS: Anion Gap 5 mmol/L (4-12); Blood Urea Nitrogen 14 mg/dL (7-17); Calcium 8.9 mg/dL (8.4-10.2); Carbon Dioxide 21 mmol/L (22-30); Chloride 115 mmol/L (98-107); Estimated CRCL calculation 41 ml/min; Estimated Glomerular Filt Rate 34; Glucose 100 mg/dL (65-110); Phosphorus 2.4 mg/dL (2.5-4.5); Potassium 3.1 mmol/L (3.4-5.0); Sodium 141 mmol/L (137-145)
[2024-04-13 10:14] LABS: CRP < 0.5 mg/dL (<1.0)
[2024-04-13 10:21] LABS: NT Pro B Type Natriuretic Pept 158 pg/mL (19.9-100)
[2024-04-13] MEDS: POTASSIUM/PHOSPHORUS/SODIUM 1.5 GM PACKET 1 PACKET PO (10:23)
[2024-04-13 10:43] LABS: Thyroid Stimulating Hormone 0.866 uIU/mL (0.465-4.680)
[2024-04-13 11:03] LABS: Vitamin B12 > 1000.0 pg/mL (239-931)
[2024-04-13 11:49] VITALS: BMI 30.4
[2024-04-13 12:00] VITALS: BP 100/64; PULSE 75; PULSE 82; RESP 16; TEMP 36.6; O2SAT 100
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
[2024-04-13] MEDS: HYDROcodone/acetaminophen (*CRX) 10-325 MG TABLET 1 TAB PO ×2 (17:13→21:44)
[2024-04-13] MEDS: VENLAFAXINE HCL 25 MG TABLET 100 MG PO (17:14)
[2024-04-13 17:23] LABS: Hematocrit 33.4 % (37.0-47.0); Hemoglobin 11.3 g/dL (12.0-15.0); Mean Corpuscular HGB Conc 33.8 g/dl (32-36); Mean Corpuscular Hemoglobin 29.8 pg (26-34); Mean Corpuscular Volume 88.1 fl (80-100); Mean Platelet Volume 10.5 fl (7.4-10.4); Platelet Count Result 309 k/mm3 (150-375); Red Blood Count 3.79 M/mm3 (4.2-5.4); Red Cell Distribution Width 14.5 % (11.5-14.5); White Blood Count 5.5 K/mm3 (4.5-10.0)
[2024-04-13 17:35] LABS: Anion Gap 9 mmol/L (4-12); Blood Urea Nitrogen 13 mg/dL (7-17); Calcium 9.3 mg/dL (8.4-10.2); Carbon Dioxide 18 mmol/L (22-30); Chloride 113 mmol/L (98-107); Estimated CRCL calculation 44 ml/min; Estimated Glomerular Filt Rate 37; Glucose 96 mg/dL (65-110); Sodium 140 mmol/L (137-145)
[2024-04-13] MEDS: POTASSIUM CHLORIDE INJ 40 MEQ in SODIUM CHLORIDE 0.9% IV 500 ML 130 MEQ IVPB (18:39)
--- NOTE | 2024-04-13 19:17 | PC.NURSE ---
administered the one time dose of pantoprazole 40mg, at 1900 04/13/24 but unable to save that it was administered
[2024-04-13 20:00] VITALS: BP 108/79; PULSE 66; PULSE 87; RESP 100; TEMP 36.4; O2SAT 14
[2024-04-13] MEDS: AMITRIPTYLINE HCL 25 MG TABLET 50 MG PO (20:41)
[2024-04-13] MEDS: SENNA/DOCUSATE SODIUM TABLET 2 TAB PO (20:41)
[2024-04-13] MEDS: ENOXAPARIN 40 MG/0.4 ML SYRINGE SUB-Q (20:42)
[2024-04-14] VITALS: BP 110/70; PULSE 74; PULSE 84; RESP 14; TEMP 36.4; O2SAT 99
[2024-04-14] MEDS: HYDROcodone/acetaminophen (*CRX) 10-325 MG TABLET 1 TAB PO (02:20)
[2024-04-14 04:00] VITALS: BP 109/72; PULSE 65; PULSE 66; RESP 14; TEMP 36.7; O2SAT 100
[2024-04-14 07:47] LABS: Hematocrit 37.7 % (37.0-47.0); Hemoglobin 12.6 g/dL (12.0-15.0); Mean Corpuscular HGB Conc 33.4 g/dl (32-36); Mean Corpuscular Hemoglobin 29.6 pg (26-34); Mean Corpuscular Volume 88.7 fl (80-100); Mean Platelet Volume 10.8 fl (7.4-10.4); Platelet Count Result 352 k/mm3 (150-375); Red Blood Count 4.25 M/mm3 (4.2-5.4); Red Cell Distribution Width 14.6 % (11.5-14.5); White Blood Count 6.6 K/mm3 (4.5-10.0)
[2024-04-14 07:54] LABS: Anion Gap 12 mmol/L (4-12); Blood Urea Nitrogen 10 mg/dL (7-17); Calcium 9.6 mg/dL (8.4-10.2); Carbon Dioxide 19 mmol/L (22-30); Chloride 111 mmol/L (98-107); Estimated CRCL calculation 44 ml/min; Estimated Glomerular Filt Rate 37; Glucose 91 mg/dL (65-110); Sodium 142 mmol/L (137-145)
[2024-04-14] MEDS: polyethylene glycoL 3350 17 GM POWD.PACK PO (09:00)
[2024-04-14] MEDS: ENOXAPARIN 40 MG/0.4 ML SYRINGE SUB-Q ×2 (09:00→21:34)
[2024-04-14] MEDS: VENLAFAXINE HCL 25 MG TABLET 100 MG PO ×2 (09:01→16:34)
[2024-04-14] MEDS: ROSUVASTATIN 20 MG TABLET PO (09:02)
[2024-04-14] MEDS: PANTOPRAZOLE 40 MG TABLET PO (09:02)
[2024-04-14] MEDS: SODIUM CHLORIDE 0.9% IV 1,000 ML 125 ML IV CONT ×2 (09:08→21:34)
--- NOTE | 2024-04-14 10:02 | PM.IMPN ---
Progress Note: A&P Assessment and Plan (1) Acute hypokalemia: Code(s): E87.6 - Hypokalemia Status: Acute Assessment and Plan: patient received 80 mg equivalents on date of admission a.m. labs pending symptoms improving telemetry monitoring (2) Unintentional weight loss of more than 10% body weight within 6 months: Code(s): R63.4 - Abnormal weight loss Status: Acute Assessment and Plan: unintentional weight loss, hot flashes, brain fogginess and upper extremity weakness differentials multiple myeloma versus amyloidosis versus waldenstroms verses Sjogren's verses other autoimmune diseases versus other B12, TSH, rheumatoid factors, CRP, BNP and urine myoglobin pending CT of chest abdomen pelvis negative for acute findings. calcium to WNL, hemoglobin WNL, creatinine elevated at 1.7, urine protein high 2+, liver enzymes WNL, troponins WNL, positive ORDDY CT head and neck no Acute findings CEA of 6.9, pelvic ultrasound pending OBGYN consult placed pending recommendations Time Spent With Patient Time: Includes review of chart, time spent family, consulting teams and nursing. Vital signs were reviewed and they are stable. His medications will be reviewed and resumed as appropriate. Findings and treatment plan were discussed with the patient. Questions were solicited and answered to satisfaction. Care plan was discussed with nursing. 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 CT head with no acute findings CT neck No acute fracture or traumatic malalignment in the cervical spine. will order CEA, however so far patient's cancers workup has been negative. Will consult GI for possible scope. due to patient's prolonged use of narcotics pain is not controlled current regimen adjustments made Review of Systems Review of Systems: 12 systems were reviewed and are negative except for as per HPI. Exam Const: Other: General: well appearing, appears stated age. HEENT: normocephalic, atraumatic. Mucous membranes moist. EOMI, PERRLA, bilateral sclera anicteric, no conjunctival injection. Neck supple without JVD, lymphadenopathy, or bruit. Respiratory: clear to auscultation bilaterally. No rales/rhonic/wheezes. Cardiovascular: Regular rate and rhythm, normal S1-S2 upon auscultation. No murmurs, rubs, or clicks. PMI is nondisplaced, capillary refill less than 3 second. Abdomen: Soft, round, no pulsatile masses, nondistended and nontender. No rebound, no guarding. No CVA tenderness, no hepatosplenomegaly. Bowel sounds present to all four quadrants. No high pitch or tinkling sounds, resonant to percussion. Extremities: No cyanosis, clubbing, or edema present. Pulses are palpable 2/2. Active ROM to all four extremities. Neuro: Alert and orientated x 4. PERRLA. Cranial nerves 2-12 intact without focal deficit. Skin: Warm, dry, and intact, without rash, erythema, or lesion. no facial lesions Psych: pleasant, cooperative, normal speech, normal affect, no hallucinations, no dysarthria, tearful Objective Data Vital Signs Vital Signs: Vital Signs - 24 hr 04/13/24 12:00 04/13/24 12:00 04/13/24 20:00 Temperature 97.9 F 97.5 F L Pulse Rate 75 82 66 Respiratory Rate 16 100 H Blood Pressure 100/64 108/79 Pulse Oximetry 100 14 L Oxygen Delivery 04/13/24 20:45 04/14/24 00:00 04/13/24 20:00 Temperature 97.5 F L Pulse Rate 84 87 Respiratory Rate 14 Blood Pressure 110/70 Pulse Oximetry 99 Oxygen Delivery Room Air 04/14/24 00:00 04/14/24 04:00 04/14/24 04:00 Temperature 98.1 F Pulse Rate 74 65 66 Respiratory Rate 14 Blood Pressure 109/72 Pulse Oximetry 100 Oxygen Delivery Intake/Output Intake/Output: Intake & Output 04/11/24 04/12/24 04/13/24 04/14/24 23:59 23:59 23:59 23:59 Intake Total 1100 1090 1450 Output Total 200 Balance 2469 975 5927 Meds/Results Medications: Active Medications Generic Name Dose Route Start Last Admin Trade Name Freq PRN Reason Stop Dose Admin Acetaminophen 650 mg 04/13/24 00:23 04/13/24 09:23 Acetaminophen 325 Mg Tablet PO 650 mg Q4H PRN Administration Mild Pain (1-3) or Fever Hydrocodone Bitart/Acetaminophen 1 tab 04/13/24 16:37 04/14/24 02:20 Hydrocodone/Acetaminophen (*Crx) 10-325 Mg Tablet PO 1 tab Q4H PRN Administration Pain Rated 5-9 Amitriptyline HCl 50 mg 04/13/24 21:00 04/13/24 20:41 Amitriptyline Hcl 25 Mg Tablet PO 50 mg QHS ZEINA Administration Enoxaparin Sodium 40 mg 04/13/24 21:00 04/14/24 09:00 Enoxaparin 40 Mg/0.4 Ml Syringe SUB-Q 40 mg Q12HR ZEINA Administration Sodium Chloride 1,000 mls @ 125 mls/hr 04/13/24 00:25 04/14/24 09:08 Normal Saline Iv IV CONT 125 mls/hr .Q8H ZEINA Administration Ondansetron HCl 4 mg 04/13/24 00:23 Ondansetron Inj 4 Mg/2 Ml Vial IV PUSH Q4H PRN Nausea Pantoprazole Sodium 40 mg 04/14/24 09:00 04/14/24 09:02 Pantoprazole 40 Mg Tablet PO 40 mg QAM ZEINA Administration Polyethylene Glycol 17 gm 04/14/24 09:00 04/14/24 09:00 Polyethylene Glycol 3350 17 Gm Powd.Pack PO 17 gm QAM ZEINA Administration Rosuvastatin Calcium 20 mg 04/14/24 09:00 04/14/24 09:02 Rosuvastatin 20 Mg Tablet PO 20 mg DAILY ZEINA Administration Senna/Docusate Sodium 2 tab 04/13/24 21:00 04/13/24 20:41 Senna/Docusate Sodium Tablet PO 2 tab HS ZEINA Administration Venlafaxine HCl 100 mg 04/13/24 17:00 04/14/24 09:01 Venlafaxine Hcl 25 Mg Tablet PO 100 mg BID ZEINA Administration Radiology Results: ITS Impressions Chest X-Ray 04/12/24 19:03 IMPRESSION: No acute cardiopulmonary process. Abdomen/Pelvis CT 04/12/24 22:40 IMPRESSION: No acute abdominopelvic process detected. Head CT 04/13/24 23:47 IMPRESSION: No acute intracranial process. Cervical Spine CT 04/13/24 23:49 IMPRESSION: No acute fracture or traumatic malalignment in the cervical spine. Labs Labs: Laboratory Results - last 24 hr 04/13/24 04/13/24 04/14/24 09:32 17:13 07:08 WBC 5.5 6.6 RBC 3.79 L 4.25 Hgb 11.3 L 12.6 Hct 33.4 L 37.7 MCV 88.1 88.7 MCH 29.8 29.6 MCHC 33.8 33.4 RDW 14.5 14.6 H Plt Count 309 352 MPV 10.5 H 10.8 H Sodium 140 142 Potassium 3.0 L 3.0 L Chloride 113 H 111 H Carbon Dioxide 18 L 19 L Anion Gap 9 12 BUN 13 10 Creatinine 1.50 H 1.50 H Estim Creat Clear Calc 44 44 Estimated GFR 37 L 37 L Glucose 96 91 Calcium 9.3 9.6 C-Reactive Protein < 0.5 NT-Pro-B Natriuret Pep 158 H Vitamin B12 > 1000.0 H TSH 0.866 Quality VTE Prophylaxis VTE prophylaxis: mechanical ordered and pharmacologic ordered Hospitalist MIPS Advance Care Plan I have confirmed that the patient's Advanced Care Plan is present, code status is documented, or surrogate decision maker is listed in patient medical record.: Yes Medication Reconciliation I have utilized all available resources to obtain, update and review the patients current medications (includes all prescriptions, OTC, herbals, cannabis, and nutritional supplements).: Yes
[2024-04-14] MEDS: POTASSIUM CHLORIDE 20 MEQ PACKET (FOR LIQUID) 40 MEQ PO (12:05)
[2024-04-14] MEDS: POTASSIUM CHLORIDE INJ 40 MEQ in SODIUM CHLORIDE 0.9% IV 500 ML 130 MEQ IVPB (12:06)
[2024-04-14 12:42] LABS: Magnesium 1.9 mg/dL (1.6-2.3)
[2024-04-14 13:13] LABS: Carcinoembryonic Antigen 6.9 ng/mL (0.0-3.0)
[2024-04-14 14:00] VITALS: BP 116/77; PULSE 63; RESP 20; TEMP 35.9; O2SAT 100
[2024-04-14 16:00] VITALS: PULSE 75
[2024-04-14] MEDS: ALPRAZolam (*CRX) 0.25 MG TABLET PO ×2 (16:32→21:38)
[2024-04-14] MEDS: HYDROmorphone HCL INJ (*CRX) 1 MG/ML SYR 0.5 MG IV PUSH (16:32)
--- NOTE | 2024-04-14 16:37 | P.PNNP_ITS ---
Progress Note: A&P Assessment and Plan (1) Hypokalemia: Code(s): E87.6 - Hypokalemia Status: Acute Assessment and Plan: * as noted by outpatient labs and on admission * magnesium okay * getting oral and IV replacement * giving her GI symptoms; possibly total body store depletion(?) * possible RTA? * checking renin, aldosterone, and TTKG (results still pendind/D) * follow trend of K+ (2) Chronic kidney disease, stage 3: Code(s): N18.30 - Chronic kidney disease, stage 3 unspecified Status: Acute Assessment and Plan: * not really sure what her baseline creatinine really is * appears to be running ~ 1.2 - 1.7mg/dl since January 2024 * GFR has fluctuated from 44 - 52cc/min in the last few years though * however, since January 2024, creatinine has fluctuated to more extremes in association with acute illnesses/hospitalizations/ER visits * outpatient evaluation noted: * positive RODDY - planning on seeing Rheumatology * renal ultrasound with mild left hydronephrosis (but CT done here negative) * serologies to date negative (but quite a few are pending) * moderate proteinuria (1340mg) * UA with blood - Urology referral in process * suspicion falls on hypertension and vascular disease as etiology * follow trend of repeat labs asn UOP (3) Vomiting: Qualifiers: Nausea presence: with nausea Vomiting type: unspecified Qualified Code(s): R11.2 - Nausea with vomiting, unspecified Code(s): R11.10 - Vomiting, unspecified Status: Acute Assessment and Plan: * presumed etiology of #1 * continue supportive therapy * follow symptoms * GI consultation (4) Hypertension: Qualifiers: Hypertension type: essential hypertension Qualified Code(s): I10 - Essential (primary) hypertension Code(s): I10 - Essential (primary) hypertension Status: Chronic Assessment and Plan: * despite history, well controlled without medications * follow trend of hemodynamics Will continue to follow. Subjective Date/time seen: 04/14/24 16:37 Interval history: Follow-up for chronic kidney disease and hypokalemia. Potassium appears to be slowly improving with current therapy and interventions; still with on/off nausea, vomiting, and abdominal pain -- Gastroenterology conuslted for further evaluation; no acute distress noted at this time; renal function/creatinine remains relatively stable. Exam Narrative: General: WD/WN Caucasia female in NAD Heart: normal S1 and S2; no rub Lungs: clear to auscultation Abdomen: soft, nontender, nondistended, positive bowel sounds Extremities: no cyanosis or clubbing; no edema Skin: warm and dry Objective Data Vital Signs Vital Signs: Vital Signs Temp Pulse Resp BP Pulse Ox O2 Del Method 04/14/24 12:00 96.6 F L 63 20 116/77 100 04/14/24 09:00 Room Air 04/14/24 04:00 98.1 F 66 14 109/72 100 04/14/24 04:00 65 04/14/24 00:00 74 04/13/24 20:00 87 04/14/24 00:00 97.5 F L 84 14 110/70 99 04/13/24 20:45 Room Air 04/13/24 20:00 97.5 F L 66 100 H 108/79 14 L Intake/Output Intake/Output: Intake & Output 04/11/24 04/12/24 04/13/24 04/14/24 23:59 23:59 23:59 23:59 Intake Total 1100 1090 1930 Output Total 200 Balance 7920 189 5549 Meds/Results Medications: Active Medications Generic Name Dose Route Start Last Admin Trade Name Freq PRN Reason Stop Dose Admin Acetaminophen 650 mg 04/13/24 00:23 04/13/24 09:23 Acetaminophen 325 Mg Tablet PO 650 mg Q4H PRN Administration Mild Pain (1-3) or Fever Alprazolam 0.25 mg 04/14/24 14:30 04/14/24 16:32 Alprazolam (*Crx) 0.25 Mg Tablet PO 0.25 mg TID PRN Administration Anxiety Amitriptyline HCl 50 mg 04/13/24 21:00 04/13/24 20:41 Amitriptyline Hcl 25 Mg Tablet PO 50 mg QHS ZEINA Administration Enoxaparin Sodium 40 mg 04/13/24 21:00 04/14/24 09:00 Enoxaparin 40 Mg/0.4 Ml Syringe SUB-Q 40 mg Q12HR ZEINA Administration Hydromorphone HCl 1 mg 04/14/24 14:30 Hydromorphone Hcl (*Crx) 1 Mg Tablet PO Q4H PRN Pain Rated 7-10 Sodium Chloride 1,000 mls @ 125 mls/hr 04/13/24 00:25 04/14/24 09:08 Normal Saline Iv IV CONT 125 mls/hr .Q8H ZEINA Administration Ondansetron HCl 4 mg 04/13/24 00:23 Ondansetron Inj 4 Mg/2 Ml Vial IV PUSH Q4H PRN Nausea Pantoprazole Sodium 40 mg 04/14/24 09:00 04/14/24 09:02 Pantoprazole 40 Mg Tablet PO 40 mg QAM ZEINA Administration Polyethylene Glycol 17 gm 04/14/24 09:00 04/14/24 09:00 Polyethylene Glycol 3350 17 Gm Powd.Pack PO 17 gm QAM ZEINA Administration Rosuvastatin Calcium 20 mg 04/14/24 09:00 04/14/24 09:02 Rosuvastatin 20 Mg Tablet PO 20 mg DAILY ZEINA Administration Senna/Docusate Sodium 2 tab 04/13/24 21:00 04/13/24 20:41 Senna/Docusate Sodium Tablet PO 2 tab HS ZEINA Administration Trazodone HCl 100 mg 04/14/24 14:30 Trazodone Hcl 50 Mg Tablet PO HS PRN Insomnia Venlafaxine HCl 100 mg 04/13/24 17:00 04/14/24 16:34 Venlafaxine Hcl 25 Mg Tablet PO 100 mg BID ZEINA Administration Radiology Results: ITS Impressions Chest X-Ray 04/12/24 19:03 IMPRESSION: No acute cardiopulmonary process. Abdomen/Pelvis CT 04/12/24 22:40 IMPRESSION: No acute abdominopelvic process detected. Head CT 04/13/24 23:47 IMPRESSION: No acute intracranial process. Cervical Spine CT 04/13/24 23:49 IMPRESSION: No acute fracture or traumatic malalignment in the cervical spine. Labs Labs: Laboratory Tests 04/14/24 07:08 04/14/24 07:08 Serum Osmolality Pending Calcium 9.6 Magnesium 1.9
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
[2024-04-14 20:00] VITALS: PULSE 86
[2024-04-14 20:30] LABS: Eosinophil Urine None Seen % (None Seen); Urine Eos QC 2nd Tech Confirmed
[2024-04-14 20:49] LABS: Creatinine Urine 76.9 mg/dL
[2024-04-14 21:00] LABS: Sodium Urine Random 89 meq/L
[2024-04-14 21:02] LABS: Creatinine Urine 76.9 mg/dL; Total Protein Urine Random 103 mg/dL; Ur Ttl Prot Creatinine Ratio 1.34 mg/mg (0-0.20)
[2024-04-14 21:07] LABS: Total Protein Urine Random 104 mg/dL; Urea Random Urine 232 MG/DL
[2024-04-14 21:10] LABS: Potassium Urine Random 47.5 meq/L
[2024-04-14] MEDS: AMITRIPTYLINE HCL 25 MG TABLET 50 MG PO (21:34)
[2024-04-14] MEDS: SENNA/DOCUSATE SODIUM TABLET 2 TAB PO (21:34)
[2024-04-14 21:35] VITALS: BP 106/71; PULSE 84; RESP 16; TEMP 36.1; O2SAT 100
[2024-04-14] MEDS: HYDROmorphone HCL (*CRX) 1 MG TABLET PO (21:38)
[2024-04-15] VITALS (11 sets, daily range): BP systolic 97–128; BP diastolic 61–86; PULSE 63–120; RESP 14–18; TEMP 35.9–36.4; O2SAT 97–100
[2024-04-15] MEDS: HYDROmorphone HCL (*CRX) 1 MG TABLET PO ×3 (02:05→18:58)
[2024-04-15 06:40] LABS: Hematocrit 32.8 % (37.0-47.0); Hemoglobin 11.1 g/dL (12.0-15.0); Mean Corpuscular HGB Conc 33.8 g/dl (32-36); Mean Corpuscular Hemoglobin 30.1 pg (26-34); Mean Corpuscular Volume 88.9 fl (80-100); Mean Platelet Volume 10.7 fl (7.4-10.4); Platelet Count Result 291 k/mm3 (150-375); Red Blood Count 3.69 M/mm3 (4.2-5.4); Red Cell Distribution Width 14.7 % (11.5-14.5)
[2024-04-15 06:48] LABS: Creatine Kinase 125 U/L (30-135)
[2024-04-15 07:09] LABS: Alanine Aminotransferase 19 U/L (6-35); Albumin Level 3.6 g/dL (3.5-5.1); Alkaline Phosphatase 74 U/L (38-126); Anion Gap 5 mmol/L (4-12); Aspartate Amino Transferase 29 U/L (14-36); Bilirubin,Total 0.3 mg/dL (0.2-1.3); Blood Urea Nitrogen 7 mg/dL (7-17); Calcium 8.9 mg/dL (8.4-10.2); Carbon Dioxide 21 mmol/L (22-30); Chloride 114 mmol/L (98-107); Estimated CRCL calculation 44 ml/min; Estimated Glomerular Filt Rate 37; Glucose 75 mg/dL (65-110); Potassium 2.8 mmol/L (3.4-5.0); Sodium 140 mmol/L (137-145)
[2024-04-15 07:31] LABS: HIV 1/2 Ab P24 Ag Result Negative (Negative)
--- NOTE | 2024-04-15 08:25 | PM.IMPN ---
Progress Note: A&P Assessment and Plan (1) Gastritis: Code(s): K29.70 - Gastritis, unspecified, without bleeding Status: Acute Assessment and Plan: follow-up outpatient in the GI office continue current medications (2) Acute hypokalemia: Code(s): E87.6 - Hypokalemia Status: Acute Assessment and Plan: patient received 80 mg equivalents on date of admission a.m. labs symptoms improving telemetry monitoring IV and oral potassium replacements (3) Unintentional weight loss of more than 10% body weight within 6 months: Code(s): R63.4 - Abnormal weight loss Status: Acute Assessment and Plan: unintentional weight loss, hot flashes, brain fogginess and upper extremity weakness B12 high, TSH WDL, CRP WDL, [id number] CT of chest abdomen pelvis negative for acute findings. calcium to WNL, hemoglobin WNL, creatinine elevated at 1.7, urine protein high 2+, liver enzymes WNL, troponins WNL, CT head and neck no Acute findings CEA 6.9 hepatitis-B, RPR, rheumatoid factors, cryoglobulin, serum immunofixation, aldosterone, urine myoglobin, and renin pending hepatitis-A, had the antigen, hep B core, hepatitis-C, HIV, a respiratory panel all negative, complement C3 and C4 within normal limits RODDY screen positive, titer 1:320, RODDY pattern cytoplasmic A Ob consult yesterday will do Pap smears . Patient able to do Pap today because she was in EGD. 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 CEA 6.9 hepatitis-B, RPR, rheumatoid factors, cryoglobulin, serum immunofixation, aldosterone, urine myoglobin, and renin pending hepatitis-A, had the antigen, hep B core, hepatitis-C, HIV, a respiratory panel all negative, complement C3 and C4 within normal limits RODDY screen positive, titer 1:320, RODDY pattern cytoplasmic A Ob consult yesterday will do Pap smears and GI was consulted with plan for scope today potassium critical again this morning at 2.8 will replace, Mag within normal limits EGD shows gastritis, biopsies obtained Review of Systems Review of Systems: 12 systems were reviewed and are negative except for as per HPI. Exam Const: Other: General: well appearing, appears stated age. HEENT: normocephalic, atraumatic. Mucous membranes moist. EOMI, PERRLA, bilateral sclera anicteric, no conjunctival injection. Neck supple without JVD, lymphadenopathy, or bruit. Respiratory: clear to auscultation bilaterally. No rales/rhonic/wheezes. Cardiovascular: Regular rate and rhythm, normal S1-S2 upon auscultation. No murmurs, rubs, or clicks. PMI is nondisplaced, capillary refill less than 3 second. Abdomen: Soft, round, no pulsatile masses, nondistended and nontender. No rebound, no guarding. No CVA tenderness, no hepatosplenomegaly. Bowel sounds present to all four quadrants. No high pitch or tinkling sounds, resonant to percussion. Extremities: No cyanosis, clubbing, or edema present. Pulses are palpable 2/2. Active ROM to all four extremities. Neuro: Alert and orientated x 4. PERRLA. Cranial nerves 2-12 intact without focal deficit. Skin: Warm, dry, and intact, without rash, erythema, or lesion. no facial lesions Psych: pleasant, cooperative, normal speech, normal affect, no hallucinations, no dysarthria, tearful Objective Data Vital Signs Vital Signs: Vital Signs - 24 hr 04/14/24 09:00 04/14/24 14:00 04/14/24 16:00 Temperature 96.6 F L Pulse Rate 63 75 Respiratory Rate 20 Blood Pressure 116/77 Pulse Oximetry 100 Oxygen Delivery Room Air 04/14/24 21:35 04/14/24 20:00 04/14/24 20:00 Temperature 96.9 F L Pulse Rate 84 86 Respiratory Rate 16 Blood Pressure 106/71 Pulse Oximetry 100 Oxygen Delivery Room Air 04/15/24 00:00 04/15/24 00:00 04/15/24 03:31 Temperature 97.1 F L 97.2 F L Pulse Rate 72 120 H 73 Respiratory Rate 16 14 Blood Pressure 104/62 104/63 Pulse Oximetry 100 98 Oxygen Delivery 04/15/24 04:00 Temperature Pulse Rate 64 Respiratory Rate Blood Pressure Pulse Oximetry Oxygen Delivery Intake/Output Intake/Output: Intake & Output 10/29/24 04/13/24 04/14/24 04/15/24 23:59 23:59 23:59 23:59 Intake Total 1100 1090 3578.3 643.8 Output Total 200 2 Balance 7730 944 0695.3 643.8 Meds/Results Medications: Active Medications Generic Name Dose Route Start Last Admin Trade Name Freq PRN Reason Stop Dose Admin Acetaminophen 650 mg 04/13/24 00:23 04/13/24 09:23 Acetaminophen 325 Mg Tablet PO 650 mg Q4H PRN Administration Mild Pain (1-3) or Fever Alprazolam 0.25 mg 04/14/24 14:30 04/14/24 21:38 Alprazolam (*Crx) 0.25 Mg Tablet PO 0.25 mg TID PRN Administration Anxiety Amitriptyline HCl 50 mg 04/13/24 21:00 04/14/24 21:34 Amitriptyline Hcl 25 Mg Tablet PO 50 mg QHS ZEINA Administration Enoxaparin Sodium 40 mg 04/13/24 21:00 04/14/24 21:34 Enoxaparin 40 Mg/0.4 Ml Syringe SUB-Q 40 mg Q12HR ZEINA Administration Hydromorphone HCl 1 mg 04/14/24 14:30 04/15/24 02:05 Hydromorphone Hcl (*Crx) 1 Mg Tablet PO 1 mg Q4H PRN Administration Pain Rated 7-10 Sodium Chloride 1,000 mls @ 125 mls/hr 04/13/24 00:25 04/15/24 02:10 Normal Saline Iv IV CONT 0 mls/hr .Q8H ZEINA Infusion Lactated Ringer's 1,000 mls @ 150 mls/hr 04/15/24 07:35 Lr - Lactated Ringers Iv IV CONT .Q6H40M ZEINA Ondansetron HCl 4 mg 04/13/24 00:23 Ondansetron Inj 4 Mg/2 Ml Vial IV PUSH Q4H PRN Nausea Pantoprazole Sodium 40 mg 04/14/24 09:00 04/14/24 09:02 Pantoprazole 40 Mg Tablet PO 40 mg QAM ZEINA Administration Polyethylene Glycol 17 gm 04/14/24 09:00 04/14/24 09:00 Polyethylene Glycol 3350 17 Gm Powd.Pack PO 17 gm QAM ZEINA Administration Rosuvastatin Calcium 20 mg 04/14/24 09:00 04/14/24 09:02 Rosuvastatin 20 Mg Tablet PO 20 mg DAILY ZEINA Administration Senna/Docusate Sodium 2 tab 04/13/24 21:00 04/14/24 21:34 Senna/Docusate Sodium Tablet PO 2 tab HS ZEINA Administration Trazodone HCl 100 mg 04/14/24 14:30 Trazodone Hcl 50 Mg Tablet PO HS PRN Insomnia Venlafaxine HCl 100 mg 04/13/24 17:00 04/14/24 16:34 Venlafaxine Hcl 25 Mg Tablet PO 100 mg BID ZEINA Administration Radiology Results: ITS Impressions Chest X-Ray 04/12/24 19:03 IMPRESSION: No acute cardiopulmonary process. Abdomen/Pelvis CT 04/12/24 22:40 IMPRESSION: No acute abdominopelvic process detected. Head CT 04/13/24 23:47 IMPRESSION: No acute intracranial process. Cervical Spine CT 04/13/24 23:49 IMPRESSION: No acute fracture or traumatic malalignment in the cervical spine. Labs Labs: Laboratory Results - last 24 hr 04/13/24 04/14/24 04/14/24 14:46 07:08 20:13 WBC RBC Hgb Hct MCV MCH MCHC RDW Plt Count MPV Sodium Potassium Chloride Carbon Dioxide Anion Gap BUN Creatinine Estim Creat Clear Calc Estimated GFR Glucose Calcium Magnesium 1.9 Total Bilirubin AST ALT Alkaline Phosphatase Total Creatine Kinase Total Protein Albumin Carcinoembryonic Ag 6.9 H Random Cortisol Urine Eosinophils None seen U Random Total Protein 103 Ur Random Sodium Ur Random Potassium Ur Random Urea Urine Creatinine Protein/Creat Ratio 2 CSF Myelin Basic Protein Cancelled HIV 1&2 Ab/P24 Ag 4thGn 04/14/24 04/14/24 04/15/24 20:13 20:13 06:00 WBC 6.0 RBC 3.69 L Hgb 11.1 L Hct 32.8 L MCV 88.9 MCH 30.1 MCHC 33.8 RDW 14.7 H Plt Count 291 MPV 10.7 H Sodium 140 Potassium 2.8 L* Chloride 114 H Carbon Dioxide 21 L Anion Gap 5 BUN 7 Creatinine 1.50 H Estim Creat Clear Calc 44 Estimated GFR 37 L Glucose 75 Calcium 8.9 Magnesium Total Bilirubin 0.3 AST 29 ALT 19 Alkaline Phosphatase 74 Total Creatine Kinase Total Protein 6.0 L Albumin 3.6 Carcinoembryonic Ag Random Cortisol Urine Eosinophils U Random Total Protein 104 Ur Random Sodium 89 Ur Random Potassium 47.5 Ur Random Urea 232 Urine Creatinine 76.9 76.9 Protein/Creat Ratio 2 1.34 H CSF Myelin Basic Protein HIV 1&2 Ab/P24 Ag 4thGn 04/15/24 06:05 WBC RBC Hgb Hct MCV MCH MCHC RDW Plt Count MPV Sodium Potassium Chloride Carbon Dioxide Anion Gap BUN Creatinine Estim Creat Clear Calc Estimated GFR Glucose Calcium Magnesium Total Bilirubin AST ALT Alkaline Phosphatase Total Creatine Kinase 125 Total Protein Albumin Carcinoembryonic Ag Random Cortisol 3.00 Urine Eosinophils U Random Total Protein Ur Random Sodium Ur Random Potassium Ur Random Urea Urine Creatinine Protein/Creat Ratio 2 CSF Myelin Basic Protein HIV 1&2 Ab/P24 Ag 4thGn Negative Quality VTE Prophylaxis VTE prophylaxis: mechanical ordered and pharmacologic ordered
[2024-04-15 08:56] LABS: Rapid Plasma Reagin Non-Reactive (NonReactive)
[2024-04-15 09:29] LABS: Hepatitis B Surface Anti Res Negative; Hepatitis C Virus Antibody Negative (Negative)
--- NOTE | 2024-04-15 10:26 | P.PNNP_ITS ---
Progress Note: A&P Assessment and Plan (1) Hypokalemia: Code(s): E87.6 - Hypokalemia Status: Acute Assessment and Plan: * as noted by outpatient labs and on admission * magnesium okay * getting oral and IV replacement * giving her GI symptoms; possibly total body store depletion(?) * possible RTA? * checking renin, aldosterone, and TTKG (results still pendind/D) * follow trend of K+ (2) Chronic kidney disease, stage 3: Code(s): N18.30 - Chronic kidney disease, stage 3 unspecified Status: Acute Assessment and Plan: * not really sure what her baseline creatinine really is * appears to be running ~ 1.2 - 1.7mg/dl since January 2024 * GFR has fluctuated from 44 - 52cc/min in the last few years though * however, since January 2024, creatinine has fluctuated to more extremes in association with acute illnesses/hospitalizations/ER visits * outpatient evaluation noted: * positive RODDY - planning on seeing Rheumatology * renal ultrasound with mild left hydronephrosis (but CT done here negative) * serologies to date negative (but quite a few are pending) * moderate proteinuria (1340mg) * UA with blood - outpatient Urology referral in process * suspicion falls on hypertension and vascular disease as etiology * follow trend of repeat labs asn UOP (3) Vomiting: Qualifiers: Nausea presence: with nausea Vomiting type: unspecified Qualified Code(s): R11.2 - Nausea with vomiting, unspecified Code(s): R11.10 - Vomiting, unspecified Status: Acute Assessment and Plan: * presumed etiology of #1 * continue supportive therapy * follow symptoms * GI following - EGD later today (4) Hypertension: Qualifiers: Hypertension type: essential hypertension Qualified Code(s): I10 - Essential (primary) hypertension Code(s): I10 - Essential (primary) hypertension Status: Chronic Assessment and Plan: * despite history, well controlled without medications * follow trend of hemodynamics Will continue to follow. Subjective Date/time seen: 04/15/24 10:26 Interval history: Follow-up for chronic kidney disease and hypokalemia, Low potassium again noted by AM labs and received IV and oral replacement; seen by GI yesterday afternoon and noted plan for EGD later today for further evaluation of her persistent nausea and vomiting; renal function/creatinine remains stable/unchanged. Exam Narrative: General: WD/WN Caucasia female in NAD Heart: normal S1 and S2; no rub Lungs: clear to auscultation Abdomen: soft, nontender, nondistended, positive bowel sounds Extremities: no cyanosis or clubbing; no edema Skin: warm and intact Objective Data Vital Signs Vital Signs: Vital Signs Temp Pulse Resp BP Pulse Ox O2 Del Method 04/15/24 10:02 96.7 F L 71 16 122/86 100 Room Air 04/15/24 04:00 64 04/15/24 03:31 97.2 F L 73 14 104/63 98 04/15/24 00:00 120 H 04/15/24 00:00 97.1 F L 72 16 104/62 100 04/14/24 20:00 86 04/14/24 20:00 Room Air 04/14/24 21:35 96.9 F L 84 16 106/71 100 Intake/Output Intake/Output: Intake & Output 04/12/24 04/13/24 04/14/24 04/15/24 23:59 23:59 23:59 23:59 Intake Total 1100 1090 3578.3 1223.8 Output Total 200 2 Balance 8614 273 2844.3 1223.8 Meds/Results Medications: Active Medications Generic Name Dose Route Start Last Admin Trade Name Freq PRN Reason Stop Dose Admin Acetaminophen 650 mg 04/13/24 00:23 04/13/24 09:23 Acetaminophen 325 Mg Tablet PO 650 mg Q4H PRN Administration Mild Pain (1-3) or Fever Alprazolam 0.25 mg 04/14/24 14:30 04/15/24 14:20 Alprazolam (*Crx) 0.25 Mg Tablet PO 0.25 mg TID PRN Administration Anxiety Amitriptyline HCl 50 mg 04/13/24 21:00 04/14/24 21:34 Amitriptyline Hcl 25 Mg Tablet PO 50 mg QHS ZEINA Administration Enoxaparin Sodium 40 mg 04/13/24 21:00 04/15/24 09:50 Enoxaparin 40 Mg/0.4 Ml Syringe SUB-Q Not Given Q12HR ZEINA Hydromorphone HCl 1 mg 04/14/24 14:30 04/15/24 14:20 Hydromorphone Hcl (*Crx) 1 Mg Tablet PO 1 mg Q4H PRN Administration Pain Rated 7-10 Ondansetron HCl 4 mg 04/13/24 00:23 Ondansetron Inj 4 Mg/2 Ml Vial IV PUSH Q4H PRN Nausea Pantoprazole Sodium 40 mg 04/14/24 09:00 04/15/24 14:19 Pantoprazole 40 Mg Tablet PO 40 mg QAM ZEINA Administration Polyethylene Glycol 17 gm 04/14/24 09:00 04/15/24 14:23 Polyethylene Glycol 3350 17 Gm Powd.Pack PO 17 gm QAM ZEINA Administration Rosuvastatin Calcium 20 mg 04/14/24 09:00 04/15/24 14:19 Rosuvastatin 20 Mg Tablet PO 20 mg DAILY ZEINA Administration Senna/Docusate Sodium 2 tab 04/13/24 21:00 04/14/24 21:34 Senna/Docusate Sodium Tablet PO 2 tab HS ZEINA Administration Trazodone HCl 100 mg 04/14/24 14:30 Trazodone Hcl 50 Mg Tablet PO HS PRN Insomnia Venlafaxine HCl 100 mg 04/13/24 17:00 04/15/24 09:50 Venlafaxine Hcl 25 Mg Tablet PO Not Given BID [facility] Radiology Results: ITS Impressions Chest X-Ray 04/12/24 19:03 IMPRESSION: No acute cardiopulmonary process. Abdomen/Pelvis CT 04/12/24 22:40 IMPRESSION: No acute abdominopelvic process detected. Head CT 04/13/24 23:47 IMPRESSION: No acute intracranial process. Cervical Spine CT 04/13/24 23:49 IMPRESSION: No acute fracture or traumatic malalignment in the cervical spine. Labs Labs: Laboratory Tests 04/15/24 06:00 04/15/24 06:00 Calcium 8.9 Total Bilirubin 0.3 AST 29 ALT 19 Alkaline Phosphatase 74 Total Protein 6.0 L Albumin 3.6
[2024-04-15] MEDS: LACTATED RINGERS 1,000 ML 150 ML IV CONT (10:38)
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
--- NOTE | 2024-04-15 11:19 | PM.OBPNVD ---
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 CEA 6.9 hepatitis-B, RPR, rheumatoid factors, cryoglobulin, serum immunofixation, aldosterone, urine myoglobin, and renin pending hepatitis-A, had the antigen, hep B core, hepatitis-C, HIV, a respiratory panel all negative, complement C3 and C4 within normal limits RODDY screen positive, titer 1:320, RODDY pattern cytoplasmic A Ob consult yesterday will do Pap smears and GI was consulted with plan for scope today potassium critical again this morning at 2.8 will replace, Mag within normal limits Narrative: Patient at procedure. will obtain her Pap smear and cervical cultures tomorrow. If she is discharged then this can be obtained outpatient. OB - PN: Obj Data Labs 04/15/24 06:00 04/15/24 06:00 Labs: Laboratory Results - last 24 hr 04/13/24 04/14/24 04/14/24 14:46 07:08 20:13 WBC RBC Hgb Hct MCV MCH MCHC RDW Plt Count MPV Sodium Potassium Chloride Carbon Dioxide Anion Gap BUN Creatinine Estim Creat Clear Calc Estimated GFR Glucose Calcium Magnesium 1.9 Total Bilirubin AST ALT Alkaline Phosphatase Total Creatine Kinase Total Protein Albumin Carcinoembryonic Ag 6.9 H Random Cortisol Urine Eosinophils None seen U Random Total Protein 103 Ur Random Sodium Ur Random Potassium Ur Random Urea Urine Creatinine Protein/Creat Ratio 2 CSF Myelin Basic Protein Cancelled RPR Hep Bs Antibody Hepatitis C Ab Screen HIV 1&2 Ab/P24 Ag 4thGn 04/14/24 04/14/24 04/15/24 20:13 20:13 06:00 WBC 6.0 RBC 3.69 L Hgb 11.1 L Hct 32.8 L MCV 88.9 MCH 30.1 MCHC 33.8 RDW 14.7 H Plt Count 291 MPV 10.7 H Sodium 140 Potassium 2.8 L* Chloride 114 H Carbon Dioxide 21 L Anion Gap 5 BUN 7 Creatinine 1.50 H Estim Creat Clear Calc 44 Estimated GFR 37 L Glucose 75 Calcium 8.9 Magnesium Total Bilirubin 0.3 AST 29 ALT 19 Alkaline Phosphatase 74 Total Creatine Kinase Total Protein 6.0 L Albumin 3.6 Carcinoembryonic Ag Random Cortisol Urine Eosinophils U Random Total Protein 104 Ur Random Sodium 89 Ur Random Potassium 47.5 Ur Random Urea 232 Urine Creatinine 76.9 76.9 Protein/Creat Ratio 2 1.34 H CSF Myelin Basic Protein RPR Hep Bs Antibody Hepatitis C Ab Screen HIV 1&2 Ab/P24 Ag 4thGn 04/15/24 06:05 WBC RBC Hgb Hct MCV MCH MCHC RDW Plt Count MPV Sodium Potassium Chloride Carbon Dioxide Anion Gap BUN Creatinine Estim Creat Clear Calc Estimated GFR Glucose Calcium Magnesium Total Bilirubin AST ALT Alkaline Phosphatase Total Creatine Kinase 125 Total Protein Albumin Carcinoembryonic Ag Random Cortisol 3.00 Urine Eosinophils U Random Total Protein Ur Random Sodium Ur Random Potassium Ur Random Urea Urine Creatinine Protein/Creat Ratio 2 CSF Myelin Basic Protein RPR Non-reactive Hep Bs Antibody Negative Hepatitis C Ab Screen Negative HIV 1&2 Ab/P24 Ag 4thGn Negative OB - PN A/P Time Spent With Patient Time: Total time spent is greater than 50% in coordination of care (as documented) at patient's floor/unit and/or counseling patient:
--- NOTE | 2024-04-15 11:58 | PCNFU ---
Nutrition Follow-Up Complete: Severe protein calorie malnutrition related to chronic loss of appetite, nausea, vomiting; as evidenced by intakes <75% needs >1 month; weight loss -10%/2 months; mild muscle wasting and fat loss. Adequate PO intake at least 75% meals and supplements - Goal is not being met. Intakes 25-50%. Continue with same goal Goal: Pt current nutrition is NPO today for EGD. Nutrition recommendation: Heart healthy diet when diet is advanced post procedure. Last recorded weight is 85.6 kg. Bowel Motility: Last BM 04/10/24. Labs Hgb 11.1, Hct 32.8, K+ 2.8, Cre 1.5 Meds Noted: LR, Zofran, protonix, miralax Skin: No skin issues Additional Notes: EGD today. Was eating 25-50% on heart healthy Monitoring intakes, weights, labs, plan of care Follow up in 3 days
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
[2024-04-15] MEDS: POTASSIUM CHLORIDE INJ 40 MEQ in SODIUM CHLORIDE 0.9% IV 500 ML 100 MEQ IVPB (14:15)
[2024-04-15] MEDS: PANTOPRAZOLE 40 MG TABLET PO (14:19)
[2024-04-15] MEDS: ROSUVASTATIN 20 MG TABLET PO (14:19)
[2024-04-15] MEDS: ALPRAZolam (*CRX) 0.25 MG TABLET PO ×2 (14:20→20:37)
[2024-04-15] MEDS: POTASSIUM CHLORIDE 20 MEQ PACKET (FOR LIQUID) 40 MEQ PO (14:23)
[2024-04-15] MEDS: polyethylene glycoL 3350 17 GM POWD.PACK PO (14:23)
[2024-04-15] MEDS: VENLAFAXINE HCL 25 MG TABLET 100 MG PO (17:29)
[2024-04-15] MEDS: ONDANSETRON INJ 4 MG/2 ML VIAL IV PUSH (17:30)
[2024-04-15] MEDS: ACETAMINOPHEN 325 MG TABLET 650 MG PO (17:32)
[2024-04-15] MEDS: SENNA/DOCUSATE SODIUM TABLET 2 TAB PO (20:37)
[2024-04-15] MEDS: AMITRIPTYLINE HCL 25 MG TABLET 50 MG PO (20:37)
[2024-04-15] MEDS: traZODone HCL 50 MG TABLET 100 MG PO (20:37)
[2024-04-15] MEDS: ENOXAPARIN 40 MG/0.4 ML SYRINGE SUB-Q (20:38)
[2024-04-15 22:22] LABS: Potassium 3.2 mmol/L (3.4-5.0)
[2024-04-16] VITALS: PULSE 73
[2024-04-16 04:00] VITALS: PULSE 67
[2024-04-16 06:00] VITALS: BP 122/76; PULSE 63; RESP 16; TEMP 36.2; O2SAT 100
[2024-04-16 07:36] LABS: Hematocrit 32.2 % (37.0-47.0); Hemoglobin 10.7 g/dL (12.0-15.0); Mean Corpuscular HGB Conc 33.2 g/dl (32-36); Mean Corpuscular Hemoglobin 29.5 pg (26-34); Mean Corpuscular Volume 88.7 fl (80-100); Mean Platelet Volume 11.2 fl (7.4-10.4); Platelet Count Result 261 k/mm3 (150-375); Red Blood Count 3.63 M/mm3 (4.2-5.4); Red Cell Distribution Width 14.9 % (11.5-14.5); White Blood Count 8.1 K/mm3 (4.5-10.0)
[2024-04-16 07:53] LABS: Albumin Level 3.3 g/dL (3.5-5.1); Anion Gap 7 mmol/L (4-12); Blood Urea Nitrogen 6 mg/dL (7-17); Calcium 8.9 mg/dL (8.4-10.2); Carbon Dioxide 19 mmol/L (22-30); Chloride 117 mmol/L (98-107); Estimated CRCL calculation 55 ml/min; Estimated Glomerular Filt Rate 47; Glucose 100 mg/dL (65-110); Phosphorus 2.1 mg/dL (2.5-4.5); Potassium 3.2 mmol/L (3.4-5.0); Sodium 143 mmol/L (137-145)
[2024-04-16 08:02] VITALS: PULSE 65
[2024-04-16] MEDS: PANTOPRAZOLE 40 MG TABLET PO (08:49)
[2024-04-16] MEDS: HYDROmorphone HCL (*CRX) 1 MG TABLET PO ×2 (08:49→12:36)
[2024-04-16] MEDS: POTASSIUM CHLORIDE 20 MEQ ER TABLET PO (08:49)
[2024-04-16] MEDS: ROSUVASTATIN 20 MG TABLET PO (08:50)
[2024-04-16] MEDS: VENLAFAXINE HCL 25 MG TABLET 100 MG PO (08:50)
[2024-04-16] MEDS: polyethylene glycoL 3350 17 GM POWD.PACK PO (08:51)
--- NOTE | 2024-04-16 08:55 | PM.IMPN ---
Progress Note: A&P Assessment and Plan (1) Gastritis: Code(s): K29.70 - Gastritis, unspecified, without bleeding Status: Acute Assessment and Plan: follow-up outpatient in the GI office continue current medications (2) Acute hypokalemia: Code(s): E87.6 - Hypokalemia Status: Acute Assessment and Plan: patient received 80 mg equivalents on date of admission a.m. labs symptoms improving telemetry monitoring IV and oral potassium replacements (3) Unintentional weight loss of more than 10% body weight within 6 months: Code(s): R63.4 - Abnormal weight loss Status: Acute Assessment and Plan: unintentional weight loss, hot flashes, brain fogginess and upper extremity weakness B12 high, TSH WDL, CRP WDL, [id number] CT of chest abdomen pelvis negative for acute findings. calcium to WNL, hemoglobin WNL, creatinine elevated at 1.7, urine protein high 2+, liver enzymes WNL, troponins WNL, CT head and neck no Acute findings CEA 6.9 hepatitis-B, RPR, rheumatoid factors, cryoglobulin, serum immunofixation, aldosterone, urine myoglobin, and renin pending hepatitis-A, had the antigen, hep B core, hepatitis-C, HIV, a respiratory panel all negative, complement C3 and C4 within normal limits RODDY screen positive, titer 1:320, RODDY pattern cytoplasmic A Ob consult yesterday will do Pap smears . Patient able to do Pap today because she was in EGD. Patient may f/u outpatient weight loss likely due to gastritis Subjective Date/time seen: 04/16/24 08:55 Interval history: Follow-up for chronic kidney disease and hypokalemia, creatinine improving, potassium 3.2 this morning replacements ordered plan for Pap smear today and feeling well after hours likely discharge home Review of Systems Review of Systems: 12 systems were reviewed and are negative except for as per HPI. Exam Const: Other: General: well appearing, appears stated age. HEENT: normocephalic, atraumatic. Mucous membranes moist. EOMI, PERRLA, bilateral sclera anicteric, no conjunctival injection. Neck supple without JVD, lymphadenopathy, or bruit. Respiratory: clear to auscultation bilaterally. No rales/rhonic/wheezes. Cardiovascular: Regular rate and rhythm, normal S1-S2 upon auscultation. No murmurs, rubs, or clicks. PMI is nondisplaced, capillary refill less than 3 second. Abdomen: Soft, round, no pulsatile masses, nondistended and nontender. No rebound, no guarding. No CVA tenderness, no hepatosplenomegaly. Bowel sounds present to all four quadrants. No high pitch or tinkling sounds, resonant to percussion. Extremities: No cyanosis, clubbing, or edema present. Pulses are palpable 2/2. Active ROM to all four extremities. Neuro: Alert and orientated x 4. PERRLA. Cranial nerves 2-12 intact without focal deficit. Skin: Warm, dry, and intact, without rash, erythema, or lesion. no facial lesions Psych: pleasant, cooperative, normal speech, normal affect, no hallucinations, no dysarthria, tearful Objective Data Vital Signs Vital Signs: Vital Signs - 24 hr 04/15/24 10:02 04/15/24 12:25 04/15/24 12:35 Temperature 96.7 F L Pulse Rate 71 90 83 Respiratory Rate 16 17 17 Blood Pressure 122/86 128/86 97/61 L Pulse Oximetry 100 100 97 Oxygen Delivery Room Air Room Air Room Air 04/15/24 12:45 04/15/24 16:00 04/15/24 16:00 Temperature 97.6 F Pulse Rate 80 63 105 H Respiratory Rate 18 18 Blood Pressure 106/70 110/68 Pulse Oximetry 100 97 Oxygen Delivery Room Air 04/15/24 20:22 04/15/24 20:00 04/15/24 20:00 Temperature 97.1 F L Pulse Rate 67 90 Respiratory Rate 14 Blood Pressure 124/73 Pulse Oximetry 100 Oxygen Delivery Room Air 04/16/24 00:00 04/16/24 04:00 04/16/24 06:00 Temperature 97.2 F L Pulse Rate 73 67 63 Respiratory Rate 16 Blood Pressure 122/76 Pulse Oximetry 100 Oxygen Delivery Intake/Output Intake/Output: Intake & Output 04/13/24 04/14/24 04/15/24 04/16/24 23:59 23:59 23:59 23:59 Intake Total 1090 3578.3 1583.8 350 Output Total 200 2 550 Balance 890 3576.3 1033.8 350 Meds/Results Medications: Active Medications Generic Name Dose Route Start Last Admin Trade Name Cecilioq PRN Reason Stop Dose Admin Acetaminophen 650 mg 04/13/24 00:23 04/15/24 17:32 Acetaminophen 325 Mg Tablet PO 650 mg Q4H PRN Administration Mild Pain (1-3) or Fever Alprazolam 0.25 mg 04/14/24 14:30 04/15/24 20:37 Alprazolam (*Crx) 0.25 Mg Tablet PO 0.25 mg TID PRN Administration Anxiety Amitriptyline HCl 50 mg 04/13/24 21:00 04/15/24 20:37 Amitriptyline Hcl 25 Mg Tablet PO 50 mg QHS ZEINA Administration Enoxaparin Sodium 40 mg 04/13/24 21:00 04/15/24 20:38 Enoxaparin 40 Mg/0.4 Ml Syringe SUB-Q 40 mg Q12HR ZEINA Administration Hydromorphone HCl 1 mg 04/14/24 14:30 04/16/24 08:49 Hydromorphone Hcl (*Crx) 1 Mg Tablet PO 1 mg Q4H PRN Administration Pain Rated 7-10 Ondansetron HCl 4 mg 04/13/24 00:23 04/15/24 17:30 Ondansetron Inj 4 Mg/2 Ml Vial IV PUSH 4 mg Q4H PRN Administration Nausea Pantoprazole Sodium 40 mg 04/14/24 09:00 04/16/24 08:49 Pantoprazole 40 Mg Tablet PO 40 mg QAM ZEINA Administration Polyethylene Glycol 17 gm 04/14/24 09:00 04/16/24 08:51 Polyethylene Glycol 3350 17 Gm Powd.Pack PO 17 gm QAM ZEINA Administration Potassium Chloride 20 meq 04/16/24 08:00 04/16/24 08:49 Potassium Chloride 20 Meq Er Tablet PO 20 meq DAILY@0800 ZEINA Administration Rosuvastatin Calcium 20 mg 04/14/24 09:00 04/16/24 08:50 Rosuvastatin 20 Mg Tablet PO 20 mg DAILY ZEINA Administration Senna/Docusate Sodium 2 tab 04/13/24 21:00 04/15/24 20:37 Senna/Docusate Sodium Tablet PO 2 tab HS ZEINA Administration Trazodone HCl 100 mg 04/14/24 14:30 04/15/24 20:37 Trazodone Hcl 50 Mg Tablet PO 100 mg HS PRN Administration Insomnia Venlafaxine HCl 100 mg 04/13/24 17:00 04/16/24 08:50 Venlafaxine Hcl 25 Mg Tablet PO 100 mg BID ZEINA Administration Radiology Results: ITS Impressions Chest X-Ray 04/12/24 19:03 IMPRESSION: No acute cardiopulmonary process. Abdomen/Pelvis CT 04/12/24 22:40 IMPRESSION: No acute abdominopelvic process detected. Head CT 04/13/24 23:47 IMPRESSION: No acute intracranial process. Cervical Spine CT 04/13/24 23:49 IMPRESSION: No acute fracture or traumatic malalignment in the cervical spine. Labs Labs: Laboratory Results - last 24 hr 04/15/24 04/15/24 04/16/24 06:05 22:05 06:59 WBC 8.1 RBC 3.63 L Hgb 10.7 L Hct 32.2 L MCV 88.7 MCH 29.5 MCHC 33.2 RDW 14.9 H Plt Count 261 MPV 11.2 H Sodium 143 Potassium 3.2 L 3.2 L Chloride 117 H Carbon Dioxide 19 L Anion Gap 7 BUN 6 L Creatinine 1.20 H Estim Creat Clear Calc 55 Estimated GFR 47 L Glucose 100 Calcium 8.9 Phosphorus 2.1 L Magnesium 2.0 Albumin 3.3 L RPR Non-reactive Hep Bs Antibody Negative Hepatitis C Ab Screen Negative Quality VTE Prophylaxis VTE prophylaxis: mechanical ordered and pharmacologic ordered
--- NOTE | 2024-04-16 09:45 | P.PNNP_ITS ---
Progress Note: A&P Assessment and Plan (1) Hypokalemia: Code(s): E87.6 - Hypokalemia Status: Acute Assessment and Plan: * as noted by outpatient labs and on admission * magnesium okay * getting oral and IV replacement * giving her GI symptoms; possibly total body store depletion(?) * possible RTA? * follow-up on renin, aldosterone, and TTKG (results still pending) * follow trend of K+ (2) Chronic kidney disease, stage 3: Code(s): N18.30 - Chronic kidney disease, stage 3 unspecified Status: Acute Assessment and Plan: * not really sure what her baseline creatinine really is * appears to be running ~ 1.2 - 1.7mg/dl since January 2024 * GFR has fluctuated from 44 - 52cc/min in the last few years though * however, since January 2024, creatinine has fluctuated to more extremes in association with acute illnesses/hospitalizations/ER visits * outpatient evaluation noted: * positive RODDY - planning on seeing Rheumatology * renal ultrasound with mild left hydronephrosis (but CT done here negative) * serologies to date negative (but quite a few are pending) * moderate proteinuria (1340mg) * UA with blood - outpatient Urology referral in process * suspicion falls on hypertension and vascular disease as etiology * follow trend of repeat labs asn UOP (3) Vomiting: Qualifiers: Nausea presence: with nausea Vomiting type: unspecified Qualified Code(s): R11.2 - Nausea with vomiting, unspecified Code(s): R11.10 - Vomiting, unspecified Status: Acute Assessment and Plan: * presumed etiology of #1 * continue supportive therapy * follow symptoms * GI following - EGD with gastritis (4) Hypertension: Qualifiers: Hypertension type: essential hypertension Qualified Code(s): I10 - Essential (primary) hypertension Code(s): I10 - Essential (primary) hypertension Status: Chronic Assessment and Plan: * despite history, well controlled without medications * follow trend of hemodynamics Not opposed to discharge from renal perspective if otherwise medically stable; she can follow-up with Dr. Crowder regarding her CKD and pending testing regarding her hypokalemia. Will continue to follow. Subjective Date/time seen: 04/16/24 09:45 Interval history: Follow-up for chronic kidney disease and hypokalemia, Potassium and renal function/creatinine doing better today. s/p EGD yesterday with results noted; otherwise, no apparent distress noted at the time of my visit; asking me about going home today; no issues/events overnight or earlier this morning. Exam Narrative: General: WD/WN female in NAD Heart: normal S1 and S2; no rub Lungs: clear to auscultation Abdomen: soft, nontender, nondistended, positive bowel sounds Extremities: no cyanosis or clubbing; no edema Skin: no rash or nodules Objective Data Vital Signs Vital Signs: Vital Signs Temp Pulse Resp BP Pulse Ox O2 Del Method 04/16/24 06:00 97.2 F L 63 16 122/76 100 04/16/24 04:00 67 04/16/24 00:00 73 04/15/24 20:00 Room Air 04/15/24 20:00 90 04/15/24 20:22 97.1 F L 67 14 124/73 100 04/15/24 16:00 105 H 04/15/24 16:00 97.6 F 63 18 110/68 97 Intake/Output Intake/Output: Intake & Output 04/13/24 04/14/24 04/15/24 04/16/24 23:59 23:59 23:59 23:59 Intake Total 1090 3578.3 1583.8 470 Output Total 200 2 550 Balance 890 3576.3 1033.8 470 Meds/Results Medications: Active Medications Generic Name Dose Route Start Last Admin Trade Name Freq PRN Reason Stop Dose Admin Acetaminophen 650 mg 04/13/24 00:23 04/15/24 17:32 Acetaminophen 325 Mg Tablet PO 650 mg Q4H PRN Administration Mild Pain (1-3) or Fever Alprazolam 0.25 mg 04/14/24 14:30 04/15/24 20:37 Alprazolam (*Crx) 0.25 Mg Tablet PO 0.25 mg TID PRN Administration Anxiety Amitriptyline HCl 50 mg 04/13/24 21:00 04/15/24 20:37 Amitriptyline Hcl 25 Mg Tablet PO 50 mg QHS ZEINA Administration Doxycycline Hyclate 100 mg 04/16/24 09:00 04/16/24 11:30 Doxycycline Hyclate 100 Mg Tablet PO 100 mg Q12HR ZEINA Administration Enoxaparin Sodium 40 mg 04/13/24 21:00 04/16/24 11:31 Enoxaparin 40 Mg/0.4 Ml Syringe SUB-Q 40 mg Q12HR ZEINA Administration Hydromorphone HCl 1 mg 04/14/24 14:30 04/16/24 12:36 Hydromorphone Hcl (*Crx) 1 Mg Tablet PO 1 mg Q4H PRN Administration Pain Rated 7-10 Ondansetron HCl 4 mg 04/13/24 00:23 04/15/24 17:30 Ondansetron Inj 4 Mg/2 Ml Vial IV PUSH 4 mg Q4H PRN Administration Nausea Pantoprazole Sodium 40 mg 04/14/24 09:00 04/16/24 08:49 Pantoprazole 40 Mg Tablet PO 40 mg QAM ZEINA Administration Polyethylene Glycol 17 gm 04/14/24 09:00 04/16/24 08:51 Polyethylene Glycol 3350 17 Gm Powd.Pack PO 17 gm QAM ZEINA Administration Potassium Chloride 20 meq 04/16/24 08:00 04/16/24 08:49 Potassium Chloride 20 Meq Er Tablet PO 20 meq DAILY@0800 ZEINA Administration Rosuvastatin Calcium 20 mg 04/14/24 09:00 04/16/24 08:50 Rosuvastatin 20 Mg Tablet PO 20 mg DAILY ZEINA Administration Senna/Docusate Sodium 2 tab 04/13/24 21:00 04/15/24 20:37 Senna/Docusate Sodium Tablet PO 2 tab HS ZEINA Administration Trazodone HCl 100 mg 04/14/24 14:30 04/15/24 20:37 Trazodone Hcl 50 Mg Tablet PO 100 mg HS PRN Administration Insomnia Venlafaxine HCl 100 mg 04/13/24 17:00 04/16/24 08:50 Venlafaxine Hcl 25 Mg Tablet PO 100 mg BID ZEINA Administration Radiology Results: ITS Impressions Chest X-Ray 04/12/24 19:03 IMPRESSION: No acute cardiopulmonary process. Abdomen/Pelvis CT 04/12/24 22:40 IMPRESSION: No acute abdominopelvic process detected. Head CT 04/13/24 23:47 IMPRESSION: No acute intracranial process. Cervical Spine CT 04/13/24 23:49 IMPRESSION: No acute fracture or traumatic malalignment in the cervical spine. Labs Labs: Laboratory Tests 04/16/24 06:59 04/16/24 06:59 Glucose 100 Calcium 8.9 Phosphorus 2.1 L Magnesium 2.0 Albumin 3.3 L
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
[2024-04-16] MEDS: DOXYCYCLINE HYCLATE 100 MG TABLET PO (11:30)
[2024-04-16] MEDS: ENOXAPARIN 40 MG/0.4 ML SYRINGE SUB-Q (11:31)
[2024-04-16] MEDS: cefTRIAXone 250 MG VIAL IM (11:31)
[2024-04-16] MEDS: LIDOCAINE HCL 1% LOCAL INJ 10 ML VIAL XX (11:31)
[2024-04-16 12:02] VITALS: PULSE 53
[2024-04-16] MEDS: POTASSIUM CHLORIDE 20 MEQ ER TABLET 40 MEQ PO (12:36)
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
[2024-04-16 23:28] LABS: Myoglobin, Urine 1 mg/L (0-1)
[2024-04-18 16:03] LABS: Bacterial Vaginosis NEGATIVE (NEGATIVE)
[2024-04-18 16:14] LABS: Osmolality, Urine 403 mOsm/kg (50-1200)
[2024-04-20 13:08] LABS: RF IGG <5 U (<=6); RF IGM <5 U (<=6); RF IgA <5 U (<=6)
== END 2024-04-16 14:45 | disposition home or self-care (01) | DRG 392 ==
LOC: ANHED 04-13 00:28 → ANH3MEDSUR 04-13 00:58
PROVIDERS: Family Medicine; Internal Medicine Gastroenterology; Internal Medicine Nephrology; Obstetrics & Gynecology; Admitting Provider Internal Medicine; Emergency Provider Emergency Medicine; PCP Nurse Practitioner Family; Visit Provider Nurse Practitioner Gerontology
PROC: 0DJ08ZZ Inspection of Upper Intestinal Tract, Via Natural or Artificial Opening Endoscopic (ICD-10-PCS; CPT 43235; principal; 2024-04-15 12:30)
DX: K29.30 Chronic superficial gastritis without bleeding (principal); E87.6 Hypokalemia; R11.10 Vomiting, unspecified; R63.4 Abnormal weight loss; R10.2 Pelvic and perineal pain; I12.9 Hypertensive chronic kidney disease with stage 1 through stage 4 chronic kidney disease, or unspecified chronic kidney disease; N18.30 Chronic kidney disease, stage 3 unspecified; K57.30 Diverticulosis of large intestine without perforation or abscess without bleeding; E78.5 Hyperlipidemia, unspecified; M17.0 Bilateral primary osteoarthritis of knee; M54.9 Dorsalgia, unspecified; G89.29 Other chronic pain; F41.9 Anxiety disorder, unspecified; Z87.891 Personal history of nicotine dependence
CPT/HCPCS: 36415; 70450; 71046; 72125; 74177; 80048; 80053; 80069; 81050; 81513; 82088; 82378; 82533; 82550; 82570; 82607; 83690; 83735; 83874; 83880; 83930; 83935; 84100; 84132; 84133; 84156; 84244; 84300; 84443; 84484; 84540; 85025; 85027; 85610; 85730; 85999; 86140; 86592; 86703; 86706; 86803; 87110; 87140; 87661; 88142; 88305; 93005; 96365; 96366; 96372; 96374; 96375; 96376; 99285; A9270; G0378; G0432; J0696; J1171; J1650; J2003; J2405; J2704; J3480; J7030; J7040; J7120; Q9967

== ENCOUNTER 2024-04-20 17:48 | Outpatient (NON) | payer OTHER, SELFPAY ==
[2024-04-20 18:14] LABS: Anion Gap 11 mmol/L (4-12); Blood Urea Nitrogen 10 mg/dL (7-17); Calcium 9.8 mg/dL (8.4-10.2); Carbon Dioxide 22 mmol/L (22-30); Chloride 108 mmol/L (98-107); Estimated Glomerular Filt Rate 43; Glucose 121 mg/dL (65-110); Potassium 3.4 mmol/L (3.4-5.0); Sodium 141 mmol/L (137-145)
== END 2024-04-20 17:49 | disposition home or self-care (01) ==
LOC: ANHOBOP 17:49
PROVIDERS: PCP Nurse Practitioner Family; Visit Provider Nurse Practitioner Family
DX: E87.6 Hypokalemia (principal)
CPT/HCPCS: 36415; 80048

== ENCOUNTER 2024-04-28 16:59 | Outpatient (CLI) | payer OTHER, SELFPAY ==
[2024-04-28 18:36] LABS: Alanine Aminotransferase 206 U/L (6-35); Albumin Level 4.2 g/dL (3.5-5.1); Alkaline Phosphatase 68 U/L (38-126); Anion Gap 7 mmol/L (4-12); Aspartate Amino Transferase 195 U/L (14-36); Bilirubin,Total 0.6 mg/dL (0.2-1.3); Blood Urea Nitrogen 11 mg/dL (7-17); Calcium 9.2 mg/dL (8.4-10.2); Carbon Dioxide 24 mmol/L (22-30); Chloride 108 mmol/L (98-107); Estimated Glomerular Filt Rate 58; Glucose 110 mg/dL (65-110); Potassium 3.1 mmol/L (3.4-5.0); Sodium 139 mmol/L (137-145)
== END 2024-04-28 17:00 | disposition home or self-care (01) ==
LOC: ANHLAB 17:02
PROVIDERS: PCP Nurse Practitioner Family; Referring Provider Nurse Practitioner Family; Visit Provider Internal Medicine Cardiovascular Disease
DX: E78.5 Hyperlipidemia, unspecified (principal); E87.6 Hypokalemia
CPT/HCPCS: 36415; 80053

== ENCOUNTER 2024-05-16 17:38 | Outpatient (CLI) | payer OTHER, SELFPAY ==
[2024-05-16 18:36] LABS: LDL Cholesterol Direct 90 mg/dL
[2024-05-16 18:48] LABS: Alanine Aminotransferase 354 U/L (6-35); Albumin Level 4.6 g/dL (3.5-5.1); Alkaline Phosphatase 92 U/L (38-126); Anion Gap 8 mmol/L (4-12); Aspartate Amino Transferase 266 U/L (14-36); Bilirubin,Total 0.6 mg/dL (0.2-1.3); Blood Urea Nitrogen 12 mg/dL (7-17); Calcium 9.2 mg/dL (8.4-10.2); Carbon Dioxide 24 mmol/L (22-30); Chloride 108 mmol/L (98-107); Cholesterol 221 mg/dL (0-200); Estimated Glomerular Filt Rate 58; Glucose 119 mg/dL (65-110); HDL Direct 94 mg/dL; Potassium 2.7 mmol/L (3.4-5.0); Sodium 140 mmol/L (137-145); Triglycerides 91 mg/dL (<150)
== END 2024-05-16 17:39 | disposition home or self-care (01) ==
LOC: ANHLAB 17:40
PROVIDERS: PCP Nurse Practitioner Family; Visit Provider Internal Medicine Cardiovascular Disease
DX: E78.5 Hyperlipidemia, unspecified (principal)
CPT/HCPCS: 36415; 80053; 80061

== ENCOUNTER 2024-05-20 06:49 | Outpatient (CLI) | payer OTHER, SELFPAY ==
[2024-05-20 07:58] LABS: Alanine Aminotransferase 332 U/L (6-35); Albumin Level 4.6 g/dL (3.5-5.1); Alkaline Phosphatase 99 U/L (38-126); Anion Gap 8 mmol/L (4-12); Aspartate Amino Transferase 189 U/L (14-36); Bilirubin,Total 0.6 mg/dL (0.2-1.3); Blood Urea Nitrogen 15 mg/dL (7-17); Calcium 9.3 mg/dL (8.4-10.2); Carbon Dioxide 18 mmol/L (22-30); Chloride 110 mmol/L (98-107); Estimated Glomerular Filt Rate 52; Glucose 87 mg/dL (65-110); Potassium 3.6 mmol/L (3.4-5.0); Sodium 136 mmol/L (137-145)
[2024-05-20 08:01] LABS: Immunoglobulin A 67 mg/dL (70-400); Immunoglobulin G 653 mg/dL (700-1600); Immunoglobulin M 38 mg/dL (40-230)
[2024-05-20 10:04] LABS: Hepatitis B Surface Antigen Negative (Negative)
[2024-05-20 10:22] LABS: Hepatitis C Virus Antibody Negative (Negative)
[2024-05-21 04:53] LABS: Ceruloplasmin 27 mg/dL (14-48)
[2024-05-23 23:09] LABS: Actin Antibody (IgG) <20 U (<20)
[2024-05-24 09:14] LABS: Anti Nuclear Antibody Pattern Cytoplasmic
== END 2024-05-20 06:50 | disposition home or self-care (01) ==
LOC: ANHLAB 06:50
PROVIDERS: PCP Nurse Practitioner Family; Visit Provider Family Medicine
DX: E87.6 Hypokalemia (principal); R79.89 Other specified abnormal findings of blood chemistry
CPT/HCPCS: 36415; 80053; 82390; 82784; 83520; 86038; 86039; 86364; 86803; 87340

== ENCOUNTER 2024-05-26 16:07 | Outpatient (CLI) | payer OTHER, SELFPAY ==
[2024-05-26 16:34] LABS: Alanine Aminotransferase 520 U/L (6-35); Alkaline Phosphatase 121 U/L (38-126); Anion Gap 9 mmol/L (4-12); Aspartate Amino Transferase 299 U/L (14-36); Bilirubin,Total 0.7 mg/dL (0.2-1.3); Blood Urea Nitrogen 17 mg/dL (7-17); Calcium 10.4 mg/dL (8.4-10.2); Carbon Dioxide 21 mmol/L (22-30); Chloride 109 mmol/L (98-107); Estimated Glomerular Filt Rate 40; Glucose 109 mg/dL (65-110); Potassium 3.8 mmol/L (3.4-5.0); Sodium 139 mmol/L (137-145)
[2024-05-27 08:58] LABS: Progesterone <0.5 ng/mL
[2024-05-27 09:53] LABS: FSH 112.8 mIU/mL; LH 56.2 mIU/mL
== END 2024-05-26 16:08 | disposition home or self-care (01) ==
PROVIDERS: PCP Nurse Practitioner Family; Visit Provider Obstetrics & Gynecology
DX: N95.1 Menopausal and female climacteric states (principal); E87.6 Hypokalemia
CPT/HCPCS: 36415; 80053; 82672; 83001; 83002; 84144

== ENCOUNTER 2024-06-10 17:40 | Outpatient (CLI) | payer OTHER, SELFPAY ==
[2024-06-10 18:23] LABS: Alanine Aminotransferase 352 U/L (6-35); Albumin Level 4.1 g/dL (3.5-5.1); Alkaline Phosphatase 76 U/L (38-126); Anion Gap 2 mmol/L (4-12); Aspartate Amino Transferase 369 U/L (14-36); Bilirubin,Total 0.4 mg/dL (0.2-1.3); Blood Urea Nitrogen 19 mg/dL (7-17); Carbon Dioxide 26 mmol/L (22-30); Chloride 110 mmol/L (98-107); Estimated Glomerular Filt Rate 52; Glucose 135 mg/dL (65-110); Potassium 3.5 mmol/L (3.4-5.0); Sodium 138 mmol/L (137-145)
== END 2024-06-10 17:41 | disposition home or self-care (01) ==
LOC: ANHLAB 17:41
PROVIDERS: PCP Nurse Practitioner Family; Visit Provider Nurse Practitioner Family
DX: R79.89 Other specified abnormal findings of blood chemistry (principal); E87.6 Hypokalemia
CPT/HCPCS: 36415; 80053

== ENCOUNTER 2024-06-16 08:20 | Outpatient (CLI) | payer OTHER, SELFPAY ==
[2024-06-02 13:06] VITALS: BMI 31.4
--- NOTE | 2024-06-02 13:07 | PC.NURSE ---
Pre Radiology instructions Report to the outpatient [facility] on date _[id number]_ at time _0830_ for procedure Time: _1030_ YOU MAY BE MONITORED AT HOSPITAL FOR UP TO 4 HOURS AFTER YOUR PROCEDURE. A visitor will be allowed to accompany the patient into the hospital. You and your visitor will be asked to self-screen and do not enter if you have any COVID symptoms. A mask is OPTIONAL within the hospital. Patients are to have no food or drink 6 hours prior to procedure time Driving will be restricted after the procedure, you must have a person to drive you home. Labs will be drawn in preop area and once reviewed, you will be taken to radiology area for procedure. When the procedure is completed, you will be taken to outpatient where you will be monitored for several hours. You may have one visitor in this area. Other than holding anti-coagulants, patient may take other medication(s) as scheduled. Prior to your appointment date patients are instructed to hold anti-coagulants after discussing with ordering provider to stop. If unable to discontinue anti-coagulants please notify radiologist. ? No aspirin or warfarin (Coumadin) for 7 days prior to the procedure. ? No clopidogrel (Plavix), ticagrelor (Brilinta), prasugrel (Effient) or dabigatran (Pradaxa) for 5 days prior to the procedure. ? No rivaroxaban (Xarelto), apixaban (Eliquis), dipyridamole (Aggrenox or Persantine) or cilostazol (Pletal) for 2 days prior to the procedure. Medications to discontinue per physician: ____None____ Date to take last dose: Please leave all valuables, including medications, at home the day of procedure. The hospital will not accept responsibility for valuables. Wear comfortable, loose fitting clothing.? Follow any additional instructions given to you from ordering provider. Telephone instructions given to __Lori__and asked if any additional questions and then verbalized understanding. Patient advised to call scheduling provider office or registration scheduling [phone] if any additional questions.
[2024-06-16] VITALS (12 sets, daily range): BP systolic 110–154; BP diastolic 63–93; PULSE 47–59; RESP 15–18; TEMP 36.3; O2SAT 97–100
--- NOTE | ~2024-06-16 | US_ITS ---
EXAMINATION: US biopsy liver DATE: 06/16/2024 11:21 INDICATION: Abnormal findings of blood chemistry. TECHNIQUE: The procedure including the risks, benefits, and alternatives was discussed with the patie nt. Risks discussed included bleeding and infection. The patient understood the risks and agreed to p roceed. The skin overlying the left hepatic lobe was prepped and draped in usual sterile fashion. An esthetic was administered with 1% lidocaine subcutaneously. An 18 gauge core biopsy needle was then used to obtain 3 core biopsy specimens under continuous sonographic guidance. The entry site was mansi alaina and dressed. There were no immediate complications. FINDINGS: Ultrasound images demonstrate the needle in the liver. IMPRESSION: 1. Ultrasound-guided core needle random liver biopsy. Reviewed, dictated and finalized at location A. ESTATE SALES AGENT
--- NOTE | ~2024-06-16 | CT_ITS ---
EXAMINATION: CT abdomen pelvis w con DATE: 06/16/2024 12:49 INDICATION: Abdominal pain after liver biopsy. TECHNIQUE: Computed tomography (CT) of the abdomen and pelvis was performed with 100 mL Omnipaque 350 intravenous contrast. Automated exposure control and iterative reconstruction technique were employe d. The dose-length product was 776.71 mGy-cm. COMPARISON: CT abdomen and pelvis 04/12/2024 FINDINGS: The visualized portions of the lung bases demonstrate mild atelectasis. No pleural effusion . The heart size is normal. No pericardial effusion. There are cysts in the liver measuring up to 4.4 cm. There is mild subcutaneous fat stranding overlying the liver, consistent with expected changes f rom the recent liver biopsy. The gallbladder, spleen, pancreas, and adrenal glands are normal. There is cortical thinning of the kidneys. There is diverticulosis of the colon without evidence of diverti culitis. There are no dilated loops of bowel. The appendix is normal. There are no pathologically enl arged lymph nodes. There is no free intraperitoneal fluid. There are old healed right rib fractures. There is severe thoracic and lumbar spondylosis. There are chronic bilateral L3 pars defects. There i s 4 mm anterolisthesis of L3 on L4. IMPRESSION: 1. No hematoma. Reviewed, dictated and finalized at location A. ET CONTROLLER IMPRESSION: 1. No hematoma.
[2024-06-16 08:59] LABS: Mean Platelet Volume 10.8 fl (7.4-10.4); Platelet Count Result 244 k/mm3 (150-375)
[2024-06-16] MEDS: SODIUM CHLORIDE 0.9% IV 1,000 ML 30 ML IV CONT (09:06)
[2024-06-16 09:13] LABS: INR 0.9; Prothrombin Time 12.9 Seconds (11.1-14.7)
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
[2024-06-16] MEDS: ACETAMINOPHEN 500 MG TABLET PO (11:34)
--- NOTE | 2024-06-16 11:49 | SUR.PHASEII ---
MD Chino contacted - pt reporting upper quadrant pain is the same. 6/10 sharp pain. Site is soft with no drainage. CT abdomen ordered.
[2024-06-16 12:52] LABS: Estimated CRCL calculation 51 ml/min; Estimated Glomerular Filt Rate 47
[2024-06-16 12:55] LABS: Estimated CRCL calculation 48 ml/min; Estimated Glomerular Filt Rate 43
--- NOTE | 2024-06-16 13:08 | SUR.PHASEII ---
1210- RN to obtain green top - GFR, Cr prior to transferring to CT per MD Chino.
--- NOTE | 2024-06-16 13:09 | SUR.PHASEII ---
1245 - Pt transferred to CT for CT abdomen per MD Chino order. Handoff given to alarm service technician. Pt returned to Outpatient surgery at 1252. Awaiting CT and GFR, Cr results.
--- NOTE | 2024-06-16 13:16 | SUR.PHASEII ---
1316 - MD Chino contacted. No hematoma present on CT of abdomen per MD. Pt okay to discharge home per original orders. (NPO x 2 hrs post procedure, then clear liquids for 2 hrs post procedure).
== END 2024-06-16 15:19 | disposition home or self-care (01) ==
PROVIDERS: PCP Nurse Practitioner Family; Visit Provider Radiology Diagnostic Radiology
PROC: BF45ZZZ Ultrasonography of Liver (ICD-10-PCS; CPT 47000; principal; 2024-06-16 10:30)
DX: Z01.818 Encounter for other preprocedural examination (principal); E78.79 Other disorders of bile acid and cholesterol metabolism; K76.89 Other specified diseases of liver; R79.9 Abnormal finding of blood chemistry, unspecified
CPT/HCPCS: 36415; 47000; 74177; 76942; 82565; 85049; 85610; 88307; 88312; 88313; A9270; J7030; Q9967

== ENCOUNTER 2024-06-21 16:30 | Outpatient (CLI) | payer OTHER, SELFPAY ==
[2024-06-21 17:15] LABS: Hematocrit 38.5 % (37.0-47.0); Hemoglobin 12.5 g/dL (12.0-15.0); Mean Corpuscular HGB Conc 32.5 g/dl (32-36); Mean Corpuscular Hemoglobin 28.5 pg (26-34); Mean Corpuscular Volume 87.7 fl (80-100); Mean Platelet Volume 10.6 fl (7.4-10.4); Platelet Count Result 238 k/mm3 (150-375); Red Blood Count 4.39 M/mm3 (4.2-5.4); Red Cell Distribution Width 12.8 % (11.5-14.5); White Blood Count 3.8 K/mm3 (4.5-10.0)
[2024-06-21 17:27] LABS: Albumin Level 4.4 g/dL (3.5-5.1); Anion Gap 8 mmol/L (4-12); Blood Urea Nitrogen 16 mg/dL (7-17); Calcium 9.2 mg/dL (8.4-10.2); Carbon Dioxide 21 mmol/L (22-30); Chloride 110 mmol/L (98-107); Estimated Glomerular Filt Rate 49; Glucose 89 mg/dL (65-110); Phosphorus 3.3 mg/dL (2.5-4.5); Potassium 3.4 mmol/L (3.4-5.0); Sodium 139 mmol/L (137-145)
[2024-06-21 20:28] LABS: Creatinine Urine 152.4 mg/dL; Total Protein Urine Random 39 mg/dL; Ur Ttl Prot Creatinine Ratio 0.26 mg/mg (0-0.20)
[2024-06-21 20:33] LABS: Parathyroid Intact 34.4 pg/mL (14.5-75.2)
[2024-06-21 21:14] LABS: Hepatitis B Surface Antigen Negative (Negative)
[2024-06-21 21:52] LABS: Iron 94 ug/dL (37-170)
[2024-06-22 10:26] LABS: Percent Iron Saturation 29 % (20-50)
[2024-06-23 10:38] LABS: Alpha-1-Antitrypsin, QN 135 mg/dL (83-199); Ceruloplasmin 29 mg/dL (14-48)
[2024-06-25 22:24] LABS: Actin Antibody (IgG) <20 U (<20)
== END 2024-06-21 16:31 | disposition home or self-care (01) ==
LOC: ANHLAB 16:32
PROVIDERS: Internal Medicine Nephrology; PCP Nurse Practitioner Family; Visit Provider Internal Medicine Gastroenterology
DX: R79.89 Other specified abnormal findings of blood chemistry (principal); R74.01 Elevation of levels of liver transaminase levels; M18.31 Unilateral post-traumatic osteoarthritis of first carpometacarpal joint, right hand
CPT/HCPCS: 36415; 80069; 82103; 82104; 82390; 82570; 83540; 83550; 83970; 84156; 85027; 86364; 87340

== ENCOUNTER 2024-07-01 12:53 | Outpatient (CLI) | payer OTHER, SELFPAY ==
--- NOTE | ~2024-07-01 | US_ITS ---
EXAMINATION: US soft tissue LE LT DATE: 07/01/2024 13:30 INDICATION: Left lower limb lump. TECHNIQUE: Multiple grayscale and Doppler ultrasound images of the left lower limb were obtained. COMPARISON: CT abdomen pelvis 06/16/2024, 04/12/24 FINDINGS: In the lateral proximal left thigh, there is a 3.1 x 1.0 x 1.5 cm heterogeneous hypoechoic mass. IMPRESSION: 1. Subcutaneous mass in proximal lateral left thigh correlating with old fat necrosis by CT. Reviewed, dictated and finalized at location A. T SORTER IMPRESSION: 1. Subcutaneous mass in proximal lateral left thigh correlating with old fat ne crosis by CT.
== END 2024-07-01 12:54 | disposition home or self-care (01) ==
LOC: ANHIMG 12:55
PROVIDERS: PCP Nurse Practitioner Family; Visit Provider Obstetrics & Gynecology
DX: R22.42 Localized swelling, mass and lump, left lower limb (principal)
CPT/HCPCS: 76882

== ENCOUNTER 2024-07-01 17:39 | Outpatient (CLI) | payer OTHER, SELFPAY ==
[2024-07-01 19:18] LABS: Alanine Aminotransferase 122 U/L (6-35); Albumin Level 5.1 g/dL (3.5-5.1); Alkaline Phosphatase 102 U/L (38-126); Anion Gap 15 mmol/L (4-12); Aspartate Amino Transferase 46 U/L (14-36); Bilirubin,Total 0.8 mg/dL (0.2-1.3); Blood Urea Nitrogen 29 mg/dL (7-17); Calcium 10.7 mg/dL (8.4-10.2); Carbon Dioxide 19 mmol/L (22-30); Chloride 105 mmol/L (98-107); Estimated Glomerular Filt Rate 39; Glucose 108 mg/dL (65-110); Potassium 3.3 mmol/L (3.4-5.0); Sodium 139 mmol/L (137-145)
--- OUTSIDE RECORDS SUMMARY | 2024-07-07 07:31 | XMS_ITS | Clinical Summary ---
Author Organization [facility] Address [address] [place] [address] Care Team Providers Care Prepress Specialist Name Role Phone Unavailable Primary Care Provider Unavailabl e Source Comments [facility] [email or web address],non-owned Affiliates and Associated Physician Practices is amultiple site organization consisting of ambulatory clinics and hospital sitesin [place], [place], [place] and [place]. This disclosure is being madepursuant to the Care Everywhere program and may not contain all information available regarding this patient. Last updated 18.[facility] [email or web address] Allergies No known active allergies Medications * Be aware that medications may not be up to date on this document. Alwaysverify current medications with the patient. Medication Sig Dispensed Refills Start Date End Date Status amitriptyline (ELAVIL) 50 MG tablet Take 1 Tab by mouth at bedtime. Active sertraline (ZOLOFT) 100 MG tablet Take 1.5 Tabs by mouth once daily. Active propranolol (INDERAL) 40 MG tablet Take 1 Tab by mouth once daily. Active ALPRAZolam (XANAX) 0.5 MG tablet Take 1 Tab by mouth as needed. Active hydrocodone-acetaminoph en (VICODIN) 5-300 MG tablet Take 1 Tab by mouth as needed. Active Family History Medical History Relation Name Comments Hypertension Father Relation Name Status Comments Father Social History Tobacco Use Types Packs/Day Years Used Date Smoking Tobacco: Every Day Cigarettes Smokeless Tobacco: Never Alcohol Use Standard Drinks/Week Comments Yes 0 (1 standard drink = 0.6 oz pur e alcohol) 12 per week Sex and Gender Information Value Date Recorded Sex Assigned at Not on file Gender Identity Not on file Sexual Orientation Not on file Plan of Treatment Upcoming Encounters Date Type Department Care Team (Late st Contact Info) Description 12/06/2024 1:00 PM CDT Office Visit [facility] - Rheumatology [address] [place] [address] Silvana Samuel MD [facility] [facility] [address]L [place] [address] Health Maintenance Due Date Last Done Comments COLOGUARD (AGES 45-75) - COL ON CA SCREENING 1972 COLON MONITORING 1972 COLONOSCOPY - COLON CA SCREENING 1972 CT COLONOGRAPHY - COLON CA SCREENING 1972 Colorectal Cancer Screening 1972 FIT - COLON CA SCREENING 1972 FLEX SIG - COLON CA SCREENING 1972 LIPID TESTING 1972 MAMMOGRAM 1972 PAP SMEAR 1972 HIV SCREENING 1987 HEPATITIS C SCREENING 07/02/1990 DTAP/TDAP/TD VACCINES (1 - Tdap) 1991 HEPATITIS B VACCINE (1 of 3 - 19+ 3-dose series) 1991 PNEUMOCOCCAL VACCINE 50+ (1 of 2 - PCV) 1991 PNEUMOCOCCAL VACCINE (1 of 2 - PCV) 1991 ZOSTER VACCINE (1 of 2) 2022 COVID-19 VACCINE (1 - 2023-2 5 season) 2024 INFLUENZA VACCINE (#1) 2024 DEPRESSION SCREENING 06/15/2024 HIB VACCINE Aged Out No longer eligi ble based on patient's age to complete this topic HPV VACCINE Aged Out No longer eligi ble based on patient's age to complete this topic MENINGOCOCCAL (Group B) VACCINE Aged Out No longer eligible based on patient's age to complete this topic MENINGOCOCCAL VACCINE Aged Out No renata kristopher eligible based on patient's age to complete this topic ST PB 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
--- OUTSIDE RECORDS SUMMARY | 2024-07-07 07:31 | XMS_ITS | Referral Summary ---
Author Organization [facility] Address [address] [place] [address] Care Team Providers Care Shipping And Receiving Operator Name Role Phone Unavailable Primary Care Provider Unavailabl e Source Comments [facility],non-owned Affiliates and Associated Physician Practices is amultiple site organization consisting of ambulatory clinics and hospital sitesin [place], [place], [place] and [place]. This disclosure is being madepursuant to the Care Everywhere program and may not contain all information available regarding this patient. Last updated 18.[facility] [employer] Allergies No known active allergies Medications * [...] 1 Tab by mouth as needed. Active Social History Tobacco Use Types Packs/Day Years [...] Visit [facility] - Rheumatology [address] [facility] 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
--- OUTSIDE RECORDS SUMMARY | 2024-07-07 07:32 | XMS_ITS | Continuity of Care Document ---
Author Organization [facility] Address [address] [place] [phone] Phone Care Team Providers Care Dryland Farmer Name Role Phone Elfeog Ann MD Unavailable Unavailable Procedures Procedure Date Office/outpatient visit,est, mod 2009 X-ray exam of knee, 1 or2 views 010 X-ray exam of both knees, standing Supplemental Report Office/outpatient visit,est, mod 2009 Supplemental Report Office/outpatient visit,est, mod 2009 Supplemental Report Office consultation, moderate 0 X-ray exam of knee, 3 views Advance Directives Directive Yes / No Effective Date File Name No Information Encounters Encounter Description Practice Location Reason(s) For Visit Diagnoses Date Provider Providers Copied on Encounter Office/outpa tient visit,est, [facility], [address], [id number], [place] tel:[phone] [facility] COLLAT LIGCHONDROMALACIA PATELLAEJOINT PAIN-L/LEG 0 Seth Telles. [address] [facility] [place] [address], [place], [place], [id number] , [place]. tel: [phone] Office/outpa tient visit,est, [facility], [address], [id number], [place] tel:[phone] [facility] No Information 0 Seth Telles. [address] [place] [address], [address], [place], [id number] , [place]. tel: [phone] Office/outpa tient visit,est, mod [facility], [address] [place] [address], [id number], [phone] [facility] No Information 0 0 Seth Telles. [address] [place] [address], [address], [id number] , [place]. tel: [phone] Office consultation , moderate [facility], [address] [place] [address], [id number], [place] tel:[phone] [facility] No Information 0 Seth Telles. [address] [place] [address], [place] [address], [place], [place], [id number] , [place]. tel: [phone] Family History Family Member Type Diagnosis Age At Onset No Information Payers Payer name Insurance type Covered alliance party ID Rebecca clakre(s) [facility] Workers Compensation Adm [id number] Social History Type Description Quantity Date Captured Comments Sex Female Smoking Status No Information Chief Complaint And Reason For Visit No Information Reason For Referral Reason For Referral No Information History Of Present Illness Encounter Date Complaint History Of Prese nt Illness No Information Functional Status Date Functional Assessmen t No Information Instructions Date Instruction Additional Infor mation No Information Assessments Type Assessment Date No Information Patient Care Teams Name Effective Dates (start - stop) Status Members No Information
--- OUTSIDE RECORDS SUMMARY | 2024-07-07 07:32 | XMS_ITS | Clinical Summary ---
Author Organization [facility] Address [address] [place] [phone] Care Team Providers Care Rattlesnake Farmer Name Role Phone LucillealbanYamile Primary Care Pr ovider Allergies No known active allergies Medications cyclobenzaprine (FLEXERIL) 10 mg tablet Active dextroamphetamin e-amphetamine (ADDERALL) 10 mg tablet Active esomeprazole magnesium 20 mg tablet,delayed release (DR/EC) Acti ve lurasidone (LATUDA) 60 mg tablet Active meloxicam 15 mg tablet,disintegr ating Active prazosin (MINIPRESS) 2 mg capsule Active rosuvastatin 10 mg capsule, sprinkle Active venlafaxine 225 mg tablet extended release 24hr 24 hr tablet TK 1 T PO QD 05/21/2020 Active lisinopriL (PRINIVIL,ZESTRI L) 10 mg tablet TK 1 T PO QD 05/19/2020 Active lidocaine (LIDODERM) 5 % 03/09/2020 Acti ve HYDROcodone-acet aminophen (NORCO) 10-325 mg per tablet TK 1 T PO Q 6 TO 8 H PRF PAIN 05/07/2020 Active ALPRAZolam (XANAX) 0.5 mg tablet Active Active Problems Problem Noted Date Diagnosed Date Arthralgia of wrist 06/24/2012 Medical History Medical History Date Comments Hypertension Social History Tobacco Use Types Packs/Day Years Used Date Smoking Tobacco: Former Cigarettes Q uit: 02/14/2020 Smokeless Tobacco: Former Comments Unknown Sex and Gender Information Value Date Recorded Sex Assigned at Not on file Legal Sex Female 6:48 AM SQL SERVER ARCHITECT Gender Identity Female 06/03/2020 2:27 PM SQL SERVER ARCHITECT Sexual Orientation Straight 06/03/2020 2: 27 PM SQL SERVER ARCHITECT Obstetrics History Last Filed Vital Signs Vital Sign Reading Time Taken Comments Blood Pressure 144/102 06/04/2020 12:45 PM SQL SERVER ARCHITECT Pulse 92 06/04/2020 12:45 PM SQL SERVER ARCHITECT Temperature 36.8 ??C (98.2 ??F) 06/04/2020 12:[address] Respiratory Rate - - Oxygen Saturation - - Inhaled Oxygen Concentration - - Weight 99.8 kg (220 lb) 06/04/2020 12:45 PM SQL SERVER ARCHITECT Height - - Body Mass Index - - Plan of Treatment Health Maintenance Due Date Last Done Comments Breast Cancer Screening-Mammogram 1972 Cervical Cancer Screening 1972 Colon Cancer Screening-Colonoscopy 1972 Depression Screening 1972 Hepatitis C Screening 1972 DTaP/Tdap/Td Vaccine (1 - Tdap) 1983 Hepatitis B Screening 1990 Regular Well Visit/Exam 18-64 1990 Zoster Vaccine (1 of 2) 2022 Covid-19 Vaccine (3 - 2023-2 5 season) 2024 08/14/2020, 07/17/2020 Influenza Vaccine (#1) 2024 06/15/2016 Pneumococcal vaccine <65 Aged Out No longer eligible based on patient's age to complete this topic Insurance [facility] Care Teams Rattlesnake Farmer Relationship Specialty Start Date End Date Yamile Avalos PA PCP - General Physician Apparatus Operator 04/23/20
--- OUTSIDE RECORDS SUMMARY | 2024-07-07 07:32 | XMS_ITS | Data Portability ---
Author Organization [facility], Main Office Address [address] [place] [address] Assessment No assessment recorded. Plan of Treatment Reminders Order Date Submit Date Provider Last Modified By Organization Details Last Modified Time Details Appointments None recorded. Lab None recorded. Referral None recorded. Procedures None recorded. Surgeries None recorded. Imaging None recorded. Medication Orders venlafaxine 75 mg tablet 2022 023 [email or web address] [id number], [id number], [address], 3 17:18:09 amitriptyli ne 25 mg tablet 2022 023 [id number], [id number], [address], 3 17:18:04 carvedilol 25 mg tablet 2022 023 MIRIAN [id number], [id number], [address], 3 17:03:32 Patient TargetsNo targets recorded. Patient InstructionsNo instructions recorded. Reason for Referral None Reported. Results Created Date Observation Date Name Description Value Unit Range Abnormal Flag Note LastModifiedBy Organization Detail LastModifiedTime 11/29/19 22 10/10/2021 imagi ng/di agnos tic resul t No observ ation record ed. [id number] Not Available 08/13/2022 03:10:20 04/22/20 22 02/05/2022 MRI, cervi matias spine , w/ contr ast No observ ation record ed. [id number] [facility] [address], [place], [address], 08/13/2022 03:10:20 04/23/20 22 02/05/2022 MRI, thora cic spine , w/o contr ast No observ ation record ed. [id number] Not Available 08/13/2022 03:10:20 Result Notes None recorded. Problems Name Problem SNOMED Code Status Onset Date Resolution Date Notes Provider Name and Address Organization Details Recorded Time Benign essential hypertensi on 3385909 Active 2018 Not Available [facility] 3 02:54:46 Insomnia 329195163 Active 2018 Not Available [facility] 3 02:54:46 Generalize d anxiety disorder 05381138 Active 2018 Not Available [facility] 3 02:54:46 Mixed anxiety and depressive disorder 927004846 Active 2021 Not Available [facility] 3 02:54:46 Knee pain Active Not Available [facility] 3 02:54:46 Major depressive disorder 161709716 Active 2018 Not Available [facility] 3 02:54:46 Migraine 33739257 Active 2021 Not Available [facility] 3 02:54:46 Postconcus caryn syndrome 37035916 Active 2021 Not Available [facility] 3 02:54:46 Dizziness 420886569 Active 2021 Not Available [facility] 3 02:54:47 Nausea 314143873 Active 2021 Not Available [facility] 3 02:54:47 Posttrauma tic stress disorder 33508535 Active 2021 Not Available [facility] 3 02:54:47 Hyperlipid emia 36018710 Active 2019 Not Available [facility] 3 02:54:47 Daily headache 386257417923 Active 2021 Not Available [facility] 3 02:54:47 Chronic headache disorder 313859595 Active 2022 JOSE Ayala [address], [place], [address] , [facility] [email or web address] [facility] 3 17:01:38 Headache 94191299 Active 2023 JOSE Ayala [address], [place], [address] , [facility] [employer] [facility] 4 10:18:26 Problem Notes None recorded. Procedures Surgical History Date Name Laterality Status Provider Name and Address Organization Details Recorded Time Colonoscopy completed Not Available [facility] 08/13/2022 02:45:24 ASH KIER BOILER Surgery completed Not Available [facility] 08/13/2022 02:45:24 Imaging Results Imaging Date Name Status LastModified by Organiz ation Details LastModified Time 02/05/2022 MRI, thoracic spine, w/o contrast completed [id number] Information not available 08/13/2022 03:10:20 02/05/2022 MRI, cervical spine, w/ contrast completed [id number], [place], [address], 08/13/2022 03:10:20 10/10/2021 imaging/diagn ostic result completed [id number] Information not available 08/13/2022 03:10:20 Procedure Notes None recorded. Medical Equipment None Reported. Allergies No known drug allergies Medications Name Sig Start Date Stop Date Status Note LastModified by Organization Details LastModified Time cyclobenza humphrey 10 mg tablet TAKE 1 TABLET BY MOUTH 3 TIMES A DAY NEEDED active Not Available Not Available No t Available carvedilol 25 mg tablet TAKE 1 TABLET BY MOUTH TWICE DAILY active Not Available Not Available No t Available venlafaxin e ER 37.5 mg capsule,ex tended release 24 hr TAKE 1 CAPSULE BY MOUTH EVERY DAY WITH 225MG 02/18 completed Not Available Not Available Not Available propranolo l 80 mg tablet 10/11 completed Not Available Not Available Not Available carvedilol 12.5 mg tablet TAKE 2 TABLET BY MOUTH TWICE DAILY 02/18 completed Not Available Not Available Not Available venlafaxin e 75 mg tablet TAKE 1 TABLET BY MOUTH TWICE A DAY 04/21 completed Not Available Not Available Not Available lisinopril 20 mg-hydroch lorothiazi de 12.5 mg tablet TAKE 1 TABLET BY MOUTH ONCE DAILY 02/23 completed Not Available Not Available Not Available azithromyc in 250 mg tablet TAKE 2 TABLETS (500 MG) BY ORAL ROUTE ONCE DAILY FOR 1 DAY THEN 1 TABLET (250 MG) BY ORAL ROUTE ONCE DAILY FOR 4 DAYS active Not Available Not Available No t Available alprazolam 1 mg tablet TAKE 1 TABLET BY MOUTH THREE TIMES DAILY 02/18 completed Not Available Not Available Not Available fluconazol e 150 mg tablet TK 1 T PO ON DAY 1 AND DAY 3 active Not Available Not Available No t Available hydrocodon e 5 mg-acetami nophen 325 mg tablet TK 1 T PO Q 4 TO 6 H PRN 10/11 completed Not Available Not Available Not Available lisinopril 20 mg tablet TAKE 1 TABLET BY MOUTH ONCE DAILY active Not Available Not Available No t Available ondansetro n HCl 4 mg tablet TAKE 1 TABLET BY MOUTH EVERY 6 HOURS NEEDED active Not Available Not Available No t Available prednisone 20 mg tablet Take 2 tablets every day by oral route for 5 days. active Not Available Not Available No t Available rizatripta n 10 mg tablet 02/18 completed Not Available Not Available Not Available propranolo l ER 60 mg capsule,24 hr,extende d release 02/18 completed Not Available Not Available Not Available sertraline 100 mg tablet 10/11 completed Not Available Not Available Not Available sumatripta n 50 mg tablet TAKE ONE TABLET BY MOUTH AT ONSET OF MIGRAINE. MAY REPEAT IN 2 HOURS IF NEEDED UP TO 2/DAY active Not Available Not Available No t Available hydroxyzin e HCl 50 mg tablet TAKE 1 TO 2 TABLETS BY MOUTH EVERY DAY NEEDED 02/18 completed Not Available Not Available Not Available hydrocodon e 10 mg-acetami nophen 325 mg tablet TAKE 1 TABLET BY MOUTH 3 TIMES A DAY NEEDED active Not Available Not Available No t Available amitriptyl ine 50 mg tablet TAKE 1 TABLET BY MOUTH ONCE DAILY AT BEDTIME active Not Available Not Available No t Available amoxicilli n 500 mg tablet TK 1 T PO BID 09/02 completed Not Available Not Available Not Available meloxicam 7.5 mg tablet TAKE 1 TABLET BY MOUTH TWICE A DAY NEEDED active Not Available Not Available No t Available venlafaxin e 100 mg tablet TAKE 1 TABLET BY MOUTH TWICE DAILY active Not Available Not Available No t Available oxycodone- acetaminop hen 5 mg-325 mg tablet TAKE 1 TABLET BY MOUTH EVERY 6 TO 8 HOURS NEEDED 10/11 completed Not Available Not Available Not Available propranolo l 40 mg tablet 10/11 completed Not Available Not Available Not Available amitriptyl ine 25 mg tablet TAKE 1 TABLET BY MOUTH EVERYDAY AT BEDTIME 04/21 completed Not Available Not Available Not Available oxycodone- acetaminop hen 10 mg-325 mg tablet TAKE 1 TABLET BY MOUTH EVERY 4 TO 6 HOURS NEEDED 11/27 completed Not Available Not Available Not Available baclofen 10 mg tablet 02/23 completed Not Available Not Available Not Available buspirone 10 mg tablet TAKE 1 TABLET BY MOUTH TWICE DAILY 11/27 completed Not Available Not Available Not Available dextroamph etamine-am phetamine 20 mg tablet TAKE 1 TABLET BY MOUTH THREE TIMES DAILY 02/18 completed Not Available Not Available Not Available lisinopril 10 mg tablet TAKE 1 TABLET BY MOUTH EVERY DAY 04/30 completed Not Available Not Available Not Available lidocaine 5 % topical patch UNWRAP AND APPLY 1 TO 2 PATCHES TO SKIN EVERY DAY FOR 12 HOURS ON AND 12 HOURS OFF 08/19 completed Not Available Not Available Not Available promethazi ne 25 mg tablet 10/11 completed Not Available Not Available Not Available oxycodone- acetaminop hen 7.5 mg-325 mg tablet TAKE 1 TABLET BY MOUTH TWICE A DAY active Not Available Not Available No t Available ondansetro n 4 mg disintegra ting tablet DISSOLVE 1 TABLET ON THE TONGUE EVERY 6 HOURS NEEDED FOR NAUSEA OR VOMITING 02/18 completed Not Available Not Available Not Available amitriptyl ine 100 mg tablet Take 1 tablet every day by oral route. 09/[address] chucho moya. Not Available Not Available Not Available prazosin 2 mg capsule TAKE 1 CAPSULE BY MOUTH EVERY NIGHT AT BEDTIME 02/18 completed Not Available Not Available Not Available amoxicilli n 875 mg-potassi um clavulanat e 125 mg tablet TAKE 1 TABLET BY MOUTH EVERY 12 HOURS 08/19 completed Not Available Not Available Not Available buspirone 15 mg tablet TAKE 1 TABLET BY MOUTH TWICE DAILY 02/18 completed Not Available Not Available Not Available rosuvastat in 5 mg tablet TAKE 1 TABLET BY MOUTH EVERY DAY IN THE EVENING 02/18 completed Not Available Not Available Not Available Zomig 5 mg nasal spray 10/11 completed Not Available Not Available Not Available donepezil 5 mg disintegra ting tablet DISSOLVE 1 TABLET ON THE TONGUE DAILY 04/01 completed Not Available Not Available Not Available pregabalin 75 mg capsule 04/30 completed Not Available Not Available Not Available dexmethylp henidate ER 15 mg capsule,ex tended release [id number] -50 TAKE 1 PILL BY MOUTH QD 10/19 completed Not Available Not Available Not Available Vyvanse 50 mg capsule Take 1 capsule every day by oral route. 09/[address] moya manage s. Not Available Not Available Not Available Vyvanse 70 mg capsule TK 1 C PO QD 03/19 completed Not Available Not Available Not Available venlafaxin e ER 225 mg tablet,ext ended release 24 hr TAKE 1 TABLET BY MOUTH EVERY DAY 02/18 completed Not Available Not Available Not Available Latuda 60 mg tablet Take 1 tablet every day by oral route. 04/[address] chucho moya. Not Available Not Available Not Available Nurtec ODT 75 mg disintegra ting tablet Take 1 tablet every other day by oral route as directed. 2021 active Not Available Not Available Not Avai lable Qulipta 60 mg tablet Take 1 tablet every day by oral route. 02/05 completed Not Available Not Available Not Available Vitals Date Recorded Body height Body temperature Body mass index (BMI) Body weight Respiratory rate Heart rate Systolic blood pressure Diastolic blood pressure Provider Name and Address Organization Details Last Updated DateTime 3 170.18 cm 97.3 [degF] 30.9 kg/m2 69189.7 g 16 /min 80 /min 140 mm[Hg] 100 mm[Hg] MYNOR Zuniga [place] [email or web address] [facility] 3 16:35:09 Date Recorded Systolic blood pressure Diastolic blood pressure Systolic blood pressure Diastolic blood pressure Provider Name and Address Organization Details Last Updated DateTime 02/18/2023 130 mm[Hg] 90 mm[Hg] 130 mm[Hg] 86 mm[Hg] JOSE Ayala [address] [facility], [facility] [address], [place], [address] , [place] [facility] 3 17:01:04 Date Recorded Body mass index (BMI) Body height Oxygen saturation Oxygen saturation in Arterial blood by Pulse oximetry Heart rate Respiratory rate Body temperature Body weight Systolic blood pressure Diastolic blood pressure Provider Name and Address Organization Details Last Updated DateTime 2 33.5 kg/m2 170.18 cm 98 % 98 % 91 /min 16 /min 96.3 [degF] 10157.7 7 g 118 mm[Hg] 70 mm[Hg] Not Available [facility] 3 02:48:37 Date Recorded Body mass index (BMI) Body height Oxygen saturation Oxygen saturation in Arterial blood by Pulse oximetry Heart rate Respiratory rate Body temperature Body weight Systolic blood pressure Diastolic blood pressure Provider Name and Address Organization Details Last Updated DateTime 2 33.5 kg/m2 170.18 cm 98 % 98 % 93 /min 16 /min 97.2 [degF] 55799.7 7 g 128 mm[Hg] 80 mm[Hg] Not Available [facility] 3 02:48:37 Date Recorded Body mass index (BMI) Body height Oxygen saturation Oxygen saturation in Arterial blood by Pulse oximetry Heart rate Respiratory rate Body temperature Body weight Systolic blood pressure Diastolic blood pressure Provider Name and Address Organization Details Last Updated DateTime 2 33.4 kg/m2 170.18 cm 98 % 98 % 90 /min 16 /min 96.8 [degF] 09636.1 7 g 120 mm[Hg] 80 mm[Hg] Not Available [facility] 3 02:48:38 Date Recorded Body height Oxygen saturation Oxygen saturation in Arterial blood by Pulse oximetry Heart rate Body temperature Body weight Systolic blood pressure Diastolic blood pressure Provider Name and Address Organization Details Last Updated DateTime 2 170.18 cm 97 % 97 % 78 /min 97.1 [degF] 02959.4 g 120 mm[Hg] 78 mm[Hg] Not Available [facility] 02:48:38 Social History Question Answer Notes LastModified by Organization Details LastModified Time Tobacco Smoking Status Former Smoker Quit 02/26/20 Not Available [facility] 08/13/2022 02:37:15 Do You Have An Advance Directive? No [email or web address].[id number] Information not available 08/13/2022 What Is Your Level Of Alcohol Consumption? Occasional [email or web address].030 [id number] Information not available 08/13/2022 Do You Wear A Helmet When Biking? No MIGRATION.0301 [id number] Information not available 08/13/2022 What Is Your Level Of Caffeine Consumption? Moderate MIGRATION.030 [id number] Information not available 08/13/2022 How Much Tobacco Do You Chew? None MIGRATION.030 [id number] Information not available 08/13/2022 In The 14 Days Before Symptom Onset, Have You Had Close Contact With A Laboratory-confi rmed COVID-19 While That Case Was Ill? No MIGRATION.030 [id number] Information not available 08/13/2022 In The 14 Days Before Symptom Onset, Have You Had Close Contact With A Person Who Is Under Investigation For COVID-19 While That Person Was Ill? No MIGRATION.030 [id number] Information not available 08/13/2022 Are You Currently Employed? Yes [email or web address] Information not available 02/18/2023 What Type Of Diet Are You Following? REGULAR MIGRATION.030 [id number] Information not available 08/13/2022 Which Illicit Or Recreational Drugs Have You Used? None MIGRATION.030 [id number] Information not available 08/13/2022 Do You Or Have You Ever Used E-cigarettes Or Vape? Never Used Electronic Cigarettes MIGRATION.030 [id number] Information not available 08/13/2022 What Is The Highest Grade Or Level Of School You Have Completed Or The Highest Degree You Have Received? 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 No MIGRATION.030 [id number] Information not available 08/13/2022 Are There Any Guns Present In Your Home? Yes MIGRATION.030 [id number] Information not available 08/13/2022 Do You Use Insect Repellent Routinely? No MIGRATION.0301 [id number] Information not available 08/13/2022 Where Do You Live? SingleLevelHouse MIGRATION.0301 [id number] Information not available 08/13/2022 Do You Have A Medical Power Of Functional Mental Disability Teacher? No MIGRATION.0301 [id number] Information not available 08/13/2022 Do You Have Any Pets? No MIGRATION.0301 [id number] Information not available 08/13/2022 What Is Your Relationship Status? MIGRATION.0301 [id number] Information not available 08/13/2022 Do You Use Your Seat Belt Or Car Seat Routinely? Yes MIGRATION.0301 [id number] Information not available 08/13/2022 Do You Have Smoke And Carbon Monoxide Detectors In Your Home? Yes MIGRATION.0301 [id number] Information not available 08/13/2022 Are You Passively Exposed To Smoke? No MIGRATION.0301 [id number] Information not available 08/13/2022 Do You Or Have You Ever Used Smokeless Tobacco? Never Used Smokeless Tobacco MIGRATION.0301 [id number] Information not available 08/13/2022 Are There Any Smokers In Your House? No MIGRATION.0301 [id number] Information not available 08/13/2022 How Much Tobacco Do You Smoke? 0.5 PPD MIGRATION.0301 [id number] Information not available 08/13/2022 Do You Feel Stressed (tense, Restless, Nervous, Or Anxious, Or Unable To Sleep At Night)? [id number] MIGRATION.0301 [id number] Information not available 08/13/2022 Do You Use Any Illicit Or Recreational Drugs? No MIGRATION.0301 088266 Information not available 08/13/2022 Do You Use Sunscreen Routinely? No MIGRATION.0301 [id number] Information not available 08/13/2022 Have You Recently Traveled Abroad? No MIGRATION.0301 600572 Information not available 08/13/2022 Do You Have Any Dietary Restrictions? No MIGRATION.0301 [id number] Information not available 08/13/2022 Do You Or Have You Ever Used Any Other Forms Of Tobacco Or Nicotine? No MIGRATION.0301 [id number] Information not available 08/13/2022 Sex: Unknown Functional Status Question Answer Note LastModified by Organizat ion Details LastModified Time What is your exercise level? Occasional [id number] Information not available 08/13/2022 Mental Status None recorded. Family History Relationship Description Onset Age of this Age Resolved Age Notes LastModified by Organization Details LastModified Time Mother Hypertensive disorder [id number] Not available 08/13/2022 02:45:28 Mother Parkinson's disease MIGRATION.913 [id number] Not available 08/13/2022 02:45:28 Father Hypertensive disorder MIGRATION.265 [id number] Not available 08/13/2022 02:45:28 Father Alcoholism MIGRATION.487 [id number] Not available 08/13/2022 02:45:28 Medical History Condition Response HEADACHES/MIGRAINES Y ANXIETY DISORDER Y DEPRESSION (INCLUDING POST ) Y BOWEL PROBLEMS Y BACK / NECK PROBLEMS Y HYPERTENSION Y Gynecological History Statement/Question Response Date of Last Mammogram 05/09/2020 Sexually Active? N Obstetrics History GPAL:G 3 P 0 0 0 2 Type Value Living 2 Total 3 Immunizations Vaccine Type Date Status Note Provider Nam e and Address Organization Details Recorded Time Influenza, split virus, quadrivalent, preservative 7 completed Not Available [facility] 08/13/2022 03:09:18 Past Encounters Encounter ID Performer Location Encounter Start Date Encounter Closed Date Diagnosis/Indication Diagnosis SNOMED-CT Code Diagnosis ICD10 Code Diagnosis Note [id number] [facility] [address] [place] [address] 10/11/2020 00:00:00 10/11/2020 18:42:30 [id number] [facility] [address] [place] [address] 11/27/2020 00:00:00 12/12/2020 18:03:53 [id number] [facility] [address] [place] [address] 12/10/2020 00:00:00 12/10/2020 21:12:24 [id number] [facility] [address] [facility] [place] [address] 04/30/2021 00:00:00 05/05/2021 10:26:17 [id number] [facility] [address] [place] [address] 08/19/2021 00:00:00 09/12/2021 17:11:13 [id number] [facility] [address] [place] [address] 09/12/2021 00:00:00 09/12/2021 13:41:07 [id number] [facility] [address] [place] [address] 11/04/2021 00:00:00 11/11/2021 17:54:15 [id number] [facility] [address] [place] [address] 11/27/2021 00:00:00 12/12/2021 14:13:47 [id number] [facility] [address] [place] [address] 04/01/2022 00:00:00 04/12/2022 20:43:24 [id number] [facility] [address] [place] [address] 04/23/2022 00:00:00 05/14/2022 21:23:11 [id number] JOSE Ayala [facility] [address] [place] [address] 02/18/2023 16:01:43 02/18/2023 17:07:07 Benign essential hypertension 3945448 I10 Rx for coreg 25mg bid. Chronic he adache disorder 725383810 G44.89 refill amitriptyl ine 25mg qhs Major depr essive disorder 885109353 F32.9 Refill effexor 75mg bid Health Concerns Section Related Observation LastModified by Organization Detai ls LastModified Time None Recorded Concern Status LastModified by Organization Details LastModified Time None Recorded Advance Directives Directive N: Payers Encounter Date Sequence Insurance Name Policy Number Policy Nieto Covered Member ID Nieto Member ID Guarantor Name 02/18/2023 1 *SELF PAY* Sabiha Vaca Notes Date Note Type Note Provider Name and Address Organization Details Recorded Time text/ht ml Anxiety/DepressionReported bypatient.Quality:symptoms worse in the evening(when alone);symptoms worse during the day(when alone);mood worse Severity:denies suicidal ideations; able to maintain relationships;interference with sleep Context:major life stressors Modifying Factors:medications as directed Associated Symptoms:denies homicidal ideations; no significant weight gain; no significant weight loss; no visual/auditory hallucinations; no delusions; no shortness of breath; no crying spells; no panic; no isolation; energy good; no apathy; maintaining functionality;eating less;high irritability;anxiety;depression;lone liness;insomnia;restlessness/agitati on;sleep disturbancesHyperlipidemiaReported bypatient.Control:usually well controlled; improving; at goal Compliance:compliant; compliant with diet; exercises Complications:no coronary artery disease; no peripheral artery disease; no cardiovascular disease Risk Factors:hypertensionHypertensionRepo rted bypatient.Duration:has noted for years Onset/Timing:better Alleviating Factors:medication Self Care:under emotional stress Associated Symptoms:no shortness of breath; no palpitations; no decline in exercise capacity; no snoring;fatigue Not Available [employer] [facility] 11/11/2021 17:54:15 022 text/ht ml Generic HPI TemplateReported bypatient.Notes:Pt is here to f/u on her concussion bc she is ready to go back to work. She says she is feeling better. Dizziness has subsided. 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 She is relieved to finally have reached improvement. Not Available [facility] [employer] [facility] 12/12/2021 14:13:47 022 text/ht ml Generic HPI TemplateReported bypatient.Notes:Pt is here for a f/u after seeing her neurologist. Today she doesnt feel great. Says she is dizzy and has a headache. Headache has been all day and rates the pain 6/10. She also reports her dizziness has come back , not completely to the point of when it was very debilitating, but it is present. Not Available [facility] 04/12/2022 20:43:24 022 text/ht ml Generic HPI TemplateReported bypatient.Notes:pt is here for 3 week f/u. today she has a mild headache. very tired, some dizziness with position changes. Pt is here for a f/u after seeing her neurologist. Today she doesnt feel great. Says she is dizzy and has a headache. Headache has been all day and rates the pain 6/10. She also reports her dizziness has come back , not completely to the point of when it was very debilitating, but it is present. Pt is here to f/u on her concussion bc she is ready to go back to work. She says she is feeling better. Dizziness has subsided. 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 She is relieved to finally have reached improvement. Not Available [facility] 05/14/2022 21:23:11 023 text/ht ml HeadacheReported bypatient.Location:bilateral; occipital; frontal; temporal; deep; band around head Quality:similar to previous headaches;aching;continuous Severity:moderate Duration:constant Onset/Timing:still present Context:not related to trauma;related to trauma(fell and got concussion) Alleviating factors:laying in a dark room; rest Associated Symptoms:no nausea; no vomiting; no fever; no double vision;dizzinessHypertension F/UReported bypatient.Associated Symptoms:no chest pain; no shortness of breath; no palpitations; no edema; no calf pain with exertion;dizziness;lightheadedness;s ensory disturbances Lifestyle:limiting/avoiding salt;not exercising regularly Medications:taking medications as directed; no side effects from medication; checks blood pressure at home (range [id number]) JOSE Ayala [address] [facility], [facility] [address], [place], [address], [place] [employer] 03/11/2023 23:49:07 OBGyn Episode No OBEpisode recorded.
--- OUTSIDE RECORDS SUMMARY | 2024-07-07 07:32 | XMS_ITS | Encounter Summary ---
Author Organization [facility] Address [address] [place] [address] Care Team Providers Care Event Marketing Assistant Name Role Phone Mickey Zamora MD Primary Care Provider + Encounter Details Date Type Department Care Team (Late Contact Info) Description 07/16/2013 [facility] Outpatient Visit [facility] [address] [facility] [address] [place], [place] [id number] [place] [address] [address] Social History Tobacco Use Types Packs/Day Years Used Date Smoking Tobacco: Every Day Cigarettes Smokeless Tobacco: Never Alcohol Use Standard Drinks/Week Comments Yes 0 (1 standard drink = 0.6 oz pur e alcohol) 12 per week Sex and Gender Information Value Date Recorded Sex Assigned at Not on file Gender Identity Not on file Sexual Orientation Not on file documented as of this encounter Plan of Treatment Upcoming Encounters Date Type Department Care Team (Late Contact Info) Description 12/06/2024 1:00 PM CDT Office Visit [facility] - Rheumatology [address] [place] [address], [place] [address] Silvana Samuel MD [address] [place] [address] [place] [id number] documented as of this encounter Visit Diagnoses Not on filedocumented in this encounter Care Teams Event Marketing Assistant Relationship Specialty Start Date End Date Mickey Zamora MD PCP - General Family Medicine 07/06/13 05/16/24 documented as of this encounter
--- OUTSIDE RECORDS SUMMARY | 2024-07-07 07:32 | XMS_ITS | Continuity of Care Document ---
Author Organization [facility] Address [address] [place] [address] Phone Care Team Providers Care Software Programmer Name Role Phone Isabella PT, CMPTFeroz Unavailable Courtney vailable Procedures Procedure Date Therapeutic Activities Therapeutic Exercise Therapeutic Exercise Therapeutic Activities Therapeutic Exercise Therapeutic Activities Progress Note Neuromuscular Re-Ed Therapeutic Activities Therapeutic Activities Neuromuscular Re-Ed Neuromuscular Re-Ed Therapeutic Activities Therapeutic Activities Neuromuscular Re-Ed Therapeutic Activities Neuromuscular Re-Ed Neuromuscular Re-Ed Therapeutic Activities Therapeutic Activities Neuromuscular Re-Ed Therapeutic Activities Neuromuscular Re-Ed Therapeutic Activities Neuromuscular Re-Ed Neuromuscular Re-Ed PT Evaluation Moderate Complexity Therapeutic Activities Advance Directives Directive Yes / No Effective Date File Name No Information Encounters Encounter Description Practice Location Reason(s) For Visit Diagnoses Date Provider Providers Copied on Encounter [facility], [address], [place], [place], [id number], [place] tel:[phone] [place] No Information Bismark Redman. [address] [facility] [address], [place], [facility], . tel:[phone] [facility] [place], [place], [place], [id number], tel:[phone] [facility] No Information Makler Luke. . Referring Provider: Access Direct. [facility] [facility] [place], [place], [place], [id number], tel:[phone] [facility] No Information Makler Luke. . Referring Provider: Access Direct. [facility] [address], [place], [place], [id number], tel:[phone] [facility] No Information Makler Luke. . Referring Provider: Access Direct. [facility] [place] [address], [place], [place], [id number], tel:[phone] [facility] No Information Makler Luke. . Referring Provider: Access Direct. [facility] [facility], [place], [place], [id number], tel:[phone] [facility] No Information Makler Luke. . Referring Provider: Access Direct. [facility] [place] [address], [place], [place], [address], tel:[phone] [facility] No Information Makler Luke. . Referring Provider: Access Direct. [facility] [place] [address], [place], [place], [id number], tel:[phone] [facility] No Information Makler Luke. . Referring Provider: Access Direct. [facility] [place] [address], [place], [place], [id number], tel:[phone] [facility] No Information Makler Luke. . Referring Provider: Access Direct. [facility] [facility] [address], [place], [place], [address], tel:[phone] [facility] No Information Emily Olivares. . Referring Provider: Access Direct. [facility], [place], [place], [id number], tel:[phone] [facility] No Information Emily Olivares. . Referring Provider: Access Direct. [facility], [place], [place], [address], tel:[phone] [facility] No Information Emily Olivares. . Referring Provider: Access Direct. [facility] [facility] [address], [place], [place], [id number], tel:[phone] [facility] No Information Emily Olivares. . Referring Provider: Access Direct. [facility] [address], [place], [place], [id number], tel:[phone] [facility] No Information Emily Olivares. . Referring Provider: Access Direct. Family History Family Member Type Diagnosis Age At Onset No Information Payers Payer name Insurance type Covered constitution party ID Rebecca clarke(s) R CI [id number] Social History Type Description Quantity Date Captured Comments Sex Female Smoking Status No Information Chief Complaint And Reason For Visit No Information Reason For Referral Reason For Referral No Information History Of Present Illness Encounter Date Complaint History Of Prese nt Illness No Information Functional Status Date Functional Assessmen t No Information Instructions Date Instruction Additional Infor mation Giving encouragement to exercise Related to Overweight Giving encouragement to exercise Related to Overweight Assessments Type Assessment Date No Information Patient Care Teams Name Effective Dates (start - stop) Status Members No Information
--- OUTSIDE RECORDS SUMMARY | 2024-07-07 07:32 | XMS_ITS | Patient Health Summary ---
Author Organization [facility] Address [address] [facility] [place] [address] Care Team Providers Care City Distribution Clerk Name Role Phone Unavailable Primary Care Provider Unavailabl e Note from [facility],non-owned Affiliates and Associated Physician Practices is amultiple site organization consisting of ambulatory clinics and hospital sitesin [place], [place], [place] and [place]. This disclosure is being madepursuant to the Care Everywhere program and may not contain all information available regarding this patient. Last updated 18.[facility] Allergies No known active allergies Medications * Be aware that medications may not be up to date on this document. Alwaysverify current medications with the patient. * amitriptyline (ELAVIL) 50 MG tablet Take 1 Tab by mouth at bedtime. * sertraline (ZOLOFT) 100 MG tablet Take 1.5 Tabs by mouth once daily. * propranolol (INDERAL) 40 MG tablet Take 1 Tab by mouth once daily. * ALPRAZolam (XANAX) 0.5 MG tablet Take 1 Tab by mouth as needed. * hydrocodone-acetaminophen (VICODIN) 5-300 MG tablet Take 1 Tab by mouth as needed. Social History Tobacco Use Types Packs/Day Years Used Date Smoking Tobacco: Every Day Cigarettes Smokeless Tobacco: Never Alcohol Use Standard Drinks/Week Comments Yes 0 (1 standard drink = 0.6 oz pur e alcohol) 12 per week Sex and Gender Information Value Date Recorded Sex Assigned at Not on file Gender Identity Not on file Sexual Orientation Not on file Procedures * VARICELLA ZOSTER ANTIBODY IGG(Performed 05/09/2014) Results * VARICELLA ZOSTER ANTIBODY IGG (05/09/2014 1:50 PM SUPPLY ROOM CLERK) Varicella zoster Virus Antibody IgG 1001.0 IV 05/11/2014 10:41 AM SUPPLY ROOM CLERK [facility] Comment: INTERPRETIVE INFORMATION: VZV Ab, IgG ??134 IV or less ....... Negative - No significant level ? of detectable IgG varicella- ? zoster antibody. ??135 -165 IV .......... Equivocal - Repeat testing in ? 10-14 days may be helpful. ??166 IV or greater .... Positive - IgG antibody to ? varicella-zoster detected, which ? may indicate a current or ? past varicella-zoster ? infection. The best evidence for current infection is a significant change on two appropriately timed specimens, where both tests are done in the same laboratory at the same time. Blood specimen (specimen) BLOOD SPECIMEN / Unknown Venipuncture / Unknown 05/09/2014 1:50 PM SUPPLY ROOM CLERK 05/09/2014 5:57 PM SUPPLY ROOM CLERK Provider Unknown LAB - CHEMISTRY JAGDISH KEITH [facility] ([facility]) [address] [id number]
--- OUTSIDE RECORDS SUMMARY | 2024-07-07 07:32 | XMS_ITS | Encounter Summary ---
Author Organization [facility] Address [address] [facility] [facility] [place] [address] Care Team Providers Care C S S Representative Name Role Phone Mickey Zamora MD Primary Care Provider + Encounter Details Date Type Department Care Team (Late Contact Info) Description 05/09/2014 Lab Requisition [facility] [address] [place] [address] Unknown, Provider Social History Tobacco Use Types Packs/Day Years [...] Description 12/06/2024 1:00 PM CDT Office Visit [facility] - Rheumatology [address] [place] [address], [place] [address] Silvana Samuel MD [address] [place] [address] [place] [address] documented as of this encounter Procedures Procedure Name Priority Date/Time Associated Diagnosis Comments VARICELLA ZOSTER ANTIBODY IGG Routine 05/09/2014 1:50 PM HEEL SEAT FLAP STAPLER documented in this encounter Results * VARICELLA ZOSTER ANTIBODY IGG (05/09/2014 1:50 PM HEEL SEAT FLAP STAPLER) Varicella zoster Virus Antibody IgG 1001.0 IV 05/11/2014 10:41 AM HEEL SEAT FLAP STAPLER FADY [facility] ([facility]) Comment: INTERPRETIVE INFORMATION: VZV Ab, IgG ??134 [...] Unknown Venipuncture / Unknown 05/09/2014 1:50 PM HEEL SEAT FLAP STAPLER 05/09/2014 5:57 PM HEEL SEAT FLAP STAPLER Provider Unknown LAB - CHEMISTRY JAGDISH KEITH JEREMIAH [facility] ([facility]) [address] [place] [address], [facility] documented in this encounter Visit Diagnoses Not on filedocumented in this encounter Care Teams C S S Representative Relationship Specialty Start Date End Date Mickey Zamora MD PCP - General Family Medicine 07/06/13 05/16/24 documented as of this encounter
--- OUTSIDE RECORDS SUMMARY | 2024-07-07 07:32 | XMS_ITS | Referral Summary ---
Author Organization [facility] Address [address] [place] [address] Care Team Providers Care Compensation Director Name Role Phone DavidpepeYamile Primary Care Pr ovider Allergies No known [...] Date Diagnosed Date Arthralgia of wrist 06/24/2012 Social History Tobacco Use Types Packs/Day Years Used Date Smoking Tobacco: Former Cigarettes Q uit: 02/14/2020 Smokeless Tobacco: Former Comments Unknown Sex and Gender Information Value Date Recorded Sex Assigned at Not on file Legal Sex Female 6:48 AM CHILDHOOD TEACHER Gender Identity Female 06/03/2020 2:27 PM CHILDHOOD TEACHER Sexual Orientation Straight 06/03/2020 2: 27 PM CHILDHOOD TEACHER Last Filed Vital Signs Vital Sign Reading Time Taken Comments Blood Pressure 144/102 06/04/2020 12:45 PM CHILDHOOD TEACHER Pulse 92 06/04/2020 12:45 PM CHILDHOOD TEACHER Temperature 36.8 ??C (98.2 ??F) 06/04/2020 12:[address] Respiratory Rate - - Oxygen Saturation - - Inhaled Oxygen Concentration - - Weight 99.8 kg (220 lb) 06/04/2020 12:45 PM CHILDHOOD TEACHER Height - - Body Mass Index - - Plan of Treatment Not on file Insurance [facility] HMO/PPO Address: [place] [address] [facility] HMO/PPO Address: [address] [place] [phone] [facility] HMO/PPO Address: [facility] [id number] [place] [phone] Care Teams Compensation Director Relationship Specialty Start Date End Date Yamile Avalos PA PCP - General Physician Wharf Helper 04/23/20
--- OUTSIDE RECORDS SUMMARY | 2024-07-07 07:33 | XMS_ITS | Data Portability ---
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 Plan of Treatment Reminders Order Date Submit Date Provider Last Modified By Organization Details Last Modified Time Details Appointments None recorded. Lab TSH + free T4, serum [address] Outpatient Registration Lab/Ekg, [address] [facility] [address], [place], [address], 4 10:58:54 urinalysis , complete 2023 024 [facility] Outpatient Registration Lab/Ekg, [address] [facility] [address], [place], [address], 4 09:41:43 culture, urine 2023 024 [facility] Outpatient Registration Lab/Ekg, [address], [place], [address], 4 14:27:01 lipid panel w/ direct LDL, serum 2023 024 [facility] Outpatient Registration Lab/Ekg, [address] [facility] [address], [place], [address], 4 23:38:25 CMP, serum or plasma 2023 024 [facility] Outpatient Registration Lab/Ekg, [address], [place], [address], 4 19:08:15 CBC w/ auto diff 2023 024 [facility] Outpatient Registration Lab/Ekg, [address], [place], [address], 4 18:13:11 vitamin B12 + folate, serum or blood [address] Outpatient Registration Lab/Ekg, [address], [place], [address], 4 10:58:54 HbA1c (hemoglobi n A1c), blood [address] Outpatient Registration Lab/Ekg, [address], [place], [address], 4 10:58:54 CBC w/ auto diff [address] Outpatient Registration Lab/Ekg, [address] [facility] [address], [place], [address], 4 12:51:46 BMP, serum or plasma [address] Outpatient Registration Lab/Ekg, [address], [place], [address], 4 12:51:46 smooth muscle Ab, serum [address] Outpatient Registration Lab/Ekg, [address], [place], [address], 4 11:49:26 mitochondr ial Ab, serum 2023 024 [facility] Outpatient Registration Lab/Ekg, [address], [place], [address], 4 21:37:59 hepatic function panel, serum [address] Outpatient Registration Lab/Ekg, [address], [place], [address], 4 12:51:46 BMP, serum or plasma - please run RODDY full multiplex panel 2023 [facility] Outpatient Registration Lab/Ekg, [address], [place], [address], 4 16:50:08 CBC w/ auto diff - please run RODDY full multiplex panel 2023 024 [facility] Outpatient Registration Lab/Ekg, [address], [place], [address], 4 16:50:39 rf (rheumatoi d factor), serum - please run RODDY full multiplex panel 2023 [facility] Outpatient Registration Lab/Ekg, [address], [place], [address], 4 16:50:49 C-reactive protein, quantitati ve, serum or plasma - please run RODDY full multiplex panel 2023 024 [facility] Outpatient Registration Lab/Ekg, [address], [place], [address], 4 16:51:36 erythrocyt e sedimentat ion rate by westergren method - please run RODDY full multiplex panel [address] Outpatient Registration Lab/Ekg, [address], [place], [address], 4 11:16:50 RODDY (antinucle ar antibodies ) panel, serum - please run RODDY full multiplex panel 2023 024 [facility] Outpatient Registration Lab/Ekg, [address], [place], [address], 4 13:48:20 lipase, serum or plasma 2023 [facility] Outpatient Registration Lab/Ekg, [address], [place], [address], 4 16:50:25 amylase, serum or plasma 2023 024 [facility] Outpatient Registration Lab/Ekg, [facility] [facility] [address], [place], [address], 4 16:50:29 smooth muscle Ab, serum - please run smooth muscle antibody not actin. [address] Outpatient Registration Lab/Ekg, [facility] [address], [place], [address], 4 14:16:00 hepatic function panel, serum - please run RODDY full multiplex panel 2023 024 [facility] Outpatient Registration Lab/Ekg, [address] [place] [address] [address], [place], [address], 4 16:51:15 Referral None recorded. Procedures None recorded. Surgeries None recorded. Imaging None recorded. Medication Orders None recorded. Patient TargetsNo targets recorded. Patient Instructions Encounter Date Encounter Id Patient Instructions Last Modified By Organization Details Last Modified Time 11/27/2023 [id number] A healthy lifestyle: care instructions [place] [id number] Not available 12/12/2023 11:53:28 Reason for Referral None Reported. Results Created Date Observation Date Name Description Value Unit Range Abnormal Flag Note LastModifiedBy Organization Detail LastModifiedTime 02/12/2002/11/2024 XR, chest , 2 view No observ ation record ed. [address], [place], [address], 02/12/2024 13:58:21 02/12/20 24 02/11/2024 CT, chest + abdom en + pelvi s, w/ contr ast No observ ation record ed. [address], [place], [address], 02/12/2024 13:58:54 02/12/20 24 02/12/2024 US, liver No observ ation record ed. [address], [place], [address], 02/12/2024 13:59:10 02/22/20 24 02/20/2024 XR, chest , 2 view No observ ation record ed. [address], [place], [address], 02/22/2024 10:42:10 02/29/20 24 02/12/2024 US, echoc ardio gram No observ ation record ed. BARCODE Not Available 2023 16:03:21 04/02/20 24 04/01/2024 US, renal No observ ation record ed. [address], [place], [address], 04/04/2024 09:42:37 04/06/20 24 04/06/2024 crystal can cardi olite stres s test (PROC ) No observ ation record ed. [address], [place], [address], 04/08/2024 16:34:16 04/15/2004/06/2024 exerc ise stres s test No observ ation record ed. BARCODE Not Available 2023 14:10:32 Result Notes None recorded. Problems Name Problem SNOMED Code Status Onset Date Resolution Date Notes Provider Name and Address Organization Details Recorded Time Benign essential hypertension 9541109 Active 2023 JOSE Ayala Attn: Sd covarrubias,[address] [facility], [place], [address], [place] 4 11:52:07 Chronic headache disorder 875720492 Active 2023 JOSE Ayala Attn: Sd covarrubias,[address] [facility], [place], [address], [place] 4 11:52:07 Major depressive disorder 214286696 Active 2023 JOSE Ayala Attn: Accountteofilo g,[address] [facility], [place], [address], [place] [facility] 4 11:52:09 Obesity 271406329 Active 2023 JOSE Ayala Attn: Accountteofilo g,[address] [facility], [place], [address], [place] [facility] 4 11:53:29 Body mass index 30+ - obesity 678094437 Active 2023 JOSE Ayala Attn: Accountin g,[address] [facility], [place], [address], [place] [facility] 4 11:53:29 Smooth muscle antibodies detected 338659827 Active 2023 JOSE Ayala Attn: Accountin g,[address] [facility], [place], [address], [place] [facility] 4 20:11:07 Liver enzymes level above reference range 543427214 Active 2023 JOSE Ayala Attn: Accountin g,[address] [facility], [place], [address], [place] [facility] 4 20:11:08 Multiple joint pain 61697358 Active 2023 JOSE Ayala Attn: Accountin g,[address] [facility], [place], [address], [place] [facility] 4 23:07:59 Acute kidney injury 14193283 Active 2023 JOSE Ayala Attn: Accountin g,[address] [facility], [place], [address], [place] [facility] 4 23:08:44 Blood chemistry outside reference range 954225408 Active 2023 JOSE Ayala Attn: Accountin g,[address] [facility], [place], [address], [place] [facility] 4 23:08:48 Pancreatitis 44761451 Active 2023 JOSE Ayala Attn: Sd covarrubias,[address], [place], [address], [place] - [place] 4 23:08:50 Long-term drug therapy Active 2023 JOSE Ayala Attn: Sd covarrubias,[address], [place], [address], [place] - [place] 4 23:09:02 Problem Notes None recorded. Procedures Surgical History Date Name Laterality Status Provider Name and Address Organization Details Recorded Time drainage of pleural cavity via chest tube completed Larisa Saavedra MA CT - [facility] 11/27/2023 14:45:15 Imaging Results Imaging Date Name Status LastModified by Organization Details LastModified Time 02/11/2024 XR, chest, 2 view completed [address], [address], 02/12/2024 13:58:21 02/11/2024 CT, chest + abdomen + pelvis, w/ contrast completed [address], [address], 02/12/2024 13:58:54 02/12/2024 US, liver completed [address], [address], 02/12/2024 13:59:10 02/20/2024 XR, chest, 2 view completed [address], [address], 02/22/2024 10:42:10 02/12/2024 US, echocardiogram completed BARCODE Inform ation not available 02/29/2024 16:03:21 04/01/2024 US, renal completed [address], [address], 04/04/2024 09:42:37 04/06/2024 lexiscan cardiolite stress test (PROC) completed [facility] [address], [place], [address], 04/08/2024 16:34:16 04/06/2024 exercise stress test completed BARCODE Information not available 04/15/2024 14:10:32 Procedure Notes None recorded. Medical Equipment None Reported. Allergies No known drug allergies Medications Name Sig Start Date Stop Date Status Note LastModified by Organization Details LastModified Time cyclobenz aprine 10 mg tablet TAKE 1 TABLET BY MOUTH 3 TIMES A DAY NEEDED 11/26 completed Patient stated she is no longer on this Not Available Not Available Not Available carvedilo l 25 mg tablet TAKE 1 TABLET BY MOUTH TWICE DAILY active Not Available Not Available No t Available potassium chloride ER 10 mEq capsule,e xtended release TAKE 1 CAPSULE BY MOUTH ONCE DAILY FOR 5 DAYS 03/07 completed Not Available Not Available Not Available carvedilo l 12.5 mg tablet TAKE 1 TABLET BY MOUTH TWICE DAILY 10/08 completed Not Available Not Available Not Available venlafaxi ne 75 mg tablet TAKE 1 TABLET BY MOUTH TWICE A DAY 10/08 completed Not Available Not Available Not Available lisinopri l 20 mg tablet TAKE 1 TABLET BY MOUTH ONCE DAILY 11/26 completed Patient stated she is on 40mg instead of 20mg Not Available Not Available Not Available ondansetr on HCl 4 mg tablet TAKE 1 TABLET BY MOUTH EVERY 6 TO 8 HOURS NEEDED active Not Available Not Available No t Available sumatript an 50 mg tablet TAKE ONE TABLET BY MOUTH AT ONSET OF MIGRAINE . MAY REPEAT IN 2 HOURS IF NEEDED UP TO 2/DAY active Not Available Not Available No t Available ciproflox acin 500 mg tablet TAKE 1 TABLET BY MOUTH EVERY 12 HOURS 03/07 completed Not Available Not Available Not Available hydrocodo ne 10 mg-acetam inophen 325 mg tablet TAKE 1 TABLET BY MOUTH 3 TIMES A DAY NEEDED 10/08 completed Not Available Not Available Not Available tramadol 50 mg tablet TAKE 1 TABLET BY MOUTH EVERY DAY AT BEDTIME NEEDED FOR PAIN active Not Available Not Available No t Available amitripty line 50 mg tablet TAKE 1 TABLET BY MOUTH ONCE DAILY AT BEDTIME active Not Available Not Available No t Available meloxicam 7.5 mg tablet TAKE 1 TABLET BY MOUTH TWICE A DAY NEEDED 11/26 completed Patient stated she is no longer on this Not Available Not Available Not Available venlafaxi ne 100 mg tablet TAKE 1 TABLET BY MOUTH TWICE DAILY active Not Available Not Available No t Available alprazola m 0.25 mg tablet active Not Available Not Available Not Available potassium chloride ER 20 mEq tablet,ex tended release(p art/cryst ) TAKE 1 TABLET BY MOUTH TWICE DAILY active Not Available Not Available No t Available amitripty line 25 mg tablet TAKE 1 TABLET BY MOUTH EVERYDAY AT BEDTIME 10/08 completed Not Available Not Available Not Available pantopraz ole 40 mg tablet,de layed release TAKE 1 TABLET BY MOUTH EVERY MORNING active Not Available Not Available No t Available hydroxyzi ne HCl 25 mg tablet active Not Available Not Available No t Available oxycodone -acetamin ophen 7.5 mg-325 mg tablet TAKE 1 TABLET BY MOUTH TWICE A DAY 08/06 completed Not Available Not Available Not Available lisinopri l 40 mg tablet TAKE 1 TABLET BY MOUTH ONCE DAILY active Not Available Not Available No t Available ondansetr on 4 mg disintegr ating tablet DISSOLVE 1 TABLET IN MOUTH EVERY 8 HOURS NEEDED FOR NAUSEA AND VOMITING 03/07 completed Not Available Not Available Not Available doxycycli ne hyclate 100 mg tablet active Not Available Not Available Not Available rosuvasta tin 20 mg tablet TAKE 1 TABLET BY MOUTH ONCE DAILY active Not Available Not Available No t Available hydrocodo ne 5 mg-acetam inophen 300 mg tablet TAKE 1 TABLET BY MOUTH EVERY 6 HOURS NEEDED FOR PAIN FOR 5 DAYS active Not Available Not Available No t Available potassium chloride ER 20 mEq tablet,ex tended release TAKE 1 TABLET BY MOUTH ONCE DAILY FOR 3 DAYS 03/07 completed Not Available Not Available Not Available Vitals Date Recorded Body weight Provider Name an d Address Organization Details Last Updated DateTime 11/27/2023 [address]64.34 g Larisa Saavedra [place] - [facility] 14:39:02 Date Recorded Body mass index (BMI) Body height Provider Name and Address Organization Details Last Updated DateTime 11/27/2023 33.4 kg/m2 167.64 cm Larisa [place]avedra [place] [facility] 14:39:08 Date Recorded Heart rate Provider Name an d Address Organization Details Last Updated DateTime 11/27/2023 56 /min Larisa Saavedra MA [facility] 14:48:04 Date Recorded Oxygen saturation Oxygen saturation in Arterial blood by Pulse oximetry Provider Name and Address Organization Details Last Updated DateTime 11/27/2023 98 % 98 % Larisa Saavedra MA [facility] 11/27/2023 14:48:14 Date Recorded Body height Provider Name an d Address Organization Details Last Updated DateTime 02/17/2024 167.64 cm Conrado Lawson MA [facility] 2023 15:20:47 Date Recorded Body mass index (BMI) Body weight Provider Name and Address Organization Details Last Updated DateTime 02/17/2024 31.2 kg/m2 03834.61 g Conrado Lawson MA [facility] 02/17/2024 15:20:53 Date Recorded Respiratory rate Provider Name a nd Address Organization Details Last Updated DateTime 02/17/2024 20 /min Conrado Lawson MA [facility] 02/17/2024 15:24:08 Date Recorded Oxygen saturation Oxygen saturation in Arterial blood by Pulse oximetry Provider Name and Address Organization Details Last Updated DateTime 02/17/2024 99 % 99 % Conrado Lawson MA [facility] 02/17/2024 15:25:31 Date Recorded Heart rate Provider Name an d Address Organization Details Last Updated DateTime 02/17/2024 94 /min Conrado Lawson MA [facility] 2023 15:25:33 Date Recorded Body temperature Provider Name a nd Address Organization Details Last Updated DateTime 02/17/2024 98 [degF] JOSE Ayala Attn: Accounting,[address] [place], [address], [facility] 02/17/2024 15:50:14 Date Recorded Body height Provider Name an d Address Organization Details Last Updated DateTime 03/04/2024 167.64 cm Jamilah Laughlin MA [facility] 17:04:09 Date Recorded Body mass index (BMI) Body weight Provider Name and Address Organization Details Last Updated DateTime 03/04/2024 31.8 kg/m2 05498.84 g Jamilah QianBLANCHE [facility] 0 03/04/2024 17:04:22 Date Recorded Respiratory rate Provider Name a nd Address Organization Details Last Updated DateTime 03/04/2024 20 /min Jamilah Laughlin MA [facility] 17:04:25 Date Recorded Heart rate Provider Name an d Address Organization Details Last Updated DateTime 03/04/2024 89 /min Jamilah Laughlin MA [facility] 17:05:45 Date Recorded Oxygen saturation Oxygen saturation in Arterial blood by Pulse oximetry Provider Name and Address Organization Details Last Updated DateTime 03/04/2024 99 % 99 % Jamilah Laughlin MA [facility] 03/04/2024 17:05:50 Date Recorded Systolic blood pressure Diastolic blood pressure Provider Name and Address Organization Details Last Updated DateTime 11/27/2023 124 mm[Hg] 74 mm[Hg] Larisa Saavedra MA [facility] 11/27/2023 14:47:36 Date Recorded Systolic blood pressure Diastolic blood pressure Provider Name and Address Organization Details Last Updated DateTime 11/27/2023 118 mm[Hg] 84 mm[Hg] JOSE Ayala Attn: Accounting,[address] [place], [address], [facility] 11/27/2023 15:17:07 Date Recorded Systolic blood pressure Diastolic blood pressure Provider Name and Address Organization Details Last Updated DateTime 02/17/2024 118 mm[Hg] 88 mm[Hg] Conrado Lawson MA [facility] 02/17/2024 15:25:24 Date Recorded Systolic blood pressure Diastolic blood pressure Provider Name and Address Organization Details Last Updated DateTime 03/04/2024 110 mm[Hg] 80 mm[Hg] Jamilah Laughlin MA [facility] 03/04/2024 17:07:42 Social History Question Answer Notes LastModified by Organizat ion Details LastModified Time Tobacco Smoking Status Former Smoker Larisa Saavedra MA null, [facility] 11/27/2023 14:43:48 Do You Have An Advance Directive? No Information not available 11/27/2023 What Is Your Level Of Alcohol Consumption? Occasional Information not available 11/27/2023 How Many Years Have You Consumed Alcohol? 30 Information not available 11/27/2023 Are You Blind Or Do You Have Difficulty Seeing? No Information not available 11/27/2023 What Is Your Level Of Caffeine Consumption? Moderate Information not available 11/27/2023 In The 14 Days Before Symptom Onset, Have You Had Close Contact With A Laboratory-confir med COVID-19 While That Case Was Ill? No Information not available 11/27/2023 In The 14 Days Before Symptom Onset, Have You Had Close Contact With A Person Who Is Under Investigation For COVID-19 While That Person Was Ill? No Information not available 11/27/2023 Have You Been To An Area Known To Be High Risk For COVID-19? No Information not available 11/27/2023 Are You Currently Employed? Yes Information not available 11/27/2023 Are You Deaf Or Do You Have Serious Difficulty Hearing? No Information not available 11/27/2023 What Type Of Diet Are You Following? 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 No Information not available 11/27/2023 What Was The Date Of Your Most Recent Tobacco Screening? 11/27/2023 Information not available 11/27/2023 What Is Your Current Pack Years? 10packyears Information not available 11/27/2023 What Is Your Relationship Status? Information not available 11/27/2023 Do You Use Your Seat Belt Or Car Seat Routinely? Yes Information not available 11/27/2023 Do You Have Smoke And Carbon Monoxide Detectors In Your Home? Yes Information not available 11/27/2023 How Much Tobacco Do You Smoke? 1 PPD Information not available 11/27/2023 Do You Feel Stressed (tense, Restless, Nervous, Or Anxious, Or Unable To Sleep At Night)? [id number] Information not available 11/27/2023 Do You Use Any Illicit Or Recreational Drugs? No Information not available 11/27/2023 Do You Use Sunscreen Routinely? Yes Information not available 11/27/2023 Has Tobacco Cessation Counseling Been Provided? Yes Information not available 11/27/2023 On What Date Was Tobacco Cessation Counseling Provided? 11/27/2023 Information not available 11/27/2023 Do You Or Have You Ever Used Any Other Forms Of Tobacco Or Nicotine? No Information not available 11/27/2023 Sex: Female Functional Status Question Answer Note LastModified by Organization D etails LastModified Time Are you able to care for yourself? Yes Information n ot available 11/27/2023 What is your exercise level? None Information not available 11/27/2023 Mental Status None recorded. Family History Relationship Description Onset Age of this Age Resolved Age Notes LastModified by Organization Details LastModified Time Father Alcohol abuse mebyma Not available 2023 14:42:54 Father Hypertensive disorder mebyma Not available 2023 14:43:12 Sister Disorder of thyroid gland mebyma Not available 2023 14:43:00 Sister Hypertensive disorder mebyma Not available 2023 14:43:12 Mother Hypertensive disorder mebyma Not available 2023 14:43:12 Medical History Condition Response Anxiety Disorder Y High Blood Pressure Y High Cholesterol Y Headaches Y Kidney or Bladder Problems Y Depression Y GI Problems Y Gynecological History Statement/Question Response Menses Monthly N If Post Menopausal, Age at Menopause Current Control Method None Obstetrics History GPAL:G 2 P 2 0 0 2 Type Value Full Term 2 Living 2 Total 2 Past Encounters Encounter ID Performer Location Encounter Start Date Encounter Closed Date Diagnosis/Indication Diagnosis SNOMED-CT Code Diagnosis ICD10 Code Diagnosis Note [id number] JOSE Ayala S[facility] - [place] [address] [place] [address] 11/27/2023 14:25:31 11/27/2023 15:58:32 Cholesterol screening 426817949 Z13.220 fasting lipids due Diabetes m ellitus screening 283245448 Z13.1 a1c annual screening due Thyroid di sorder screening 170203830 Z13.29 thyroid panel due Long-term drug therapy 909178265 Z79.899 cmp, cbc and b12, folate labs are due Lower urin jody tract symptoms 688829988 R39.9 check ua w/cx Adult heal th examination 503294688 Z00.01 annual wellness completed Benign ess ential hypertension 1294335 I10 stable on lisinopril 40mg daily and coreg 25mg bid. Chronic he adache disorder 608684047 G44.89 currently stable on amitripyli ne 50mg qhs and sumatripta n 50mg as directed. Still having headaches but not the worse they've been. Major depr essive disorder 820927782 F32.9 stable on venlafaxin e 100mg bid Body mass index 30+ - obesity 017616643 Z68.33 discussed healthy diet, exercise, controllin g carbohydra amada and added sugars in the diet Obesity 118446296 E66.8 [id number] JOSE Ayala [facility] [employer] [address] [place] [address] 02/17/2024 15:09:45 02/18/2024 13:27:14 Acute kidney injury 68942850 N17.9 Repeat BMP to assess for creatinine improvemen t post acute kidney injury with hospitaliz ation. Patient has been hydrating well and not using any agents like NSAIDs that would contribute . She is also not taking any diuretic. Liver enzy mes level above reference range 754161056 R74.8 Mild liver enzyme continues with paroxysmal spikes in levels. We will repeat a hepatic function panel Smooth mus temo antibodies detected 550557921 R89.4 Previous smooth muscle antibodies were detected on screening we will repeat these as the lab did not run any smooth muscle antibody. Blood chem istry outside reference range 941445206 R79.9 Repeat CBC to evaluate for improvemen t in blood chemistry Benign ess ential hypertension 9748817 I10 stable on lisinopril 40mg daily and coreg 25mg bid. [id number] JOSE Ayala [facility] [employer] [address] [place] [address] 03/04/2024 16:47:07 03/07/2024 11:09:52 Acute kidney injury 85289624 N17.9 Repeat BMP to evaluate for creatinine and improvemen t in kidney function and electrolyt es. Liver enzy mes level above reference range 751980217 R74.8 Repeat liver function panel with liver enzymes up and down Smooth mus temo antibodies detected 396695602 R89.4 Check smooth muscle antibody with liver enzymes up and down Blood chem istry outside reference range 030582939 R79.9 Repeat CBC with auto diff Multiple joint pain 3567 8005 M25.50 Refer for rheumatoid factor, C-reactive protein, sed rate, and RODDY panel for persistent multiple joint pain Pancreatitis 91011974 K8 5.90 Pancreatit is question questionab le in the hospital. Repeat lipase and amylase Benign ess ential hypertension 7298715 I10 stable on lisinopril 40mg daily and coreg 25mg bid. Major depr essive disorder 300186726 F32.9 stable on venlafaxin e 100mg bid Body mass index 30+ - obesity 594178379 Z68.33 discussed healthy diet, exercise, controllin g carbohydra amada and added sugars in the diet Long-term drug therapy [id number] Z79.899 Health Concerns Section Related Observation LastModified by Organization Detai ls LastModified Time None Recorded Concern Status LastModified by Organization Details LastModified Time None Recorded Advance Directives Directive N: Payers Encounter Date Sequence Insurance Name Policy Number Policy Nieto Covered Member ID Nieto Member ID Guarantor Name 11/27/2023 1 R [id number] Heidi Vaca [id number] Heidi Vaca 02/17/2024 1 R [id number] Heidi Vaca [id number] Heidi Vaca 03/04/2024 1 R [id number] Heidi Vaca [id number] Heidi Vaca Notes Date Note Type Note Provider Name and Address Organization Details Recorded Time 11/27/2023 text/html Anxiety/Depressi onR eported bypatient.Notes:now taking venlafaxine 100mg bid. stable.HeadacheRepo rted bypatient.Notes:pat ing sumatriptan 50mg as directed PRN and amitriptyline 50mg qhs.HypertensionRep orted bypatient.Notes:pt is on coreg 25mg bid, lisinopril 40mg daily.Lower Urinary Tract Symptoms (LUTS)Reported bypatient.Severity: painless Onset/Timing:< 1 week Duration:4-10 times a day Associated Symptoms:no abdominal pain;frequency JOSE Ayala Attn: Accounting,[address], [place], [address], [facility] 12/12/2023 11:53:50 02/17/2024 text/html Anxiety/Depressi onR eported bypatient.Notes:now taking venlafaxine 100mg bid. stable.Hypertension Reported bypatient.Notes:pt is on coreg 25mg bid, lisinopril 40mg daily. Patient was in the hospital for acute kidney injury, reports have been reviewed. Following up on abnormal labs. JOSE Ayala Attn: Accounting,[address], [place], [address], [facility] 03/12/2024 20:13:31 03/04/2024 text/html Anxiety/Depressi onR eported bypatient.Notes:now taking venlafaxine 100mg bid. stable.Hypertension Reported bypatient.Notes:pt is on coreg 25mg bid, lisinopril 40mg daily. Patient was in the hospital for acute kidney injury, reports have been reviewed. Following up on abnormal labs. JOSE Ayala Attn: Accounting,[address] [facility], [place], [address], [facility] 03/14/2024 23:09:35 OBGyn Episode No OBEpisode recorded.
--- OUTSIDE RECORDS SUMMARY | 2024-07-07 07:33 | XMS_ITS | Clinical Summary ---
Author Organization [facility] Address [address] [place] [address]. [place] [address] [place] [address] Care Team Providers Care Unit Reactor Operator Name Role Phone Yamile Avalos Primary Care Provider [phone] Allergies No known active allergies Medications ALPRAZolam (XANAX) 1 MG tablet 01/21/20 22 Active amphetamine-dex troamphetamine (ADDERALL) 20 MG tablet dextroamphetamine-a mphetamine 20 mg tablet TAKE 1 TABLET BY MOUTH THREE TIMES DAILY Active carvedilol (COREG) 12.5 MG tablet Take 12.5 mg by mouth 2 (two) times daily. 11/15/19 22 Active cyclobenzaprine (FLEXERIL) 10 MG tablet cyclobenzaprine 10 mg tablet TAKE 1 TABLET BY MOUTH THREE TIMES DAILY NEEDED Active hydrOXYzine (ATARAX) 50 MG tablet 01/21/20 22 Active prazosin (MINIPRESS) 2 MG capsule prazosin 2 mg capsule TAKE 1 CAPSULE BY MOUTH EVERY NIGHT AT BEDTIME Active Venlafaxine HCl (VENLAFAXINE XR) 225 MG TABLET SR 24 HR 24 hr tablet venlafaxine ER 225 mg tablet,extended release 24 hr TAKE 1 TABLET BY MOUTH EVERY DAY Active lidocaine (LIDODERM) 5 % lidocaine 5 % topical patch Active Esomeprazole Magnesium 20 MG Tab EC Active oxyCODONE-aceta minophen (PERCOCET) 10-325 MG tablet Take 1 tablet by mouth every 4 (four) hours as needed. 09/23/19 22 Active oxyCODONE-aceta minophen (PERCOCET) 7.5-325 MG tablet oxycodone-acetamino phen 7.5 mg-325 mg tablet TAKE 1 TABLET BY MOUTH ONCE TO TWICE DAILY NEEDED Active HYDROcodone-melissa taminophen (NORCO) 10-325 MG tablet hydrocodone 10 mg-acetaminophen 325 mg tablet TAKE 1 TABLET BY MOUTH EVERY 4 TO 6 HOURS NEEDED 10/10/19 17 Active busPIRone (BUSPAR) 30 MG tablet Active amitriptyline (ELAVIL) 50 MG tablet Take 1 tablet by mouth. Active venlafaxine (EFFEXOR) 37.5 MG tablet Active ondansetron (ZOFRAN) 8 MG tablet Take by mouth 3 (three) times daily as needed. 12/12/19 17 Active Rosuvastatin Calcium 10 MG CAPSULE SPRINKLE Active lisinopril (PRINIVIL) 20 MG tablet lisinopril 20 mg tablet 09/29/19 18 Active Meloxicam 15 MG TABLET DISPERSIBLE Active Active Problems No known active problems Immunizations Name Administration Dates Next Due Influenza Adult (Generic) 06/15/2016 Social History Tobacco Use Types Packs/Day Years Used Date Smoking Tobacco: Former Cigarettes Smokeless Tobacco: Never Tobacco Cessation:Counseling Given: Not Answered Alcohol Use Standard Drinks/Week Comments Yes 0 (1 standard drink = 0.6 oz pur e alcohol) socially PHQ-2 Answer Date Recorded Patient Health Questionnaire-2 Score 6 07/15/2022 Comments Unknown Sex and Gender Information Value Date Recorded Sex Assigned at Not on file Legal Sex Female 6:41 PM CDT Gender Identity Not on file Sexual Orientation Not on file Last Filed Vital Signs Vital Sign Reading Time Taken Comments Blood Pressure 131/88 07/15/2022 2:31 PM TRIMMER LOADER Pulse 77 07/15/2022 2:31 PM TRIMMER LOADER Temperature 36.5 ??C (97.7 ??F) 07/15/2022 1:57 PM CS T Respiratory Rate - - Oxygen Saturation 98% 07/15/2022 1:57 PM TRIMMER LOADER Inhaled Oxygen Concentration - - Weight 100.9 kg (222 lb 8 oz) 07/15/2022 1:57 PM TRIMMER LOADER Height 167.6 cm (5' 6 ) 07/15/2022 1:57 PM TRIMMER LOADER p t stated Body Mass Index 35.91 07/15/2022 1:57 PM TRIMMER LOADER Plan of Treatment Health Maintenance Due Date Last Done Comments Cervical Cancer Screening Pa p Smear (Age 30 to 64) Every 3 Years 1972 Colorectal Cancer Screening Colonoscopy (10 Years) 1972 Annual Physical 1975 Hepatitis C 1990 DTaP, Tdap and Td Vaccines ( 1 - Tdap) 1991 Hepatitis B Vaccines (1 of 3 - 19+ 3-dose series) 1991 Cervical Cancer Screening Pa p with HPV Testing (Age 30 to 64) Every 5 Years 2002 Cervical Cancer Screening wi th HPV 2002 Mammogram Screening 2012 Zoster Vaccines (1 of 2) 2022 PHQ-2 (Physician [place]) 07/15/2023 07/15/2022 COVID-19 Vaccine (2023-2 5 season) 2024 08/14/2020, 07/17/2020 Influenza Adult (#1) 2024 06/15/2016 Meningococcal B Vaccine Aged Out No l onger eligible based on patient's age to complete this topic Meningococcal Vaccine Aged Out No renata kristopher eligible based on patient's age to complete this topic Pneumococcal Vaccine: Pediatrics (0 to 5 Years) and At-Risk Patients (6 to 64 Years) Aged Out No longer eligible b ased on patient's age to complete this topic RSV Immunizations Under 20 Months Aged Out No longer eligible b ased on patient's age to complete this topic Insurance MEDICAID Care Teams Unit Reactor Operator Relationship Specialty Start Date End Date Yamile Avalos PA [address] [place] [id number] PCP - General PHYSICIAN RN ONCOLOGY RESEARCH 10/04/21
--- OUTSIDE RECORDS SUMMARY | 2024-07-07 07:33 | XMS_ITS | Encounter Summary ---
Author Organization [facility] Address [address] [place] [address]. [place], [place] [address] [place] [address] Care Team Providers Care Mixing Pan Tender Name Role Phone Yamile Avalos Primary Care Provider [phone] Encounter Details Date Type Department Care Team (Late st Contact Info) Description 10/26/2017 Abstract [facility] Ron Harley MD [address] [place] [address] Social History Tobacco Use Types Packs/Day Years Used Date Smoking Tobacco: Never Assessed Comments Unknown Sex and Gender Information Value Date Recorded Sex Assigned at Not on file Legal Sex Female 6:41 PM CDT Gender Identity Not on file Sexual Orientation Not on file documented as of this encounter Miscellaneous Notes * Letter - Ron Harley MD - 10/26/2017 12:00 AM CDT 27 Oct 2017 Heidi Vaca [address] [place] [address] Dear Heidi Vaca, Thank you for the trust you have placed in [facility] as your health care team. You are a valued patient at our office and we hope you are well. We are concerned about your health and noticed that you did not keep your last scheduled appointment on 10/26/2017. If your appointment has not been rescheduled, please call the office at to reschedule your appointment as soon as possible. As you are aware, we are dedicated to caring for the whole patient, not just treating an illness. When we schedule appointments, we set aside time and professional resources to meet the individual needs of our patients, including time for one-on-one consultation. When a patient does not come to an appointment or cancels the appointment without sufficient notice, our health care team is not able to take time needed to care for another patient. Cancelling within at least 24 hours of your appointment allows us to prepare our schedule for other patients who need timely care. Please be aware, per our organization's no-show policy, if at least 24 hours' notice is not given two times in one year, the practice will impose a $25 no- show fee. We understand there are occasions when a patient must miss an appointment due to unforeseen circumstances. In this event, please call our office and cancel your appointment as soon as you are able. This allows our staff to schedule another patient in need of care. We are committed to providing you the best care possible. We hope to hear from you soon. Sincerely, [facility] cc: Patient Medical Record ICAL INSTRUCTOR documented in this encounter Plan of Treatment Not on file documented as of this encounter Visit Diagnoses Not on filedocumented in this encounter Care Teams Mixing Pan Tender Relationship Specialty Start Date End Date Yamile Avalos PA [address] [place] [address] PCP - General PHYSICIAN METAL WELDER 10/04/21 documented as of this encounter
== END 2024-07-01 17:40 | disposition home or self-care (01) ==
LOC: ANHLAB 17:40
PROVIDERS: PCP Nurse Practitioner Family; Visit Provider Internal Medicine Gastroenterology
DX: R79.89 Other specified abnormal findings of blood chemistry (principal)
CPT/HCPCS: 36415; 80053

== ENCOUNTER 2024-07-06 13:20 | Outpatient (CLI) | payer OTHER, SELFPAY ==
--- NOTE | ~2024-07-06 | DEXA_ITS ---
Bone Density Report Name: NIVIA MALDONADO Age: 54 Sex: Female Ethnicity: White Date of : 1970 Indication: postmenopausal; screening for osteoporosis; height loss; prior fracture; Referring Provider: Adam Velasquez Study: Bone densitometry was performed. Exam Date: July 06, 2024 Accession number: [id number] Bone Density: Region BMD T-score Z-score Classification AP Spine(L1-L4) 1.213 1.5 2.4 Normal Femoral Neck (Left) 0.781 -0.6 0.2 Normal Total Hip (Left) 0.935 -0.1 0.5 Normal Femoral Neck (Right) 0.750 -0.9 0.0 Normal Total Hip (Right) 0.928 -0.1 0.4 Normal Femoral Neck Mean 0.765 -0.8 0.1 Normal Total Hip Mean 0.931 -0.1 0.5 Normal World Health Organization criteria for BMD impression classify patients as: Normal (T-score at or above -1.0), Osteopenia (T-score between -1.0 and -2.5), or Osteoporosis (T-score at or below -2.5). 10-year Fracture Risk: FRAX not reported because: All T-scores for Spine Total, Hip Total, Femoral Neck at or above -1.0 Prior hip or vertebral fracture Clinical Information Provided by Patient: Have had a previous hip or vertebral fracture Has had a low trauma fracture Patient maximum height was 67 Menopause Age: 42 No regular weight bearing exercise Does not regularly consume dairy products Drinks caffeinated beverages Onset of menses at age 14 Number of children 2 Impression: The patient has normal bone mass. The patient has risk factors, including: previous fracture. Discussion: INCREASED RISK OF FRACTURE DUE TO HISTORY OF FRACTURE. The patient's previous fracture puts the patient at high risk of a future fracture. In untreated patients, the risk of osteoporotic fracture increases approximately two-fold for each 1.0 SD decrease in T-score. Low bone density is not the only risk factor for fracture; also consider factors such as patient's age, frailty or poor health, risk of falling, risk of injury, previous osteoporotic fracture, family history of osteoporosis, cigarette smoking, low body weight, etc. Not everyone with a low trauma fracture has osteoporosis; osteomalacia and other metabolic bone disorders should also be considered. Patients who have osteoporosis should be evaluated for specific diseases and conditions (secondary causes) that may cause or contribute to bone loss and fracture risk. National Osteoporosis Foundation (NOF) recommends pharmacologic intervention for patients with a prior hip or vertebral fracture regardless of BMD T-score. The patient should follow a healthful lifestyle (good nutrition with adequate calcium and vitamin D, and appropriate weight-bearing exercise). Follow-Up: Consider a repeat BMD and Vertebral Fracture Assessment (VFA) exam in 2 years or sooner if medically necessary, to reassess this patient's status. Reported by: ROMMEL on 07/06/2024 1:42:00 PM. Reviewed, dictated and finalized at location A.
--- NOTE | ~2024-07-06 | MM_ITS ---
EXAMINATION: MM screening [facility] BI w jaime HISTORY: Screening TECHNIQUE: Craniocaudal and mediolateral oblique 3-D tomosynthesis images were obtained and synthetic 2-D images were generated. CAD analysis was submitted and interpreted. COMPARISON: Comparison to multiple prior studies sequentially, with oldest reviewed study dated 04/16. BREAST PARENCHYMAL COMPOSITION: Not dense: There are scattered areas of fibroglandular density. FINDINGS: There is no evidence of suspicious mass, calcification, or architectural distortion to sugg est malignancy in either breast. There has been no suspicious interval change. IMPRESSION: 1. No mammographic evidence of malignancy. 2. Recommend routine screening mammography in one year. BI-RADS Category 1: Negative Reviewed, dictated and finalized at location A. ER FILLER
== END 2024-07-06 13:21 | disposition home or self-care (01) ==
LOC: CHSIMG 13:22
PROVIDERS: PCP Nurse Practitioner Family; Visit Provider Obstetrics & Gynecology
DX: Z12.31 Encounter for screening mammogram for malignant neoplasm of breast (principal); Z78.0 Asymptomatic menopausal state
CPT/HCPCS: 77063; 77067; 77080

== ENCOUNTER 2024-08-05 13:27 | Outpatient (CLI) | payer OTHER, SELFPAY ==
--- OUTSIDE RECORDS SUMMARY | 2024-08-05 13:31 | XMS_ITS | Referral Summary ---
Author Organization [facility] Address [address] [place] [address] Care Team Providers Care Mechanical Lead Name Role Phone Unavailable Primary Care Provider Unavailabl e Source Comments [facility],non-owned Affiliates and Associated Physician Practices is amultiple site organization consisting of ambulatory clinics and hospital sitesin [place], [place], [place] and [place]. This disclosure is being madepursuant to the Care Everywhere program and may not contain all information available regarding this patient. Last updated 18.[facility] Encounters Date Type Department Care Team Description 07/07/2024 Telephone [facility] - Centralized Scheduling [address] [place] [address] Silvana Samuel MD Reschedule Appointment (07/07-Left message to reschedule Jimmie's 12/06 appt- reschedule to the next available. 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
--- OUTSIDE RECORDS SUMMARY | 2024-08-05 13:31 | XMS_ITS | Patient Health Summary ---
Author Organization [facility] Address [address] [facility] [place] [address] Care Team Providers Care Cleat Feeder Name Role Phone Unavailable Primary Care Provider Unavailabl e Note from [facility],non-owned Affiliates and Associated Physician Practices is amultiple site organization consisting of ambulatory clinics and hospital sitesin [place], [place], [place] and [place]. This disclosure is being madepursuant to the Care Everywhere program and may not contain all information available regarding this patient. Last updated 18.[facility] Allergies No known active allergies Medications * [...] VARICELLA ZOSTER ANTIBODY IGG (05/09/2014 1:50 PM CYLINDER FILLER) Varicella zoster Virus Antibody IgG 1001.0 IV 05/11/2014 10:41 AM CYLINDER FILLER FADY [facility] ([facility]) Comment: INTERPRETIVE INFORMATION: VZV Ab, IgG 134 IV or less ....... Negative - No significant level of detectable IgG varicella- zoster antibody. 135 -165 IV .......... Equivocal - Repeat testing in 10-14 days may be helpful. 166 IV or greater .... Positive - IgG antibody to varicella-zoster detected, which may indicate a current or past varicella-zoster infection. The best evidence for current infection is a significant change on two appropriately timed specimens, where both tests are done in the same laboratory at the same time. Blood specimen (specimen) BLOOD SPECIMEN / Unknown Venipuncture / Unknown 05/09/2014 1:50 PM CYLINDER FILLER 05/09/2014 5:57 PM CYLINDER FILLER Provider Unknown LAB - CHEMISTRY JAGDISH KEITH FADY [facility] ([facility]) [address] [place] [address], [facility]
--- OUTSIDE RECORDS SUMMARY | 2024-08-05 13:31 | XMS_ITS | Clinical Summary ---
Author Organization [facility] Address [address] [place] [address] Care Team Providers Care Airplane Cleaner Name Role Phone Unavailable Primary Care Provider Unavailabl e Source Comments [facility],non-owned Affiliates and Associated Physician Practices is amultiple site organization consisting of ambulatory clinics and hospital sitesin [place], [place], [place] and [place]. This disclosure is being madepursuant to the Care Everywhere program and may not contain all information available regarding this patient. Last updated 18.[facility] Allergies No known active allergies Medications * [...] 1 Tab by mouth as needed. Active Encounters Date Type Department Care Team Description 07/07/2024 Telephone [facility] - Centralized Scheduling [address] [place] [address] Silvana Samuel MD Reschedule Appointment (07/07-Left message to reschedule Jimmie's 12/06 appt- reschedule to the next available. 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
--- OUTSIDE RECORDS SUMMARY | 2024-08-05 13:31 | XMS_ITS | Encounter Summary ---
Author Organization [facility] Address [address] [place] [address] Care Team Providers Care Ship Propeller Finisher Name Role Phone Mickey Zamora MD Primary Care Provider + Encounter Details Date Type Department Care Team (Late st Contact Info) Description 07/16/2013 [facility] Outpatient Visit [facility] [address] [facility] [address] [place], [place] [id number] [place] [address] [facility] [address] [place] [address] Social History Tobacco Use Types Packs/Day [...] as of this encounter Plan of Treatment Not on file documented as of this encounter Visit Diagnoses Not on filedocumented in this encounter Care Teams Ship Propeller Finisher Relationship Specialty Start Date End Date Mickey Zamora MD PCP - General Family Medicine 07/06/13 05/16/24 documented as of this encounter
--- OUTSIDE RECORDS SUMMARY | 2024-08-05 13:31 | XMS_ITS | Encounter Summary ---
Author Organization [facility] Address [address] [facility] [place] [address] Care Team Providers Care Roof Plumber Name Role Phone Mickey Zamora MD Primary Care Provider + Encounter Details Date Type Department Care Team (Late st Contact Info) Description 05/09/2014 Lab Requisition [facility] [address] [place] [id number] Unknown, Provider Social History Tobacco Use Types [...] on file documented as of this encounter Procedures Procedure Name Priority Date/Time Associated Diagnosis Comments VARICELLA ZOSTER ANTIBODY IGG Routine 05/09/2014 1:50 PM LOAD DROPPER documented in this encounter Results * VARICELLA ZOSTER ANTIBODY IGG (05/09/2014 1:50 PM LOAD DROPPER) Varicella zoster Virus Antibody IgG 1001.0 IV 05/11/2014 10:41 AM LOAD DROPPER [facility] ([facility]) Comment: INTERPRETIVE INFORMATION: VZV Ab, IgG [...] Unknown Venipuncture / Unknown 05/09/2014 1:50 PM LOAD DROPPER 05/09/2014 5:57 PM LOAD DROPPER Provider Unknown LAB - CHEMISTRY JAGDISH KEITH [facility] ([facility]) [address] documented in this encounter Visit Diagnoses Not on filedocumented in this encounter Care Teams Roof Plumber Relationship Specialty Start Date End Date Mickey Zamora MD PCP - General Family Medicine 07/06/13 05/16/24 documented as of this encounter
--- OUTSIDE RECORDS SUMMARY | 2024-08-05 13:33 | XMS_ITS | Clinical Summary ---
Author Organization [facility] Address [address] [place] [address] Care Team Providers Care Silk Screen Cutter Name Role Phone LucillealbanYamile Primary Care Pr [...] on file Legal Sex Female 6:48 AM FIELD HORTICULTURAL SPECIALTY GROWER Gender Identity Female 06/03/2020 2:27 PM FIELD HORTICULTURAL SPECIALTY GROWER Sexual Orientation Straight 06/03/2020 2: 27 PM FIELD HORTICULTURAL SPECIALTY GROWER Obstetrics History Last Filed Vital Signs Vital Sign Reading Time Taken Comments Blood Pressure 144/102 06/04/2020 12:45 PM FIELD HORTICULTURAL SPECIALTY GROWER Pulse 92 06/04/2020 12:45 PM FIELD HORTICULTURAL SPECIALTY GROWER Temperature 36.8 C (98.2 F) 06/04/2020 12:45 PM FIELD HORTICULTURAL SPECIALTY GROWER Respiratory Rate - - Oxygen Saturation - - Inhaled Oxygen Concentration - - Weight 99.8 kg (220 lb) 06/04/2020 12:45 PM FIELD HORTICULTURAL SPECIALTY GROWER Height - - Body Mass Index - [...] patient's age to complete this topic Insurance [facility] [place] [address] [facility] Member Subscriber Plan / Payer (Ef fective 2018-Present) Name:Jennifer Vacapepe Gonsalves Relation to Subscriber:Self Name:Heidi Vaca Payer ID:[id number] (NAIC) Type:[facility] H[facility]/PPO Address: [address] [facility] Care Teams Silk Screen Cutter Relationship Specialty Start Date End Date Yamile Avalos PA PCP - General Physician Gas Cutter 04/23/20
--- OUTSIDE RECORDS SUMMARY | 2024-08-05 13:33 | XMS_ITS | Encounter Summary ---
Author Organization [facility] Address [address] [place] [address] Care Team Providers Care Laboratory Veterinarian Name Role Phone Yamile Avalos Primary Care Provider [phone] Encounter Details Date Type Department Care Team (Late st Contact Info) Description 10/26/2017 Abstract [facility] Conversion [place] Harley [place] [address] [address] Social History Tobacco Use Types Packs/Day Years [...] CDT 27 Oct 2017 Heidi Vaca [address] [place] [address] Dear Heidi Vaca, Thank you for the trust you have placed in [facility] as your health care team. You are [...] hope to hear from you soon. Sincerely, [facility] cc: Patient Medical Record GAUGE UNIT OPERATOR documented in this encounter Plan of Treatment Not on file documented as of this encounter Visit Diagnoses Not on filedocumented in this encounter Care Teams Laboratory Veterinarian Relationship Specialty Start Date End Date Yamile Avalos PA [address] [place] [address] PCP - General PHYSICIAN OFFICE EQUIPMENT TECHNICIAN 10/04/21 documented as of this encounter
--- OUTSIDE RECORDS SUMMARY | 2024-08-05 13:33 | XMS_ITS | Continuity of Care Document ---
Author Organization [facility] Address [address] [place] [address] Phone Care Team Providers Care Factory Representative Name Role Phone Elfego Ann MD Unavailable Unavailable Procedures Procedure Date [...] Providers Copied on Encounter Office/outpa tient visit,est, [facility], [address], [id number], [place] tel:[phone] [facility] SPRAIN MEDIAL COLLAT LIGCHONDROMALACIA PATELLAEJOINT PAIN-L/LEG 0 Seth Telles. [address] [facility], [place] [address], [place], [place], [id number] , [place]. tel: [phone] Office/outpa [place]ient visit,est, [facility], [address], [id number], [place] tel:[phone] [facility] No Information [address]elles[address] [place] [address], [address], [place], [id number] , [place]. tel: [phone] Office/outpa tient visit,est, mod [facility], [address] [place] [address], [id number], [phone] [facility] No Information 0 [address] Telles[address] [place] [address], [address], [id number] , [place]. tel: [phone] Office consultation , moderate [facility], [address] [place] [address], [id number], [place] tel:[phone] [facility] No Information 0 Seth Telles. [address] [place] [address], [place] [address], [place], [place], [id number] , [place]. tel: [phone] Family History Family Member Type Diagnosis Age At Onset No Information Payers Payer name Insurance type Covered alliance party ID Rebecca clarke(s) [facility] Workers Compensation Adm [id number] Social History Type Description Quantity Date Captured [...]
--- OUTSIDE RECORDS SUMMARY | 2024-08-05 13:33 | XMS_ITS | Data Portability ---
Author Organization [facility] [email or web address], Main Office Address [address] [place] [address] Assessment No assessment recorded. Plan of Treatment Reminders Order Date Submit Date Provider Last Modified By Organization Details Last Modified Time Details Appointments None recorded. Lab None recorded. Referral None recorded. Procedures None recorded. Surgeries None recorded. Imaging None recorded. Medication Orders venlafaxine 75 mg tablet 2022 023 [email or web address] [id number], [id number], [address], 3 17:18:09 amitriptyli ne 25 mg tablet 2022 023 [id number], [id number], [address], 3 17:18:04 carvedilol 25 mg tablet 2022 023 MIRIAN [id number], [id number], [address], 3 17:03:32 Patient TargetsNo targets recorded. Patient InstructionsNo instructions recorded. Reason for Referral None Reported. Results Created Date Observation Date Name Description Value Unit Range Abnormal Flag Note LastModifiedBy Organization Detail LastModifiedTime 11/29/19 22 10/10/2021 imagi ng/di agnos tic resul t No observ ation record ed. [id number] Not Available 08/13/2022 03:10:20 04/22/20 22 02/05/2022 MRI, cervi matias spine , w/ contr ast No observ ation record ed. [id number] [facility] [address], [place], [address], 08/13/2022 03:10:20 04/23/20 22 02/05/2022 MRI, thora cic spine , w/o contr ast No observ ation record ed. [id number] Not Available 08/13/2022 03:10:20 Result Notes None recorded. Problems Name Problem SNOMED Code Status Onset Date Resolution Date Notes Provider Name and Address Organization Details Recorded Time Benign essential hypertensi on 5492655 Active 2018 Not Available [facility] 3 02:54:46 Insomnia 618732845 Active 2018 Not Available [facility] 3 02:54:46 Generalize d anxiety disorder 14345809 Active 2018 Not Available [facility] 3 02:54:46 Mixed anxiety and depressive disorder 679367090 Active 2021 Not Available [facility] 3 02:54:46 Knee pain Active Not Available [facility] 3 02:54:46 Major depressive disorder 821006088 Active 2018 Not Available [facility] 3 02:54:46 Migraine 32130648 Active 2021 Not Available [facility] 3 02:54:46 Postconcus caryn syndrome 73968479 Active 2021 Not Available [facility] 3 02:54:46 Dizziness 914277453 Active 2021 Not Available [facility] 3 02:54:47 Nausea 019642815 Active 2021 Not Available [facility] 3 02:54:47 Posttrauma tic stress disorder 39697041 Active 2021 Not Available [facility] 3 02:54:47 Hyperlipid emia 59137486 Active 2019 Not Available [facility] 3 02:54:47 Daily headache 560082250966 Active 2021 Not Available [facility] 3 02:54:47 Chronic headache disorder 484766058 Active 2022 JOSE Ayala [address], [place], [address] , [facility] [email or web address] [facility] 3 17:01:38 Headache 10599440 Active 2023 JOSE Ayala [address], [place], [address] , [facility] [employer] [facility] [employer] [facility] 4 10:18:26 Problem Notes None recorded. 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 Not Available [facility] 08/13/2022 02:45:24 Imaging Results Imaging Date Name Status LastModified by Organiz ation Details LastModified Time 02/05/2022 MRI, thoracic spine, w/o contrast completed [id number] Information not available 08/13/2022 03:10:20 02/05/2022 MRI, cervical spine, w/ contrast completed [id number], [place], [address], 08/13/2022 03:10:20 10/10/2021 imaging/diagn ostic result completed [id number] Information not available 08/13/2022 03:10:20 Procedure [...] henidate ER 15 mg capsule,ex tended release [id number] -50 TAKE 1 PILL BY MOUTH QD [...] 3 170.18 cm 97.3 [degF] 30.9 kg/m2 27000.7 g 16 /min 80 /min 140 mm[Hg] 100 mm[Hg] MYNOR Zuniga [place] - [place] [email or web address] [facility] 3 16:35:09 Date Recorded Systolic blood pressure Diastolic blood pressure Systolic blood pressure Diastolic blood pressure Provider Name and Address Organization Details Last Updated DateTime 02/18/2023 130 mm[Hg] 90 mm[Hg] 130 mm[Hg] 86 mm[Hg] JOSE Ayala [address] [facility], [facility] [address], [place], [address] , [place] [facility] 3 17:01:04 Date Recorded Body mass index (BMI) Body height Oxygen saturation Oxygen saturation in Arterial blood by Pulse oximetry Heart rate Respiratory rate Body temperature Body weight Systolic blood pressure Diastolic blood pressure Provider Name and Address Organization Details Last Updated DateTime 2 33.5 kg/m2 170.18 cm 98 % 98 % 91 /min 16 /min 96.3 [degF] 06749.7 7 g 118 mm[Hg] 70 mm[Hg] Not Available [facility] 3 02:48:37 Date Recorded Body mass index (BMI) Body height Oxygen saturation Oxygen saturation in Arterial blood by Pulse oximetry Heart rate Respiratory rate Body temperature Body weight Systolic blood pressure Diastolic blood pressure Provider Name and Address Organization Details Last Updated DateTime 2 33.5 kg/m2 170.18 cm 98 % 98 % 93 /min 16 /min 97.2 [degF] 16237.7 7 g 128 mm[Hg] 80 mm[Hg] Not Available [facility] 3 02:48:37 Date Recorded Body mass index (BMI) Body height Oxygen saturation Oxygen saturation in Arterial blood by Pulse oximetry Heart rate Respiratory rate Body temperature Body weight Systolic blood pressure Diastolic blood pressure Provider Name and Address Organization Details Last Updated DateTime 2 33.4 kg/m2 170.18 cm 98 % 98 % 90 /min 16 /min 96.8 [degF] 70576.1 7 g 120 mm[Hg] 80 mm[Hg] Not Available [facility] 3 02:48:38 Date Recorded Body height Oxygen saturation Oxygen saturation in Arterial blood by Pulse oximetry Heart rate Body temperature Body weight Systolic blood pressure Diastolic blood pressure Provider Name and Address Organization Details Last Updated DateTime 2 170.18 cm 97 % 97 % 78 /min 97.1 [degF] 51995.4 g 120 mm[Hg] 78 mm[Hg] Not Available [facility] 02:48:38 Social History Question Answer Notes LastModified by Organization Details LastModified Time Tobacco Smoking Status Former Smoker Quit 02/26/20 Not Available [facility] 08/13/2022 02:37:15 Do You Have An Advance Directive? No MIGRATION.030 [id number] Information not available 08/13/2022 What Is Your Level Of Alcohol Consumption? Occasional MIGRATION.030 139681 Information not available 08/13/2022 Do You Wear A Helmet When Biking? No MIGRATION.0301 540892 Information not available 08/13/2022 What Is Your Level Of Caffeine Consumption? Moderate MIGRATION.030 888831 Information not available 08/13/2022 How Much Tobacco Do You Chew? None MIGRATION.030 806052 Information not available 08/13/2022 In The 14 Days Before Symptom Onset, Have You Had Close Contact With A Laboratory-confi rmed COVID-19 While That Case Was Ill? No MIGRATION.030 636284 Information not available 08/13/2022 In The 14 Days Before Symptom Onset, Have You Had Close Contact With A Person Who Is Under Investigation For COVID-19 While That Person Was Ill? No MIGRATION.030 580274 Information not available 08/13/2022 Are You Currently Employed? Yes [email or web address] Information not available 02/18/2023 What Type Of Diet Are You Following? REGULAR MIGRATION.030 647880 Information not available 08/13/2022 Which Illicit Or Recreational Drugs Have You Used? None MIGRATION.030 378150 Information not available 08/13/2022 Do You Or Have You Ever Used E-cigarettes Or Vape? Never Used Electronic Cigarettes MIGRATION.030 986294 Information not available 08/13/2022 What Is The Highest Grade Or Level Of School You Have Completed Or The Highest Degree You Have Received? 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 No MIGRATION.030 717260 Information not available 08/13/2022 Are There Any Guns Present In Your Home? Yes MIGRATION.030 754512 Information not available 08/13/2022 Do You Use Insect Repellent Routinely? No MIGRATION.0301 050598 Information not available 08/13/2022 Where Do You Live? [place]House MIGRATION.0301 541514 Information not available 08/13/2022 Do You Have A Medical Power Of Weigh Box Tender? No MIGRATION.0301 527848 Information not available 08/13/2022 Do You Have Any Pets? No MIGRATION.0301 935945 Information not available 08/13/2022 What Is Your Relationship Status? MIGRATION.0301 699228 Information not available 08/13/2022 Do You Use Your Seat Belt Or Car Seat Routinely? Yes MIGRATION.0301 127942 Information not available 08/13/2022 Do You Have Smoke And Carbon Monoxide Detectors In Your Home? Yes MIGRATION.0301 007895 Information not available 08/13/2022 Are You Passively Exposed To Smoke? No MIGRATION.0301 044080 Information not available 08/13/2022 Do You Or Have You Ever Used Smokeless Tobacco? Never Used Smokeless Tobacco MIGRATION.0301 394752 Information not available 08/13/2022 Are There Any Smokers In Your House? No MIGRATION.0301 672763 Information not available 08/13/2022 How Much Tobacco Do You Smoke? 0.5 PPD MIGRATION.0301 428514 Information not available 08/13/2022 Do You Feel Stressed (tense, Restless, Nervous, Or Anxious, Or Unable To Sleep At Night)? [id number] MIGRATION.0301 972359 Information not available 08/13/2022 Do You Use Any Illicit Or Recreational Drugs? No MIGRATION.0301 225300 Information not available 08/13/2022 Do You Use Sunscreen Routinely? No MIGRATION.0301 838786 Information not available 08/13/2022 Have You Recently Traveled Abroad? No MIGRATION.0301 702658 Information not available 08/13/2022 Do You Have Any Dietary Restrictions? No MIGRATION.0301 078981 Information not available 08/13/2022 Do You Or Have You Ever Used Any Other Forms Of Tobacco Or Nicotine? No MIGRATION.0301 726106 Information not available 08/13/2022 Sex: Unknown Functional Status Question Answer Note LastModified by Organizat ion Details LastModified Time What is your exercise level? Occasional [id number] 26 Information not available 08/13/2022 Mental Status None recorded. Family History Relationship Description Onset Age of this Age Resolved Age Notes LastModified by Organization Details LastModified Time Mother Hypertensive disorder MIGRATION.691 [id number] Not available 08/13/2022 02:45:28 Mother Parkinson's disease MIGRATION.491 [id number] Not available 08/13/2022 02:45:28 Father Hypertensive disorder MIGRATION.934 [id number] Not available 08/13/2022 02:45:28 Father Alcoholism MIGRATION.324 [id number] Not available 08/13/2022 02:45:28 Medical History Condition Response HEADACHES/MIGRAINES Y ANXIETY DISORDER Y BOWEL PROBLEMS Y BACK / NECK PROBLEMS Y DEPRESSION (INCLUDING POST ) Y HYPERTENSION Y Gynecological History Statement/Question Response Date of Last Mammogram 05/09/2020 Sexually Active? N Obstetrics History GPAL:G 3 P 0 0 0 2 Type Value Living 2 Total 3 Immunizations Vaccine Type Date Status Note Provider Nam e and Address Organization Details Recorded Time Influenza, split virus, quadrivalent, preservative 7 completed Not Available [facility] 08/13/2022 03:09:18 Past Encounters Encounter ID Performer Location Encounter Start Date Encounter Closed Date Diagnosis/Indication Diagnosis SNOMED-CT Code Diagnosis ICD10 Code Diagnosis Note [id number] [facility] [address] [place] [address] 10/11/2020 00:00:00 10/11/2020 18:42:30 [id number] [facility] [address] [place] [address] 11/27/2020 00:00:00 12/12/2020 18:03:53 [id number] [facility] [address] [place] [address] 12/10/2020 00:00:00 12/10/2020 21:12:24 [id number] [facility] [address] [facility] [place] [address] 04/30/2021 00:00:00 05/05/2021 10:26:17 [id number] [facility] [address] [place] [address] 08/19/2021 00:00:00 09/12/2021 17:11:13 [id number] [facility] [address] [place] [address] 09/12/2021 00:00:00 09/12/2021 13:41:07 [id number] [facility] [address] [place] [address] 11/04/2021 00:00:00 11/11/2021 17:54:15 [id number] [facility] [address] [place] [address] 11/27/2021 00:00:00 12/12/2021 14:13:47 [id number] [facility] [address] [place] [address] 04/01/2022 00:00:00 04/12/2022 20:43:24 [id number] [facility] [address] [place] [address] 04/23/2022 00:00:00 05/14/2022 21:23:11 [id number] JOSE Ayala [facility] [address] [place] [address] 02/18/2023 16:01:43 02/18/2023 17:07:07 Benign essential hypertension 8560862 I10 Rx for coreg 25mg bid. Chronic he adache disorder 097423409 G44.89 refill amitriptyl ine 25mg qhs Major depr essive disorder 147210359 F32.9 Refill effexor 75mg bid Health Concerns [...] in exercise capacity; no snoring;fatigue Not Available [employer] 11/11/2021 17:54:15 022 text/ht ml Generic HPI TemplateReported bypatient.Notes:Pt is here to f/u on her concussion bc she is ready to go back to work. She says she is feeling better. Dizziness has subsided. Excellent results in the last 3 weeks with P.T/vestibular therapy at [facility] in [place] and continued upper cervical overnight caregiver with Dr. Tez العلي. She is relieved to finally have reached improvement. Not Available [employer] 12/12/2021 14:13:47 022 text/ht ml Generic HPI [...] debilitating, but it is present. Not Available [employer] 04/12/2022 20:43:24 022 text/ht ml Generic HPI [...] weeks with P.T/vestibular therapy at [facility] in [place] and continued upper cervical overnight caregiver with Dr. Tez العلي. She is relieved to finally have reached improvement. Not Available [employer] 05/14/2022 21:23:11 023 text/ht ml HeadacheReported bypatient.Location:bilateral; [...] medication; checks blood pressure at home (range 656474) JOSE Ayala [address] [facility], [facility] [address], [place], [address], [place] [employer] 03/11/2023 23:49:07 OBGyn Episode No OBEpisode recorded.
--- OUTSIDE RECORDS SUMMARY | 2024-08-05 13:33 | XMS_ITS | Clinical Summary ---
Author Organization [facility] Address [address] [place] [address] Care Team Providers Care Open Hearth Helper Name Role Phone Yamile Avalos Primary Care Provider [phone] Allergies No known active allergies Medications ALPRAZolam [...] Comments Blood Pressure 131/88 07/15/2022 2:31 PM BUSINESS INTELLIGENCE ARCHITECT Pulse 77 07/15/2022 2:31 PM BUSINESS INTELLIGENCE ARCHITECT Temperature 36.5 C (97.7 F) 07/15/2022 1:57 PM BUSINESS INTELLIGENCE ARCHITECT Respiratory Rate - - Oxygen Saturation 98% 07/15/2022 1:57 PM BUSINESS INTELLIGENCE ARCHITECT Inhaled Oxygen Concentration - - Weight 100.9 kg (222 lb 8 oz) 07/15/2022 1:57 PM BUSINESS INTELLIGENCE ARCHITECT Height 167.6 cm (5' 6 ) 07/15/2022 1:57 PM BUSINESS INTELLIGENCE ARCHITECT p t stated Body Mass Index 35.91 07/15/2022 1:57 PM BUSINESS INTELLIGENCE ARCHITECT Plan of Treatment Health Maintenance Due Date Last Done Comments Cervical Cancer Screening Pa p Smear (Age 30 to 64) Every 3 Years 1972 Colorectal Cancer Screening Colonoscopy (10 Years) 1972 Annual Physical 1975 Hepatitis C 1990 DTaP, Tdap and Td Vaccines ( 1 - Tdap) 1991 Hepatitis B Vaccines (1 of 3 - 19+ 3-dose series) 1991 Cervical Cancer Screening Jeremy gandara with HPV Testing (Age 30 to 64) Every 5 Years 2002 Cervical Cancer Screening wi th HPV 2002 Mammogram Screening 2012 Zoster Vaccines (1 of 2) 2022 COVID-19 Vaccine (3 - 2023-2 5 season) 2024 08/14/2020, 07/17/2020 Influenza Adult (#1) 2024 06/15/2016 PHQ-2 (Physician [place]) 06/15/2024 Meningococcal B Vaccine Aged Out No l [...] complete this topic Insurance MEDICAID Care Teams Open Hearth Helper Relationship Specialty Start Date End Date Yamile Avalos PA [address] [place] [address] PCP - General PHYSICIAN SPRAYER MACHINE 10/04/21
--- OUTSIDE RECORDS SUMMARY | 2024-08-05 13:33 | XMS_ITS | Referral Summary ---
Author Organization [facility] Address [address] [place] [address] Care Team Providers Care Design Cell Engineer Name Role Phone DavidpepeYamile Primary Care Pr [...] on file Legal Sex Female 6:48 AM WAREHOUSE DIRECTOR Gender Identity Female 06/03/2020 2:27 PM WAREHOUSE DIRECTOR Sexual Orientation Straight 06/03/2020 2: 27 PM WAREHOUSE DIRECTOR Last Filed Vital Signs Vital Sign Reading Time Taken Comments Blood Pressure 144/102 06/04/2020 12:45 PM WAREHOUSE DIRECTOR Pulse 92 06/04/2020 12:45 PM WAREHOUSE DIRECTOR Temperature 36.8 C (98.2 F) 06/04/2020 12:45 PM WAREHOUSE DIRECTOR Respiratory Rate - - Oxygen Saturation - - Inhaled Oxygen Concentration - - Weight 99.8 kg (220 lb) 06/04/2020 12:45 PM WAREHOUSE DIRECTOR Height - - Body Mass Index - - Plan of Treatment Not on file Insurance [facility] [employer] Address: [place] [id number] [facility] Care Teams Design Cell Engineer Relationship Specialty Start Date End Date Yamile Avalos PA PCP - General Physician Motorcycle Subassembler 04/23/20
--- OUTSIDE RECORDS SUMMARY | 2024-08-05 13:33 | XMS_ITS | Data Portability ---
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 Plan of Treatment Reminders Order Date Submit Date Provider Last Modified By Organization Details Last Modified Time Details Appointments None recorded. Lab BMP, serum or plasma - please run RODDY full multiplex panel 2023 [facility] Outpatient Registration Lab/Ekg, [address], [place], [address], 4 16:50:08 CBC w/ auto diff - please run RODDY full multiplex panel 2023 [facility] Outpatient Registration Lab/Ekg, [address], [place], [address], 4 16:50:39 rf (rheumatoi d factor), serum - please run RODDY full multiplex panel 2023 [facility] Outpatient Registration Lab/Ekg, [address], [place], [address], 4 16:50:49 C-reactive protein, quantitati ve, serum or plasma - please run RODDY full multiplex panel 2023 [facility] Outpatient Registration Lab/Ekg, [address], [place], [address], 4 16:51:36 erythrocyt e sedimentat ion rate by westergren method - please run RODDY full multiplex panel [address] Outpatient Registration Lab/Ekg, [address], [place], [address], 4 11:16:50 RODDY (antinucle ar antibodies ) panel, serum - please run RODDY full multiplex panel 2023 [facility] Outpatient Registration Lab/Ekg, [address], [place], [address], 4 13:48:20 lipase, serum or plasma 2023 024 [facility] Outpatient Registration Lab/Ekg, [address], [place], [address], 4 16:50:25 amylase, serum or plasma 2023 024 [facility] Outpatient Registration Lab/Ekg, [address], [place], [address], 4 16:50:29 smooth muscle Ab, serum - please run smooth muscle antibody not actin. [address] Outpatient Registration Lab/Ekg, [address], [place], [address], 4 14:16:00 hepatic function panel, serum - please run RODDY full multiplex panel 2023 024 [facility] Outpatient Registration Lab/Ekg, [address], [place], [address], 4 16:51:15 CBC w/ auto diff [address] Outpatient Registration Lab/Ekg, [address], [place], [address], 4 12:51:46 BMP, serum or plasma [address] Outpatient Registration Lab/Ekg, [address], [place], [address], 4 12:51:46 smooth muscle Ab, serum [address] Outpatient Registration Lab/Ekg, [address], [place], [address], 4 11:49:26 mitochondr ial Ab, serum 2023 024 [facility] Outpatient Registration Lab/Ekg, [address], [place], [address], 4 21:37:59 hepatic function panel, serum [address] Outpatient Registration Lab/Ekg, [address], [place], [address], 4 12:51:46 TSH + free T4, serum [address] Outpatient Registration Lab/Ekg, [address], [place], [address], 4 10:58:54 urinalysis , complete 2023 024 [facility] Outpatient Registration Lab/Ekg, [address], [place], [address], 4 09:41:43 culture, urine 2023 024 [facility] Outpatient Registration Lab/Ekg, [address], [place], [address], 4 14:27:01 lipid panel w/ direct LDL, serum 2023 024 [facility] Outpatient Registration Lab/Ekg, [address], [place], [address], 4 23:38:25 CMP, serum or plasma 2023 024 [facility] Outpatient Registration Lab/Ekg, [address], [place], [address], 4 19:08:15 CBC w/ auto diff 2023 024 [facility] Outpatient Registration Lab/Ekg, [address] [place] [address] [address], [place], [address], 4 18:13:11 vitamin B12 + folate, serum or blood [address] Outpatient Registration Lab/Ekg, [address] [place] [address] [address], [place], [address], 4 10:58:54 HbA1c (hemoglobi n A1c), blood [address] Outpatient Registration Lab/Ekg, [address] [place] [address] [address], [place], [address], 4 10:58:54 Referral None recorded. Procedures None recorded. Surgeries None recorded. Imaging None recorded. Medication Orders None recorded. Patient TargetsNo targets recorded. Patient Instructions Encounter Date Encounter Id Patient Instructions Last Modified By Organization Details Last Modified Time 11/27/2023 [id number] A healthy lifestyle: care instructions [place] [id number] Not available 12/12/2023 11:53:28 Reason for Referral None Reported. Results Created Date Observation Date Name Description Value Unit Range Abnormal Flag Note LastModifiedBy Organization Detail LastModifiedTime 02/12/2002/11/2024 XR, chest , 2 view No observ ation record ed. [address], [place], [address], 02/12/2024 13:58:21 02/12/20 24 02/11/2024 CT, chest + abdom en + pelvi s, w/ contr ast No observ ation record ed. [address], [place], [address], 02/12/2024 13:58:54 02/12/20 24 02/12/2024 US, liver No observ ation record ed. [address], [place], [address], 02/12/2024 13:59:10 02/22/20 24 02/20/2024 XR, chest , 2 view No observ ation record ed. [address], [place], [address], 02/22/2024 10:42:10 02/29/20 24 02/12/2024 US, echoc ardio gram No observ ation record ed. BARCODE Not Available 2023 16:03:21 04/02/20 24 04/01/2024 US, renal No observ ation record ed. [address], [place], [address], 04/04/2024 09:42:37 04/06/20 24 04/06/2024 crystal can cardi olite stres s test (PROC ) No observ ation record ed. [address], [place], [address], 04/08/2024 16:34:16 04/15/2004/06/2024 exerc ise stres s test No observ ation record ed. BARCODE Not Available 2023 14:10:32 Result Notes None recorded. Problems Name Problem SNOMED Code Status Onset Date Resolution Date Notes Provider Name and Address Organization Details Recorded Time Benign essential hypertension 7651020 Active 2023 JOES Ayala Attn: Sd covarrubias,[address], [place], [address], [place] [facility] 4 11:52:07 Chronic headache disorder 939947210 Active 2023 JOSE Ayala Attn: Sd covarrubias,[address], [place], [address], [place] [facility] 4 11:52:07 Major depressive disorder 457318965 Active 2023 JOSE Ayala Attn: Accountteofilo g,[address] [facility], [place], [address], [place] [facility] 4 11:52:09 Obesity 712189976 Active 2023 JOSE Ayala Attn: Accountteofilo g,[address], [place], [address], [place] [facility] 4 11:53:29 Body mass index 30+ - obesity 641152035 Active 2023 JOSE Ayala Attn: Accountin g,[address], [place], [address], [place] [facility] 4 11:53:29 Smooth muscle antibodies detected 751623257 Active 2023 JOSE Ayala Attn: Accountin g,[address], [place], [address], [place] [facility] 4 20:11:07 Liver enzymes level above reference range 151632216 Active 2023 JOSE Ayala Attn: Accountin g,[address], [place], [address], [place] [facility] 4 20:11:08 Multiple joint pain 51088760 Active 2023 JOSE Ayala Attn: Accountin g,[address], [place], [address], [place] [facility] 4 23:07:59 Acute kidney injury 52368359 Active 2023 JOSE Ayala Attn: Accountin g,[address], [place], [address], [place] [facility] 4 23:08:44 Blood chemistry outside reference range 805143604 Active 2023 JOSE Ayala Attn: Accountin g,[address] [facility] [address] [facility], [place], [address], [place] [facility] 4 23:08:48 Pancreatitis 75703698 Active 2023 JOSE Ayala Attn: Sd covarrubias,[address], [place], [address], [place] - [facility] 4 23:08:50 Long-term drug therapy Active 2023 JOSE Ayala Attn: Sd covarrubias,[address], [place], [address], [place] - [facility] 4 23:09:02 Problem Notes None recorded. Procedures Surgical History Date Name Laterality Status Provider Name and Address Organization Details Recorded Time drainage of pleural cavity via chest tube completed Larisa Saavedra MA [place] - [place] 11/27/2023 14:45:15 Imaging Results Imaging Date Name Status LastModified by Organization Details LastModified Time 02/11/2024 XR, chest, 2 view completed [address], [address], 02/12/2024 13:58:21 02/11/2024 CT, chest + abdomen + pelvis, w/ contrast completed [address], [address], 02/12/2024 13:58:54 02/12/2024 US, liver completed [address], [address], 02/12/2024 13:59:10 02/20/2024 XR, chest, 2 view completed [address], [address], 02/22/2024 10:42:10 02/12/2024 US, echocardiogram completed BARCODE Inform ation not available 02/29/2024 16:03:21 04/01/2024 US, renal completed [address], [address], 04/04/2024 09:42:37 04/06/2024 lexiscan cardiolite stress test (PROC) completed [facility] [address], [place], [address], 04/08/2024 16:34:16 04/06/2024 exercise stress test completed [...] Not Available Vitals Date Recorded Body weight Body mass index (BMI) Body height Heart rate Oxygen saturation Oxygen saturation in Arterial blood by Pulse oximetry Systolic blood pressure Diastolic blood pressure Provider Name and Address Organization Details Last Updated DateTime 4 [address].3 4 g 33.4 kg/m2 167.64 cm 56 /min 98 % 98 % 124 mm[Hg] 74 mm[Hg] Larisa Saavedra [place] - [facility] 4 14:47:36 Date Recorded Systolic blood pressure Diastolic blood pressure Provider Name and Address Organization Details Last Updated DateTime 11/27/2023 118 mm[Hg] 84 mm[Hg] JOSE Ayala Attn: Accounting, [place], [address], [facility] 11/27/2023 15:17:07 Date Recorded Body height Body mass index (BMI) Body weight Respiratory rate Oxygen saturation Oxygen saturation in Arterial blood by Pulse oximetry Heart rate Systolic blood pressure Diastolic blood pressure Provider Name and Address Organization Details Last Updated DateTime 4 167.64 cm 31.2 kg/m2 15254.6 1 g 20 /min 99 % 99 % 94 /min 118 mm[Hg] 88 mm[Hg] Conrado Lawson MA [facility] 15:25:24 Date Recorded Body temperature Provider Name a [place] Address Organization Details Last Updated DateTime 02/17/2024 98 [degF] JOSE Ayala Attn: Accounting,[address] [place], [address], [facility] 02/17/2024 15:50:14 Date Recorded Body height Body mass index (BMI) Body weight Respiratory rate Heart rate Oxygen saturation Oxygen saturation in Arterial blood by Pulse oximetry Systolic blood pressure Diastolic blood pressure Provider Name and Address Organization Details Last Updated DateTime 4 167.64 cm 31.8 kg/m2 66853.8 4 g 20 /min 89 /min 99 % 99 % 110 mm[Hg] 80 mm[Hg] Jamilah Laughlin MA [facility] 17:07:42 Social History Question Answer Notes LastModified by Organizat ion Details LastModified Time Tobacco Smoking Status Former Smoker Larisa Saavedra MA null, [facility] 11/27/2023 14:43:48 Do You Have An Advance [...] Anxious, Or Unable To Sleep At Night)? [id number] Information not available 11/27/2023 Do You Use [...] SNOMED-CT Code Diagnosis ICD10 Code Diagnosis Note [id number] JOSE Ayala [facility] [address] [place] [address] 11/27/2023 14:25:31 11/27/2023 15:58:32 Cholesterol screening 406175959 Z13.220 fasting lipids due Diabetes m ellitus screening 445771632 Z13.1 a1c annual screening due Thyroid di sorder screening 708899821 Z13.29 thyroid panel due Long-term drug therapy 210546647 Z79.899 cmp, cbc and b12, folate labs are due Lower urin jody tract symptoms 335358776 R39.9 check ua w/cx Adult heal th examination 779099695 Z00.01 annual wellness completed Benign ess ential hypertension 4604076 I10 stable on lisinopril 40mg daily and coreg 25mg bid. Chronic he adache disorder 977170319 G44.89 currently stable on amitripyli ne 50mg qhs and sumatripta n 50mg as directed. Still having headaches but not the worse they've been. Major depr essive disorder 023477599 F32.9 stable on venlafaxin e 100mg bid Body mass index 30+ - obesity 989511656 Z68.33 discussed healthy diet, exercise, controllin g carbohydra amada and added sugars in the diet Obesity 221646709 E66.8 [id number] JOSE Ayala [facility] [employer] [address] [place] [address] 02/17/2024 15:09:45 02/18/2024 13:27:14 Acute kidney injury 14995891 N17.9 Repeat BMP to assess for creatinine improvemen t post acute kidney injury with hospitaliz ation. Patient has been hydrating well and not using any agents like NSAIDs that would contribute . She is also not taking any diuretic. Liver enzy mes level above reference range 239451039 R74.8 Mild liver enzyme continues with paroxysmal spikes in levels. We will repeat a hepatic function panel Smooth mus temo antibodies detected 111969370 R89.4 Previous smooth muscle antibodies were detected on screening we will repeat these as the lab did not run any smooth muscle antibody. Blood chem istry outside reference range 203392995 R79.9 Repeat CBC to evaluate for improvemen t in blood chemistry Benign ess ential hypertension 5929671 I10 stable on lisinopril 40mg daily and coreg 25mg bid. [id number] JOSE Ayala [facility] [employer] [address] [place] [address] 03/04/2024 16:47:07 03/07/2024 11:09:52 Acute kidney injury 55273396 N17.9 Repeat BMP to evaluate for creatinine and improvemen t in kidney function and electrolyt es. Liver enzy mes level above reference range 388609768 R74.8 Repeat liver function panel with liver enzymes up and down Smooth mus temo antibodies detected 109311098 R89.4 Check smooth muscle antibody with liver enzymes up and down Blood chem istry outside reference range 276338719 R79.9 Repeat CBC with auto diff Multiple joint pain 3567 8005 M25.50 Refer for rheumatoid factor, C-reactive protein, sed rate, and RODDY panel for persistent multiple joint pain Pancreatitis 41144550 K8 5.90 Pancreatit is question questionab le in the hospital. Repeat lipase and amylase Benign ess ential hypertension 8875278 I10 stable on lisinopril 40mg daily and coreg 25mg bid. Major depr essive disorder 154681053 F32.9 stable on venlafaxin e 100mg bid Body mass index 30+ - obesity 050499237 Z68.33 discussed healthy diet, exercise, controllin g carbohydra amada and added sugars in the diet Long-term drug therapy 954752733 Z79.899 Health Concerns Section Related Observation LastModified by Organization Detai ls LastModified Time None Recorded Concern Status LastModified by Organization Details LastModified Time None Recorded Advance Directives Directive N: Payers Encounter Date Sequence Insurance Name Policy Number Policy Nieto Covered Member ID Nieto Member ID Guarantor Name 11/27/2023 1 [facility] [id number] Heidi Vaca [id number] Heidi Vaca 02/17/2024 1 [facility] [id number] Heidi Vaca [id number] Heidi Vaca 03/04/2024 1 [facility] [id number] [facility] [id number] Heidi Vaca Notes Date Note Type Note [...] abdominal pain;frequency JOSE Ayala Attn: Accounting,[address], [place], [address], [facility] [place] - [facility] 12/12/2023 11:53:50 02/17/2024 text/html Anxiety/Depressi onR eported bypatient.Notes:now taking venlafaxine 100mg bid. stable.Hypertension Reported bypatient.Notes:pt is on coreg 25mg bid, lisinopril 40mg daily. Patient was in the hospital for acute kidney injury, reports have been reviewed. Following up on abnormal labs. JOSE Ayala Attn: Accounting,[address], [place], [address], [facility] [place] - [facility] 03/12/2024 20:13:31 03/04/2024 text/html Anxiety/Depressi onR eported bypatient.Notes:now taking venlafaxine 100mg bid. stable.Hypertension Reported bypatient.Notes:pt is on coreg 25mg bid, lisinopril 40mg daily. Patient was in the hospital for acute kidney injury, reports have been reviewed. Following up on abnormal labs. JOSE Ayala Attn: Accounting,[address], [place], [address], [facility] [place] - [facility] 03/14/2024 23:09:35 OBGyn Episode No OBEpisode recorded.
[2024-08-06 21:27] LABS: Alanine Aminotransferase 14 U/L (6-35); Albumin Level 4.1 g/dL (3.5-5.1); Alkaline Phosphatase 79 U/L (38-126); Anion Gap 9 mmol/L (4-12); Aspartate Amino Transferase 22 U/L (14-36); Bilirubin,Total 0.5 mg/dL (0.2-1.3); Blood Urea Nitrogen 14 mg/dL (7-17); Calcium 9.4 mg/dL (8.4-10.2); Carbon Dioxide 22 mmol/L (22-30); Chloride 111 mmol/L (98-107); Estimated Glomerular Filt Rate 60; Glucose 83 mg/dL (65-110); Potassium 3.6 mmol/L (3.4-5.0); Sodium 142 mmol/L (137-145)
== END 2024-08-05 13:28 | disposition home or self-care (01) ==
PROVIDERS: Obstetrics & Gynecology; PCP Physician Assistant; Visit Provider Internal Medicine Nephrology
DX: N18.31 Chronic kidney disease, stage 3a (principal); E87.6 Hypokalemia; E83.52 Hypercalcemia; E87.1 Hypo-osmolality and hyponatremia
CPT/HCPCS: 36415; 80053; 82533; 96372; J0834

== ENCOUNTER 2024-08-24 11:56 | Outpatient (CLI) | payer OTHER, SELFPAY ==
[2024-08-24 12:31] LABS: Add Urine Microscopic? YES; Appearance Urine Clear (Clear); Bacteria Urine None Seen /hpf; Bilirubin Urine Negative (Negative); Blood Urine Negative (Negative); Color Urine Yellow (Yellow); Glucose Urine UA Negative (Negative); Ketones Urine Negative (Negative); Leukocyte Esterase Ur Negative LEU/UL (Negative); Nitrate Urine Negative (Negative); Protein Urine Trace mg/dL (Negative); RBC Urine 0-2 /hpf (0-2); Specific Grav Ur 1.021 (1.001-1.035); Squamous Epithelial Cell Urine None Seen /hpf (Few); WBC Urine 0-5 /hpf (0-3)
[2024-08-24 12:41] LABS: Alanine Aminotransferase 14 U/L (6-35); Albumin Level 4.7 g/dL (3.5-5.1); Alkaline Phosphatase 93 U/L (38-126); Anion Gap 12 mmol/L (4-12); Aspartate Amino Transferase 26 U/L (14-36); Bilirubin,Total 0.4 mg/dL (0.2-1.3); Blood Urea Nitrogen 16 mg/dL (7-17); Calcium 9.5 mg/dL (8.4-10.2); Carbon Dioxide 25 mmol/L (22-30); Chloride 104 mmol/L (98-107); Estimated Glomerular Filt Rate 43; Glucose 88 mg/dL (65-110); Potassium 3.7 mmol/L (3.4-5.0); Sodium 141 mmol/L (137-145)
[2024-08-24 12:42] LABS: Albumin Level 4.6 g/dL (3.5-5.1); Anion Gap 11 mmol/L (4-12); Blood Urea Nitrogen 16 mg/dL (7-17); Calcium 9.7 mg/dL (8.4-10.2); Carbon Dioxide 25 mmol/L (22-30); Chloride 104 mmol/L (98-107); Estimated Glomerular Filt Rate 43; Glucose 87 mg/dL (65-110); Phosphorus 3.8 mg/dL (2.5-4.5); Potassium 3.7 mmol/L (3.4-5.0); Sodium 140 mmol/L (137-145)
[2024-08-24 12:49] LABS: Immunoglobulin G 685 mg/dL (700-1600); Immunoglobulin M 43 mg/dL (40-230)
[2024-08-24 12:54] LABS: Parathyroid Intact 33.1 pg/mL (14.5-75.2)
--- OUTSIDE RECORDS SUMMARY | 2024-08-24 13:35 | XMS_ITS | Data Portability ---
Author Organization [facility] [email or web address], Main Office Address [address] [place] [address] Assessment No assessment recorded. Plan of Treatment Reminders Order Date Submit Date Provider Last Modified By Organization Details Last Modified Time Details Appointments None recorded. Lab None recorded. Referral None recorded. Procedures None recorded. Surgeries None recorded. Imaging None recorded. Medication Orders venlafaxine 75 mg tablet 2022 023 [email or web address] [id number], [address], [address], 3 17:18:09 amitriptyli ne 25 mg tablet 2022 023 nmformerly [facility], [address], [address], 3 17:18:04 carvedilol 25 mg tablet 2022 023 MIRIAN [id number], [address], [address], 3 17:03:32 Patient TargetsNo targets recorded. Patient InstructionsNo instructions recorded. Reason for Referral None Reported. Results Created Date Observation Date Name Description Value Unit Range Abnormal Flag Note LastModifiedBy Organization Detail LastModifiedTime 11/29/19 22 10/10/2021 imagi ng/di agnos tic resul t No observ ation record ed. [id number] Not Available 08/13/2022 03:10:20 04/22/20 22 02/05/2022 MRI, cervi matias spine , w/ contr ast No observ ation record ed. [id number] [facility] [address], [place], [address], 08/13/2022 03:10:20 04/23/20 22 02/05/2022 MRI, thora cic spine , w/o contr ast No observ ation record ed. [id number] Not Available 08/13/2022 03:10:20 Result Notes None recorded. Problems Name Problem SNOMED Code Status Onset Date Resolution Date Notes Provider Name and Address Organization Details Recorded Time Benign essential hypertensi on 9798999 Active 2018 Not Available [facility] 3 02:54:46 Insomnia 584816498 Active 2018 Not Available [facility] 3 02:54:46 Generalize d anxiety disorder 59866107 Active 2018 Not Available [facility] 3 02:54:46 Mixed anxiety and depressive disorder 548438884 Active 2021 Not Available [facility] 3 02:54:46 Knee pain Active Not Available [facility] 3 02:54:46 Major depressive disorder 103356599 Active 2018 Not Available [facility] 3 02:54:46 Migraine 67349655 Active 2021 Not Available [facility] 3 02:54:46 Postconcus caryn syndrome 67497905 Active 2021 Not Available [facility] 3 02:54:46 Dizziness 153379023 Active 2021 Not Available [facility] 3 02:54:47 Nausea 580885022 Active 2021 Not Available [facility] 3 02:54:47 Posttrauma tic stress disorder 23445310 Active 2021 Not Available [facility] 3 02:54:47 Hyperlipid emia 85057103 Active 2019 Not Available [facility] 3 02:54:47 Daily headache 893645388949 Active 2021 Not Available [facility] 3 02:54:47 Chronic headache disorder 978989362 Active 2022 JOSE Ayala [address], [place], [address] , [facility] [employer] [facility] 3 17:01:38 Headache 87645230 Active 2023 JOSE Ayala [address], [place], [address] , [facility] [employer] [facility] [employer] [facility] 4 10:18:26 Problem Notes None recorded. 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 Not Available [facility] 08/13/2022 02:45:24 Imaging Results Imaging Date Name Status LastModified by Organiz ation Details LastModified Time 02/05/2022 MRI, thoracic spine, w/o contrast completed [id number] Information not available 08/13/2022 03:10:20 02/05/2022 MRI, cervical spine, w/ contrast completed [id number] [address], [place], [address], 08/13/2022 03:10:20 10/10/2021 imaging/diagn ostic result completed [id number] Information not available 08/13/2022 03:10:20 Procedure [...] henidate ER 15 mg capsule,ex tended release deillprc46 -50 TAKE 1 PILL BY MOUTH QD [...] 3 170.18 cm 97.3 [degF] 30.9 kg/m2 34253.7 g 16 /min 80 /min 140 mm[Hg] 100 mm[Hg] MYNOR Zuniga [place] [employer] [facility] 3 16:35:09 Date Recorded Systolic blood pressure Diastolic blood pressure Systolic blood pressure Diastolic blood pressure Provider Name and Address Organization Details Last Updated DateTime 02/18/2023 130 mm[Hg] 90 mm[Hg] 130 mm[Hg] 86 mm[Hg] JOSE Ayala [address] [facility], [facility] [address], [place], [address] , [place] [facility] 3 17:01:04 Date Recorded Body mass index (BMI) Body height Oxygen saturation Oxygen saturation in Arterial blood by Pulse oximetry Heart rate Respiratory rate Body temperature Body weight Systolic blood pressure Diastolic blood pressure Provider Name and Address Organization Details Last Updated DateTime 2 33.5 kg/m2 170.18 cm 98 % 98 % 91 /min 16 /min 96.3 [degF] 53671.7 7 g 118 mm[Hg] 70 mm[Hg] Not Available [facility] 3 02:48:37 Date Recorded Body mass index (BMI) Body height Oxygen saturation Oxygen saturation in Arterial blood by Pulse oximetry Heart rate Respiratory rate Body temperature Body weight Systolic blood pressure Diastolic blood pressure Provider Name and Address Organization Details Last Updated DateTime 2 33.5 kg/m2 170.18 cm 98 % 98 % 93 /min 16 /min 97.2 [degF] 99439.7 7 g 128 mm[Hg] 80 mm[Hg] Not Available [facility] 3 02:48:37 Date Recorded Body mass index (BMI) Body height Oxygen saturation Oxygen saturation in Arterial blood by Pulse oximetry Heart rate Respiratory rate Body temperature Body weight Systolic blood pressure Diastolic blood pressure Provider Name and Address Organization Details Last Updated DateTime 2 33.4 kg/m2 170.18 cm 98 % 98 % 90 /min 16 /min 96.8 [degF] 76514.1 7 g 120 mm[Hg] 80 mm[Hg] Not Available [facility] 3 02:48:38 Date Recorded Body height Oxygen saturation Oxygen saturation in Arterial blood by Pulse oximetry Heart rate Body temperature Body weight Systolic blood pressure Diastolic blood pressure Provider Name and Address Organization Details Last Updated DateTime 2 170.18 cm 97 % 97 % 78 /min 97.1 [degF] 58464.4 g 120 mm[Hg] 78 mm[Hg] Not Available [facility] 02:48:38 Social History Question Answer Notes LastModified by Organization Details LastModified Time Tobacco Smoking Status Former Smoker Quit 02/26/20 Not Available [facility] 08/13/2022 02:37:15 Do You Have An Advance Directive? No MIGRATION.030 [id number] Information not available 08/13/2022 What Is Your Level Of Alcohol Consumption? Occasional MIGRATION.030 056299 Information not available 08/13/2022 Do You Wear A Helmet When Biking? No MIGRATION.0301 [id number] Information not available 08/13/2022 What Is Your Level Of Caffeine Consumption? Moderate MIGRATION.030 152449 Information not available 08/13/2022 How Much Tobacco Do You Chew? None MIGRATION.030 403050 Information not available 08/13/2022 In The 14 Days Before Symptom Onset, Have You Had Close Contact With A Laboratory-confi rmed COVID-19 While That Case Was Ill? No MIGRATION.030 755128 Information not available 08/13/2022 In The 14 Days Before Symptom Onset, Have You Had Close Contact With A Person Who Is Under Investigation For COVID-19 While That Person Was Ill? No MIGRATION.030 431134 Information not available 08/13/2022 Are You Currently Employed? Yes [email or web address] Information not available 02/18/2023 What Type Of Diet Are You Following? REGULAR MIGRATION.030 708356 Information not available 08/13/2022 Which Illicit Or Recreational Drugs Have You Used? None MIGRATION.030 519628 Information not available 08/13/2022 Do You Or Have You Ever Used E-cigarettes Or Vape? Never Used Electronic Cigarettes MIGRATION.030 896922 Information not available 08/13/2022 What Is The Highest Grade Or Level Of School You Have Completed Or The Highest Degree You Have Received? 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 No MIGRATION.030 455077 Information not available 08/13/2022 Are There Any Guns Present In Your Home? Yes MIGRATION.030 942045 Information not available 08/13/2022 Do You Use Insect Repellent Routinely? No MIGRATION.0301 094026 Information not available 08/13/2022 Where Do You Live? SingleLevelHouse MIGRATION.0301 441165 Information not available 08/13/2022 Do You Have A Medical Power Of Supervisor Screen Making? No MIGRATION.0301 442233 Information not available 08/13/2022 Do You Have Any Pets? No MIGRATION.0301 296666 Information not available 08/13/2022 What Is Your Relationship Status? MIGRATION.0301 078262 Information not available 08/13/2022 Do You Use Your Seat Belt Or Car Seat Routinely? Yes MIGRATION.0301 496063 Information not available 08/13/2022 Do You Have Smoke And Carbon Monoxide Detectors In Your Home? Yes MIGRATION.0301 330551 Information not available 08/13/2022 Are You Passively Exposed To Smoke? No MIGRATION.0301 217049 Information not available 08/13/2022 Do You Or Have You Ever Used Smokeless Tobacco? Never Used Smokeless Tobacco MIGRATION.0301 918218 Information not available 08/13/2022 Are There Any Smokers In Your House? No MIGRATION.0301 440070 Information not available 08/13/2022 How Much Tobacco Do You Smoke? 0.5 PPD MIGRATION.0301 334779 Information not available 08/13/2022 Do You Feel Stressed (tense, Restless, Nervous, Or Anxious, Or Unable To Sleep At Night)? [id number] MIGRATION.0301 899087 Information not available 08/13/2022 Do You Use Any Illicit Or Recreational Drugs? No MIGRATION.0301 883296 Information not available 08/13/2022 Do You Use Sunscreen Routinely? No MIGRATION.0301 343811 Information not available 08/13/2022 Have You Recently Traveled Abroad? No MIGRATION.0301 604926 Information not available 08/13/2022 Do You Have Any Dietary Restrictions? No MIGRATION.0301 204915 Information not available 08/13/2022 Do You Or Have You Ever Used Any Other Forms Of Tobacco Or Nicotine? No MIGRATION.0301 318243 Information not available 08/13/2022 Sex: Unknown Functional Status Question Answer Note LastModified by Organizat ion Details LastModified Time What is your exercise level? Occasional [id number] 26 Information not available 08/13/2022 Mental Status None recorded. Family History Relationship Description Onset Age of this Age Resolved Age Notes LastModified by Organization Details LastModified Time Mother Hypertensive disorder MIGRATION.575 [id number] Not available 08/13/2022 02:45:28 Mother Parkinson's disease MIGRATION.055 [id number] Not available 08/13/2022 02:45:28 Father Hypertensive disorder MIGRATION.388 1551106 Not available 08/13/2022 02:45:28 Father Alcoholism MIGRATION.733 [id number] Not available 08/13/2022 02:45:28 Medical History Condition [...] virus, quadrivalent, preservative 7 completed Not Available [facility] 08/13/2022 03:09:18 Past Encounters Encounter ID Performer Location Encounter Start Date Encounter Closed Date Diagnosis/Indication Diagnosis SNOMED-CT Code Diagnosis ICD10 Code Diagnosis Note [id number] [facility] [address] [place] [address] 10/11/2020 00:00:00 10/11/2020 18:42:30 [id number] [facility] [address] [place] [address] 11/27/2020 00:00:00 12/12/2020 18:03:53 [id number] [facility] [address] [place] [address] 12/10/2020 00:00:00 12/10/2020 21:12:24 [id number] [facility] [address] [facility] [place] [address] 04/30/2021 00:00:00 05/05/2021 10:26:17 [id number] [facility] [address] [place] [address] 08/19/2021 00:00:00 09/12/2021 17:11:13 [id number] [facility] [address] [place] [address] 09/12/2021 00:00:00 09/12/2021 13:41:07 [id number] [facility] [address] [place] [address] 11/04/2021 00:00:00 11/11/2021 17:54:15 [id number] [facility] [address] [place] [address] 11/27/2021 00:00:00 12/12/2021 14:13:47 [id number] [facility] [address] [place] [address] 04/01/2022 00:00:00 04/12/2022 20:43:24 [id number] [facility] [address] [place] [address] 04/23/2022 00:00:00 05/14/2022 21:23:11 [id number] JOSE Ayala [facility] [address] [place] [address] 02/18/2023 16:01:43 02/18/2023 17:07:07 Benign essential hypertension 4837558 I10 Rx for coreg 25mg bid. Chronic he adache disorder 975369599 G44.89 refill amitriptyl ine 25mg qhs Major depr essive disorder 681857711 F32.9 Refill effexor 75mg bid Health Concerns [...] in exercise capacity; no snoring;fatigue Not Available [facility] 11/11/2021 17:54:15 022 text/ht ml Generic HPI TemplateReported bypatient.Notes:Pt is here to f/u on her concussion bc she is ready to go back to work. She says she is feeling better. Dizziness has subsided. Excellent results in the last 3 weeks with P.T/vestibular therapy at [facility] in [place] and continued upper cervical care director with Dr. Tez العلي. She is relieved to finally have reached improvement. Not Available [facility] 12/12/2021 14:13:47 022 text/ht ml Generic HPI [...] debilitating, but it is present. Not Available [facility] 04/12/2022 20:43:24 022 text/ht ml Generic HPI [...] weeks with P.[facility] therapy at [facility] in [place] and continued upper cervical care director with Dr. Tez العلي. She is relieved to finally have reached improvement. Not Available [facility] 05/14/2022 21:23:11 023 text/ht ml HeadacheReported bypatient.Location:bilateral; [...] medication; checks blood pressure at home (range [id number]) JOSE Ayala [address] [facility], [facility] [address], [place], [address], [place] [facility] 03/11/2023 23:49:07 OBGyn Episode No OBEpisode recorded.
--- OUTSIDE RECORDS SUMMARY | 2024-08-24 13:35 | XMS_ITS | Encounter Summary ---
Author Organization [facility] Address [address] [facility] [place] [address] Care Team Providers Care Engineering Executive Name Role Phone Mickey Zamora MD Primary Care Provider + Encounter Details Date Type Department Care Team (Late st Contact Info) Description 05/09/2014 Lab Requisition [facility] [address] [place] [id number] Unknown, Provider Social History Tobacco Use Types [...] ZOSTER ANTIBODY IGG Routine 05/09/2014 1:50 PM YOGA TEACHER documented in this encounter Results * VARICELLA ZOSTER ANTIBODY IGG (05/09/2014 1:50 PM YOGA TEACHER) Varicella zoster Virus Antibody IgG 1001.0 IV 05/11/2014 10:41 AM YOGA TEACHER [facility] ([facility]) Comment: INTERPRETIVE INFORMATION: VZV Ab, IgG [...] Unknown Venipuncture / Unknown 05/09/2014 1:50 PM YOGA TEACHER 05/09/2014 5:57 PM YOGA TEACHER Provider Unknown LAB - CHEMISTRY JAGDISH KEITH [facility] ([facility]) [address] documented in this encounter Visit Diagnoses Not on filedocumented in this encounter Care Teams Engineering Executive Relationship Specialty Start Date End Date Mickey Zamora MD PCP - General Family Medicine 07/06/13 05/16/24 documented as of this encounter
--- OUTSIDE RECORDS SUMMARY | 2024-08-24 13:35 | XMS_ITS | Encounter Summary ---
Author Organization [facility] Address [address] [place] [address] Care Team Providers Care Research Hydraulic Engineer Name Role Phone Mickey Zamora MD Primary Care Provider + Encounter Details Date Type Department Care Team (Late st Contact Info) Description 07/16/2013 [facility] Outpatient Visit [facility]sciences [address] [facility] [address] [place], [place] [id number] [place] [address] [facility] [address] [place] [address] Social History Tobacco Use Types [...] on filedocumented in this encounter Care Teams Research Hydraulic Engineer Relationship Specialty Start Date End Date Mickey Zamora MD PCP - General Family Medicine 07/06/13 05/16/24 documented as of this encounter
--- OUTSIDE RECORDS SUMMARY | 2024-08-24 13:35 | XMS_ITS | Patient Health Summary ---
Author Organization [facility] Address [address] [facility] [place] [address] Care Team Providers Care Cash Office Worker Name Role Phone Unavailable Primary Care Provider Unavailabl e Note from [facility],non-owned Affiliates and Associated Physician Practices is amultiple site organization consisting of ambulatory clinics and hospital sitesin [place], [place], [place] and [place]. This disclosure is being madepursuant to the Care Everywhere program and may not contain all information available regarding this patient. Last updated 18.[facility] Allergies No known active allergies Medications * [...] VARICELLA ZOSTER ANTIBODY IGG (05/09/2014 1:50 PM PATIENT SUPPORT ASSISTANT) Varicella zoster Virus Antibody IgG 1001.0 IV 05/11/2014 10:41 AM PATIENT SUPPORT ASSISTANT [facility] [employer] ([facility]) Comment: INTERPRETIVE INFORMATION: VZV Ab, IgG 134 [...] Unknown Venipuncture / Unknown 05/09/2014 1:50 PM PATIENT SUPPORT ASSISTANT 05/09/2014 5:57 PM PATIENT SUPPORT ASSISTANT Provider Unknown LAB - CHEMISTRY JAGDISH KEITH [facility] [employer] ([facility]) [address] [place] [address], [facility]
--- OUTSIDE RECORDS SUMMARY | 2024-08-24 13:35 | XMS_ITS | Clinical Summary ---
Author Organization [facility] Address [address] [place] [address] Care Team Providers Care Residential Nurse Name Role Phone Yamile Avalos Primary Care Provider [phone] Allergies No known active allergies Medications ALPRAZolam [...] Comments Blood Pressure 131/88 07/15/2022 2:31 PM ASSEMBLER TYPE BAR AND SEGMENT Pulse 77 07/15/2022 2:31 PM ASSEMBLER TYPE BAR AND SEGMENT Temperature 36.5 C (97.7 F) 07/15/2022 1:57 PM ASSEMBLER TYPE BAR AND SEGMENT Respiratory Rate - - Oxygen Saturation 98% 07/15/2022 1:57 PM ASSEMBLER TYPE BAR AND SEGMENT Inhaled Oxygen Concentration - - Weight 100.9 kg (222 lb 8 oz) 07/15/2022 1:57 PM ASSEMBLER TYPE BAR AND SEGMENT Height 167.6 cm (5' 6 ) 07/15/2022 1:57 PM ASSEMBLER TYPE BAR AND SEGMENT p t stated Body Mass Index 35.91 07/15/2022 1:57 PM ASSEMBLER TYPE BAR AND SEGMENT Plan of Treatment Health Maintenance Due Date [...] Influenza Adult (#1) 2024 06/15/2016 PHQ-2 (Physician [place]) 06/15/2024 Meningococcal B Vaccine Aged Out No [...] age to complete this topic Insurance [place] [address] Care Teams Residential Nurse Relationship Specialty Start Date End Date Yamile Avalos PA [address] [place] [address] PCP - General PHYSICIAN OPERATIONS SUPPORT PROFESSIONALS 10/04/21
--- OUTSIDE RECORDS SUMMARY | 2024-08-24 13:35 | XMS_ITS | Referral Summary ---
Author Organization [facility] Address [address] [place] [address] Care Team Providers Care Manager Project Name Role Phone Unavailable Primary Care Provider Unavailabl e Source Comments [facility],non-owned Affiliates and Associated Physician Practices is amultiple site organization consisting of ambulatory clinics and hospital sitesin [place], [place], [place] and [place]. This disclosure is being madepursuant to the Care Everywhere program and may not contain all information available regarding this patient. Last updated 18.[facility] Encounters Date Type Department Care Team Description 07/07/2024 Telephone [facility] - Centralized Scheduling [address] [place] [address] Silvana Samuel MD Reschedule Appointment (07/07-Left message to reschedule Jimmie's 12/06 appt- reschedule to the next available. 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
--- OUTSIDE RECORDS SUMMARY | 2024-08-24 13:35 | XMS_ITS | Data Portability ---
Author Organization [facility] JHOANADavi Address [address] [place] [address] Care Team Providers Care Box Folding Machine Operator Name Role Phone RADHA QUEVEDO Primary Care Provider Assessment No assessment recorded. Plan of Treatment Reminders Order Date Submit Date Provider Last Modified By Organization Details Last Modified Time Details Appointments None recorded. Lab BMP, serum or plasma - please run RODDY full multiplex panel 2023 [facility] Outpatient Registration Lab/Ekg, [address], [place], [address], 4 16:50:08 CBC w/ auto diff - please run RODDY full multiplex panel 2023 [facility] Outpatient Registration Lab/Ekg, [address], [place], [address], 4 16:50:39 rf (rheumatoi d factor), serum - please run RODDY full multiplex panel 2023 [facility] Outpatient Registration Lab/Ekg, [address], [place], [address], 4 16:50:49 C-reactive protein, quantitati ve, serum or plasma - please run RODDY full multiplex panel 2023 [facility] Outpatient Registration Lab/Ekg, [address], [place], [address], 4 16:51:36 erythrocyt e sedimentat ion rate by westergren method - please run RODDY full multiplex panel [address] Outpatient Registration Lab/Ekg, [address], [place], [address], 4 11:16:50 RODDY (antinucle ar antibodies ) panel, serum - please run RODDY full multiplex panel 2023 [facility] Outpatient Registration Lab/Ekg, [address], [place], [address], 4 13:48:20 lipase, serum or plasma 2023 024 [facility] Outpatient Registration Lab/Ekg, [address], [place], [address], 4 16:50:25 amylase, serum or plasma 2023 024 [facility] Outpatient Registration Lab/Ekg, [address], [place], [address], 4 16:50:29 smooth muscle Ab, serum - please run smooth muscle antibody not actin. [address] Outpatient Registration Lab/Ekg, [address], [place], [address], 4 14:16:00 hepatic function panel, serum - please run RODDY full multiplex panel 2023 024 [facility] Outpatient Registration Lab/Ekg, [address], [place], [address], 4 16:51:15 CBC w/ auto diff [address] Outpatient Registration Lab/Ekg, [address], [place], [address], 4 12:51:46 BMP, serum or plasma [address] Outpatient Registration Lab/Ekg, [address], [place], [address], 4 12:51:46 smooth muscle Ab, serum [address] Outpatient Registration Lab/Ekg, [address], [place], [address], 4 11:49:26 mitochondr ial Ab, serum 2023 024 [facility] Outpatient Registration Lab/Ekg, [address], [place], [address], 4 21:37:59 hepatic function panel, serum [address] Outpatient Registration Lab/Ekg, [address], [place], [address], 4 12:51:46 TSH + free T4, serum [address] Outpatient Registration Lab/Ekg, [address], [place], [address], 4 10:58:54 urinalysis , complete 2023 024 [facility] Outpatient Registration Lab/Ekg, [address], [place], [address], 4 09:41:43 culture, urine 2023 024 [facility] Outpatient Registration Lab/Ekg, [address], [place], [address], 4 14:27:01 lipid panel w/ direct LDL, serum 2023 024 [facility] Outpatient Registration Lab/Ekg, [address], [place], [address], 4 23:38:25 CMP, serum or plasma 2023 024 [facility] Outpatient Registration Lab/Ekg, [address], [place], [address], 4 19:08:15 CBC w/ auto diff 2023 024 [facility] Outpatient Registration Lab/Ekg, [address] [place] [address] [address], [place], [address], 4 18:13:11 vitamin B12 + folate, serum or blood [address] Outpatient Registration Lab/Ekg, [address] [place] [address] [address], [place], [address], 4 10:58:54 HbA1c (hemoglobi n A1c), blood [address] Outpatient Registration Lab/Ekg, [address] [place] [address] [address], [place], [address], 4 10:58:54 Referral None recorded. Procedures None recorded. Surgeries None recorded. Imaging None recorded. Medication Orders None recorded. Patient TargetsNo targets recorded. Patient Instructions Encounter Date Encounter Id Patient Instructions Last Modified By Organization Details Last Modified Time 11/27/2023 [id number] A healthy lifestyle: care instructions [place] [id number] Not available 12/12/2023 11:53:28 Reason for Referral None Reported. Results Created Date Observation Date Name Description Value Unit Range Abnormal Flag Note LastModifiedBy Organization Detail LastModifiedTime 02/12/2002/11/2024 XR, chest , 2 view No observ ation record ed. [address], [place], [address], 02/12/2024 13:58:21 02/12/20 24 02/11/2024 CT, chest + abdom en + pelvi s, w/ contr ast No observ ation record ed. [address], [place], [address], 02/12/2024 13:58:54 02/12/20 24 02/12/2024 US, liver No observ ation record ed. [address], [place], [address], 02/12/2024 13:59:10 02/22/20 24 02/20/2024 XR, chest , 2 view No observ ation record ed. [address], [place], [address], 02/22/2024 10:42:10 02/29/20 24 02/12/2024 US, echoc ardio gram No observ ation record ed. BARCODE Not Available 2023 16:03:21 04/02/20 24 04/01/2024 US, renal No observ ation record ed. [address], [place], [address], 04/04/2024 09:42:37 04/06/20 24 04/06/2024 crystal can cardi olite stres s test (PROC ) No observ ation record ed. [address], [place], [address], 04/08/2024 16:34:16 04/15/2004/06/2024 exerc ise stres s test No observ ation record ed. BARCODE Not Available 2023 14:10:32 Result Notes None recorded. Problems Name Problem SNOMED Code Status Onset Date Resolution Date Notes Provider Name and Address Organization Details Recorded Time Benign essential hypertension 5919785 Active 2023 JOSE Ayala Attn: Sd covarrubias,[address] [facility], [place], [address], [place] - [facility] 4 11:52:07 Chronic headache disorder 121343595 Active 2023 JOSE Ayala Attn: Sd covarrubias,[address] [facility], [place], [address], [place] 4 11:52:07 Major depressive disorder 430413026 Active 2023 JOSE Ayala Attn: Accountteofilo g,[address] [facility], [place], [address], [place] [facility] 4 11:52:09 Obesity 470188507 Active 2023 JOSE Ayala Attn: Accountteofilo g,[address] [facility], [place], [address], [place] [facility] 4 11:53:29 Body mass index 30+ - obesity 023572515 Active 2023 JOSE Ayala Attn: Accountin g,[address] [facility], [place], [address], [place] [facility] 4 11:53:29 Smooth muscle antibodies detected 358183269 Active 2023 JOSE Ayala Attn: Accountin g,[address] [facility], [place], [address], [place] [facility] 4 20:11:07 Liver enzymes level above reference range 697448163 Active 2023 JOSE Ayala Attn: Accountin g,[address] [facility], [place], [address], [place] [facility] 4 20:11:08 Multiple joint pain 88180047 Active 2023 JOSE Ayala Attn: Accountin g,[address] [facility], [place], [address], [place] [facility] 4 23:07:59 Acute kidney injury 61089698 Active 2023 JOSE Ayala Attn: Accountin g,[address] [facility], [place], [address], [place] [facility] 4 23:08:44 Blood chemistry outside reference range 116373426 Active 2023 JOSE Ayala Attn: Accountin g,[address] [facility], [place], [address], [place] [facility] 4 23:08:48 Pancreatitis 28000321 Active 2023 JOSE Ayala Attn: Sd covarrubias,[address], [place], [address], [place] 4 23:08:50 Long-term drug therapy Active 2023 JOSE Ayala Attn: Sd covarrubias,[address], [place], [address], [place] [facility] 4 23:09:02 Problem Notes None recorded. Procedures Surgical History Date Name Laterality Status Provider Name and Address Organization Details Recorded Time drainage of pleural cavity via chest tube completed Larisa Saavedra MA [place] - [place] 11/27/2023 14:45:15 Imaging Results Imaging Date Name Status LastModified by Organization Details LastModified Time 02/11/2024 XR, chest, 2 view completed [address], [address], 02/12/2024 13:58:21 02/11/2024 CT, chest + abdomen + pelvis, w/ contrast completed [address], [address], 02/12/2024 13:58:54 02/12/2024 US, liver completed [address], [address], 02/12/2024 13:59:10 02/20/2024 XR, chest, 2 view completed [address], [address], 02/22/2024 10:42:10 02/12/2024 US, echocardiogram completed BARCODE Inform ation not available 02/29/2024 16:03:21 04/01/2024 US, renal completed [address], [address], 04/04/2024 09:42:37 04/06/2024 lexiscan cardiolite stress test (PROC) completed [facility] [address], [place], [address], 04/08/2024 16:34:16 04/06/2024 exercise stress test completed [...] Address Organization Details Last Updated DateTime 4 [address].3 4 g 33.4 kg/m2 167.64 cm 56 /min 98 % 98 % 124 mm[Hg] 74 mm[Hg] Larisa Saavedra [place] - [facility] 4 14:47:36 Date Recorded Systolic blood pressure Diastolic blood pressure Provider Name and Address Organization Details Last Updated DateTime 11/27/2023 118 mm[Hg] 84 mm[Hg] JOSE Ayala Attn: Accounting, [place], [address], [facility] 11/27/2023 15:17:07 Date Recorded Body height Body mass index (BMI) Body weight Respiratory rate Oxygen saturation Oxygen saturation in Arterial blood by Pulse oximetry Heart rate Systolic blood pressure Diastolic blood pressure Provider Name and Address Organization Details Last Updated DateTime 4 167.64 cm 31.2 kg/m2 83373.6 1 g 20 /min 99 % 99 % 94 /min 118 mm[Hg] 88 mm[Hg] Conrado Lawson MA [facility] 15:25:24 Date Recorded Body temperature Provider Name a va Address Organization Details Last Updated DateTime 02/17/2024 98 [degF] JOSE Ayala Attn: Accounting,[address] [place], [address], [facility] 02/17/2024 15:50:14 Date Recorded Body height Body mass index (BMI) Body weight Respiratory rate Heart rate Oxygen saturation Oxygen saturation in Arterial blood by Pulse oximetry Systolic blood pressure Diastolic blood pressure Provider Name and Address Organization Details Last Updated DateTime 4 167.64 cm 31.8 kg/m2 18767.8 4 g 20 /min 89 /min 99 % 99 % 110 mm[Hg] 80 mm[Hg] Jamilah Laughlin MA [facility] 17:07:42 Social History Question Answer Notes LastModified by Organizat ion Details LastModified Time Tobacco Smoking Status Former Smoker Larisa Saavedra MA null, [facility] 11/27/2023 14:43:48 Do You Have An [...] Anxious, Or Unable To Sleep At Night)? [id number] Information not available 11/27/2023 Do You Use [...] available 2023 14:43:12 Medical History Condition Response High Blood Pressure Y Kidney or Bladder Problems Y Depression Y GI Problems Y Anxiety Disorder Y High Cholesterol Y Headaches Y Gynecological History Statement/Question Response Menses Monthly N If Post Menopausal, Age at Menopause Current Control Method None Obstetrics History GPAL:G 2 P 2 0 0 2 Type Value Full Term 2 Living 2 Total 2 Past Encounters Encounter ID Performer Location Encounter Start Date Encounter Closed Date Diagnosis/Indication Diagnosis SNOMED-CT Code Diagnosis ICD10 Code Diagnosis Note [id number] JOSE Ayala [facility] [address] [place] [address] 11/27/2023 14:25:31 11/27/2023 15:58:32 Cholesterol screening 302724488 Z13.220 fasting lipids due Diabetes m ellitus screening 966048335 Z13.1 a1c annual screening due Thyroid di sorder screening 188626132 Z13.29 thyroid panel due Long-term drug therapy 871630253 Z79.899 cmp, cbc and b12, folate labs are due Lower urin jody tract symptoms 975081469 R39.9 check ua w/cx Adult heal th examination 018871115 Z00.01 annual wellness completed Benign ess ential hypertension 2338752 I10 stable on lisinopril 40mg daily and coreg 25mg bid. Chronic he adache disorder 532975917 G44.89 currently stable on amitripyli ne 50mg qhs and sumatripta n 50mg as directed. Still having headaches but not the worse they've been. Major depr essive disorder 745059124 F32.9 stable on venlafaxin e 100mg bid Body mass index 30+ - obesity 429036470 Z68.33 discussed healthy diet, exercise, controllin g carbohydra amada and added sugars in the diet Obesity 678410665 E66.8 [id number] JOSE Ayala [facility] [employer] [address] [place] [address] 02/17/2024 15:09:45 02/18/2024 13:27:14 Acute kidney injury 08727006 N17.9 Repeat BMP to assess for creatinine improvemen t post acute kidney injury with hospitaliz ation. Patient has been hydrating well and not using any agents like NSAIDs that would contribute . She is also not taking any diuretic. Liver enzy mes level above reference range 973061471 R74.8 Mild liver enzyme continues with paroxysmal spikes in levels. We will repeat a hepatic function panel Smooth mus temo antibodies detected 155742168 R89.4 Previous smooth muscle antibodies were detected on screening we will repeat these as the lab did not run any smooth muscle antibody. Blood chem istry outside reference range 838642837 R79.9 Repeat CBC to evaluate for improvemen t in blood chemistry Benign ess ential hypertension 0951669 I10 stable on lisinopril 40mg daily and coreg 25mg bid. [id number] JOSE Ayala [facility] [employer] [address] [place] [address] 03/04/2024 16:47:07 03/07/2024 11:09:52 Acute kidney injury 09369137 N17.9 Repeat BMP to evaluate for creatinine and improvemen t in kidney function and electrolyt es. Liver enzy mes level above reference range 883411614 R74.8 Repeat liver function panel with liver enzymes up and down Smooth mus temo antibodies detected 763880444 R89.4 Check smooth muscle antibody with liver enzymes up and down Blood chem istry outside reference range 329979551 R79.9 Repeat CBC with auto diff Multiple joint pain 3567 8005 M25.50 Refer for rheumatoid factor, C-reactive protein, sed rate, and RODDY panel for persistent multiple joint pain Pancreatitis 80513460 K8 5.90 Pancreatit is question questionab le in the hospital. Repeat lipase and amylase Benign ess ential hypertension 7783759 I10 stable on lisinopril 40mg daily and coreg 25mg bid. Major depr essive disorder 966205897 F32.9 stable on venlafaxin e 100mg bid Body mass index 30+ - obesity 854823145 Z68.33 discussed healthy diet, exercise, controllin g carbohydra amada and added sugars in the diet Long-term drug therapy 225093792 Z79.899 Health Concerns Section Related Observation LastModified by Organization Detai ls LastModified Time None Recorded Concern Status LastModified by Organization Details LastModified Time None Recorded Advance Directives Directive N: Payers Encounter Date Sequence Insurance Name Policy Number Policy Nieto Covered Member ID Nieto Member ID Guarantor Name 11/27/2023 1 [facility] [id number] Heidi Vaca [id number] Heidi Vaca 02/17/2024 1 [facility] [id number] Heidi Vaca [id number] Heidi Vaca 03/04/2024 1 [facility] [id number] [facility] [id number] Heidi Vaca Notes Date Note Type Note [...] abdominal pain;frequency JOSE Ayala Attn: Accounting,[address] [facility], [place], [address], [facility] - [facility] 12/12/2023 11:53:50 02/17/2024 text/html Anxiety/Depressi onR eported bypatient.Notes:now taking venlafaxine 100mg bid. stable.Hypertension Reported bypatient.Notes:pt is on coreg 25mg bid, lisinopril 40mg daily. Patient was in the hospital for acute kidney injury, reports have been reviewed. Following up on abnormal labs. JOSE Ayala Attn: Accounting,[address] [facility], [place], [address], [facility] - [facility] 03/12/2024 20:13:31 03/04/2024 text/html Anxiety/Depressi onR eported bypatient.Notes:now taking venlafaxine 100mg bid. stable.Hypertension Reported bypatient.Notes:pt is on coreg 25mg bid, lisinopril 40mg daily. Patient was in the hospital for acute kidney injury, reports have been reviewed. Following up on abnormal labs. JOSE Ayala Attn: Accounting,[address] [facility], [place], [address], [facility] - [facility] 03/14/2024 23:09:35 OBGyn Episode No OBEpisode recorded.
--- OUTSIDE RECORDS SUMMARY | 2024-08-24 13:35 | XMS_ITS | Referral Summary ---
Author Organization [facility] D Address [address] [place] [address] Care Team Providers Care Public Area Supervisor Name Role Phone DavidpepeYamile Primary Care Pr [...] on file Legal Sex Female 6:48 AM ASPHALT BLENDER Gender Identity Female 06/03/2020 2:27 PM ASPHALT BLENDER Sexual Orientation Straight 06/03/2020 2: 27 PM ASPHALT BLENDER Last Filed Vital Signs Vital Sign Reading Time Taken Comments Blood Pressure 144/102 06/04/2020 12:45 PM ASPHALT BLENDER Pulse 92 06/04/2020 12:45 PM ASPHALT BLENDER Temperature 36.8 C (98.2 F) 06/04/2020 12:45 PM ASPHALT BLENDER Respiratory Rate - - Oxygen Saturation - - Inhaled Oxygen Concentration - - Weight 99.8 kg (220 lb) 06/04/2020 12:45 PM ASPHALT BLENDER Height - - Body Mass Index - - Plan of Treatment Not on file Insurance [facility] Cland[employer]/PPO Address: [place] [id number] [facility] Care Teams Public Area Supervisor Relationship Specialty Start Date End Date Yamile Avalos PA PCP - General Physician Conservation Worker 04/23/20
--- OUTSIDE RECORDS SUMMARY | 2024-08-24 13:35 | XMS_ITS | Clinical Summary ---
Author Organization [facility] D Address [address] [place] [address] Care Team Providers Care Animal Caretaker Name Role Phone LucillealbanYamile Primary Care Pr [...] on file Legal Sex Female 6:48 AM SUPERVISOR SHUTTLE FITTING Gender Identity Female 06/03/2020 2:27 PM SUPERVISOR SHUTTLE FITTING Sexual Orientation Straight 06/03/2020 2: 27 PM SUPERVISOR SHUTTLE FITTING Obstetrics History Last Filed Vital Signs Vital Sign Reading Time Taken Comments Blood Pressure 144/102 06/04/2020 12:45 PM SUPERVISOR SHUTTLE FITTING Pulse 92 06/04/2020 12:45 PM SUPERVISOR SHUTTLE FITTING Temperature 36.8 C (98.2 F) 06/04/2020 12:45 PM SUPERVISOR SHUTTLE FITTING Respiratory Rate - - Oxygen Saturation - - Inhaled Oxygen Concentration - - Weight 99.8 kg (220 lb) 06/04/2020 12:45 PM SUPERVISOR SHUTTLE FITTING Height - - Body Mass Index - [...] patient's age to complete this topic Insurance [facility] [place] [address] [facility] Member Subscriber Plan / Payer (Ef fective 2018-Present) Name:Jennifer Vacapepe Gonsalves Relation to Subscriber:Self Name:Heidi Vaca Payer ID:[id number] (NAIC) Type:[facility] HMO/PPO Address: [address] [facility] Care Teams Animal Caretaker Relationship Specialty Start Date End Date Yamile Avalos PA PCP - General Physician Camera Supervisor 04/23/20
--- OUTSIDE RECORDS SUMMARY | 2024-08-24 13:35 | XMS_ITS | Encounter Summary ---
Author Organization [facility] Address [address] [place] [address] Care Team Providers Care Patient Liaison Name Role Phone Yamile Avalso Primary Care Provider [phone] Encounter Details Date Type Department Care Team (Late st Contact Info) Description 10/26/2017 Abstract [facility] Conversion Ron Harley MD [address] [address] Social History Tobacco Use Types [...] CDT 27 Oct 2017 Heidi Vaca [address] [place] [address] Dear Heidi Vaca, Thank you for the trust you have placed in [facility] as your health care team. You are [...] hope to hear from you soon. Sincerely, [facility] cc: Patient Medical Record E UTILITY WORKER documented in this encounter Plan of Treatment Not on file documented as of this encounter Visit Diagnoses Not on filedocumented in this encounter Care Teams Patient Liaison Relationship Specialty Start Date End Date Yamile Avalos PA [address] [place] [address] PCP - General PHYSICIAN DESKTOP ANALYST 10/04/21 documented as of this encounter
--- OUTSIDE RECORDS SUMMARY | 2024-08-24 13:35 | XMS_ITS | Clinical Summary ---
Author Organization [facility] [employer] Address [address] [place] [address] Care Team Providers Care Factory Laborer Name Role Phone Unavailable Primary Care Provider Unavailabl e Source Comments [facility] [employer],non-owned Affiliates and Associated Physician Practices is amultiple site organization consisting of ambulatory clinics and hospital sitesin [place], [place], [place] and [place]. This disclosure is being madepursuant to the Care Everywhere program and may not contain all information available regarding this patient. Last updated 18.[facility] [employer] Allergies No known active allergies Medications * [...] Telephone [facility] - Centralized Scheduling [address] [place] [address] Silvana Samuel MD Reschedule Appointment (07/07-Left message to reschedule Jimmie's 12/06 appt- reschedule to the next available. 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
[2024-08-26 11:44] LABS: Calcium/Creatinine Ratio, Ur 43 mg/g creat (10-320); Urine Creatinine, Random 162 mg/dL (20-275)
[2024-08-29 13:18] LABS: Anti Nuclear Antibody Pattern Cytoplasmic
[2024-08-30 06:53] LABS: LKM 1 Antibody <=20.0 U (<=20.0)
[2024-08-30 13:03] LABS: Vitamin D 1,25 (OH)2 Total 36 pg/mL (18-72); Vitamin D2 1,25 (OH)2 <8 pg/mL; Vitamin D3 1,25 (OH)2 36 pg/mL
[2024-08-30 15:44] LABS: Osmolality, Urine 737 mOsm/kg (50-1200)
[2024-08-30 16:02] LABS: Angiotensin Converting Enzyme 44 U/L (9-67)
== END 2024-08-24 11:57 | disposition home or self-care (01) ==
PROVIDERS: PCP Nurse Practitioner Family; Referring Provider Internal Medicine Gastroenterology; Visit Provider Internal Medicine Nephrology
DX: N18.31 Chronic kidney disease, stage 3a (principal); K75.4 Autoimmune hepatitis; R79.89 Other specified abnormal findings of blood chemistry; E87.6 Hypokalemia; E87.1 Hypo-osmolality and hyponatremia; E83.52 Hypercalcemia
CPT/HCPCS: 36415; 80053; 80069; 81001; 82164; 82306; 82310; 82570; 82652; 82784; 83519; 83935; 83970; 84133; 86038; 86039; 86376

== ENCOUNTER 2024-10-20 06:21 | Outpatient (CLI) | payer OTHER, SELFPAY ==
--- OUTSIDE RECORDS SUMMARY | 2024-10-20 06:25 | XMS_ITS | Encounter Summary ---
Author Organization [facility] Address [address] [facility] [place] [address] Care Team Providers Care Bulk Materials Handling Plant Operator Name Role Phone Mickey Zamora MD Primary Care Provider + Encounter Details Date Type Department Care Team (Late st Contact Info) Description 07/16/2013 [facility] Outpatient Visit [facility] [address] [facility] [address] [place], [place] [id number] [place] [address] [facility] [address] [place] [address] Social History Tobacco Use Types Packs/Day Years Used Date Smoking Tobacco: Every Day Cigarettes Smokeless Tobacco: Never Alcohol Use Standard Drinks/Week Comments Yes 0 (1 standard drink = 0.6 oz pur e alcohol) 12 per week Comments Unknown Sex and Gender Information Value Date Recorded Sex Assigned at Not on file Legal Sex Female 5:35 AM DIRECTOR CALL CENTER SALES Gender Identity Not on file Sexual Orientation Not on file 

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
--- OUTSIDE RECORDS SUMMARY | 2024-10-20 06:25 | XMS_ITS | Data Portability ---
Author Organization [facility] JOHANA[facility]i Address [address] [place] [address] Care Team Providers Care Community Organizer Name Role Phone RADHA QUEVEDO Primary Care Provider Assessment No assessment recorded. Plan of Treatment Reminders Order Date Submit Date Provider Last Modified By Organization Details Last Modified Time Details Appointments None recorded. Lab BMP, serum or plasma - please run RODDY full multiplex panel 2023 [facility], [address], [place], [address], 4 16:50:08 CBC w/ auto diff - please run RODDY full multiplex panel 2023 [facility], [address], [place], [address], 4 16:50:39 rf (rheumatoi d factor), serum - please run RODDY full multiplex panel 2023 [facility], [address], [place], [address], 4 16:50:49 C-reactive protein, quantitati ve, serum or plasma - please run RODDY full multiplex panel 2023 [facility], [address], [place], [address], 4 16:51:36 erythrocyt e sedimentat ion rate by westergren method - please run RODDY full multiplex panel [address] Out[facility], [address], [place], [address], 4 11:16:50 RODDY (antinucle ar antibodies ) panel, serum - please run RODDY full multiplex panel 2023 [facility], [address], [place], [address], 4 13:48:20 lipase, serum or plasma 2023 024 [facility], [address], [place], [address], 4 16:50:25 amylase, serum or plasma 2023 024 [facility], [address], [place], [address], 4 16:50:29 smooth muscle Ab, serum - please run smooth muscle antibody not actin. [address] Out[facility], [address], [place], [address], 4 14:16:00 hepatic function panel, serum - please run RODDY full multiplex panel 2023 024 [facility], [address], [place], [address], 4 16:51:15 CBC w/ auto diff [address] Outpatient Registration [facility], [address], [place], [address], 4 12:51:46 BMP, serum or plasma [address] Outpatient [facility], [address], [place], [address], 4 12:51:46 smooth muscle Ab, serum [address] Outpatient [facility], [address], [place], [address], 4 11:49:26 mitochondr ial Ab, serum 2023 024 [facility], [address], [place], [address], 4 21:37:59 hepatic function panel, serum [address] [facility], [address], [place], [address], 4 12:51:46 TSH + free T4, serum [address] Out[facility], [address], [place], [address], 4 10:58:54 urinalysis , complete 2023 024 [facility], [address], [place], [address], 4 09:41:43 culture, urine 2023 024 [facility], [address], [place], [address], 4 14:27:01 lipid panel w/ direct LDL, serum 2023 024 [facility], [address], [place], [address], 4 23:38:25 CMP, serum or plasma 2023 024 [facility], [address], [place], [address], 4 19:08:15 CBC w/ auto diff 2023 024 [facility], [address] [place] [address] [address], [place], [address], 4 18:13:11 vitamin B12 + folate, serum or blood [address] [facility], [address] [place] [address] [address], [place], [address], 4 10:58:54 HbA1c (hemoglobi n A1c), blood [address] [facility], [address] [place] [address] [address], [place], [address], 4 10:58:54 Referral None recorded. Procedures None recorded. Surgeries None recorded. Imaging None recorded. Medication Orders None recorded. Patient TargetsNo targets recorded. Patient Instructions Encounter Date Encounter Id Patient Instructions Last Modified By Organization Details Last Modified Time 11/27/2023 [id number] A healthy lifestyle: care instructions [place] [id number] Not available 12/12/2023 11:53:28 Reason for Referral None Reported. Results Created Date Observation Date Name Description Value Unit Range Abnormal Flag Note LastModifiedBy Organization Detail LastModifiedTime 02/12/2002/11/2024 XR, chest , 2 view No observ ation record ed. [address], [place], [address], 02/12/2024 13:58:21 02/12/20 24 02/11/2024 CT, chest + abdom en + pelvi s, w/ contr ast No observ ation record ed. [address], [place], [address], 02/12/2024 13:58:54 02/12/20 24 02/12/2024 US, liver No observ ation record ed. [address], [place], [address], 02/12/2024 13:59:10 02/22/20 24 02/20/2024 XR, chest , 2 view No observ ation record ed. [address], [place], [address], 02/22/2024 10:42:10 02/29/20 24 02/12/2024 US, echoc ardio gram No observ ation record ed. BARCODE Not Available 2023 16:03:21 04/02/20 24 04/01/2024 US, renal No observ ation record ed. [address], [place], [address], 04/04/2024 09:42:37 04/06/20 24 04/06/2024 crystal can cardi olite stres s test (PROC ) No observ ation record ed. [address], [place], [address], 04/08/2024 16:34:16 04/15/2004/06/2024 exerc ise stres s test No observ ation record ed. BARCODE Not Available 2023 14:10:32 Result Notes None recorded. Problems Name Problem SNOMED Code Status Onset Date Resolution Date Notes Provider Name and Address Organization Details Recorded Time Benign essential hypertension 5871319 Active 2023 JOSE Ayala Attn: Sd covarrubias,[address] [facility], [place], [address], [place] [facility] 4 11:52:07 Chronic headache disorder 124898253 Active 2023 JOSE Ayala Attn: Sd covarrubias,[address] [facility], [place], [address], [place] 4 11:52:07 Major depressive disorder 296468660 Active 2023 JOSE Ayala Attn: Accountteofilo g,[address] [facility], [place], [address], [place] [facility] 4 11:52:09 Obesity 500782909 Active 2023 JOSE Ayala Attn: Accountteofilo g,[address] [facility], [place], [address], [place] [facility] 4 11:53:29 Body mass index 30+ - obesity 874410161 Active 2023 JOSE Ayala Attn: Accountin g,[address] [facility], [place], [address], [place] [facility] 4 11:53:29 Smooth muscle antibodies detected 637658269 Active 2023 JOSE Ayala Attn: Accountin g,[address] [facility], [place], [address], [place] [facility] 4 20:11:07 Liver enzymes level above reference range 639088986 Active 2023 JOSE Ayala Attn: Accountin g,[address] [facility], [place], [address], [place] [facility] 4 20:11:08 Pain of multiple joints 81579362 Active 2023 JOSE Ayala Attn: Accountin g,[address] [facility], [place], [address] [facility] 4 23:07:59 Acute kidney injury 84113761 Active 2023 JOSE Ayala Attn: Accountin g,[address] [facility], [place], [address], [place] [facility] 4 23:08:44 Blood chemistry outside reference range 408175711 Active 2023 JOSE Ayala Attn: Accountin g,[address] [facility], [place], [address], [place] [facility] 4 23:08:48 Pancreatitis 41374515 Active 2023 JOSE Ayala Attn: Sd covarrubias,[address], [place], [address], [place] 4 23:08:50 Long-term drug therapy Active 2023 JOSE Ayala Attn: Sd covarrubias,[address], [place], [address], [place] 4 23:09:02 Problem Notes None recorded. Procedures Surgical History Date Name Laterality Status Provider Name and Address Organization Details Recorded Time drainage of pleural cavity via chest tube completed Larisa Saavedra [place] 11/27/2023 14:45:15 Imaging Results Imaging Date Name Status LastModified by Organization Details LastModified Time 02/11/2024 XR, chest, 2 view completed [address], [address], 02/12/2024 13:58:21 02/11/2024 CT, chest + abdomen + pelvis, w/ contrast completed [address], [address], 02/12/2024 13:58:54 02/12/2024 US, liver completed [address], [address], 02/12/2024 13:59:10 02/20/2024 XR, chest, 2 view completed [address], [address], 02/22/2024 10:42:10 02/12/2024 US, echocardiogram completed BARCODE Inform ation not available 02/29/2024 16:03:21 04/01/2024 US, renal completed [address], [address], 04/04/2024 09:42:37 04/06/2024 lexiscan cardiolite stress test (PROC) completed [facility] [address], [place], [address], 04/08/2024 16:34:16 04/06/2024 exercise stress test completed [...] Not Available venlafaxi ne 100 mg tablet Take 1 tablet by mouth twice daily active Not Available Not Available No t [...] Address Organization Details Last Updated DateTime 4 [address].3 4 g 33.4 kg/m2 167.64 cm 56 /min 98 % 98 % 124 mm[Hg] 74 mm[Hg] Larisa Saavedra [place] [facility] 4 14:47:36 Date Recorded Systolic blood pressure Diastolic blood pressure Provider Name and Address Organization Details Last Updated DateTime 11/27/2023 118 mm[Hg] 84 mm[Hg] JOSE Ayala Attn: Accounting, [place], [address], [facility] 11/27/2023 15:17:07 Date Recorded Body height Body mass index (BMI) Body weight Respiratory rate Oxygen saturation Oxygen saturation in Arterial blood by Pulse oximetry Heart rate Systolic blood pressure Diastolic blood pressure Provider Name and Address Organization Details Last Updated DateTime 4 167.64 cm 31.2 kg/m2 78823.6 1 g 20 /min 99 % 99 % 94 /min 118 mm[Hg] 88 mm[Hg] Conrado Lawson MA [facility] 15:25:24 Date Recorded Body temperature Provider Name a md Address Organization Details Last Updated DateTime 02/17/2024 98 [degF] JOSE Ayala Attn: Accounting,[address] [place], [address], [facility] 02/17/2024 15:50:14 Date Recorded Body height Body mass index (BMI) Body weight Respiratory rate Heart rate Oxygen saturation Oxygen saturation in Arterial blood by Pulse oximetry Systolic blood pressure Diastolic blood pressure Provider Name and Address Organization Details Last Updated DateTime 4 167.64 cm 31.8 kg/m2 87760.8 4 g 20 /min 89 /min 99 % 99 % 110 mm[Hg] 80 mm[Hg] Jamilah Laughlin MA [facility] 17:07:42 Social History Question Answer Notes LastModified by Organizat ion Details LastModified Time Tobacco Smoking Status Former Smoker Larisa Saavedra MA null, [facility] 11/27/2023 14:43:48 Do You Have An Advance [...] Anxious, Or Unable To Sleep At Night)? [id number] Information not available 11/27/2023 Do You Use [...] LastModified by Organization Details LastModified Time Father Harmful pattern of use of alcohol mebyma Not available 2023 14:42:54 Father Hypertensive [...] SNOMED-CT Code Diagnosis ICD10 Code Diagnosis Note [id number] Mickey Ray MD [place] [id number] [facility] [address] [place] [address] 11/27/2023 14:25:31 11/27/2023 15:58:32 Cholesterol screening 167212262 Z13.220 fasting lipids due Diabetes m ellitus screening 169879615 Z13.1 a1c annual screening due Thyroid di sorder screening 513707092 Z13.29 thyroid panel due Long-term drug therapy 310666695 Z79.899 cmp, cbc and b12, folate labs are due Lower urin jody tract symptoms 761943403 R39.9 check ua w/cx Adult heal th examination 504688484 Z00.01 annual wellness completed Benign ess ential hypertension 5449166 I10 stable on lisinopril 40mg daily and coreg 25mg bid. Chronic he adache disorder 881301356 G44.89 currently stable on amitripyli ne 50mg qhs and sumatripta n 50mg as directed. Still having headaches but not the worse they've been. Major depr essive disorder 357698050 F32.9 stable on venlafaxin e 100mg bid Body mass index 30+ - obesity 175307472 Z68.33 discussed healthy diet, exercise, controllin g carbohydra amada and added sugars in the diet Obesity 092864120 E66.8 [id number] Mickey Ray MD [facility] [employer] [address] [place] [address] 02/17/2024 15:09:45 02/18/2024 13:27:14 Acute kidney injury 40224299 N17.9 Repeat BMP to assess for creatinine improvemen t post acute kidney injury with hospitaliz ation. Patient has been hydrating well and not using any agents like NSAIDs that would contribute . She is also not taking any diuretic. Liver enzy mes level above reference range 950864630 R74.8 Mild liver enzyme continues with paroxysmal spikes in levels. We will repeat a hepatic function panel Smooth mus temo antibodies detected 043722669 R89.4 Previous smooth muscle antibodies were detected on screening we will repeat these as the lab did not run any smooth muscle antibody. Blood chem istry outside reference range 489065303 R79.9 Repeat CBC to evaluate for improvemen t in blood chemistry Benign ess ential hypertension 7027699 I10 stable on lisinopril 40mg daily and coreg 25mg bid. [id number] Mickey Ray MD [facility] [employer] [address] [place] [address] 03/04/2024 16:47:07 03/07/2024 11:09:52 Acute kidney injury 05272754 N17.9 Repeat BMP to evaluate for creatinine and improvemen t in kidney function and electrolyt es. Liver enzy mes level above reference range 650250347 R74.8 Repeat liver function panel with liver enzymes up and down Smooth mus temo antibodies detected 370407019 R89.4 Check smooth muscle antibody with liver enzymes up and down Blood chem istry outside reference range 693570132 R79.9 Repeat CBC with auto diff Pain of mu ltiple joints 28037435 M25.50 Refer for rheumatoid factor, C-reactive protein, sed rate, and RODDY panel for persistent multiple joint pain Pancreatitis 31346509 K8 5.90 Pancreatit is question questionab le in the hospital. Repeat lipase and amylase Benign ess ential hypertension 3834204 I10 stable on lisinopril 40mg daily and coreg 25mg bid. Major depr essive disorder 596198582 F32.9 stable on venlafaxin e 100mg bid Body mass index 30+ - obesity 165945819 Z68.33 discussed healthy diet, exercise, controllin g carbohydra amada and added sugars in the diet Long-term drug therapy 007764039 Z79.899 Health Concerns Section Related Observation LastModified by Organization Detai ls LastModified Time None Recorded Concern Status LastModified by Organization Details LastModified Time None Recorded Advance Directives Directive N: Payers Encounter Date Sequence Insurance Name Policy Number Policy Nieto Covered Member ID Nieto Member ID Guarantor Name 11/27/2023 1 [facility] [id number] Heidi Vaca [id number] Heidi Vaca 02/17/2024 1 [facility] [id number] Heidi Vaca [id number] Heidi Vaca 03/04/2024 1 [facility] [id number] Heidi Vaca [id number] Heidi Vaca Notes Date Note Type Note [...] JOSE Ayala Attn: Accounting,[address] [facility], [place], [address], [place] [facility] 12/12/2023 11:53:50 02/17/2024 text/html Anxiety/Depressi onR eported bypatient.Notes:now taking venlafaxine 100mg bid. stable.Hypertension Reported bypatient.Notes:pt is on coreg 25mg bid, lisinopril 40mg daily. Patient was in the hospital for acute kidney injury, reports have been reviewed. Following up on abnormal labs. JOSE Ayala Attn: Accounting,[address] [facility], [place], [address], [facility] 03/12/2024 20:13:31 03/04/2024 text/html Anxiety/Depressi onR eported bypatient.Notes:now taking venlafaxine 100mg bid. stable.Hypertension Reported bypatient.Notes:pt is on coreg 25mg bid, lisinopril 40mg daily. Patient was in the hospital for acute kidney injury, reports have been reviewed. Following up on abnormal labs. JOSE Ayala Attn: Accounting,[address] [facility], [place], [address], [facility] 03/14/2024 23:09:35 OBGyn Episode No OBEpisode recorded.
--- OUTSIDE RECORDS SUMMARY | 2024-10-20 06:25 | XMS_ITS | Referral Summary ---
Author Organization [facility] Address [address] [place] [address] Care Team Providers Care Lab Technologist Name Role Phone DavidpepeYamile Primary Care Pr [...] on file Legal Sex Female 6:48 AM OFFICE MESSENGER HELPER Gender Identity Female 06/03/2020 2:27 PM OFFICE MESSENGER HELPER Sexual Orientation Straight 06/03/2020 2: 27 PM OFFICE MESSENGER HELPER Last Filed Vital Signs Vital Sign Reading Time Taken Comments Blood Pressure 144/102 06/04/2020 12:45 PM OFFICE MESSENGER HELPER Pulse 92 06/04/2020 12:45 PM OFFICE MESSENGER HELPER Temperature 36.8 C (98.2 F) 06/04/2020 12:45 PM OFFICE MESSENGER HELPER Respiratory Rate - - Oxygen Saturation - - Inhaled Oxygen Concentration - - Weight 99.8 kg (220 lb) 06/04/2020 12:45 PM OFFICE MESSENGER HELPER Height - - Body Mass Index - - Plan of Treatment Not on file Insurance [facility] [employer] ServicesO/PPO Address: [place] [phone] [facility] Care Teams Lab Technologist Relationship Specialty Start Date End Date Yamile Avalos PA PCP - General Physician Admitting Officer 04/23/20
--- OUTSIDE RECORDS SUMMARY | 2024-10-20 06:25 | XMS_ITS | Clinical Summary ---
Author Organization [facility] Address [address] [facility] [place] [address] Care Team Providers Care Pet House Sitter Name Role Phone Unavailable Primary Care Provider Unavailabl e Source Comments [facility],non-owned Affiliates and Associated Physician Practices is amultiple site organization consisting of ambulatory clinics and hospital sitesin [place], [place], [place] and [place]. This disclosure is being madepursuant to the Care Everywhere program and may not contain all information available regarding this patient. Last updated 18.[facility] Allergies No known active allergies Medications * Be aware that medications may not be up to date on this document. Alwaysverify current medications with the patient. amitriptyline (ELAVIL) 50 MG tablet Take 1 Tab by mouth at bedtime. Active sertraline (ZOLOFT) 100 MG tablet Take 1.5 Tabs by mouth once daily. Active propranolol (INDERAL) 40 MG tablet Take 1 Tab by mouth once daily. Active ALPRAZolam (XANAX) 0.5 MG tablet Take 1 Tab by mouth as needed. 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 Not on file Not on file Plan of Treatment Health [...] VACCINE (1 - 2023-2 5 season) 2024 DEPRESSION SCREENING 06/15/2024 INFLUENZA VACCINE (Season Ended) 2025 HIB VACCINE Aged Out No longer eligi [...] patient's age to complete this topic Insurance [facility] SELF [facility]Y NO INSURANCE Member Subscriber Plan / Payer (Ef fective for All Dates) Name:Heidi Vaca Member ID:Not on file Relation to Subscriber:Not on file Name:HEIDI VACA Subscriber ID:Not on file (Home) Address: [address] [place] [address] [place] [address] Payer ID:Not on file Group ID:Not on file Type:Self Pay Address: [place], [place]
--- OUTSIDE RECORDS SUMMARY | 2024-10-20 06:25 | XMS_ITS | Encounter Summary ---
Author Organization [facility] Address [address] [place] [address] Care Team Providers Care Seo Intern Name Role Phone Mickey Zamora MD Primary Care Provider + Encounter Details Date Type Department Care Team (Late st Contact Info) Description 05/09/2014 Lab Requisition [facility] [address] [place] [address] Unknown, Provider Social History Tobacco Use Types Packs/Day Years Used Date Smoking Tobacco: Every Day Cigarettes Smokeless Tobacco: Never Alcohol Use Standard Drinks/Week Comments Yes 0 (1 standard drink = 0.6 oz pur e alcohol) 12 per week Comments Unknown Sex and Gender Information Value Date Recorded Sex Assigned at Not on file Legal Sex Female 5:35 AM ORTHODONTIST ASSISTANT Gender Identity Not on file Sexual Orientation Not on file 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 Not on file Not on file documented as of this encounter Plan of Treatment Not on file documented as of this encounter Procedures Procedure Name Priority Date/Time Associated Diagnosis Comments VARICELLA ZOSTER ANTIBODY IGG Routine 05/09/2014 1:50 PM ORTHODONTIST ASSISTANT documented in this encounter Results * VARICELLA ZOSTER ANTIBODY IGG (05/09/2014 1:50 PM ORTHODONTIST ASSISTANT) Varicella zoster Virus Antibody IgG 1001.0 IV 05/11/2014 10:41 AM ORTHODONTIST ASSISTANT [facility] ([facility]) Comment: INTERPRETIVE INFORMATION: VZV Ab, IgG 134 [...] Unknown Venipuncture / Unknown 05/09/2014 1:50 PM ORTHODONTIST ASSISTANT 05/09/2014 5:57 PM ORTHODONTIST ASSISTANT us Provider Unknown LAB - CHEMISTRY ORDERABLES Jessie l Result [facility] ([facility]) [address] documented in this encounter Visit Diagnoses Not on filedocumented in this encounter Care Teams Seo Intern Relationship Specialty Start Date End Date Mickey Zamora MD PCP - General Family Medicine 07/06/13 05/16/24 documented as of this encounter
--- OUTSIDE RECORDS SUMMARY | 2024-10-20 06:25 | XMS_ITS | Clinical Summary ---
Author Organization [facility] D Address [address] [place] [address] Care Team Providers Care Sales Floor Team Member Name Role Phone LucillealbanYamile Primary Care Pr [...] on file Legal Sex Female 6:48 AM HYDRAULICS TEACHER Gender Identity Female 06/03/2020 2:27 PM HYDRAULICS TEACHER Sexual Orientation Straight 06/03/2020 2: 27 PM HYDRAULICS TEACHER Obstetrics History Last Filed Vital Signs Vital Sign Reading Time Taken Comments Blood Pressure 144/102 06/04/2020 12:45 PM HYDRAULICS TEACHER Pulse 92 06/04/2020 12:45 PM HYDRAULICS TEACHER Temperature 36.8 C (98.2 F) 06/04/2020 12:45 PM HYDRAULICS TEACHER Respiratory Rate - - Oxygen Saturation - - Inhaled Oxygen Concentration - - Weight 99.8 kg (220 lb) 06/04/2020 12:45 PM HYDRAULICS TEACHER Height - - Body Mass Index [...] patient's age to complete this topic Insurance [facility] HMO/PPO Address: [facility] [address] [place] [address] [place] [address] [facility] HMO/PPO Address: [address] [facility] HMO/PPO Address: [place] [address] Care Teams Sales Floor Team Member Relationship Specialty Start Date End Date Yamile Avalos PA PCP - General Physician Cap And Stud Machine Operator 04/23/20
--- OUTSIDE RECORDS SUMMARY | 2024-10-20 06:25 | XMS_ITS | Clinical Summary ---
Author Organization [facility] Address [address] [place] [address] Care Team Providers Care Dividing Machine Operator Name Role Phone Yamile Avalos Primary Care Provider [phone] Allergies No known active allergies Medications ALPRAZolam [...] Active Problems No known active problems Immunizations Immunization Administration Dates Next Due Influenza Adult (Generic) [...] Comments Blood Pressure 131/88 07/15/2022 2:31 PM [employer] [employer] BACK FEEDER Pulse 77 07/15/2022 2:31 PM [employer] BACK FEEDER Temperature 36.5 C (97.7 F) 07/15/2022 1:57 PM [employer] BACK FEEDER Respiratory Rate - - Oxygen Saturation 98% 07/15/2022 1:57 PM [employer] BACK FEEDER Inhaled Oxygen Concentration - - Weight 100.9 kg (222 lb 8 oz) 07/15/2022 1:57 PM [employer] BACK FEEDER Height 167.6 cm (5' 6 ) 07/15/2022 1:57 PM [employer] BACK FEEDER p t stated Body Mass Index 35.91 07/15/2022 1:57 PM [employer] BACK FEEDER Plan of Treatment Health Maintenance Due Date [...] wi th HPV 2002 Mammogram Screening 2012 Pneumococcal Vaccine: 50+ Years (1 of 1 - PCV) 2022 Zoster Vaccines (1 of 2) 2022 COVID-19 Vaccine (3 - 2023-2 5 season) 2024 08/14/2020, 07/17/2020 PHQ-2 (Physician [place]) 06/15/2024 Meningococcal B Vaccine Aged Out No l onger eligible based on patient's age to complete this topic Meningococcal Vaccine Aged Out No renata kristopher eligible based on patient's age to complete this topic RSV Immunizations Under 20 Months Aged Out No longer eligible b ased on patient's age to complete this topic Insurance MEDICAID Care Teams Dividing Machine Operator Relationship Specialty Start Date End Date Yamile Avalos PA PCP - General PHYSICIAN MOTOR AND GENERATOR BRUSH MAKER 10/04/21
--- OUTSIDE RECORDS SUMMARY | 2024-10-20 06:25 | XMS_ITS | Encounter Summary ---
Author Organization [facility] Address [address] [place] [address] Care Team Providers Care Aircraft Structural Design Engineer Name Role Phone Yamile Avalos Primary Care Provider [phone] Encounter Details Date Type Department Care Team (Late st Contact Info) Description 10/26/2017 Abstract [facility] Conversion Ron Harley MD [address] [address] Social History Tobacco Use Types [...] CDT 27 Oct 2017 Heidi Vaca [address] [place] [address] Dear Heidi Vaca, Thank you for the trust you have placed in [facility] as your health care team. [...] hope to hear from you soon. Sincerely, [facility] cc: Patient Medical Record ADMINISTRATOR SUPERVISOR documented in this encounter Plan of Treatment Not on file documented as of this encounter Visit Diagnoses Not on filedocumented in this encounter Care Teams Aircraft Structural Design Engineer Relationship Specialty Start Date End Date Yamile Avalos PA PCP - General PHYSICIAN THERAPEUTIC SALES SPECIALIST 10/04/21 documented as of this encounter
--- OUTSIDE RECORDS SUMMARY | 2024-10-20 06:26 | XMS_ITS | Data Portability ---
Author Organization [facility], Main Office Address [address] [place] [address] Assessment No assessment recorded. Plan of Treatment Reminders Order Date Submit Date Provider Last Modified By Organization Details Last Modified Time Details Appointments None recorded. Lab None recorded. Referral None recorded. Procedures None recorded. Surgeries None recorded. Imaging None recorded. Medication Orders venlafaxine 75 mg tablet 2022 023 [email or web address] [id number], [id number], [address], 3 17:18:09 amitriptyli ne 25 mg tablet 2022 023 [id number], [id number], [address], 3 17:18:04 carvedilol 25 mg tablet 2022 023 MIRIAN [id number], [id number], [address], 3 17:03:32 Patient TargetsNo targets recorded. Patient InstructionsNo instructions recorded. Reason for Referral None Reported. Results Created Date Observation Date Name Description Value Unit Range Abnormal Flag Note LastModifiedBy Organization Detail LastModifiedTime 11/29/19 22 10/10/2021 imagi ng/di agnos tic resul t No observ ation record ed. [id number] Not Available 08/13/2022 03:10:20 04/22/20 22 02/05/2022 MRI, cervi matias spine , w/ contr ast No observ ation record ed. [id number] [facility] [address], [place], [address], 08/13/2022 03:10:20 04/23/20 22 02/05/2022 MRI, thora cic spine , w/o contr ast No observ ation record ed. [id number] Not Available 08/13/2022 03:10:20 Result Notes None recorded. Problems Name Problem SNOMED Code Status Onset Date Resolution Date Notes Provider Name and Address Organization Details Recorded Time Benign essential hypertensi on 5234371 Active 2018 Not Available [facility] 3 02:54:46 Insomnia 167772774 Active 2018 Not Available [facility] 3 02:54:46 Generalize d anxiety disorder 51128821 Active 2018 Not Available [facility] 3 02:54:46 Mixed anxiety and depressive disorder 087737659 Active 2021 Not Available [facility] 3 02:54:46 Knee pain Active Not Available [facility] 3 02:54:46 Major depressive disorder 894227577 Active 2018 Not Available [facility] 3 02:54:46 Migraine 68743766 Active 2021 Not Available [facility] 3 02:54:46 Postconcus caryn syndrome 88518567 Active 2021 Not Available [facility] 3 02:54:46 Dizziness 832441740 Active 2021 Not Available [facility] 3 02:54:47 Nausea 638872243 Active 2021 Not Available [facility] 3 02:54:47 Posttrauma tic stress disorder 25760923 Active 2021 Not Available [facility] 3 02:54:47 Hyperlipid emia 78497626 Active 2019 Not Available [facility] 3 02:54:47 Daily headache 994108472592 Active 2021 Not Available [facility] 3 02:54:47 Chronic headache disorder 536413166 Active 2022 JOSE Ayala [address], [place], [address] , [facility] 3 17:01:38 Headache 86357387 Active 2023 JOSE Ayala [address], [place], [address] , [facility] Hey, Neighbor! [facility] 4 10:18:26 Problem Notes None recorded. Procedures Surgical History Date Name Laterality Status Provider Name and Address Organization Details Recorded Time Colonoscopy completed Not Available [facility] 08/13/2022 02:45:24 STEP DOWN NURSE Surgery completed Not Available Counts include 234 beds at the [facility] 08/13/2022 02:45:24 Imaging Results Imaging Date Name Status LastModified by Organiz ation Details LastModified Time 02/05/2022 MRI, thoracic spine, w/o contrast completed [id number] Information not available 08/13/2022 03:10:20 02/05/2022 MRI, cervical spine, w/ contrast completed [id number] [address], [place], [address], 08/13/2022 03:10:20 10/10/2021 imaging/diagn ostic result completed [id number] Information not available 08/13/2022 03:10:20 Procedure [...] henidate ER 15 mg capsule,ex tended release -50 TAKE 1 PILL BY MOUTH QD [...] 3 170.18 cm 97.3 [degF] 30.9 kg/m2 99563.7 g 16 /min 80 /min 140 mm[Hg] 100 mm[Hg] MYNOR Zuniga [place] [facility] 3 16:35:09 Date Recorded Systolic blood pressure Diastolic blood pressure Systolic blood pressure Diastolic blood pressure Provider Name and Address Organization Details Last Updated DateTime 02/18/2023 130 mm[Hg] 90 mm[Hg] 130 mm[Hg] 86 mm[Hg] JOSE Ayala [address] [facility] [address], [place], [address] , [place] [facility] 3 17:01:04 Date Recorded Body mass index (BMI) Body height Oxygen saturation Oxygen saturation in Arterial blood by Pulse oximetry Heart rate Respiratory rate Body temperature Body weight Systolic blood pressure Diastolic blood pressure Provider Name and Address Organization Details Last Updated DateTime 2 33.5 kg/m2 170.18 cm 98 % 98 % 91 /min 16 /min 96.3 [degF] 33073.7 7 g 118 mm[Hg] 70 mm[Hg] Not Available [facility] 3 02:48:37 Date Recorded Body mass index (BMI) Body height Oxygen saturation Oxygen saturation in Arterial blood by Pulse oximetry Heart rate Respiratory rate Body temperature Body weight Systolic blood pressure Diastolic blood pressure Provider Name and Address Organization Details Last Updated DateTime 2 33.5 kg/m2 170.18 cm 98 % 98 % 93 /min 16 /min 97.2 [degF] 04697.7 7 g 128 mm[Hg] 80 mm[Hg] Not Available [facility] 3 02:48:37 Date Recorded Body mass index (BMI) Body height Oxygen saturation Oxygen saturation in Arterial blood by Pulse oximetry Heart rate Respiratory rate Body temperature Body weight Systolic blood pressure Diastolic blood pressure Provider Name and Address Organization Details Last Updated DateTime 2 33.4 kg/m2 170.18 cm 98 % 98 % 90 /min 16 /min 96.8 [degF] 46986.1 7 g 120 mm[Hg] 80 mm[Hg] Not Available [facility] 3 02:48:38 Date Recorded Body height Oxygen saturation Oxygen saturation in Arterial blood by Pulse oximetry Heart rate Body temperature Body weight Systolic blood pressure Diastolic blood pressure Provider Name and Address Organization Details Last Updated DateTime 2 170.18 cm 97 % 97 % 78 /min 97.1 [degF] 18505.4 g 120 mm[Hg] 78 mm[Hg] Not Available [facility] 02:48:38 Social History Question Answer Notes LastModified by Organization Details LastModified Time Tobacco Smoking Status Former Smoker Quit 02/26/20 Not Available [facility] 08/13/2022 02:37:15 Do You Have An Advance Directive? No MIGRATION.030 [id number] Information not available 08/13/2022 What Is Your Level Of Alcohol Consumption? Occasional MIGRATION.030 776476 Information not available 08/13/2022 Do You Wear A Helmet When Biking? No MIGRATION.0301 194162 Information not available 08/13/2022 What Is Your Level Of Caffeine Consumption? Moderate MIGRATION.030 880857 Information not available 08/13/2022 How Much Tobacco Do You Chew? None MIGRATION.030 216977 Information not available 08/13/2022 In The 14 Days Before Symptom Onset, Have You Had Close Contact With A Laboratory-confi rmed COVID-19 While That Case Was Ill? No MIGRATION.030 477423 Information not available 08/13/2022 In The 14 Days Before Symptom Onset, Have You Had Close Contact With A Person Who Is Under Investigation For COVID-19 While That Person Was Ill? No MIGRATION.030 271629 Information not available 08/13/2022 Are You Currently Employed? Yes [email or web address] Information not available 02/18/2023 What Type Of Diet Are You Following? REGULAR MIGRATION.030 978413 Information not available 08/13/2022 Which Illicit Or Recreational Drugs Have You Used? None MIGRATION.030 977420 Information not available 08/13/2022 Do You Or Have You Ever Used E-cigarettes Or Vape? Never Used Electronic Cigarettes MIGRATION.030 686461 Information not available 08/13/2022 What Is The Highest Grade Or Level Of School You Have Completed Or The Highest Degree You Have Received? 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 No MIGRATION.030 966638 Information not available 08/13/2022 Are There Any Guns Present In Your Home? Yes MIGRATION.030 044360 Information not available 08/13/2022 Do You Use Insect Repellent Routinely? No MIGRATION.0301 316986 Information not available 08/13/2022 Where Do You Live? [place]House MIGRATION.0301 321935 Information not available 08/13/2022 Do You Have A Medical Power Of Telemarketing Representative? No MIGRATION.0301 797636 Information not available 08/13/2022 Do You Have Any Pets? No MIGRATION.0301 215143 Information not available 08/13/2022 What Is Your Relationship Status? MIGRATION.0301 622987 Information not available 08/13/2022 Do You Use Your Seat Belt Or Car Seat Routinely? Yes MIGRATION.0301 959423 Information not available 08/13/2022 Do You Have Smoke And Carbon Monoxide Detectors In Your Home? Yes MIGRATION.0301 293545 Information not available 08/13/2022 Are You Passively Exposed To Smoke? No MIGRATION.0301 714448 Information not available 08/13/2022 Do You Or Have You Ever Used Smokeless Tobacco? Never Used Smokeless Tobacco MIGRATION.0301 445177 Information not available 08/13/2022 Are There Any Smokers In Your House? No MIGRATION.0301 643181 Information not available 08/13/2022 How Much Tobacco Do You Smoke? 0.5 PPD MIGRATION.0301 304895 Information not available 08/13/2022 Do You Feel Stressed (tense, Restless, Nervous, Or Anxious, Or Unable To Sleep At Night)? [id number] MIGRATION.0301 355561 Information not available 08/13/2022 Do You Use Any Illicit Or Recreational Drugs? No MIGRATION.0301 044568 Information not available 08/13/2022 Do You Use Sunscreen Routinely? No MIGRATION.0301 427163 Information not available 08/13/2022 Have You Recently Traveled Abroad? No MIGRATION.0301 114465 Information not available 08/13/2022 Do You Have Any Dietary Restrictions? No MIGRATION.0301 776244 Information not available 08/13/2022 Do You Or Have You Ever Used Any Other Forms Of Tobacco Or Nicotine? No MIGRATION.0301 306182 Information not available 08/13/2022 Sex: Unknown Functional Status Question Answer Note LastModified by Organizat ion Details LastModified Time What is your exercise level? Occasional [id number].[id number] 26 Information not available 08/13/2022 Mental Status None recorded. Family History Relationship Description Onset Age of this Age Resolved Age Notes LastModified by Organization Details LastModified Time Mother Hypertensive disorder MIGRATION.279 [id number] Not available 08/13/2022 02:45:28 Mother Parkinson's disease MIGRATION.769 [id number] Not available 08/13/2022 02:45:28 Father Hypertensive disorder MIGRATION.160 [id number] Not available 08/13/2022 02:45:28 Father Alcoholism MIGRATION.943 [id number] Not available 08/13/2022 02:45:28 Medical History Condition [...] virus, quadrivalent, preservative 7 completed Not Available [facility] 08/13/2022 03:09:18 Past Encounters Encounter ID Performer Location Encounter Start Date Encounter Closed Date Diagnosis/Indication Diagnosis SNOMED-CT Code Diagnosis ICD10 Code Diagnosis Note [id number] [facility] [address] [place] [address] 10/11/2020 00:00:00 10/11/2020 18:42:30 [id number] JOSE Ayala [facility] [address] [place] [address] 11/27/2020 00:00:00 12/12/2020 18:03:53 [id number] JOSE Ayala [facility] [address] [place] [address] 12/10/2020 00:00:00 12/10/2020 21:12:24 [id number] JSOE Ayala [facility] [address] [place] [address] 04/30/2021 00:00:00 05/05/2021 10:26:17 [id number] JOSE Ayala [facility] [address] [place] [address] 08/19/2021 00:00:00 09/12/2021 17:11:13 [id number] JOSE Ayala [facility] [address] [place] [address] 09/12/2021 00:00:00 09/12/2021 13:41:07 [id number] Mickey Ray MD [facility] [address] [place] [address] 11/04/2021 00:00:00 11/11/2021 17:54:15 [id number] Mickey Ray MD [facility] [address] [place] [address] 11/27/2021 00:00:00 12/12/2021 14:13:47 [id number] JOSE Ayala [facility] [address] [place] [address] 04/01/2022 00:00:00 04/12/2022 20:43:24 [id number] JOSE Ayala [facility] [address] [place] [address] 04/23/2022 00:00:00 05/14/2022 21:23:11 [id number] JOSE Ayala [facility] [address] [place] [address] 02/18/2023 16:01:43 02/18/2023 17:07:07 Benign essential hypertension 1590524 I10 Rx for coreg 25mg bid. Chronic he adache disorder 136568469 G44.89 refill amitriptyl ine 25mg qhs Major depr essive disorder 537840704 F32.9 Refill effexor 75mg bid Health Concerns [...] in exercise capacity; no snoring;fatigue Not Available [employer] 11/11/2021 17:54:15 022 text/ht ml Generic HPI TemplateReported bypatient.Notes:Pt is here to f/u on her concussion bc she is ready to go back to work. She says she is feeling better. Dizziness has subsided. Excellent results in the last 3 weeks with P.[facility] [place] and continued upper cervical eye care professional with Dr. Tez العلي. She is relieved to finally have reached improvement. Not Available [employer] 12/12/2021 14:13:47 022 text/ht ml Generic HPI [...] debilitating, but it is present. Not Available [place] Hey, Neighbor! [facility] [email or web address] [facility] 04/12/2022 20:43:24 022 text/ht ml Generic HPI [...] weeks with P.T/vestibular therapy at [facility] [place] and continued upper cervical eye care professional with Dr. Tez العلي. She is relieved to finally have reached improvement. Not Available [employer] [facility] [email or web address] [facility] 05/14/2022 21:23:11 023 text/ht ml HeadacheReported bypatient.Location:bilateral; [...] medication; checks blood pressure at home (range [id number]) JOSE Ayala [address] [facility] [address], [place], [address], [facility] 03/11/2023 23:49:07 OBGyn Episode No OBEpisode recorded.
[2024-10-20 06:49] LABS: Alanine Aminotransferase 19 U/L (6-35); Albumin Level 4.3 g/dL (3.5-5.1); Alkaline Phosphatase 88 U/L (38-126); Anion Gap 9 mmol/L (4-12); Aspartate Amino Transferase 34 U/L (14-36); Bilirubin,Total 0.4 mg/dL (0.2-1.3); Blood Urea Nitrogen 19 mg/dL (7-17); Calcium 9.5 mg/dL (8.4-10.2); Carbon Dioxide 22 mmol/L (22-30); Chloride 106 mmol/L (98-107); Estimated Glomerular Filt Rate 59; Glucose 96 mg/dL (65-110); Potassium 3.7 mmol/L (3.4-5.0); Sodium 137 mmol/L (137-145)
== END 2024-10-20 06:22 | disposition home or self-care (01) ==
PROVIDERS: PCP Nurse Practitioner Family; Visit Provider Student in an Organized Health Care Education/Training Program
DX: E87.6 Hypokalemia (principal)
CPT/HCPCS: 36415; 80053

== ENCOUNTER 2025-01-02 17:53 | Emergency (ER) | payer OTHER, SELFPAY ==
--- NOTE | ~2025-01-02 | XR_ITS ---
EXAM: XR shoulder LT min 2V DATE: 01/02/2025 18:28 HISTORY: trauma . COMPARISON: None available. FINDINGS: Normal mineralization. No fracture or dislocation. No lytic or blastic lesion. Mild degene rative change in the AC joint and glenohumeral joint. No erosion or periosteal change. Soft tissues w ithin normal limits. IMPRESSION: No acute osseous finding in the left shoulder. Reviewed, dictated and finalized at location K.
--- NOTE | ~2025-01-02 | CT_ITS ---
EXAMINATION: CT brain wo con DATE: 01/02/2025 18:43 INDICATION: fall . TECHNIQUE: Computed tomography (CT) of the head was performed without intravenous contrast. The mA wa s adjusted according to patient size. Iterative reconstruction technique was employed. The dose-lengt h product was 605.33 mGy-cm. COMPARISON: 04/13/2024; MR brain 08/18/2021. FINDINGS: No acute intracranial hemorrhage or extra-axial fluid collection. No hydrocephalus, mass, or herniation. No acute ischemic infarct. Unremarkable dural venous sinus attenuation. No acute osseous abnormality. The aerated spaces are clear. Mild chronic white matter change. Minimal atherosclerotic intracranial calcification. Mild bilateral basal ganglia calcification. IMPRESSION: No acute intracranial process. Reviewed, dictated and finalized at location K.
--- NOTE | ~2025-01-02 | CT_ITS ---
EXAMINATION: CT facial & cervical spine wo DATE: 01/02/2025 18:43 INDICATION: fall TECHNIQUE: Computed tomography (CT) of the maxillofacial region and cervical spine was performed with out intravenous contrast. Automated exposure control and iterative reconstruction technique were empl oyed. The dose-length product was 390.51 mGy-cm. COMPARISON: CT C-spine 04/13/2024 FINDINGS: CERVICAL: Vertebral Body Alignment: Stable minimal multilevel listheses. Craniocervical and atlantoaxial alignment: Minimal degenerative change. Alignment intact. Osseous structures/fracture: No evidence of a lytic or blastic process in the visualized spine. No e vidence of acute fracture. Unfused posterior C1 arch. Cervical soft tissues: The paraspinal soft tissues planes are maintained. Degenerative changes: Degenerative changes, without severe neural foraminal or central canal narrowin g. FACE: Soft Tissues: No significant superficial soft tissue swelling. Facial bones: No acute fracture. No lytic or blastic process. Eyes: The globes are intact. The soft tissue planes of the orbits are maintained. Paranasal Sinuses: Mild inferior maxillary mucosal thickening, the remaining aerated spaces are mansi r. Foreign Bodies: No radiopaque foreign bodies. Other Findings: None. IMPRESSION: No acute fracture or traumatic malalignment in the cervical spine. No acute facial bone fracture. Reviewed, dictated and finalized at location K. IMPRESSION: No acute fracture or traumatic malalignment in the cervical spine. No acute fac ial bone fracture.
--- OUTSIDE RECORDS SUMMARY | 2025-01-02 17:55 | XMS_ITS | Clinical Summary ---
Author Organization [facility] D Address [address] [place] [address] Care Team Providers Care Airplane Mechanic Apprentice Name Role Phone LucillealbanYamile Primary Care Pr [...] on file Legal Sex Female 6:48 AM DIE ASSEMBLER Gender Identity Female 06/03/2020 2:27 PM DIE ASSEMBLER Sexual Orientation Straight 06/03/2020 2: 27 PM DIE ASSEMBLER Obstetrics History Last Filed Vital Signs Vital Sign Reading Time Taken Comments Blood Pressure 144/102 06/04/2020 12:45 PM DIE ASSEMBLER Pulse 92 06/04/2020 12:45 PM DIE ASSEMBLER Temperature 36.8 C (98.2 F) 06/04/2020 12:45 PM DIE ASSEMBLER Respiratory Rate - - Oxygen Saturation - - Inhaled Oxygen Concentration - - Weight 99.8 kg (220 lb) 06/04/2020 12:45 PM DIE ASSEMBLER Height - - Body Mass Index - [...] 5 season) 2024 08/14/2020, 07/17/2020 Influenza Vaccine (Season Ended) 2025 06/15/2016 Pneumococcal vaccine <65 Aged Out No longer eligible based on patient's age to complete this topic Insurance [facility] Address: [facility] [address] [place] [address] [place] [address] [facility]/PPO Address: [address] [facility] H[facility]/PPO Address: [place] [address] Care Teams Airplane Mechanic Apprentice Relationship Specialty Start Date End Date Yamile Avalos PA PCP - General Physician Holistic Specialist 04/23/20
--- OUTSIDE RECORDS SUMMARY | 2025-01-02 17:55 | XMS_ITS | Encounter Summary ---
Author Organization [facility] Address [address] [place] [address] Care Team Providers Care Embossing Calender Operator Name Role Phone Yamile Avalos Primary Care Provider [phone] Encounter Details Date Type Department Care Team (Late st Contact Info) Description 10/26/2017 Abstract [facility] Conversion Ron Harley MD [address] [address] Social History Tobacco Use Types [...] CDT 27 Oct 2017 Heidi Vaca [address] [place] [address] Dear Heidi Vaca, Thank you for the trust you have placed in [facility] as your health care team. [...] hope to hear from you soon. Sincerely, [facility] cc: Patient Medical Record L PICKER documented in this encounter Plan of Treatment Not on file documented as of this encounter Visit Diagnoses Not on filedocumented in this encounter Care Teams Embossing Calender Operator Relationship Specialty Start Date End Date Yamile Avalos PA PCP - General PHYSICIAN CLERICAL ADJUDICATOR 10/04/21 documented as of this encounter
--- OUTSIDE RECORDS SUMMARY | 2025-01-02 17:55 | XMS_ITS | Clinical Summary ---
Author Organization [facility] Address [address] [facility] [place] [address] Care Team Providers Care Drier And Grinder Tender Name Role Phone Unavailable Primary Care Provider Unavailabl e Source Comments [facility] On-Line,non-owned Affiliates and Associated Physician Practices is amultiple site organization consisting of ambulatory clinics and hospital sitesin [place], [place], [place] and [place]. This disclosure is being madepursuant to the Care Everywhere program and may not contain all information available regarding this patient. Last updated 18.[facility]Line Allergies No known active allergies Medications * [...] on file Legal Sex Female 5:35 AM SYSTEM ARCHIVE ANALYST Gender Identity Not on file Sexual Orientation [...] SCREENING 1972 LIPID TESTING 1972 MAMMOGRAM 1972 HIV SCREENING 1987 HEPATITIS C SCREENING 07/02/1990 DTAP/TDAP/TD VACCINES (1 - Tdap) 1991 HEPATITIS B VACCINE (1 of 3 - 19+ 3-dose series) 1991 PNEUMOCOCCAL VACCINE 50+ (1 of 2 - PCV) 1991 PAP SMEAR 1993 ZOSTER VACCINE (1 of 2) 2022 COVID-19 VACCINE (1 - 2023-2 5 season) 2024 DEPRESSION SCREENING 06/15/2024 INFLUENZA VACCINE (#1) 2025 HIB VACCINE Aged Out No longer [...] patient's age to complete this topic Insurance [facility] SELF PAY NO INSURANCE Member Subscriber Plan / Payer (Ef fective for All Dates) Name:Lio Heidi A Member ID:Not on file Relation to Subscriber:Not on file Name:JENNIFER VACAAbdirahman Gonsalves Subscriber ID:Not on file (Home) Address: [address] [place] [address] [place] [address] Payer ID:Not on file Group ID:Not on file Type:Self Pay Address: [facility]
--- OUTSIDE RECORDS SUMMARY | 2025-01-02 17:55 | XMS_ITS | Encounter Summary ---
Author Organization [facility] Address [address] [facility] [place] [address] Care Team Providers Care Vice President Investor Relations Name Role Phone Mickey Zamora MD Primary Care Provider + Encounter Details Date Type Department Care Team (Late st Contact Info) Description 07/16/2013 [facility] Outpatient Visit [facility] [address] [facility] [address] [place], [place] [id number] [place] [address] [facility] [address] [place] [address] Social History Tobacco Use Types Packs/Day Years Used Date Smoking Tobacco: Every Day Cigarettes Smokeless Tobacco: Never Alcohol Use Standard Drinks/Week Comments Yes 0 (1 standard drink = 0.6 oz pur e alcohol) 12 per week Comments Unknown Sex and Gender Information Value Date Recorded Sex Assigned at Not on file Legal Sex Female 5:35 AM DRAFTER COMMERCIAL Gender Identity Not on file Sexual Orientation Not on file 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
--- OUTSIDE RECORDS SUMMARY | 2025-01-02 17:55 | XMS_ITS | Clinical Summary ---
Author Organization [facility] Address [facility] [place] [address] Care Team Providers Care Circus Laborer Name Role Phone Yamile Avalos Primary Care Provider [phone] Allergies No known active allergies Medications ALPRAZolam [...] Comments Blood Pressure 131/88 07/15/2022 2:31 PM INDUSTRIAL PHARMACIST Pulse 77 07/15/2022 2:31 PM INDUSTRIAL PHARMACIST Temperature 36.5 C (97.7 F) 07/15/2022 1:57 PM INDUSTRIAL PHARMACIST Respiratory Rate - - Oxygen Saturation 98% 07/15/2022 1:57 PM INDUSTRIAL PHARMACIST Inhaled Oxygen Concentration - - Weight 100.9 kg (222 lb 8 oz) 07/15/2022 1:57 PM INDUSTRIAL PHARMACIST Height 167.6 cm (5' 6) 07/15/2022 1:57 PM INDUSTRIAL PHARMACIST p t stated Body Mass Index 35.91 07/15/2022 1:57 PM INDUSTRIAL PHARMACIST Plan of Treatment Health Maintenance Due Date [...] - 2023-2 5 season) 2024 08/14/2020, 07/17/2020 Meningococcal B Vaccine Aged Out No l onger eligible based on patient's age to complete this topic Meningococcal Vaccine Aged Out No renata kristopher eligible based on patient's age to complete this topic RSV Immunizations Under 20 Months Aged Out No longer eligible b ased on patient's age to complete this topic Insurance MEDICAID Care Teams Circus Laborer Relationship Specialty Start Date End Date Yamile Avalos PA PCP - General [facility] 10/04/21
--- OUTSIDE RECORDS SUMMARY | 2025-01-02 17:55 | XMS_ITS | Data Portability ---
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 Plan of Treatment Reminders Order Date Submit Date Provider Last Modified By Organization Details Last Modified Time Details Appointments None recorded. Lab BMP, serum or plasma - please run RODDY full multiplex panel 2023 [facility] Outpatient Registration Lab/Ekg, [address], [place], [address], 4 16:50:08 CBC w/ auto diff - please run RODDY full multiplex panel 2023 [facility] Outpatient Registration Lab/Ekg, [address], [place], [address], 4 16:50:39 rf (rheumatoi d factor), serum - please run RODDY full multiplex panel 2023 [facility] Outpatient Registration Lab/Ekg, [address], [place], [address], 4 16:50:49 C-reactive protein, quantitati ve, serum or plasma - please run RODDY full multiplex panel 2023 [facility] Outpatient Registration Lab/Ekg, [address], [place], [address], 4 16:51:36 erythrocyt e sedimentat ion rate by westergren method - please run RODDY full multiplex panel [address] Outpatient Registration Lab/Ekg, [address], [place], [address], 4 11:16:50 RODDY (antinucle ar antibodies ) panel, serum - please run RODDY full multiplex panel 2023 [facility] Outpatient Registration Lab/Ekg, [address], [place], [address], 4 13:48:20 lipase, serum or plasma 2023 024 [facility] Outpatient Registration Lab/Ekg, [address], [place], [address], 4 16:50:25 amylase, serum or plasma 2023 024 [facility] Outpatient Registration Lab/Ekg, [address], [place], [address], 4 16:50:29 smooth muscle Ab, serum - please run smooth muscle antibody not actin. [address] Outpatient Registration Lab/Ekg, [address], [place], [address], 4 14:16:00 hepatic function panel, serum - please run RODDY full multiplex panel 2023 [facility] Outpatient Registration Lab/Ekg, [address], [place], [address], 4 16:51:15 CBC w/ auto diff [address] Outpatient Registration Lab/Ekg, [address], [place], [address], 4 12:51:46 BMP, serum or plasma [address] Outpatient Registration Lab/Ekg, [address], [place], [address], 4 12:51:46 smooth muscle Ab, serum [address] Outpatient Registration Lab/Ekg, [address], [place], [address], 4 11:49:26 mitochondr ial Ab, serum 2023 024 [facility] Outpatient Registration Lab/Ekg, [address], [place], [address], 4 21:37:59 hepatic function panel, serum [address] Outpatient Registration Lab/Ekg, [address], [place], [address], 4 12:51:46 TSH + free T4, serum [address] Outpatient Registration Lab/Ekg, [address], [place], [address], 4 10:58:54 urinalysis , complete 2023 024 [facility] Outpatient Registration Lab/Ekg, [address], [place], [address], 4 09:41:43 culture, urine 2023 024 [facility] Outpatient Registration Lab/Ekg, [address], [place], [address], 4 14:27:01 lipid panel w/ direct LDL, serum 2023 024 [facility] Outpatient Registration Lab/Ekg, [address], [place], [address], 4 23:38:25 CMP, serum or plasma 2023 024 [facility] Outpatient Registration Lab/Ekg, [address] [facility] [address] [address], [place], [address], 4 19:08:15 CBC w/ auto diff 2023 024 [facility] Outpatient Registration Lab/Ekg, [address] [facility] [address], [place], [address], 4 18:13:11 vitamin B12 + folate, serum or blood [address] Outpatient Registration Lab/Ekg, [address] [facility] [address], [place], [address], 4 10:58:54 HbA1c (hemoglobi n A1c), blood [address] Outpatient Registration Lab/Ekg, [address] [facility] [address], [place], [address], 4 10:58:54 Referral None recorded. Procedures None recorded. Surgeries None recorded. Imaging None recorded. Medication Orders None recorded. Patient TargetsNo targets recorded. Patient Instructions Encounter Date Encounter Id Patient Instructions Last Modified By Organization Details Last Modified Time 11/27/2023 [id number] A healthy lifestyle: care instructions [place] [id number] Not available 12/12/2023 11:53:28 Reason for Referral None Reported. Results Created Date Observation Date Name Description Value Unit Range Abnormal Flag Note LastModifiedBy Organization Detail LastModifiedTime 02/12/2002/11/2024 XR, chest , 2 view No observ ation record ed. [address], [place], [address], 02/12/2024 13:58:21 02/12/20 24 02/11/2024 CT, chest + abdom en + pelvi s, w/ contr ast No observ ation record ed. [address], [place], [address], 02/12/2024 13:58:54 02/12/20 24 02/12/2024 US, liver No observ ation record ed. [facility] [address] [facility] [address], [place], [address], 02/12/2024 13:59:10 02/22/2002/20/2024 XR, chest , 2 view No observ ation record ed. [address], [place], [address], 02/22/2024 10:42:10 02/29/20 24 02/12/2024 US, echoc ardio gram No observ ation record ed. BARCODE Not Available 2023 16:03:21 04/02/20 24 04/01/2024 US, renal No observ ation record ed. [address] [facility] [address], [place], [address], 04/04/2024 09:42:37 04/06/2004/06/2024 crystal can cardi olite stres s test (PROC ) No observ ation record ed. [place] [id number] [facility] [address], [place], [address], 04/08/2024 16:34:16 04/15/2004/06/2024 exerc ise stres s test No observ ation record ed. BARCODE Not Available 2023 14:10:32 Result Notes None recorded. Problems Name Problem SNOMED Code Status Onset Date Resolution Date Notes Provider Name and Address Organization Details Recorded Time Benign essential hypertension 4647416 Active 2023 JOSE Ayala Attn: Sd covarrubias,[address], [place], [address], [place] 4 11:52:07 Chronic headache disorder 326022319 Active 2023 JOSE Ayala Attn: Sd covarrubias,[address], [place], [address], [place] 4 11:52:07 Major depressive disorder 886488771 Active 2023 JOSE Ayala Attn: Accountin g,[address] [facility], [place], [address], [place] [facility] 4 11:52:09 Obesity 735012240 Active 2023 JOSE Ayala Attn: Accountin g,[address] [facility], [place], [address], [place] [facility] 4 11:53:29 Body mass index 30+ - obesity 548606926 Active 2023 JOSE Ayala Attn: Accountin g,[address] [facility], [place], [address], [place] [facility] 4 11:53:29 Smooth muscle antibodies detected 554586831 Active 2023 JOSE Ayala Attn: Accountin g,[address] [facility], [place], [address], [place] [facility] 4 20:11:07 Liver enzymes level above reference range 979526346 Active 2023 JOSE Ayala Attn: Accountin g,[address] [facility], [place], [address], [place] [facility] 4 20:11:08 Pain of multiple joints 46824380 Active 2023 JOSE Ayala Attn: Accountin g,[address] [facility], [place], [address], [place] [facility] 4 23:07:59 Acute kidney injury 38724258 Active 2023 JOSE Ayala Attn: Accountin g,[address] [facility], [place], [address], [place] [facility] 4 23:08:44 Blood chemistry outside reference range 899765274 Active 2023 JOSE Ayala Attn: Accountin g,[address] [facility], [place], [address], [place] [facility] 4 23:08:48 Pancreatitis 69768210 Active 2023 JOSE Ayala Attn: Sd covarrubias,[address], [place], [address], [facility] 4 23:08:50 Long-term drug therapy Active 2023 JOSE Ayala Attn: Sd covarrubias,[address], [place], [address], [facility] 4 23:09:02 Problem Notes None recorded. Procedures Surgical History Date Name Laterality Status Provider Name and Address Organization Details Recorded Time drainage of pleural cavity via chest tube completed Larisa Saavedra MA [facility] 11/27/2023 14:45:15 Imaging Results None recorded. Procedure Notes None recorded. Medical Equipment None [...] layed release TAKE 1 TABLET BY MOUTH ONCE DAILY IN THE MORNING active Not Available Not Available No [...] Not Available Not Available Vitals Date Recorded Systolic And Diastolic Provider Name and Address Organization Details Last Updated DateTime 11/27/2023 118/84 mm[Hg] JOSE Ayala Attn: Accounting,[address] [place], [address], [facility] 11/27/2023 15:17:07 Date Recorded Body weight Body mass index (BMI) Body height Heart rate Oxygen saturation Oxygen saturation in Arterial blood by Pulse oximetry Systolic And Diastolic Provider Name and Address Organization Details Last Updated DateTime 4 04157.3 4 g 33.4 kg/m2 167.64 cm 56 /min 98 % 98 % 124/74 mm[Hg] Larisa Saavedra MA [facility] 4 14:47:36 Date Recorded Body temperature Provider Name a de Address Organization Details Last Updated DateTime 02/17/2024 98 [degF] JOSE Ayala Attn: Accounting,[address] [place], [address], [facility] 02/17/2024 15:50:14 Date Recorded Body height Body mass index (BMI) Body weight Respiratory rate Oxygen saturation Oxygen saturation in Arterial blood by Pulse oximetry Heart rate Systolic And Diastolic Provider Name and Address Organization Details Last Updated DateTime 4 167.64 cm 31.2 kg/m2 28569.6 1 g 20 /min 99 % 99 % 94 /min 118/88 mm[Hg] Conrado Lawson MA [facility] 4 15:25:24 Date Recorded Body height Body mass index (BMI) Body weight Respiratory rate Heart rate Oxygen saturation Oxygen saturation in Arterial blood by Pulse oximetry Systolic And Diastolic Provider Name and Address Organization Details Last Updated DateTime 4 167.64 cm 31.8 kg/m2 11294.8 4 g 20 /min 89 /min 99 % 99 % 110/80 mm[Hg] Jamilah Laughlin MA [facility] 4 17:07:42 Social History Question Answer Notes LastModified by Organizat ion Details LastModified Time Tobacco Smoking Status Former Smoker Larisa Saavedra MA null, [facility] 11/27/2023 14:43:48 Do You Have An Advance Directive? No Information n ot available 11/27/2023 How Many Years Have You Consumed Alcohol? 30 Information not available 11/27/2023 Are You Blind Or Do You Have Difficulty Seeing? No Information n ot available 11/27/2023 What Is Your Level Of Caffeine Consumption? Moderate Information not available 11/27/2023 In The 14 Days Before Symptom Onset, Have You Had Close Contact With A Laboratory-confirm ed COVID-19 While That Case Was Ill? No Information n ot available 11/27/2023 In The 14 Days Before Symptom Onset, Have You Had Close Contact With A Person Who Is Under Investigation For COVID-19 While That Person Was Ill? No Information not available 11/27/2023 Have You Been To An Area Known To Be High Risk For COVID-19? No Information not available 11/27/2023 Are You Deaf Or Do You Have Serious Difficulty Hearing? No Information not available 11/27/2023 What Type Of Diet Are You Following? REGULAR Information n ot available 11/27/2023 Are There Any Guns Present [...] PPD Information not available 11/27/2023 Do You Use Sunscreen Routinely? Yes Information not available 11/27/2023 Has Tobacco Cessation Counseling Been Provided? Yes Information not available 11/27/2023 On What Date Was Tobacco Cessation Counseling Provided? 11/27/2023 Information not available 11/27/2023 Sex: Female Functional Status Question Answer Note LastModified by Organizat ion Details LastModified Time Do you use any illicit or recreational drugs? No Information not available 11/27/2023 Do you or have you ever used any other forms of tobacco or nicotine? No Information not available 11/27/2023 What is your level of alcohol consumption? Occasional Information not available 11/27/2023 Are you currently employed? Yes Information not available 11/27/2023 Are you able to care for yourself? 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 None Information not available 11/27/2023 Mental Status Question Answer Note LastModified by Organization D etails LastModified Time Do you feel stressed (tense, restless, nervous, or anxious, or unable to sleep at night)? [id number] Information not available 11/27/2023 Family History Relationship Description Onset Age of [...] History Condition Response High Blood Pressure Y Depression Y Anxiety Disorder Y Headaches Y Kidney or Bladder Problems Y High Cholesterol Y GI Problems Y Gynecological History Statement/Question Response Menses Monthly N If Post Menopausal, Age at Menopause Current Control Method None Obstetrics History GPAL:G 2 P 2 0 0 2 Type Value Full Term 2 Living 2 Total 2 Past Encounters Encounter ID Performer Location Encounter Start Date Encounter Closed Date Diagnosis/Indication Diagnosis SNOMED-CT Code Diagnosis ICD10 Code Diagnosis Note [id number] Mickey Ray MD [facility] [address] [place] [address] 11/27/2023 14:25:31 11/27/2023 15:58:32 Cholesterol screening 231505882 Z13.220 fasting lipids due Diabetes m ellitus screening 118958772 Z13.1 a1c annual screening due Thyroid di sorder screening 677485383 Z13.29 thyroid panel due Long-term drug therapy 784372408 Z79.899 cmp, cbc and b12, folate labs are due Lower urin jody tract symptoms 619106469 R39.9 check ua w/cx Adult heal th examination 876886549 Z00.01 annual wellness completed Benign ess ential hypertension 4656256 I10 stable on lisinopril 40mg daily and coreg 25mg bid. Chronic he adache disorder 791027139 G44.89 currently stable on amitripyli ne 50mg qhs and sumatripta n 50mg as directed. Still having headaches but not the worse they've been. Major depr essive disorder 581804738 F32.9 stable on venlafaxin e 100mg bid Body mass index 30+ - obesity 223590745 Z68.33 discussed healthy diet, exercise, controllin g carbohydra amada and added sugars in the diet Obesity 228529900 E66.8 [id number] Mickey Ray MD [facility] [address] [place] [address] 02/17/2024 15:09:45 02/18/2024 13:27:14 Acute kidney injury 80076705 N17.9 Repeat BMP to assess for creatinine improvemen t post acute kidney injury with hospitaliz ation. Patient has been hydrating well and not using any agents like NSAIDs that would contribute . She is also not taking any diuretic. Liver enzy mes level above reference range 880556416 R74.8 Mild liver enzyme continues with paroxysmal spikes in levels. We will repeat a hepatic function panel Smooth mus temo antibodies detected 621040014 R89.4 Previous smooth muscle antibodies were detected on screening we will repeat these as the lab did not run any smooth muscle antibody. Blood chem istry outside reference range 230749290 R79.9 Repeat CBC to evaluate for improvemen t in blood chemistry Benign ess ential hypertension 3640490 I10 stable on lisinopril 40mg daily and coreg 25mg bid. [id number] Mickey Ray MD [employer] [facility] [address] [place] [address] 03/04/2024 16:47:07 03/07/2024 11:09:52 Acute kidney injury 07652500 N17.9 Repeat BMP to evaluate for creatinine and improvemen t in kidney function and electrolyt es. Liver enzy mes level above reference range 566166663 R74.8 Repeat liver function panel with liver enzymes up and down Smooth mus temo antibodies detected 298851103 R89.4 Check smooth muscle antibody with liver enzymes up and down Blood chem istry outside reference range 533353993 R79.9 Repeat CBC with auto diff Pain of mu ltiple joints 21272688 M25.50 Refer for rheumatoid factor, C-reactive protein, sed rate, and RODDY panel for persistent multiple joint pain Pancreatitis 68684823 K8 5.90 Pancreatit is question questionab le in the hospital. Repeat lipase and amylase Benign ess ential hypertension 7945525 I10 stable on lisinopril 40mg daily and coreg 25mg bid. Major depr essive disorder 918438740 F32.9 stable on venlafaxin e 100mg bid Body mass index 30+ - obesity 046773729 Z68.33 discussed healthy diet, exercise, controllin g carbohydra amada and added sugars in the diet Long-term drug therapy 546804170 Z79.899 Health Concerns Section Related Observation LastModified by Organization Detai ls LastModified Time None Recorded Concern Status LastModified by Organization Details LastModified Time None Recorded Advance Directives Directive N: Payers Insurance Date Sequence Insurance Name Policy Number Policy Nieto Covered Member ID Nieto Member ID Guarantor Name 05/23/2024 1 [facility] [id number] Heidi Vaca [id number] Heidi Vaca Notes Date Note Type Note [...] abdominal pain;frequency JOSE Ayala Attn: Accounting,[address], [place], [address], [facility] 12/12/2023 11:53:50 02/17/2024 text/html Anxiety/Depressi onR eported bypatient.Notes:now taking venlafaxine 100mg bid. stable.Hypertension Reported bypatient.Notes:pt is on coreg 25mg bid, lisinopril 40mg daily. Patient was in the hospital for acute kidney injury, reports have been reviewed. Following up on abnormal labs. JOSE Ayala Attn: Accounting,[address] [facility], [place], [address], [facility] 03/12/2024 20:13:31 03/04/2024 text/html Anxiety/Depressi onR eported bypatient.Notes:now taking venlafaxine 100mg bid. stable.Hypertension Reported bypatient.Notes:pt is on coreg 25mg bid, lisinopril 40mg daily. Patient was in the hospital for acute kidney injury, reports have been reviewed. Following up on abnormal labs. JOSE Ayala Attn: Accounting,[address] [facility], [place], [address], [facility] 03/14/2024 23:09:35 OBGyn Episode No OBEpisode recorded.
--- OUTSIDE RECORDS SUMMARY | 2025-01-02 17:55 | XMS_ITS | Encounter Summary ---
Author Organization [facility] Address [address] [address] Care Team Providers Care Digital Strategy Manager Name Role Phone Mickey Zamora MD Primary Care Provider + Encounter Details Date Type Department Care Team (Late st Contact Info) Description 05/09/2014 Lab Requisition [facility] [address] [place] [address] Unknown, Provider Social History Tobacco Use Types Packs/Day Years Used Date Smoking Tobacco: Every Day Cigarettes Smokeless Tobacco: Never Alcohol Use Standard Drinks/Week Comments Yes 0 (1 standard drink = 0.6 oz pur e alcohol) 12 per week Comments Unknown Sex and Gender Information Value Date Recorded Sex Assigned at Not on file Legal Sex Female 5:35 AM ASSET PROTECTION ASSOCIATE Gender Identity Not on file Sexual Orientation Not on file 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 Not on file Not on file documented as of this encounter Plan of Treatment Not on file documented as of this encounter Procedures Procedure Name Priority Date/Time Associated Diagnosis Comments VARICELLA ZOSTER ANTIBODY IGG Routine 05/09/2014 1:50 PM ASSET PROTECTION ASSOCIATE documented in this encounter Results * VARICELLA ZOSTER ANTIBODY IGG (05/09/2014 1:50 PM ASSET PROTECTION ASSOCIATE) Varicella zoster Virus Antibody IgG 1001.0 IV 05/11/2014 10:41 AM ASSET PROTECTION ASSOCIATE [facility] ([facility]) Comment: INTERPRETIVE INFORMATION: VZV Ab, [...] Unknown Venipuncture / Unknown 05/09/2014 1:50 PM ASSET PROTECTION ASSOCIATE 05/09/2014 5:57 PM ASSET PROTECTION ASSOCIATE us Provider Unknown LAB - CHEMISTRY ORDERABLES Jessie l Result [facility] ([facility]) [address] documented in this encounter Visit Diagnoses Not on filedocumented in this encounter Care Teams Digital Strategy Manager Relationship Specialty Start Date End Date Mickey [place] MD PCP - General Family Medicine 07/06/13 05/16/24 documented as of this encounter
--- OUTSIDE RECORDS SUMMARY | 2025-01-02 17:55 | XMS_ITS | Referral Summary ---
Author Organization [facility] Address [address] [place] [address] Care Team Providers Care Talend Developer Name Role Phone DavidpepeYamile Primary Care Pr [...] on file Legal Sex Female 6:48 AM OIL DISTRIBUTOR TENDER Gender Identity Female 06/03/2020 2:27 PM OIL DISTRIBUTOR TENDER Sexual Orientation Straight 06/03/2020 2: 27 PM OIL DISTRIBUTOR TENDER Last Filed Vital Signs Vital Sign Reading Time Taken Comments Blood Pressure 144/102 06/04/2020 12:45 PM OIL DISTRIBUTOR TENDER Pulse 92 06/04/2020 12:45 PM OIL DISTRIBUTOR TENDER Temperature 36.8 C (98.2 F) 06/04/2020 12:45 PM OIL DISTRIBUTOR TENDER Respiratory Rate - - Oxygen Saturation - - Inhaled Oxygen Concentration - - Weight 99.8 kg (220 lb) 06/04/2020 12:45 PM OIL DISTRIBUTOR TENDER Height - - Body Mass Index - - Plan of Treatment Not on file Insurance [facility] [employer] Address: [place] [id number] [facility] HMO/PPO Address: [address] [place], [place] [id number] [facility] H[facility]/PPO Address: [address] [address] Care Teams Talend Developer Relationship Specialty Start Date End Date Yamile Avalos PA PCP - General Physician Wood Car Builder 04/23/20
--- OUTSIDE RECORDS SUMMARY | 2025-01-02 17:55 | XMS_ITS | Data Portability ---
Author Organization [facility] [place], Main Office Address [address] [place] [address] Assessment No assessment recorded. Plan of Treatment Reminders Order Date Submit Date Provider Last Modified By Organization Details Last Modified Time Details Appointments None recorded. Lab None recorded. Referral None recorded. Procedures None recorded. Surgeries None recorded. Imaging None recorded. Medication Orders venlafaxine 75 mg tablet 2022 023 [email or web address] [id number], [id number], [address], 3 17:18:09 amitriptyli ne 25 mg tablet 2022 023 [email or web address] [id number], [id number], [address], 3 17:18:04 carvedilol 25 mg tablet 2022 023 MIRIAN [id number], [id number], [address], 3 17:03:32 Patient TargetsNo targets recorded. Patient InstructionsNo instructions recorded. Reason for Referral None Reported. Results Created Date Observation Date Name Description Value Unit Range Abnormal Flag Note LastModifiedBy Organization Detail LastModifiedTime 11/29/19 22 10/10/2021 imagi ng/di agnos tic resul t No observ ation record ed. [id number] Not Available 08/13/2022 03:10:20 04/22/20 22 02/05/2022 MRI, cervi matias spine , w/ contr ast No observ ation record ed. [id number] [facility] [address], [place], [address], 08/13/2022 03:10:20 04/23/20 22 02/05/2022 MRI, thora cic spine , w/o contr ast No observ ation record ed. [id number] Not Available 08/13/2022 03:10:20 Result Notes None recorded. Problems Name Problem SNOMED Code Status Onset Date Resolution Date Notes Provider Name and Address Organization Details Recorded Time Knee pain Active Not Available [facility] 3 02:54:46 Benign essential hypertensi on 8425257 Active 2018 Not Available [facility] 3 02:54:46 Insomnia 709342943 Active 2018 Not Available [facility] 3 02:54:46 Generalize d anxiety disorder 22835427 Active 2018 Not Available [facility] 3 02:54:46 Major depressive disorder 032306685 Active 2018 Not Available [facility] 3 02:54:46 Hyperlipid emia 15189857 Active 2019 Not Available [facility] 3 02:54:47 Postconcus caryn syndrome 09961800 Active 2021 Not Available [facility] 3 02:54:46 Dizziness 434966820 Active 2021 Not Available [facility] 3 02:54:47 Daily headache 053133940343 Active 2021 Not Available [facility] 3 02:54:47 Nausea 492714875 Active 2021 Not Available [facility] 3 02:54:47 Mixed anxiety and depressive disorder 099566466 Active 2021 Not Available [facility] 3 02:54:46 Posttrauma tic stress disorder 02376951 Active 2021 Not Available [facility] 3 02:54:47 Migraine 32856567 Active 2021 Not Available [facility] 3 02:54:46 Chronic headache disorder 952014464 Active 2022 JOSE Ayala [address], [place], [address] , [facility] 3 17:01:38 Headache 63660508 Active 2023 JOSE Ayala [address], [place], [address] , [facility] 4 10:18:26 Problem Notes None recorded. 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 Procedure Notes None [...] henidate ER 15 mg capsule,ex tended release [id number] -50 TAKE 1 PILL BY MOUTH QD [...] Available Not Available Vitals Date Recorded Body mass index (BMI) Body height Oxygen saturation Oxygen saturation in Arterial blood by Pulse oximetry Heart rate Respiratory rate Body temperature Body weight Systolic And Diastolic Provider Name and Address Organization Details Last Updated DateTime 2 33.5 kg/m2 170.18 cm 98 % 98 % 91 /min 16 /min 96.3 [degF] 12072.7 7 g 118/70 mm[Hg] Not Available [facility] 3 02:48:37 Date Recorded Body mass index (BMI) Body height Oxygen saturation Oxygen saturation in Arterial blood by Pulse oximetry Heart rate Respiratory rate Body temperature Body weight Systolic And Diastolic Provider Name and Address Organization Details Last Updated DateTime 2 33.5 kg/m2 170.18 cm 98 % 98 % 93 /min 16 /min 97.2 [degF] 30292.7 7 g 128/80 mm[Hg] Not Available [facility] 3 02:48:37 Date Recorded Systolic And Diastolic Systolic And Diastolic Provider Name and Address Organization Details Last Updated DateTime 02/18/2023 130/90 mm[Hg] 130/86 mm[Hg] JOSE Ayala [address], [facility] [address], [place], [address], [facility]s [facility] 02/18/2023 17:01:04 Date Recorded Body height Body temperature Body mass index (BMI) Body weight Respiratory rate Heart rate Systolic And Diastolic Provider Name and Address Organization Details Last Updated DateTime 3 170.18 cm 97.3 [degF] 30.9 kg/m2 44816.7 g 16 /min 80 /min 140/100 mm[Hg] MYNOR Zuniga [facility]rents [facility] 3 16:35:09 Date Recorded Body mass index (BMI) Body height Oxygen saturation Oxygen saturation in Arterial blood by Pulse oximetry Heart rate Respiratory rate Body temperature Body weight Systolic And Diastolic Provider Name and Address Organization Details Last Updated DateTime 2 33.4 kg/m2 170.18 cm 98 % 98 % 90 /min 16 /min 96.8 [degF] 71745.1 7 g 120/80 mm[Hg] Not Available [facility] 3 02:48:38 Date Recorded Body height Oxygen saturation Oxygen saturation in Arterial blood by Pulse oximetry Heart rate Body temperature Body weight Systolic And Diastolic Provider Name and Address Organization Details Last Updated DateTime 2 170.18 cm 97 % 97 % 78 /min 97.1 [degF] 48043.4 g 120/78 mm[Hg] Not Available [facility] 3 02:48:38 Social History Question Answer Notes LastModified by Organizat ion Details LastModified Time Tobacco Smoking Status Former Smoker Quit 02/26/20 Not Available [facility] 08/13/2022 02:37:15 Do You Have An Advance Directive? No [id number].[id number] Information not available 08/13/2022 Do You Wear A Helmet When Biking? No MIGRATION.39026 35517 Information not available 08/13/2022 What Is Your Level Of Caffeine Consumption? Moderate MIGRATION.66410 65615 Information not available 08/13/2022 How Much Tobacco Do You Chew? None MIGRATION.49798 82122 Information not available 08/13/2022 In The 14 Days Before Symptom Onset, Have You Had Close Contact With A Laboratory-confi rmed COVID-19 While That Case Was Ill? No MIGRATION.71201 84409 Information not available 08/13/2022 In The 14 Days Before Symptom Onset, Have You Had Close Contact With A Person Who Is Under Investigation For COVID-19 While That Person Was Ill? No MIGRATION.56031 09663 Information not available 08/13/2022 What Type Of Diet Are You Following? REGULAR MIGRATION.17369 64888 Information not available 08/13/2022 Which Illicit Or Recreational Drugs Have You Used? None MIGRATION.82138 14271 Information not available 08/13/2022 What Is The Highest Grade Or Level Of School You Have Completed Or The Highest Degree You Have Received? [id number] MIGRATION.59544 78989 Information not available 08/13/2022 Have There Been Any Changes To Your Family Or Social Situation? No MIGRATION.56523 83251 Information not available 08/13/2022 Are There Any Guns Present In Your Home? Yes MIGRATION.68696 56760 Information not available 08/13/2022 Do You Use Insect Repellent Routinely? No MIGRATION.34167 60446 Information not available 08/13/2022 Where Do You Live? [place] MIGRATION.35248 97771 Information not available 08/13/2022 Do You Have A Medical Power Of Heavy Duty Custodian? No MIGRATION.46129 72493 Information not available 08/13/2022 Do You Have Any Pets? No MIGRATION.72705 77965 Information not available 08/13/2022 What Is Your Relationship Status? MIGRATION.79034 65713 Information not available 08/13/2022 Do You Use Your Seat Belt Or Car Seat Routinely? Yes MIGRATION.19304 33135 Information not available 08/13/2022 Do You Have Smoke And Carbon Monoxide Detectors In Your Home? Yes MIGRATION.43107 79423 Information not available 08/13/2022 Are You Passively Exposed To Smoke? No MIGRATION.52672 65042 Information not available 08/13/2022 Are There Any Smokers In Your House? No MIGRATION.26818 89544 Information not available 08/13/2022 How Much Tobacco Do You Smoke? 0.5 PPD MIGRATION.18877 82188 Information not available 08/13/2022 Do You Use Sunscreen Routinely? No MIGRATION.13880 80155 Information not available 08/13/2022 Have You Recently Traveled Abroad? No MIGRATION.71905 47124 Information not available 08/13/2022 Do You Have Any Dietary Restrictions? No MIGRATION.26142 07840 Information not available 08/13/2022 Sex: Unknown Functional Status Question Answer Note LastModified by [employer] Details LastModified Time Do you use any illicit or recreational drugs? No MIGRATION.640192 1388 Information not available 08/13/2022 Do you or have you ever used any other forms of tobacco or nicotine? No MIGRATION.770693 6153 Information not available 08/13/2022 What is your level of alcohol consumption? Occasional MIGRATION.091110 0444 Information not available 08/13/2022 Do you or have you ever used smokeless tobacco? Never used smokeless tobacco MIGRATION.220602 6605 Information not available 08/13/2022 Are you currently employed? 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 Never used electronic cigarettes MIGRATION.198447 8805 Information not available 08/13/2022 What is your exercise level? Occasional MIGRATION.605740 2293 Information not available 08/13/2022 Mental Status Question Answer Note LastModified by [employer] Details LastModified Time Do you feel stressed (tense, restless, nervous, or anxious, or unable to sleep at night)? [id number] MIGRATION.[id number] 6 Information not available 08/13/2022 Family History Relationship Description Onset Age of this Age Resolved Age Notes LastModified by Organization Details LastModified Time Mother Hypertensive disorder [id number].699 [id number] Not available 08/13/2022 02:45:28 Mother Parkinson's disease MIGRATION.449 [id number] Not available 08/13/2022 02:45:28 Father Hypertensive disorder MIGRATION.906 [id number] Not available 08/13/2022 02:45:28 Father Alcoholism MIGRATION.437 [id number] Not available 08/13/2022 02:45:28 Medical History Condition [...] virus, quadrivalent, preservative 7 completed Not Available [facility] 08/13/2022 03:09:18 Past Encounters Encounter ID Performer Location Encounter Start Date Encounter Closed Date Diagnosis/Indication Diagnosis SNOMED-CT Code Diagnosis ICD10 Code Diagnosis Note [id number] JOSE Ayala [facility] [address] [place] [address] 10/11/2020 00:00:00 10/11/2020 18:42:30 [id number] JOSE Ayala [facility] [address] [place] [address] 11/27/2020 00:00:00 12/12/2020 18:03:53 [id number] JOSE Ayala [facility] [address] [place] [address] 12/10/2020 00:00:00 12/10/2020 21:12:24 [id number] JOSE Ayala [facility] [address] [place] [address] 04/30/2021 00:00:00 05/05/2021 10:26:17 [id number] JOSE Ayala [facility] [address] [place] [address] 08/19/2021 00:00:00 09/12/2021 17:11:13 [id number] JOSE Ayala [facility] [address] [place] [address] 09/12/2021 00:00:00 09/12/2021 13:41:07 [id number] Mickey Ray MD [facility] [address] [place] [address] 11/04/2021 00:00:00 11/11/2021 17:54:15 [id number] Mickey Ray MD [facility] [address] [place] [address] 11/27/2021 00:00:00 12/12/2021 14:13:47 [id number] JOSE Ayala [facility] [address] [place] [address] 04/01/2022 00:00:00 04/12/2022 20:43:24 [id number] JOSE Ayala [facility] [address] [place] [address] 04/23/2022 00:00:00 05/14/2022 21:23:11 [id number] JOSE Ayala [facility] [address] [place] [address] 02/18/2023 16:01:43 02/18/2023 17:07:07 Benign essential hypertension 6062405 I10 Rx for coreg 25mg bid. Chronic he adache disorder 954010205 G44.89 refill amitriptyl ine 25mg qhs Major depr essive disorder 485560963 F32.9 Refill effexor 75mg bid Health Concerns Section Related Observation LastModified by Organization Detai ls LastModified Time None Recorded Concern Status LastModified by Organization Details LastModified Time None Recorded Advance Directives Directive N: Payers Insurance Date Sequence Insurance Name Policy Number Policy Nieto Covered Member ID Nieto Member ID Guarantor Name 02/17/2023 1 *SELF PAY* Sabiha Vaca 02/17/2023 1 [facility] [id number] Heidi Vaca [id number] Heidi Vaca Notes Date Note Type Note Provider Name and Address Organization Details Recorded Time 022 text/ht ml Anxiety/DepressionReported bypatient.Quality:symptoms worse in the [...] in exercise capacity; no snoring;fatigue Not Available [facility] 11/11/2021 17:54:15 022 text/ht ml Generic HPI TemplateReported bypatient.Notes:Pt is here to f/u on her concussion bc she is ready to go back to work. She says she is feeling better. Dizziness has subsided. Excellent results in the last 3 weeks with [facility] [place] and continued upper cervical caretaker resort with Dr. Tez العلي. She is relieved to finally have reached improvement. Not Available [facility] 12/12/2021 14:13:47 022 text/ht ml Generic HPI [...] debilitating, but it is present. Not Available [facility] 04/12/2022 20:43:24 022 text/ht ml Generic HPI [...] weeks with [facility] at [facility] [place] and continued upper cervical caretaker resort with Dr. Tez العلي. She is relieved to finally have reached improvement. Not Available [facility] 05/14/2022 21:23:11 023 text/ht ml HeadacheReported bypatient.Location:bilateral; [...] medication; checks blood pressure at home (range [id number]) JOSE Ayala [address] [facility] [address], [place], [address], [facility] 03/11/2023 23:49:07 OBGyn Episode No OBEpisode recorded.
[2025-01-02 17:58] VITALS: BP 135/93; PULSE 92; RESP 18; TEMP 36.4; O2SAT 100
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
--- OUTSIDE RECORDS SUMMARY | 2025-01-02 19:09 | XMS_ITS | Clinical Summary ---
Author Organization [facility] Address [address] [place] [address] Care Team Providers Care Patient Relations Director Name Role Phone Unavailable Primary Care Provider Unavailabl e Source Comments [facility],non-owned Affiliates and Associated Physician Practices is amultiple site organization consisting of ambulatory clinics and hospital sitesin [place], [place], [place] and [place]. This disclosure is being madepursuant to the Care Everywhere program and may not contain all information available regarding this patient. 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
--- OUTSIDE RECORDS SUMMARY | 2025-01-02 19:09 | XMS_ITS | Encounter Summary ---
Author Organization [facility] Address [address] [place] [address] Care Team Providers Care Shingle Bolt Cutter Name Role Phone Yamile Avalos Primary Care Provider [phone] Encounter Details Date Type Department Care Team (Late st Contact Info) Description 10/26/2017 Abstract [facility] Conversion Ron Harley MD [address] [address] Social History Tobacco Use Types [...] CDT 27 Oct 2017 Heidi Vaca [address] [place] [address] Dear Heidi Vaca, Thank you for the trust you have placed in [facility] as your health care team. You [...] hope to hear from you soon. Sincerely, [facility] cc: Patient Medical Record [employer] ASSOCIATE documented in this encounter Plan of Treatment Not on file documented as of this encounter Visit Diagnoses Not on filedocumented in this encounter Care Teams Shingle Bolt Cutter Relationship Specialty Start Date End Date Yamile Avalos PA PCP - General PHYSICIAN CHEMICAL LABORATORY SCIENTIST 10/04/21 documented as of this encounter
--- OUTSIDE RECORDS SUMMARY | 2025-01-02 19:09 | XMS_ITS | Encounter Summary ---
Author Organization [facility] Health Address [address] [facility] [place] [address] Care Team Providers Care Lay Out Machine Operator Name Role Phone Mickey Zamora MD Primary Care Provider + Encounter Details Date Type Department Care Team (Late st Contact Info) Description 07/16/2013 [facility] Outpatient Visit [facility] [address] [facility] [address] [place], [place] [id number] [place] [address] [facility] [address] [place] [address] Social History Tobacco Use Types Packs/Day Years Used Date Smoking Tobacco: Every Day Cigarettes Smokeless Tobacco: Never Alcohol Use Standard Drinks/Week Comments Yes 0 (1 standard drink = 0.6 oz pur e alcohol) 12 per week Comments Unknown Sex and Gender Information Value Date Recorded Sex Assigned at Not on file 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
--- OUTSIDE RECORDS SUMMARY | 2025-01-02 19:09 | XMS_ITS | Referral Summary ---
Author Organization [facility] D Address [address] [place] [address] Care Team Providers Care Tool And Die Repairer Name Role Phone DavidpepeYamile Primary Care Pr [...] on file Legal Sex Female 6:48 AM BAR HOSTESS Gender Identity Female 06/03/2020 2:27 PM BAR HOSTESS Sexual Orientation Straight 06/03/2020 2: 27 PM BAR HOSTESS Last Filed Vital Signs Vital Sign Reading Time Taken Comments Blood Pressure 144/102 06/04/2020 12:45 PM BAR HOSTESS Pulse 92 06/04/2020 12:45 PM BAR HOSTESS Temperature 36.8 C (98.2 F) 06/04/2020 12:45 PM BAR HOSTESS Respiratory Rate - - Oxygen Saturation - - Inhaled Oxygen Concentration - - Weight 99.8 kg (220 lb) 06/04/2020 12:45 PM BAR HOSTESS Height - - Body Mass Index - - Plan of Treatment Not on file Insurance [facility] Member Subscriber Plan / Payer (Ef fective 2018-Present) Name:Heidi Vaca Relation to Subscriber:Self Name:Heidi Vaca Payer ID:[id number] (NAIC) Type:[facility] [employer]ruO/PPO Address: [place] [id number] [facility] Care Teams Tool And Die Repairer Relationship Specialty Start Date End Date Yamile Avalos PA PCP - General Physician Warehouse Shift Supervisor 04/23/20
--- OUTSIDE RECORDS SUMMARY | 2025-01-02 19:09 | XMS_ITS | Clinical Summary ---
Author Organization [facility] D Address [address] [place] [address] Care Team Providers Care Professor Of Surgery Name Role Phone LucillealbanYamile Primary Care Pr [...] on file Legal Sex Female 6:48 AM BLADE FILER Gender Identity Female 06/03/2020 2:27 PM BLADE FILER Sexual Orientation Straight 06/03/2020 2: 27 PM BLADE FILER Obstetrics History Last Filed Vital Signs Vital Sign Reading Time Taken Comments Blood Pressure 144/102 06/04/2020 12:45 PM BLADE FILER Pulse 92 06/04/2020 12:45 PM BLADE FILER Temperature 36.8 C (98.2 F) 06/04/2020 12:45 PM BLADE FILER Respiratory Rate - - Oxygen Saturation - - Inhaled Oxygen Concentration - - Weight 99.8 kg (220 lb) 06/04/2020 12:45 PM BLADE FILER Height - - Body Mass Index - [...] patient's age to complete this topic Insurance [facility] [place] [address] [facility] Member Subscriber Plan / Payer (Ef fective 2018-Present) Name:Jennifer Vacapepe Gonsalves Relation to Subscriber:Self Name:Heidi Vaca Payer ID:[id number] (NAIC) Type:[facility] HMO/PPO Address: [address] [facility] Care Teams Professor Of Surgery Relationship Specialty Start Date End Date Yamile Avalos PA PCP - General Physician Environmental Health Manager 04/23/20
--- OUTSIDE RECORDS SUMMARY | 2025-01-02 19:09 | XMS_ITS | Encounter Summary ---
Author Organization [facility] Address [address] [facility] [place] [address] Care Team Providers Care Actuarial Technician Name Role Phone Mickey Zamora MD Primary Care Provider + Encounter Details Date Type Department Care Team (Late st Contact Info) Description 05/09/2014 Lab Requisition [facility] [address] [place] [address] Unknown, Provider Social History Tobacco Use Types Packs/Day Years Used Date Smoking Tobacco: Every Day Cigarettes Smokeless Tobacco: Never Alcohol Use Standard Drinks/Week Comments Yes 0 (1 standard drink = 0.6 oz pur e alcohol) 12 per week Comments Unknown Sex and Gender Information Value Date Recorded Sex Assigned at Not on file Legal Sex Female 5:35 AM CAUL DRESSER Gender Identity Not on file Sexual Orientation Not on file 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 Not on file Not on file documented as of this encounter Plan of Treatment Not on file documented as of this encounter Procedures Procedure Name Priority Date/Time Associated Diagnosis Comments VARICELLA ZOSTER ANTIBODY IGG Routine 05/09/2014 1:50 PM CAUL DRESSER documented in this encounter Results * VARICELLA ZOSTER ANTIBODY IGG (05/09/2014 1:50 PM CAUL DRESSER) Varicella zoster Virus Antibody IgG 1001.0 IV 05/11/2014 10:41 AM CAUL DRESSER [facility] ([facility]) Comment: INTERPRETIVE INFORMATION: VZV Ab, IgG 134 [...] Unknown Venipuncture / Unknown 05/09/2014 1:50 PM CAUL DRESSER 05/09/2014 5:57 PM CAUL DRESSER us Provider Unknown LAB - CHEMISTRY ORDERABLES Jessie l Result [facility] ([facility]) [address] documented in this encounter Visit Diagnoses Not on filedocumented in this encounter Care Teams Actuarial Technician Relationship Specialty Start Date End Date Mickey Zamora MD PCP - General Family Medicine 07/06/13 05/16/24 documented as of this encounter
--- OUTSIDE RECORDS SUMMARY | 2025-01-02 19:09 | XMS_ITS | Clinical Summary ---
Author Organization [facility] Address [facility] [place] [address] Care Team Providers Care Singer Songwriter Name Role Phone Yamile Avalos Primary Care Provider [phone] Allergies No known active allergies Medications ALPRAZolam [...] Comments Blood Pressure 131/88 07/15/2022 2:31 PM DUDE RANCH MANAGER Pulse 77 07/15/2022 2:31 PM DUDE RANCH MANAGER Temperature 36.5 C (97.7 F) 07/15/2022 1:57 PM DUDE RANCH MANAGER Respiratory Rate - - Oxygen Saturation 98% 07/15/2022 1:57 PM DUDE RANCH MANAGER Inhaled Oxygen Concentration - - Weight 100.9 kg (222 lb 8 oz) 07/15/2022 1:57 PM DUDE RANCH MANAGER Height 167.6 cm (5' 6) 07/15/2022 1:57 PM DUDE RANCH MANAGER p t stated Body Mass Index 35.91 07/15/2022 1:57 PM DUDE RANCH MANAGER Plan of Treatment Health Maintenance Due Date [...] complete this topic Insurance MEDICAID Care Teams Singer Songwriter Relationship Specialty Start Date End Date Yamile Avalos PA PCP - General PHYSICIAN [employer]CHO[employer] SPANISH TEACHER 10/04/21
[2025-01-02] MEDS: IBUPROFEN 600 MG TABLET PO (19:14)
[2025-01-02 20:07] VITALS: BP 132/78; PULSE 68; RESP 13; O2SAT 100
== END 2025-01-02 20:08 | disposition home or self-care (01) ==
PROVIDERS: Emergency Provider Physician Assistant; PCP Nurse Practitioner Family
DX: S09.90XA Unspecified injury of head, initial encounter (principal); F41.9 Anxiety disorder, unspecified; F32.A Depression, unspecified; E78.5 Hyperlipidemia, unspecified; M19.90 Unspecified osteoarthritis, unspecified site; G89.29 Other chronic pain; N28.9 Disorder of kidney and ureter, unspecified; W01.0XXA Fall on same level from slipping, tripping and stumbling without subsequent striking against object, initial encounter
CPT/HCPCS: 70450; 70486; 72125; 73030; 99284; A9270

== ENCOUNTER 2025-01-30 17:40 | Outpatient (CLI) | payer OTHER, SELFPAY ==
--- OUTSIDE RECORDS SUMMARY | 2025-01-30 17:44 | XMS_ITS | Encounter Summary ---
Author Organization [facility] Address [address] [facility] [address] Care Team Providers Care Glass Forming Crew Member Name Role Phone Mickey Zamora MD Primary Care Provider + Encounter Details Date Type Department Care Team (Late st Contact Info) Description 05/09/2014 Lab Requisition [facility] [address] [place] [address] Unknown, Provider Social History Tobacco Use Types Packs/Day Years Used Date Smoking Tobacco: Every Day Cigarettes Smokeless Tobacco: Never Alcohol Use Standard Drinks/Week Comments Yes 0 (1 standard drink = 0.6 oz pur e alcohol) 12 per week Comments Unknown Sex and Gender Information Value Date Recorded Sex Assigned at Not on file Legal Sex Female 5:35 AM STORE ADMINISTRATOR Gender Identity Not on file Sexual Orientation Not on file 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 Not on file Not on file documented as of this encounter Plan of Treatment Not on file documented as of this encounter Procedures Procedure Name Priority Date/Time Associated Diagnosis Comments VARICELLA ZOSTER ANTIBODY IGG Routine 05/09/2014 1:50 PM STORE ADMINISTRATOR documented in this encounter Results * VARICELLA ZOSTER ANTIBODY IGG (05/09/2014 1:50 PM STORE ADMINISTRATOR) Varicella zoster Virus Antibody IgG 1001.0 IV 05/11/2014 10:41 AM STORE ADMINISTRATOR [facility] ([facility]) Comment: INTERPRETIVE INFORMATION: VZV Ab, IgG 134 [...] Unknown Venipuncture / Unknown 05/09/2014 1:50 PM STORE ADMINISTRATOR 05/09/2014 5:57 PM STORE ADMINISTRATOR us Provider Unknown LAB - CHEMISTRY ORDERABLES Jessie l Result [facility] ([facility]) [address] documented in this encounter Visit Diagnoses Not on filedocumented in this encounter Care Teams Glass Forming Crew Member Relationship Specialty Start Date End Date Mickey Zamora MD PCP - General Family Medicine 07/06/13 05/16/24 documented as of this encounter
--- OUTSIDE RECORDS SUMMARY | 2025-01-30 17:44 | XMS_ITS | Encounter Summary ---
Author Organization [facility] Health Address [address] [place] [address] Care Team Providers Care Horse Doctor Name Role Phone Mickey Zamora MD Primary Care Provider + Encounter Details Date Type Department Care Team (Late st Contact Info) Description 07/16/2013 [facility] Outpatient Visit [facility] [address] [facility] [address] [place], [place] [id number] [place] [address] 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
--- OUTSIDE RECORDS SUMMARY | 2025-01-30 17:44 | XMS_ITS | Clinical Summary ---
Author Organization [facility] Address [address] [place] [address] Care Team Providers Care Evidence Specialist Name Role Phone Unavailable Primary Care Provider Unavailabl e Source Comments [facility],non-owned Affiliates and Associated Physician Practices is amultiple site organization consisting of ambulatory clinics and hospital sitesin [place], [place], [place] and [place]. This disclosure is being madepursuant to the Care Everywhere program and may not contain all information available regarding this patient. Last updated 18.[facility] Allergies No known active allergies Medications * [...] on file Legal Sex Female 5:35 AM INDUSTRIAL ILLUMINATING ENGINEER Gender Identity Not on file Sexual Orientation [...] patient's age to complete this topic Insurance [facility] SELF PAY NO INSURANCE Member Subscriber Plan / Payer (Ef fective for All Dates) Name:Lio Heidi A Member ID:Not on file Relation to Subscriber:Not on file Name:JENNIFER VACAAbdirahman Gonsalves Subscriber ID:Not on file (Home) Address: [address] [place] [address] [place] [address] Payer ID:Not on file Group ID:Not on file Type:Self Pay Address: [facility]
--- OUTSIDE RECORDS SUMMARY | 2025-01-30 17:45 | XMS_ITS | Clinical Summary ---
Author Organization [facility] D Address [address] [place] [address] Care Team Providers Care Audioprosthologist Name Role Phone LucillealbanYamile Primary Care Pr [...] on file Legal Sex Female 6:48 AM MARINE PHOTOGRAPHER Gender Identity Female 06/03/2020 2:27 PM MARINE PHOTOGRAPHER Sexual Orientation Straight 06/03/2020 2: 27 PM MARINE PHOTOGRAPHER Obstetrics History Last Filed Vital Signs Vital Sign Reading Time Taken Comments Blood Pressure 144/102 06/04/2020 12:45 PM MARINE PHOTOGRAPHER Pulse 92 06/04/2020 12:45 PM MARINE PHOTOGRAPHER Temperature 36.8 C (98.2 F) 06/04/2020 12:45 PM MARINE PHOTOGRAPHER Respiratory Rate - - Oxygen Saturation - - Inhaled Oxygen Concentration - - Weight 99.8 kg (220 lb) 06/04/2020 12:45 PM MARINE PHOTOGRAPHER Height - - Body Mass Index - [...] season) 2024 08/14/2020, 07/17/2020 Influenza Vaccine (#1) 2025 06/15/2016 Pneumococcal vaccine <65 Aged Out No longer eligible based on patient's age to complete this topic Insurance [facility] [place] [address] [facility] Member Subscriber Plan / Payer (Ef fective 2018-Present) Name:Jennifer Vacapepe Gonsalves Relation to Subscriber:Self Name:Heidi Vaca Payer ID:[id number] (NAIC) Type:[facility] HMO/PPO Address: [address] [facility] Care Teams Audioprosthologist Relationship Specialty Start Date End Date Yamile Avalos PA PCP - General Physician Basin Cleaner 04/23/20
--- OUTSIDE RECORDS SUMMARY | 2025-01-30 17:45 | XMS_ITS | Clinical Summary ---
Author Organization [facility] Address [facility] [place] [address] Care Team Providers Care Placement Secretary Name Role Phone Yamile Avalos Primary Care Provider [phone] Allergies No known active allergies Medications ALPRAZolam [...] Comments Blood Pressure 131/88 07/15/2022 2:31 PM BARREL COATER Pulse 77 07/15/2022 2:31 PM BARREL COATER Temperature 36.5 C (97.7 F) 07/15/2022 1:57 PM BARREL COATER Respiratory Rate - - Oxygen Saturation 98% 07/15/2022 1:57 PM BARREL COATER Inhaled Oxygen Concentration - - Weight 100.9 kg (222 lb 8 oz) 07/15/2022 1:57 PM BARREL COATER Height 167.6 cm (5' 6) 07/15/2022 1:57 PM BARREL COATER p t stated Body Mass Index 35.91 07/15/2022 1:57 PM BARREL COATER Plan of Treatment Health Maintenance Due Date [...] complete this topic Insurance MEDICAID Care Teams Placement Secretary Relationship Specialty Start Date End Date Yamile Avalos PA PCP - General PHYSICIAN HOME STEREO EQUIPMENT INSTALLER 10/04/21
--- OUTSIDE RECORDS SUMMARY | 2025-01-30 17:45 | XMS_ITS | Encounter Summary ---
Author Organization [facility] Address [address] [place] [address] Care Team Providers Care Management Aide Name Role Phone Yamile Avalos Primary Care Provider [phone] Encounter Details Date Type Department Care Team (Late st Contact Info) Description 10/26/2017 Abstract [facility] Conversion Ron Harley MD [address] [address] Social History Tobacco Use Types [...] CDT 27 Oct 2017 Heidi Vaca [address] [place] [address] Dear Heidi Vaca, Thank you for the trust you have placed in [facility] as your health care team. You [...] hope to hear from you soon. Sincerely, [facility] cc: Patient Medical Record OSITE WORKER documented in this encounter Plan of Treatment Not on file documented as of this encounter Visit Diagnoses Not on filedocumented in this encounter Care Teams Management Aide Relationship Specialty Start Date End Date Yamile Avalos PA PCP - General PHYSICIAN TELESALES SPECIALIST 10/04/21 documented as of this encounter
[2025-01-30 18:20] LABS: Hematocrit 37.8 % (37.0-47.0); Hemoglobin 12.3 g/dL (12.0-15.0); Mean Corpuscular HGB Conc 32.5 g/dl (32-36); Mean Corpuscular Hemoglobin 29.7 pg (26-34); Mean Corpuscular Volume 91.3 fl (80-100); Platelet Count Result 274 k/mm3 (150-375); Red Blood Count 4.14 M/mm3 (4.2-5.4); White Blood Count 5.5 K/mm3 (4.5-10.0)
[2025-01-30 18:29] LABS: Alanine Aminotransferase 21 U/L (6-35); Albumin Level 4.2 g/dL (3.5-5.1); Alkaline Phosphatase 77 U/L (38-126); Anion Gap 8 mmol/L (4-12); Aspartate Amino Transferase 42 U/L (14-36); Bilirubin,Total 0.4 mg/dL (0.2-1.3); Blood Urea Nitrogen 15 mg/dL (7-17); Calcium 9.7 mg/dL (8.4-10.2); Carbon Dioxide 26 mmol/L (22-30); Chloride 108 mmol/L (98-107); Cholesterol 259 mg/dL (0-200); Estimated Glomerular Filt Rate 51; Glucose 67 mg/dL (65-110); HDL Direct 100 mg/dL; Potassium 3.6 mmol/L (3.4-5.0); Sodium 142 mmol/L (137-145); Total Protein 7.0 g/dL (6.3-8.2); Triglycerides 87 mg/dL (<150)
[2025-01-30 18:45] LABS: Iron 84 ug/dL (37-170)
[2025-01-30 19:05] LABS: Thyroid Stimulating Hormone 1.140 uIU/mL (0.465-4.680)
[2025-01-30 19:10] LABS: Free T4 Free Thyroxine 0.86 ng/dL (0.78-2.19)
[2025-01-30 19:29] LABS: Ferritin 41.20 ng/mL (11.1-264)
[2025-01-30 19:40] LABS: Vitamin B12 377.0 pg/mL (239-931)
[2025-02-09 14:08] LABS: Interpretation Comment: (.)
== END 2025-01-30 17:41 | disposition home or self-care (01) ==
LOC: ANHLAB 17:42
PROVIDERS: PCP Nurse Practitioner Family; Visit Provider Advanced Practice Midwife
DX: F39 Unspecified mood [affective] disorder (principal)
CPT/HCPCS: 36415; 80053; 80061; 82139; 82306; 82607; 82728; 82746; 83090; 83540; 84439; 84443; 85027

== ENCOUNTER 2025-04-04 15:15 | Outpatient (CLI) | payer OTHER, SELFPAY ==
[2025-04-04 16:53] LABS: Alanine Aminotransferase 13 U/L (6-35); Albumin Level 4.5 g/dL (3.5-5.1); Alkaline Phosphatase 78 U/L (38-126); Anion Gap 9 mmol/L (4-12); Aspartate Amino Transferase 31 U/L (14-36); Bilirubin,Total 0.5 mg/dL (0.2-1.3); Blood Urea Nitrogen 15 mg/dL (7-17); Calcium 9.8 mg/dL (8.4-10.2); Carbon Dioxide 22 mmol/L (22-30); Chloride 106 mmol/L (98-107); Estimated Glomerular Filt Rate 51; Glucose 74 mg/dL (65-110); Potassium 4.0 mmol/L (3.4-5.0); Sodium 137 mmol/L (137-145); Total Protein 7.4 g/dL (6.3-8.2)
--- OUTSIDE RECORDS SUMMARY | 2025-04-04 19:03 | XMS_ITS | Clinical Summary ---
Author Organization [facility] Address [address] [place] [address] Care Team Providers Care Disabilities Services Officer Name Role Phone Yamile Avalos Primary Care Provider [phone] Allergies No known active allergies Medications ALPRAZolam [...] Comments Blood Pressure 131/88 07/15/2022 2:31 PM HELMET HAT SWEATBAND PUNCHER Pulse 77 07/15/2022 2:31 PM HELMET HAT SWEATBAND PUNCHER Temperature 36.5 C (97.7 F) 07/15/2022 1:57 PM HELMET HAT SWEATBAND PUNCHER Respiratory Rate - - Oxygen Saturation 98% 07/15/2022 1:57 PM HELMET HAT SWEATBAND PUNCHER Inhaled Oxygen Concentration - - Weight 100.9 kg (222 lb 8 oz) 07/15/2022 1:57 PM HELMET HAT SWEATBAND PUNCHER Height 167.6 cm (5' 6) 07/15/2022 1:57 PM HELMET HAT SWEATBAND PUNCHER p t stated Body Mass Index 35.91 07/15/2022 1:57 PM HELMET HAT SWEATBAND PUNCHER Plan of Treatment Health Maintenance Due Date [...] of 2) 2022 COVID-19 Vaccine (3 - 2024-2 6 season) 2025 08/14/2020, 07/17/2020 Influenza Adult (#1) 2025 06/15/2016 Hepatitis A Vaccines Aged Out No long er eligible based on patient's age to complete this topic Meningococcal B Vaccine Aged Out No l onger eligible based on patient's age to complete this topic Meningococcal Vaccine Aged Out No renata kristopher eligible based on patient's age to complete this topic RSV Immunizations Under 20 Months Aged Out No longer eligible b ased on patient's age to complete this topic Insurance MEDICA[place] [address] Care Teams Disabilities Services Officer Relationship Specialty Start Date End Date Yamile Avalos PA PCP - General PHYSICIAN ENTRY LEVEL PROJECT ENGINEER 10/04/21
--- OUTSIDE RECORDS SUMMARY | 2025-04-04 19:03 | XMS_ITS | Data Portability ---
Author Organization [facility] JOHANADavi Address [address] [place] [place] [address] Care Team Providers Care Investigation Clerk Name Role Phone RADHA QUEVEDO Primary Care Provider Assessment No assessment recorded. Plan of Treatment Reminders Order Date Submit Date Provider Last Modified By Organization Details Last Modified Time Details Appointments None recorded. Lab BMP, serum or plasma - please run RODDY full multiplex panel [address] [facility] Outpatient Registration Lab/Ekg, [address], [place], [address], 4 16:50:08 CBC w/ auto diff - please run RODDY full multiplex panel 2023 [facility] Outpatient Registration Lab/Ekg, [address], [place], [address], 4 16:50:39 rf (rheumatoi d factor), serum - please run RODDY full multiplex panel 2023 [facility] Outpatient Registration Lab/Ekg, [address], [place], [address], 4 16:50:49 C-reactive protein, quantitati ve, serum or plasma - please run RODDY full multiplex panel 2023 [facility] Outpatient Registration Lab/Ekg, [address], [place], [address], 4 16:51:36 erythrocyt e sedimentat ion rate by westergren method - please run RODDY full multiplex panel [address] Outpatient Registration Lab/Ekg, [address], [place], [address], 4 11:16:50 RODDY (antinucle ar antibodies ) panel, serum - please run RODDY full multiplex panel [address] [facility] Outpatient Registration Lab/Ekg, [address], [place], [address], 4 13:48:20 lipase, serum or plasma 2023 024 [facility] Outpatient Registration Lab/Ekg, [address], [place], [address], 4 16:50:25 amylase, serum or plasma 2023 024 [facility] Outpatient Registration Lab/Ekg, [address], [place], [address], 4 16:50:29 smooth muscle Ab, serum - please run smooth muscle antibody not actin. [address] Outpatient Registration Lab/Ekg, [address], [place], [address], 4 14:16:00 hepatic function panel, serum - please run RODDY full multiplex panel 2023 [facility] Outpatient Registration Lab/Ekg, [address], [place], [address], 4 16:51:15 CBC w/ auto diff [address] Outpatient Registration Lab/Ekg, [address], [place], [address], 4 12:51:46 BMP, serum or plasma [address] Outpatient Registration Lab/Ekg, [address], [place], [address], 4 12:51:46 smooth muscle Ab, serum [address] Outpatient Registration Lab/Ekg, [address], [place], [address], 4 11:49:26 mitochondr ial Ab, serum [address] [facility] Outpatient Registration Lab/Ekg, [address], [place], [address], 4 21:37:59 hepatic function panel, serum [address] Outpatient Registration Lab/Ekg, [address], [place], [address], 4 12:51:46 TSH + free T4, serum [address] Outpatient Registration Lab/Ekg, [address], [place], [address], 4 10:58:54 urinalysis , complete [address] [facility] Outpatient Registration Lab/Ekg, [address], [place], [address], 4 09:41:43 culture, urine [address] [facility] Outpatient Registration Lab/Ekg, [address], [place], [address], 4 14:27:01 lipid panel w/ direct LDL, serum [address] [facility] Outpatient Registration Lab/Ekg, [address], [place], [address], 4 23:38:25 CMP, serum or plasma [address] [facility] Outpatient Registration Lab/Ekg, [address] [facility] [address], [place], [address], 4 19:08:15 CBC w/ auto diff [address] [facility] Outpatient Registration Lab/Ekg, [address] [facility] [address], [place], [address], 4 18:13:11 vitamin B12 + folate, serum or blood [address] Outpatient Registration Lab/Ekg, [address] [facility] [address], [place], [address], 4 10:58:54 HbA1c (hemoglobi n A1c), blood [address] Outpatient Registration Lab/Ekg, [address] [facility] [address], [place], [address], 4 10:58:54 Referral None recorded. Procedures None recorded. Surgeries None recorded. Imaging None recorded. Medication Orders None recorded. Patient TargetsNo targets recorded. Patient Instructions Encounter Date Encounter Id Patient Instructions Last Modified By Organization Details Last Modified Time 11/27/2023 [id number] A healthy lifestyle: care instructions [place] [id number] Not available 12/12/2023 11:53:28 Reason for Referral None Reported. Results Created Date Observation Date Name Description Value Unit Range Abnormal Flag Note LastModifiedBy Organization Detail LastModifiedTime 02/12/2002/11/2024 XR, chest , 2 view No observ ation record ed. [address], [place], [address], 02/12/2024 13:58:21 02/12/20 24 02/11/2024 CT, chest + abdom en + pelvi s, w/ contr ast No observ ation record ed. [address], [place], [address], 02/12/2024 13:58:54 02/12/20 24 02/12/2024 US, liver No observ ation record ed. [facility] [address] [facility] [address], [place], [address], 02/12/2024 13:59:10 02/22/2002/20/2024 XR, chest , 2 view No observ ation record ed. [address], [place], [address], 02/22/2024 10:42:10 02/29/20 24 02/12/2024 US, echoc ardio gram No observ ation record ed. BARCODE Not Available 2023 16:03:21 04/02/20 24 04/01/2024 US, renal No observ ation record ed. [address] [facility] [address], [place], [address], 04/04/2024 09:42:37 04/06/2004/06/2024 crystal can cardi olite stres s test (PROC ) No observ ation record ed. [place] [id number] [facility] [address], [place], [address], 04/08/2024 16:34:16 04/15/2004/06/2024 exerc ise stres s test No observ ation record ed. BARCODE Not Available 2023 14:10:32 Result Notes None recorded. Problems Name Problem SNOMED Code Status Onset Date Resolution Date Notes Provider Name and Address Organization Details Recorded Time Benign essential hypertension 2057224 Active 2023 JOSE Ayala Attn: Sd covarrubias,[address], [place], [address], [place] [facility] 4 11:52:07 Chronic headache disorder 267919811 Active 2023 JOSE Ayala Attn: Sd covarrubias,[address], [place], [address], [place] 4 11:52:07 Major depressive disorder 455027932 Active 2023 JOSE Ayala Attn: Accountin g,[address] [facility], [place], [address], [place] [facility] 4 11:52:09 Obesity 435994029 Active 2023 JOSE Ayala Attn: Accountin g,[address], [place], [address], [place] [facility] 4 11:53:29 Body mass index 30+ - obesity 200262944 Active 2023 JOSE Ayala Attn: Accountin g,[address], [place], [address], [place] [facility] 4 11:53:29 Smooth muscle antibodies detected 626021846 Active 2023 JOSE Ayala Attn: Accountin g,[address], [place], [address], [place] [facility] 4 20:11:07 Liver enzymes level above reference range 956621119 Active 2023 JOSE Ayala Attn: Accountin g,[address] [facility], [place], [address], [place] [facility] 4 20:11:08 Pain of multiple joints 20917481 Active 2023 JOSE Ayala Attn: Accountin g,[address], [place], [address], [place] [facility] 4 23:07:59 Acute kidney injury 18204550 Active 2023 JOSE Ayala Attn: Accountin g,[address], [place], [address], [place] [facility] 4 23:08:44 Blood chemistry outside reference range 658176387 Active 2023 JOSE Ayala Attn: Accountin g,[address] [facility] [address], [place], [address], [place] [facility] 4 23:08:48 Pancreatitis 59376028 Active 2023 JOSE Ayala Attn: Sd covarrubias,[address], [place], [address], [facility] 4 23:08:50 Long-term drug therapy Active 2023 JOSE Ayala Attn: Sd covarrubias,[address], [place], [address], [facility] 4 23:09:02 Problem Notes None recorded. Procedures Surgical History Date Name Laterality Status Provider Name and Address Organization Details Recorded Time drainage of pleural cavity via chest tube completed Larisa Saavedra MA [facility] 11/27/2023 14:45:15 Imaging Results None recorded. Procedure [...] 11/27/2023 118/84 mm[Hg] JOSE Ayala Attn: Accounting,[address] [place], [address], [facility] 11/27/2023 15:17:07 Date Recorded Body weight Body mass index (BMI) Body height Heart rate Oxygen saturation Oxygen saturation in Arterial blood by Pulse oximetry Systolic And Diastolic Provider Name and Address Organization Details Last Updated DateTime 4 01846.3 4 g 33.4 kg/m2 167.64 cm 56 /min 98 % 98 % 124/74 mm[Hg] Larisa Saavedra MA [facility] 4 14:47:36 Date Recorded Body temperature Provider Name a mt Address Organization Details Last Updated DateTime 02/17/2024 98 [degF] JOSE Ayala Attn: Accounting,[address] [place], [address], [facility] 02/17/2024 15:50:14 Date Recorded Body height Body mass index (BMI) Body weight Respiratory rate Oxygen saturation Oxygen saturation in Arterial blood by Pulse oximetry Heart rate Systolic And Diastolic Provider Name and Address Organization Details Last Updated DateTime 4 167.64 cm 31.2 kg/m2 95257.6 1 g 20 /min 99 % 99 % 94 /min 118/88 mm[Hg] Conrado Lawson MA [facility] 4 15:25:24 Date Recorded Body height Body mass index (BMI) Body weight Respiratory rate Heart rate Oxygen saturation Oxygen saturation in Arterial blood by Pulse oximetry Systolic And Diastolic Provider Name and Address Organization Details Last Updated DateTime 4 167.64 cm 31.8 kg/m2 06552.8 4 g 20 /min 89 /min 99 % 99 % 110/80 mm[Hg] Jamilah Laughlin MA [facility] 4 17:07:42 Social History Question Answer Notes LastModified by Organizat ion Details LastModified Time Tobacco Smoking Status Former Smoker Larisa Saavedra MA null, [facility] 11/27/2023 14:43:48 Do You Have An [...] 11/27/2023 Are you able to care for yourself independently? 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 None Information not available 11/27/2023 Mental Status Question Answer Note LastModified by Organization D etails LastModified Time Do you feel stressed (tense, restless, nervous, or anxious, or unable to sleep at night)? [id number] Information not available 11/27/2023 Family History Relationship [...] Diagnosis SNOMED-CT Code Diagnosis ICD10 Code Diagnosis IMO Codes Diagnosis Note [id number] Mickey Ray MD [facility] [address] [place] [address] 11/27/2023 14:25:31 11/27/2023 15:58:32 Cholesterol screening 437708519 Z13.220 fasting lipids due Diabetes m ellitus screening 305660007 Z13.1 a1c annual screening due Thyroid di sorder screening 187568354 Z13.29 thyroid panel due Long-term drug therapy 996309731 Z79.899 cmp, cbc and b12, folate labs are due Lower urin jody tract symptoms 602290304 R39.9 check ua w/cx Adult heal th examination 308693572 Z00.01 annual wellness completed Benign ess ential hypertension 5269106 I10 stable on lisinopril 40mg daily and coreg 25mg bid. Chronic he adache disorder 498176256 G44.89 currently stable on amitripyli ne 50mg qhs and sumatripta n 50mg as directed. Still having headaches but not the worse they've been. Major depr essive disorder 061480600 F32.9 stable on venlafaxin e 100mg bid Body mass index 30+ - obesity 738118110 Z68.33 discussed healthy diet, exercise, controllin g carbohydra amada and added sugars in the diet Obesity 090151953 E66.8 [id number] Mickey Ray MD [facility] [employer] [address] [place] [address] 02/17/2024 15:09:45 02/18/2024 13:27:14 Acute kidney injury 47697398 N17.9 Repeat BMP to assess for creatinine improvemen t post acute kidney injury with hospitaliz ation. Patient has been hydrating well and not using any agents like NSAIDs that would contribute . She is also not taking any diuretic. Liver enzy mes level above reference range 197153483 R74.8 Mild liver enzyme continues with paroxysmal spikes in levels. We will repeat a hepatic function panel Smooth mus temo antibodies detected 528159844 R89.4 Previous smooth muscle antibodies were detected on screening we will repeat these as the lab did not run any smooth muscle antibody. Blood chem istry outside reference range 113067665 R79.9 Repeat CBC to evaluate for improvemen t in blood chemistry Benign ess ential hypertension 6990875 I10 stable on lisinopril 40mg daily and coreg 25mg bid. [id number] Mickey Ray MD [employer] [address] [place] [address] 03/04/2024 16:47:07 03/07/2024 11:09:52 Acute kidney injury 16063734 N17.9 Repeat BMP to evaluate for creatinine and improvemen t in kidney function and electrolyt es. Liver enzy mes level above reference range 239784571 R74.8 Repeat liver function panel with liver enzymes up and down Smooth mus temo antibodies detected 801172614 R89.4 Check smooth muscle antibody with liver enzymes up and down Blood chem istry outside reference range 501143570 R79.9 Repeat CBC with auto diff Pain of mu ltiple joints 75218896 M25.50 Refer for rheumatoid factor, C-reactive protein, sed rate, and RODDY panel for persistent multiple joint pain Pancreatitis 32596433 K8 5.90 Pancreatit is question questionab le in the hospital. Repeat lipase and amylase Benign ess ential hypertension 6866877 I10 stable on lisinopril 40mg daily and coreg 25mg bid. Major depr essive disorder 998149274 F32.9 stable on venlafaxin e 100mg bid Body mass index 30+ - obesity 663492206 Z68.33 discussed healthy diet, exercise, controllin g carbohydra amada and added sugars in the diet Long-term drug therapy 594924623 Z79.899 Health Concerns Section Related Observation LastModified by Organization Detai ls LastModified Time None Recorded Concern Status LastModified by Organization Details LastModified Time None Recorded Advance Directives Directive N: Payers Insurance Date Sequence Insurance Name Policy Number Policy Nieto Covered Member ID Nieto Member ID Guarantor Name 05/23/2024 1 [facility] [id number] Heidi Vaca [id number] Heidi Vaca Notes Date Note Type Note Provider Name and Address Organization Details Recorded Time 4 text/html HypertensionReported by Patientpt is on coreg 25mg bid, lisinopril 40mg daily. Anxiety/DepressionReporte d by Patientnow taking venlafaxine 100mg bid. stable. HeadacheReported by Patienttaking sumatriptan 50mg as directed PRN and amitriptyline 50mg qhs. Lower Urinary Tract Symptoms (LUTS)Reported by PatientHPIFor associated symptoms, patient reportsfrequencybut reportsno abdominal pain. For severity, patient reportspainless. For onset/timing, patient reports< 1 week. For duration, patient reports4-10 times a day. JOSE Ayala Attn: Accounting,[address], [place], [address], [facility] 12/12/2023 11:53:50 4 text/html HypertensionReported by Patientpt is on coreg 25mg bid, lisinopril 40mg daily. Anxiety/DepressionReporte d by Patientnow taking venlafaxine 100mg bid. stable. Patient was in the hospital for acute kidney injury, reports have been reviewed. Following up on abnormal labs. JOSE Ayala Attn: Accounting,[address], [place], [address], [facility] 03/12/2024 20:13:31 4 text/html HypertensionReported by Patientpt is on coreg 25mg bid, lisinopril 40mg daily. Anxiety/DepressionReporte d by Patientnow taking venlafaxine 100mg bid. stable. Patient was in the hospital for acute kidney injury, reports have been reviewed. Following up on abnormal labs. JOSE Ayala Attn: Accounting,[address], [place], [address], [facility] 03/14/2024 23:09:35 OBGyn Episode No OBEpisode recorded.
--- OUTSIDE RECORDS SUMMARY | 2025-04-04 19:03 | XMS_ITS | Data Portability ---
Author Organization [facility] Know[place], Main Office Address [address] [place] [address] Assessment No assessment recorded. Plan of Treatment Reminders Order Date Submit Date Provider Last Modified By Organization Details Last Modified Time Details Appointments None recorded. Lab None recorded. Referral None recorded. Procedures None recorded. Surgeries None recorded. Imaging None recorded. Medication Orders venlafaxine 75 mg tablet 2022 023 [email or web address] [id number], [id number], [address], 3 17:18:09 amitriptyli ne 25 mg tablet 2022 023 [email or web address] [id number], [address], [address], 3 17:18:04 carvedilol 25 mg tablet 2022 023 MIRIAN [id number], [id number], [address], 3 17:03:32 Patient TargetsNo targets recorded. Patient InstructionsNo instructions recorded. Reason for Referral None Reported. Results Created Date Observation Date Name Description Value Unit Range Abnormal Flag Note LastModifiedBy Organization Detail LastModifiedTime 11/29/19 22 10/10/2021 imagi ng/di agnos tic resul t No observ ation record ed. [id number] Not Available 08/13/2022 03:10:20 04/22/20 22 02/05/2022 MRI, cervi matias spine , w/ contr ast No observ ation record ed. [id number] [facility] [address], [place], [address], 08/13/2022 03:10:20 04/23/20 22 02/05/2022 MRI, thora cic spine , w/o contr ast No observ ation record ed. [id number] Not Available 08/13/2022 03:10:20 Result Notes None recorded. Problems Name Problem SNOMED Code Status Onset Date Resolution Date Notes Provider Name and Address Organization Details Recorded Time Knee pain Active Not Available [facility] 3 02:54:46 Benign essential hypertensi on 7511522 Active 2018 Not Available [facility] 3 02:54:46 Insomnia 307255056 Active 2018 Not Available [facility] 3 02:54:46 Generalize d anxiety disorder 26363635 Active 2018 Not Available [facility] 3 02:54:46 Major depressive disorder 972801718 Active 2018 Not Available [facility] 3 02:54:46 Hyperlipid emia 27283114 Active 2019 Not Available [facility] 3 02:54:47 Postconcus caryn syndrome 98562591 Active 2021 Not Available [facility] 3 02:54:46 Dizziness 472820660 Active 2021 Not Available [facility] 3 02:54:47 Daily headache 708415642750 Active 2021 Not Available [facility] 3 02:54:47 Nausea 064647220 Active 2021 Not Available [facility] 3 02:54:47 Mixed anxiety and depressive disorder 639760833 Active 2021 Not Available [facility] 3 02:54:46 Post-traum atic stress disorder 00809966 Active 2021 Not Available [facility] 3 02:54:47 Migraine 35295472 Active 2021 Not Available [facility] 3 02:54:46 Chronic headache disorder 801583377 Active 2022 JOSE Ayala [address], [place], [address] , [facility] 3 17:01:38 Headache 81311283 Active 2023 JOSE Ayala [address], [place], [address] , [employer] 4 10:18:26 Problem Notes None recorded. Procedures Surgical History Date Name Laterality Status Provider Name and Address Organization Details Recorded Time Colonoscopy completed Not Available [facility] 08/13/2022 02:45:24 LAB ENGINEER Surgery completed Not Available [facility] 08/13/2022 02:45:24 Imaging Results None recorded. Procedure [...] henidate ER 15 mg capsule,ex tended release [id number] -50 TAKE 1 PILL BY MOUTH QD [...] % 91 /min 16 /min 96.3 [degF] 94295.7 7 g 118/70 mm[Hg] Not Available [facility] 3 02:48:37 Date Recorded Body mass index (BMI) Body height Oxygen saturation Oxygen saturation in Arterial blood by Pulse oximetry Heart rate Respiratory rate Body temperature Body weight Systolic And Diastolic Provider Name and Address Organization Details Last Updated DateTime 2 33.5 kg/m2 170.18 cm 98 % 98 % 93 /min 16 /min 97.2 [degF] 31643.7 7 g 128/80 mm[Hg] Not Available [facility] 3 02:48:37 Date Recorded Systolic And Diastolic Systolic And Diastolic Provider Name and Address Organization Details Last Updated DateTime 02/18/2023 130/90 mm[Hg] 130/86 mm[Hg] JOSE Ayala [address], [facility] [address], [place], [address], [facility] [employer] [facility] 02/18/2023 17:01:04 Date Recorded Body height Body temperature Body mass index (BMI) Body weight Respiratory rate Heart rate Systolic And Diastolic Provider Name and Address Organization Details Last Updated DateTime 3 170.18 cm 97.3 [degF] 30.9 kg/m2 51205.7 g 16 /min 80 /min 140/100 mm[Hg] MYNOR Zuniga [facility] [employer] [facility] 3 16:35:09 Date Recorded Body mass index (BMI) Body height Oxygen saturation Oxygen saturation in Arterial blood by Pulse oximetry Heart rate Respiratory rate Body temperature Body weight Systolic And Diastolic Provider Name and Address Organization Details Last Updated DateTime 2 33.4 kg/m2 170.18 cm 98 % 98 % 90 /min 16 /min 96.8 [degF] 05083.1 7 g 120/80 mm[Hg] Not Available [facility] 3 02:48:38 Date Recorded Body height Oxygen saturation Oxygen saturation in Arterial blood by Pulse oximetry Heart rate Body temperature Body weight Systolic And Diastolic Provider Name and Address Organization Details Last Updated DateTime 2 170.18 cm 97 % 97 % 78 /min 97.1 [degF] 98751.4 g 120/78 mm[Hg] Not Available [facility] 3 02:48:38 Social History Question Answer Notes LastModified by Organizat ion Details LastModified Time Tobacco Smoking Status Former Smoker Quit 02/26/20 Not Available [facility] 08/13/2022 02:37:15 Do You Have An Advance Directive? No [id number].26577 [id number] Information not available 08/13/2022 Do You Wear A Helmet When Biking? No MIGRATION.76303 44540 Information not available 08/13/2022 What Is Your Level Of Caffeine Consumption? Moderate MIGRATION.89059 27510 Information not available 08/13/2022 How Much Tobacco Do You Chew? None MIGRATION.08814 35170 Information not available 08/13/2022 In The 14 Days Before Symptom Onset, Have You Had Close Contact With A Laboratory-confi rmed COVID-19 While That Case Was Ill? No MIGRATION.61718 79262 Information not available 08/13/2022 In The 14 Days Before Symptom Onset, Have You Had Close Contact With A Person Who Is Under Investigation For COVID-19 While That Person Was Ill? No MIGRATION.02379 51363 Information not available 08/13/2022 What Type Of Diet Are You Following? REGULAR MIGRATION.61928 80150 Information not available 08/13/2022 Which Illicit Or Recreational Drugs Have You Used? None MIGRATION.47209 29378 Information not available 08/13/2022 What Is The Highest Grade Or Level Of School You Have Completed Or The Highest Degree You Have Received? [id number] MIGRATION.20410 25759 Information not available 08/13/2022 Have There Been Any Changes To Your Family Or Social Situation? No MIGRATION.71871 96143 Information not available 08/13/2022 Are There Any Guns Present In Your Home? Yes MIGRATION.56913 01359 Information not available 08/13/2022 Do You Use Insect Repellent Routinely? No MIGRATION.81584 81988 Information not available 08/13/2022 Where Do You Live? [place] MIGRATION.99491 97345 Information not available 08/13/2022 Do You Have A Medical Power Of Ground Host/Hostess? No MIGRATION.09211 90530 Information not available 08/13/2022 Do You Have Any Pets? No MIGRATION.90171 26790 Information not available 08/13/2022 What Is Your Relationship Status? MIGRATION.12420 18099 Information not available 08/13/2022 Do You Use Your Seat Belt Or Car Seat Routinely? Yes MIGRATION.08965 58846 Information not available 08/13/2022 Do You Have Smoke And Carbon Monoxide Detectors In Your Home? Yes MIGRATION.10906 75394 Information not available 08/13/2022 Are You Passively Exposed To Smoke? No MIGRATION.83887 27307 Information not available 08/13/2022 Are There Any Smokers In Your House? No MIGRATION.66718 64721 Information not available 08/13/2022 How Much Tobacco Do You Smoke? 0.5 PPD MIGRATION.74884 81838 Information not available 08/13/2022 Do You Use Sunscreen Routinely? No MIGRATION.98777 02949 Information not available 08/13/2022 Have You Recently Traveled Abroad? No MIGRATION.11829 66867 Information not available 08/13/2022 Do You Have Any Dietary Restrictions? No MIGRATION.50235 13397 Information not available 08/13/2022 Sex: Unknown Functional Status Question Answer Note LastModified by AM [employer] Details LastModified Time Do you use any illicit or recreational drugs? No MIGRATION.671447 6744 Information not available 08/13/2022 Do you or have you ever used any other forms of tobacco or nicotine? No MIGRATION.378794 4122 Information not available 08/13/2022 What is your level of alcohol consumption? Occasional MIGRATION.588130 1414 Information not available 08/13/2022 Do you or have you ever used smokeless tobacco? Never used smokeless tobacco MIGRATION.004066 8850 Information not available 08/13/2022 Are you currently employed? 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 Never used electronic cigarettes MIGRATION.015799 9086 Information not available 08/13/2022 What is your exercise level? Occasional MIGRATION.165252 3039 Information not available 08/13/2022 Mental Status Question Answer Note LastModified by [employer] Details LastModified Time Do you feel stressed (tense, restless, nervous, or anxious, or unable to sleep at night)? [id number] MIGRATION.[id number] 6 Information not available 08/13/2022 Family History Relationship Description Onset Age of this Age Resolved Age Notes LastModified by Organization Details LastModified Time Mother Hypertensive disorder [id number] [id number] Not available 08/13/2022 02:45:28 Mother Parkinson's disease MIGRATION.917 [id number] Not available 08/13/2022 02:45:28 Father Hypertensive disorder MIGRATION.104 0912014 Not available 08/13/2022 02:45:28 Father Alcoholism MIGRATION.042 [id number] Not available 08/13/2022 02:45:28 Medical History Condition [...] virus, quadrivalent, preservative 7 completed Not Available [facility] 08/13/2022 03:09:18 Past Encounters Encounter ID Performer Location Encounter Start Date Encounter Closed Date Diagnosis/Indication Diagnosis SNOMED-CT Code Diagnosis ICD10 Code Diagnosis IMO Codes Diagnosis Note [id number] JOSE Ayala [facility] [address] [place] [address] 10/11/2020 00:00:00 10/11/2020 18:42:30 [id number] JOSE Ayala [facility] [address] [place] [address] 11/27/2020 00:00:00 12/12/2020 18:03:53 [id number] JOSE Ayala [facility] [address] [place] [address] 12/10/2020 00:00:00 12/10/2020 21:12:24 [id number] JOSE Ayala [facility] [address] [place] [address] 04/30/2021 00:00:00 05/05/2021 10:26:17 [id number] JOSE Ayala [facility] [address] [place] [address] 08/19/2021 00:00:00 09/12/2021 17:11:13 [id number] JOSE Ayala [facility] [address] [place] [address] 09/12/2021 00:00:00 09/12/2021 13:41:07 [id number] Mickey Ray MD [facility] [address] [place] [address] 11/04/2021 00:00:00 11/11/2021 17:54:15 [id number] Mickey Ray MD [facility] [address] [place] [address] 11/27/2021 00:00:00 12/12/2021 14:13:47 [id number] JOSE Ayala [facility] [address] [place] [address] 04/01/2022 00:00:00 04/12/2022 20:43:24 [id number] JOSE Ayala [facility] [address] [place] [address] 04/23/2022 00:00:00 05/14/2022 21:23:11 [id number] JOSE Ayala [facility] [address] [place] [address] 02/18/2023 16:01:43 02/18/2023 17:07:07 Benign essential hypertension 6000000 I10 Rx for coreg 25mg bid. Chronic he adache disorder 377736370 G44.89 refill amitriptyl ine 25mg qhs Major depr essive disorder 713643258 F32.9 Refill effexor 75mg bid Health Concerns Section Related Observation LastModified by Organization Detai ls LastModified Time None Recorded Concern Status LastModified by Organization Details LastModified Time None Recorded Advance Directives Directive N: Payers Insurance Date Sequence Insurance Name Policy Number Policy Nieto Covered Member ID Nieto Member ID Guarantor Name 02/17/2023 1 *SELF PAY* Sabiha Vaca 02/17/2023 1 R [id number] Heidi Vaca [id number] Heidi Vaca Notes Date Note Type Note Provider Name and Address Organization Details Recorded Time 02/19/20 23 text/htm l Hypertension F/UReported by PatientHPIFor associated symptoms, patient reportsdizziness,lightheadedness , andsensory disturbancesbut reportsno chest pain,no shortness of breath,no palpitations,no edema, andno calf pain with exertion. For lifestyle, patient reportsnot exercising regularlybut reportslimiting/avoiding salt. For medications, patient reportstaking medications as directed,no side effects from medication, andchecks blood pressure at home (range 687779). HeadacheReported by PatientHPIFor quality, patient reportsachingandcontinuousbut reportssimilar to previous headaches. For context, patient reportsrelated to trauma (fell and got concussion)but reportsnot related to trauma. For associated symptoms, patient reportsdizzinessbut reportsno nausea,no vomiting,no fever, andno double vision. For location, patient reportsbilateral,occipital,front al,temporal,deep, andband around head. For severity, patient reportsmoderate. For duration, patient reportsconstant. For onset/timing, patient reportsstill present. For alleviating factors, patient reportslaying in a dark roomandrest. JOSE Ayala [address] [facility] [address], [place], [address], [facility] 03/11/2023 23:49:07 OBGyn Episode No OBEpisode recorded.
--- OUTSIDE RECORDS SUMMARY | 2025-04-04 19:03 | XMS_ITS | Clinical Summary ---
Author Organization [facility] D Address [address] [place] [address] Care Team Providers Care Project Manager Finance Name Role Phone LucillealbanYamile Primary Care Pr [...] on file Legal Sex Female 6:48 AM HAND BINDER STRIPPER Gender Identity Female 06/03/2020 2:27 PM HAND BINDER STRIPPER Sexual Orientation Straight 06/03/2020 2: 27 PM HAND BINDER STRIPPER Obstetrics History Last Filed Vital Signs Vital Sign Reading Time Taken Comments Blood Pressure 144/102 06/04/2020 12:45 PM HAND BINDER STRIPPER Pulse 92 06/04/2020 12:45 PM HAND BINDER STRIPPER Temperature 36.8 C (98.2 F) 06/04/2020 12:45 PM HAND BINDER STRIPPER Respiratory Rate - - Oxygen Saturation - - Inhaled Oxygen Concentration - - Weight 99.8 kg (220 lb) 06/04/2020 12:45 PM HAND BINDER STRIPPER Height - - Body Mass Index - - Plan of Treatment Health Maintenance Due Date Last Done Comments Breast Cancer Screening-Mammogram 1972 Cervical Cancer Screening 1972 Colon Cancer Screening-Colonoscopy 1972 Depression Screening 1972 Hepatitis C Screening 1972 DTaP/Tdap/Td Vaccine (1 - Tdap) 1983 Hepatitis B Screening 1990 Regular Well Visit/Exam 18-64 1990 Zoster Vaccine (1 of 2) 2022 Covid-19 Vaccine (3 - 2024-2 6 season) 2025 08/14/2020, 07/17/2020 Influenza Vaccine (#1) 2025 06/15/2016 Pneumococcal vaccine <65 Aged Out No longer eligible based on patient's age to complete this topic Insurance [facility] [place] [address] [facility] Member Subscriber Plan / Payer (Ef fective 2018-Present) Name:Jennifer Vacapepe Gonsalves Relation to Subscriber:Self Name:Heidi Vaca Payer ID:[id number] (NAIC) Type:[facility] HMO/PPO Address: [address] [facility] Care Teams Project Manager Finance Relationship Specialty Start Date End Date Yamile Avalos PA PCP - General Physician Class A Truck Driver 04/23/20
--- OUTSIDE RECORDS SUMMARY | 2025-04-04 19:03 | XMS_ITS | Encounter Summary ---
Author Organization [facility] Address [address] [place] [address] Care Team Providers Care Streetcar Operator Name Role Phone Yamile Avalos Primary Care Provider [phone] Encounter Details Date Type Department Care Team (Late st Contact Info) Description 10/26/2017 Abstract [facility] Conversion Ron Harley MD [address] [place] [address] [address] Social History Tobacco Use Types [...] CDT 27 Oct 2017 Heidi Vaca [address] [place] [address] Dear Heidi Vaca, Thank you for the trust you have placed in [facility] as your health care team. You [...] hope to hear from you soon. Sincerely, [facility] cc: Patient Medical Record RVENTIONAL TECHNOLOGIST documented in this encounter Plan of Treatment Not on file documented as of this encounter Visit Diagnoses Not on filedocumented in this encounter Care Teams Streetcar Operator Relationship Specialty Start Date End Date Yamile Avalos PA PCP - General PHYSICIAN IMPORT CUSTOMS CLEARING AGENT 10/04/21 documented as of this encounter
== END 2025-04-04 15:16 | disposition home or self-care (01) ==
LOC: ANHLAB 15:16
PROVIDERS: PCP Nurse Practitioner Family; Visit Provider Nurse Practitioner Family
DX: E87.6 Hypokalemia (principal)
CPT/HCPCS: 36415; 80053

== ENCOUNTER 2025-05-09 07:01 | Emergency (ER) | payer OTHER, SELFPAY ==
--- OUTSIDE RECORDS SUMMARY | 2025-05-09 07:04 | XMS_ITS | Encounter Summary ---
Author Organization [facility] Address [address] [place] [address] Care Team Providers Care Door To Door Lead Generation Name Role Phone Yamile Avalos Primary Care Provider [phone] Encounter Details Date Type Department Care Team (Late st Contact Info) Description 10/26/2017 Abstract [facility] Conversion Ron Harley MD [address] [address] Social History Tobacco Use Types [...] CDT 27 Oct 2017 Heidi Vaca [address] [place] [address] Dear Heidi Vaca, Thank you for the trust you have placed in [facility] as your health care team. You [...] hope to hear from you soon. Sincerely, [facility] cc: Patient Medical Record ANTINE OFFICER documented in this encounter Plan of Treatment Not on file documented as of this encounter Visit Diagnoses Not on filedocumented in this encounter Care Teams Door To Door Lead Generation Relationship Specialty Start Date End Date Yamile Avalos PA PCP - General PHYSICIAN SENIOR DIRECTOR 10/04/21 documented as of this encounter
--- OUTSIDE RECORDS SUMMARY | 2025-05-09 07:04 | XMS_ITS | Encounter Summary ---
Author Organization [facility] Address [address] [facility] [address] Care Team Providers Care Mechanical Equipment Sales Engineer Name Role Phone Mickey Zamora MD Primary Care Provider + Encounter Details Date Type Department Care Team (Late st Contact Info) Description 05/09/2014 Lab Requisition [facility] [address] [place] [address] Unknown, Provider Social History Tobacco Use Types Packs/Day Years Used Date Smoking Tobacco: Every Day Cigarettes Smokeless Tobacco: Never Alcohol Use Standard Drinks/Week Comments Yes 0 (1 standard drink = 0.6 oz pur e alcohol) 12 per week Comments Unknown Sex and Gender Information Value Date Recorded Sex Assigned at Not on file Legal Sex Female 5:35 AM SUPERVISOR FISH BAIT PROCESSING Gender Identity Not on file Sexual Orientation Not on file 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 Not on file Not on file documented as of this encounter Plan of Treatment Not on file documented as of this encounter Procedures Procedure Name Priority Date/Time Associated Diagnosis Comments VARICELLA ZOSTER ANTIBODY IGG Routine 05/09/2014 1:50 PM SUPERVISOR FISH BAIT PROCESSING documented in this encounter Results * VARICELLA ZOSTER ANTIBODY IGG (05/09/2014 1:50 PM SUPERVISOR FISH BAIT PROCESSING) Varicella zoster Virus Antibody IgG 1001.0 IV 05/11/2014 10:41 AM SUPERVISOR FISH BAIT PROCESSING [facility] Comment: INTERPRETIVE INFORMATION: VZV Ab, IgG [...] Unknown Venipuncture / Unknown 05/09/2014 1:50 PM SUPERVISOR FISH BAIT PROCESSING 05/09/2014 5:57 PM SUPERVISOR FISH BAIT PROCESSING us Provider Unknown LAB - CHEMISTRY ORDERABLES Jessie l Result [facility] ([facility] [address] documented in this encounter Visit Diagnoses Not on filedocumented in this encounter Care Teams Mechanical Equipment Sales Engineer Relationship Specialty Start Date End Date Mickey Zamora MD PCP - General Family Medicine 07/06/13 05/16/24 documented as of this encounter
--- OUTSIDE RECORDS SUMMARY | 2025-05-09 07:04 | XMS_ITS | Clinical Summary ---
Author Organization [facility] D Address [address] [place] [address] Care Team Providers Care Public Health Inspector Name Role Phone LucillealbanYamile Primary Care Pr [...] on file Legal Sex Female 6:48 AM INCOME TAX EXPERT Gender Identity Female 06/03/2020 2:27 PM INCOME TAX EXPERT Sexual Orientation Straight 06/03/2020 2: 27 PM INCOME TAX EXPERT Last Filed Vital Signs Vital Sign Reading Time Taken Comments Blood Pressure 144/102 06/04/2020 12:45 PM INCOME TAX EXPERT Pulse 92 06/04/2020 12:45 PM INCOME TAX EXPERT Temperature 36.8 C (98.2 F) 06/04/2020 12:45 PM INCOME TAX EXPERT Respiratory Rate - - Oxygen Saturation - - Inhaled Oxygen Concentration - - Weight 99.8 kg (220 lb) 06/04/2020 12:45 PM INCOME TAX EXPERT Height - - Body Mass Index - - Plan of Treatment Not on file Insurance [facility] [employer]/PPO Address: [address] [address] [facility] HMO/PPO Address: [address] [place], [place] [address] [facility] HMO/PPO Address: [facility] [address] [place] [address] Care Teams Public Health Inspector Relationship Specialty Start Date End Date Yamile Avalos PA PCP - General Physician Independent Crop Consultant 04/23/20
--- OUTSIDE RECORDS SUMMARY | 2025-05-09 07:04 | XMS_ITS | Clinical Summary ---
Author Organization [facility] Address [facility] [place] [address] Care Team Providers Care Scooter Mechanic Name Role Phone Yamile Avalos Primary Care Provider [phone] Allergies No known active allergies Medications ALPRAZolam [...] Comments Blood Pressure 131/88 07/15/2022 2:31 PM FIRST LINE SUPERVISOR Pulse 77 07/15/2022 2:31 PM FIRST LINE SUPERVISOR Temperature 36.5 C (97.7 F) 07/15/2022 1:57 PM FIRST LINE SUPERVISOR Respiratory Rate - - Oxygen Saturation 98% 07/15/2022 1:57 PM FIRST LINE SUPERVISOR Inhaled Oxygen Concentration - - Weight 100.9 kg (222 lb 8 oz) 07/15/2022 1:57 PM FIRST LINE SUPERVISOR Height 167.6 cm (5' 6) 07/15/2022 1:57 PM FIRST LINE SUPERVISOR p t stated Body Mass Index 35.91 07/15/2022 1:57 PM FIRST LINE SUPERVISOR Plan of Treatment Health Maintenance Due Date [...] complete this topic Insurance MEDICAID Care Teams Scooter Mechanic Relationship Specialty Start Date End Date Yamile Avalos PA PCP - General PHYSICIAN DENTAL HYGIENE PROFESSOR 10/04/21
--- OUTSIDE RECORDS SUMMARY | 2025-05-09 07:04 | XMS_ITS | Encounter Summary ---
Author Organization [facility] Health Address [address] [place] [address] Care Team Providers Care First Dyer Name Role Phone Mickey Zamora MD Primary Care Provider + Encounter Details Date Type Department Care Team (Late st Contact Info) Description 07/16/2013 [facility] Outpatient Visit [facility] Neurosciences [address] [facility] [address] [place], [place] [id number] [place] [id number] [facility] [address] [place] [address] Social History Tobacco Use Types Packs/Day Years Used Date Smoking Tobacco: Every Day Cigarettes Smokeless Tobacco: Never Alcohol Use Standard Drinks/Week Comments Yes 0 (1 standard drink = 0.6 oz pur e alcohol) 12 per week Comments Unknown Sex and Gender Information Value Date Recorded Sex Assigned at Not on file Legal Sex Female 5:35 AM LABORER VINEYARD Gender Identity Not on file Sexual Orientation Not on file 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
[2025-05-09 07:10] VITALS: BP 158/98; PULSE 65; RESP 15; TEMP 36.6; O2SAT 100
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
[2025-05-09] MEDS: HYDROcodone/acetaminophen (*CRX) 5-325 MG TABLET 1 TAB PO (07:23)
--- OUTSIDE RECORDS SUMMARY | 2025-05-09 07:37 | XMS_ITS | Clinical Summary ---
Author Organization [facility] Address [facility] [place] [address] Care Team Providers Care Jewel Cupping Machine Operator Name Role Phone Yamile Avalos Primary Care Provider [phone] Allergies No known active allergies Medications ALPRAZolam [...] Comments Blood Pressure 131/88 07/15/2022 2:31 PM ACID CONCENTRATOR Pulse 77 07/15/2022 2:31 PM ACID CONCENTRATOR Temperature 36.5 C (97.7 F) 07/15/2022 1:57 PM ACID CONCENTRATOR Respiratory Rate - - Oxygen Saturation 98% 07/15/2022 1:57 PM ACID CONCENTRATOR Inhaled Oxygen Concentration - - Weight 100.9 kg (222 lb 8 oz) 07/15/2022 1:57 PM ACID CONCENTRATOR Height 167.6 cm (5' 6) 07/15/2022 1:57 PM ACID CONCENTRATOR p t stated Body Mass Index 35.91 07/15/2022 1:57 PM ACID CONCENTRATOR Plan of Treatment Health Maintenance Due Date [...] complete this topic Insurance MEDICAID Care Teams Jewel Cupping Machine Operator Relationship Specialty Start Date End Date Yamile Avalos PA PCP - General PHYSICIAN MINE CAPTAIN 10/04/21
--- OUTSIDE RECORDS SUMMARY | 2025-05-09 07:37 | XMS_ITS | Encounter Summary ---
Author Organization [facility] Address [address] [place] [address] Care Team Providers Care Personal Care Assistant Name Role Phone Mickey Zamora MD Primary Care Provider + Encounter Details Date Type Department Care Team (Late st Contact Info) Description 05/09/2014 Lab Requisition [facility] [address] [place] [address] Unknown, Provider Social History Tobacco Use Types Packs/Day Years Used Date Smoking Tobacco: Every Day Cigarettes Smokeless Tobacco: Never Alcohol Use Standard Drinks/Week Comments Yes 0 (1 standard drink = 0.6 oz pur e alcohol) 12 per week Comments Unknown Sex and Gender Information Value Date Recorded Sex Assigned at Not on file Legal Sex Female 5:35 AM BURNISHER Gender Identity Not on file Sexual Orientation Not on file 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 Not on file Not on file documented as of this encounter Plan of Treatment Not on file documented as of this encounter Procedures Procedure Name Priority Date/Time Associated Diagnosis Comments VARICELLA ZOSTER ANTIBODY IGG Routine 05/09/2014 1:50 PM BURNISHER documented in this encounter Results * VARICELLA ZOSTER ANTIBODY IGG (05/09/2014 1:50 PM BURNISHER) Varicella zoster Virus Antibody IgG 1001.0 IV 05/11/2014 10:41 AM BURNISHER [facility] ([facility]) Comment: INTERPRETIVE INFORMATION: VZV Ab, [...] Unknown Venipuncture / Unknown 05/09/2014 1:50 PM BURNISHER 05/09/2014 5:57 PM BURNISHER us Provider Unknown LAB - CHEMISTRY ORDERABLES Jessie l Result [facility] ([facility]) [address] documented in this encounter Visit Diagnoses Not on filedocumented in this encounter Care Teams Personal Care Assistant Relationship Specialty Start Date End Date Mickey Zamora MD PCP - General Family Medicine 07/06/13 05/16/24 documented as of this encounter
--- OUTSIDE RECORDS SUMMARY | 2025-05-09 07:37 | XMS_ITS | Encounter Summary ---
Author Organization [facility] Health Address [address] [facility] [place] [address] Care Team Providers Care Director Medical Surgical Name Role Phone Mickey Zamora MD Primary Care Provider + Encounter Details Date Type Department Care Team (Late st Contact Info) Description 07/16/2013 [facility] Outpatient Visit [facility] Neurosciences [address] [facility] [address] [place], [place] [id number] [place] [address] [facility] [address] [place] [address] Social History Tobacco Use Types Packs/Day Years Used Date Smoking Tobacco: Every Day Cigarettes Smokeless Tobacco: Never Alcohol Use Standard Drinks/Week Comments Yes 0 (1 standard drink = 0.6 oz pur e alcohol) 12 per week Comments Unknown Sex and Gender Information Value Date Recorded Sex Assigned at Not on file Legal Sex Female 5:35 AM SANITARY LANDFILL SUPERVISOR Gender Identity Not on file Sexual Orientation Not on file 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
--- OUTSIDE RECORDS SUMMARY | 2025-05-09 07:37 | XMS_ITS | Encounter Summary ---
Author Organization [facility] Address [address] [place] [address] Care Team Providers Care Jack Prizer Name Role Phone Yamile Avalos Primary Care Provider [phone] Encounter Details Date Type Department Care Team (Late st Contact Info) Description 10/26/2017 [facility] [place] [address] [address] Social History Tobacco Use Types [...] CDT 27 Oct 2017 Heidi Vaca [address] [place] [address] Dear Heidi Vaca, Thank you for the trust you have placed in [facility] as your health care team. You are [...] to hear from you soon. Sincerely, [facility] cc: Patient Medical Record BACK OPERATOR documented in this encounter Plan of Treatment Not on file documented as of this encounter Visit Diagnoses Not on filedocumented in this encounter Care Teams Jack Prizer Relationship Specialty Start Date End Date Yamile Avalos PA PCP - General PHYSICIAN MANAGER RISK MANAGEMENT 10/04/21 documented as of this encounter
--- OUTSIDE RECORDS SUMMARY | 2025-05-09 07:37 | XMS_ITS | Clinical Summary ---
Author Organization [facility] Address [address] [place] [id number] Care Team Providers Care Client Portfolio Manager Name Role Phone LucillealbanYamile Primary Care Pr [...] on file Legal Sex Female 6:48 AM ORACLE BPM CONSULTANT Gender Identity Female 06/03/2020 2:27 PM ORACLE BPM CONSULTANT Sexual Orientation Straight 06/03/2020 2: 27 PM ORACLE BPM CONSULTANT Last Filed Vital Signs Vital Sign Reading Time Taken Comments Blood Pressure 144/102 06/04/2020 12:45 PM ORACLE BPM CONSULTANT Pulse 92 06/04/2020 12:45 PM ORACLE BPM CONSULTANT Temperature 36.8 C (98.2 F) 06/04/2020 12:45 PM ORACLE BPM CONSULTANT Respiratory Rate - - Oxygen Saturation - - Inhaled Oxygen Concentration - - Weight 99.8 kg (220 lb) 06/04/2020 12:45 PM ORACLE BPM CONSULTANT Height - - Body Mass Index - - Plan of Treatment Not on file Insurance [facility] [address] Care Teams Client Portfolio Manager Relationship Specialty Start Date End Date Yamile Avalos PA PCP - General Physician Power Digger Operator 04/23/20
== END 2025-05-09 07:46 | disposition home or self-care (01) ==
LOC: ANHED 07:34
PROVIDERS: Emergency Provider Emergency Medicine; PCP Nurse Practitioner Family
DX: K08.89 Other specified disorders of teeth and supporting structures (principal); N28.9 Disorder of kidney and ureter, unspecified; M19.90 Unspecified osteoarthritis, unspecified site; F41.9 Anxiety disorder, unspecified; F32.A Depression, unspecified; E78.5 Hyperlipidemia, unspecified
CPT/HCPCS: 99283; A9270